=== PATIENT | male | born 1945 | race Caucasian/White ===

== ENCOUNTER 2018-04-10 20:59 | Emergency (ER) | payer OTHER ==
--- NOTE | 2018-04-10 21:36 | RAD REPORT ---
EXAM DESCRIPTION: CT - Ct Stroke Brain Wo Cont - 04/10/2018 9:28 pm CLINICAL HISTORY: Weakness, numbness, stroke-like symptoms CLINICAL HISTORY: May 2016, June 2013 TECHNIQUE: Axial 5 millimeter thick images of the head were obtained without IV contrast. All CT scans are performed using dose optimization technique as appropriate and may include automated exposure control or mA/KV adjustment according to patient size. FINDINGS: No intracranial hemorrhage, mass, or cerebral edema. No acute cortical based infarction. N o cortical edema or sulcal effacement. Mild to moderate atrophy and chronic ischemic changes are pres ent. Ventricles are in proportion to volume loss. Small focal hyperdensity near the anterior third ve ntricle could be part of choroid plexus. Small colloid cyst is possible. No changes occurred back to 2012. No extra-axial fluid collections. Hebert matter-white matter differentiation is preserved. Arterial and physiologic calcifications are present. Visualized portions of the mastoid air cells, paranasal sinuses, and orbits are unremarkable. Findings telephoned to Dr. Borrero at 2132 hours IMPRESSION: No intracranial hemorrhage. No acute cortical based infarction identified. Atrophy and chronic ischemic changes are present similar to comparison. Chronic ischemic changes can mask nonhemorrhagic acute infarction. MR brain followup can be obtained if there is ongoing concern for acute ischemia.
[2018-04-10 21:43] LABS: Absolute Lymphocytes (CBC) 1.4 K/uL (0.7-4.9); Absolute Monocytes 0.9 K/uL (0.1-1.3); Absolute Neutrophil 6.4 K/uL (1.8-8.0); Eosinophils % 5.1 % (0-4.4); Hematocrit 43.6 % (39.6-49.0); Lymphocytes % 15.3 % (15.3-44.8); MCH 32.5 pg (27.0-35.0); MCV 93.2 fL (80-100); MPV 9.3 fL (7.6-11.3); RBC Red Blood Cell Count 4.68 M/uL (4.33-5.43)
[2018-04-10] MEDS ORDERED: ALTEPLASE 100 ML IV ONE (21:44)
[2018-04-10 21:52] LABS: Protime INR 1.05
[2018-04-10 22:00] LABS: Potassium 3.4 mmol/L (3.5-5.1)
--- NOTE | 2018-04-10 22:08 | EDPHYS ---
Physician Documentation [facility] Name: Zen Patterson Age: 73 yrs Sex: Male : 1945 Arrival Date: 04/10/2018 Time: 21:07 Bed 27 Private MD: ED Physician Erick Borrero HPI: 04/10 22:06 This 73 yrs old Male presents to ER via EMS with complaints of S/S of rn Possible Stroke. 22:06 The patient's problem is reported as paresthesias, weakness. The patient's problem is rn reported as paresthesias, in left upper extremity, in left lower extremity, weakness, in the left upper extremity, in the left lower extremity. Onset: The symptoms/episode began/occurred 45 min prior to arrival. Context: the episode(s) was witnessed, by a significant other. Historical: - Allergies: 21:14 No Known Allergies; mb3 - PMHx: 21:14 CHF; CVA; Hyperlipidemia; Hypertension; mb3 - Immunization history:: Adult Immunizations up to date. - Social history:: Smoking status: Patient/guardian denies using tobacco, the patient reports quitting approximately 30 years ago. - Ebola Screening: : Patient denies travel to an Ebola-affected area in the 21 days before illness onset No symptoms or risks identified at this time. ROS: 22:08 Constitutional: Negative for fever, chills, and weight loss, Eyes: Negative for injury, rn pain, redness, and discharge, Neck: Negative for injury, pain, and swelling, Cardiovascular: Negative for chest pain, palpitations, and edema, Respiratory: Negative for shortness of breath, cough, wheezing, and pleuritic chest pain, Abdomen/GI: Negative for abdominal pain, nausea, vomiting, diarrhea, and constipation, MS/Extremity: Negative for injury and deformity, Skin: Negative for injury, rash, and discoloration, Neuro: Negative for headache, and seizure. Exam: 22:08 Constitutional: This is a well developed, well nourished patient who is awake, alert, rn and in no acute distress. Head/Face: Normocephalic, atraumatic. Eyes: Pupils equal round and reactive to light, extra-ocular motions intact. Lids and lashes normal. Conjunctiva and sclera are non-icteric and not injected. Cornea within normal limits. Periorbital areas with no swelling, redness, or edema. Neck: Trachea midline, no thyromegaly or masses palpated, and no cervical lymphadenopathy. Supple, full range of motion without nuchal rigidity, or vertebral point tenderness. No Meningismus. Cardiovascular: Regular rate and rhythm with a normal S1 and S2. No gallops, murmurs, or rubs. Normal PMI, no JVD. No pulse deficits. Respiratory: Lungs have equal breath sounds bilaterally, clear to auscultation and percussion. No rales, rhonchi or wheezes noted. No increased work of breathing, no retractions or nasal flaring. Abdomen/GI: Soft, non-tender, with normal bowel sounds. No distension or tympany. No guarding or rebound. No evidence of tenderness throughout. MS/ Extremity: Pulses equal, no cyanosis. Neurovascular intact. Full, normal range of motion. Equal circumference. Neuro: Awake and alert, GCS 15, oriented to person, place, time, and situation. Cranial nerves II-XII grossly intact. Strength 4/5 LLE, 5/5 elsewhere, + decreased sensation to soft touch LLE, abnormal gait when using left leg, normal cerebellar exam. 22:08 Radiologist reports: An acute findings rn Vital Signs: 21:16 BP 159 / 72; Pulse 78; Resp 22; Pulse Ox 93% on R/A; Weight 88.9 kg; Height 5 ft. 11 mb3 in. (180.34 cm); Pain 0/10; 22:15 BP 172 / 81; Pulse 83; Resp 17; Pulse Ox 93% on R/A; rv 22:30 BP 164 / 82; Pulse 82; Resp 17; Pulse Ox 94% ; rv 22:45 BP 156 / 80; Pulse 82; Resp 17; Pulse Ox 92% on R/A; rv 23:00 BP 172 / 81; Pulse 81; Resp 18; Pulse Ox 97% on R/A; rv 23:15 BP 156 / 82; Pulse 81; Resp 18; Pulse Ox 93% on R/A; rv 04/11 00:08 BP 160 / 85; Pulse 82; Resp 20; Pulse Ox 94% on R/A; mb3 04/10 21:16 Body Mass Index 27.34 (88.90 kg, 180.34 cm) mb3 NIH Stroke Scale Scores: 04/10 21:56 NIHSS Score: 4 mb3 MDM: 21:07 Patient medically screened. rn 21:19 ED course: NIH stroke scale of 2, LLE weakness and numbness, onset approx 45 min ago, rn discussed TPA possibility with patient and . Did not take plavix today. . 21:39 ED course: Pt returned from CT still left sided weakness and numbness, decision made to rn TPA, and patient aware of risks, had discussed last time he had a stroke that if the situation arose, would get the medication, did not take his plavix today, not at baseline, still NIH 2, consented for TPA, and TPA ordered. . 22:08 Differential diagnosis: CVA. Data reviewed: vital signs, nurses notes, lab test rn result(s), EKG, radiologic studies, CT scan, and as a result, I will admit patient. Counseling: I had a detailed discussion with the patient and/or guardian regarding: the historical points, exam findings, and any diagnostic results supporting the discharge/admit diagnosis, lab results, radiology results, the need to transfer to another facility, for higher level of care, [facility] does not immediately have the required specialist. ED course: Accepted for transfer, drip and ship, to [facility] neurology service. . 22:42 ED course: Pt improved, able to lift leg significantly higher. . rn 04/10 21:19 Order name: Troponin (emerg Dept Use Only); Complete Time: 22:05 rn 04/10 21:19 Order name: Basic Metabolic Panel; Complete Time: 22:03 rn 04/10 21:19 Order name: CBC with Diff; Complete Time: 22: rn 04/10 21:19 Order name: Protime (+inr); Complete Time: 22:03 rn 04/10 21:19 Order name: Ptt, Activated; Complete Time: 22:03 rn 04/10 21:19 Order name: CT Stroke Brain w/o Contrast; Complete Time: 22:03 rn 04/10 21:19 Order name: Stroke CXR 1 View rn 04/10 21:19 Order name: EKG; Complete Time: 21:20 rn 04/10 21:19 Order name: Accucheck; Complete Time: 22:29 rn 04/10 21:19 Order name: Cardiac monitoring; Complete Time: 22:29 rn 04/10 21:19 Order name: EKG - Nurse/Tech; Complete Time: 22:29 rn 04/10 21:19 Order name: IV Saline Lock; Complete Time: 22:30 rn 04/10 21:19 Order name: Labs collected and sent; Complete Time: 22:30 rn 04/10 21:19 Order name: NPO; Complete Time: 22:30 rn 04/10 21:19 Order name: O2 Per Protocol; Complete Time: 22:30 rn 04/10 21:19 Order name: O2 Sat Monitoring; Complete Time: 22:30 rn 04/10 21:19 Order name: Stroke Swallow Screen; Complete Time: 22:30 rn 04/10 21:19 Order name: Urine Dipstick-Ancillary (obtain specimen) rn Administered Medications: 21:50 Drug: Alteplase 1 per protocol {Co-Signature: rv (Romulo Alvarado RN).} Route: IV; mb3 Rate: calculated rate; Site: right antecubital; Point of Care Testing: Blood Glucose: 21:38 Blood Glucose: 139 mg/dL; mb3 22:09 Blood Glucose: 135 mg/dL; mb3 Ranges: Critical Glucose Levels:Adult <50 mg/dl or >400 mg/dl <40 mg/dl or >180 mg/dl Disposition: 04/10/18 22:08 Transfer ordered to [facility]. Diagnosis are Paresthesia of skin, Weakness, Ischemic CVA. - Reason for transfer: Higher level of care. - Accepting physician is Dr. Barreto. - Condition is Stable. - Problem is new. - Symptoms have improved. Critical care time excluding procedures: 22:07 Critical care time: Bedside Care: 20 minutes, Consultation: 5 minutes, Family rn Intervention: 5 minutes. Total time: 30 minutes NIH Stroke Scale - NIH Stroke Score Date: 04/10/2018 Time: 21:56 Total Score = 4 1a. Level of Consciousness (LOC) - 0(Alert) 1b. Level of Consciousness (LOC) (Year \T\ Age) - 0(Both) 1c. LOC Commands (Open \T\ Closes Eyes/Channeling Machine Runner) - 0(Both) 2. Best Gaze (Lateral Gaze Paresis) - 0(Normal) 3. Visual Field Loss - 0(No visual loss) 4. Facial Palsy - 0(Normal) 5a. Left Arm: Motor (10-second hold) - 0(No drift) 5b. Right Arm: Motor (10-second hold) - 0(No drift) 6a. Left Leg: Motor (5-second hold - always test supine) - 2(Drift, some effort against gravity) 6b. Right Leg: Motor (5-second hold - always test supine) - 1(Drift) 7. Limb Ataxia (finger/nose \T\ heel/duke - test with eyes open) - 0(Absent) 8. Sensory Loss (pinprick arms/legs/face) - 1(Mild to moderate loss) 9. Best Language: Aphasia (description/naming/reading) - 0(No aphasia) 10. Dysarthria (speech clarity - read or repeat words) - 0(Normal) 11. Extinction and Inattention (visual/tactile/auditory/spatial/personal) - 0(No abnormality) Initials: mb3 Signatures: Dispatcher [employer] EDMS Erick Borrero MD MD rn Barnett, Mark, RN RN mb3 Romulo Alvarado RN rv Corrections: (The following items were deleted from the chart) 04/11 00:38 04/10 22:08 04/10/2018 22:08 Transfer ordered to [facility]. Diagnosis is Paresthesia of skin; Weakness; Ischemic CVA. Reason for transfer: Higher level of care. Accepting physician is Dr. Barreto. Condition is Stable. Problem is new. Symptoms have improved. rn
--- NOTE | 2018-04-10 22:08 | ER ---
Nurse's Notes [facility] Name: Zen Patterson Age: 73 yrs Sex: Male : 1945 Arrival Date: 04/10/2018 Time: 21:07 Bed 27 Private MD: Diagnosis: Paresthesia of skin;Weakness;Ischemic CVA Presentation: 04/10 21:10 Presenting complaint: EMS states: Pt had sudden left sided weakness, and could not mb3 speak. EMS called and by the time they arrived, symptoms had resolved. Transition of care: patient was not received from another setting of care. No acute neurological deficit is noted. The patients blood glucose was checked before arriving to the hospital and was found to be normal. Onset of symptoms was April 10, 2018 at 20:10. Risk Assessment: Do you want to hurt yourself or someone else? Patient reports no desire to harm self or others. Initial Sepsis Screen: Does the patient meet any 2 criteria? No. Patient's initial sepsis screen is negative. Does the patient have a suspected source of infection? No. Patient's initial sepsis screen is negative. Care prior to arrival: IV initiated. 20 GA, in the right antecubital area, Glucose check: 164. 21:10 Method Of Arrival: EMS: [facility] mb3 21:10 Acuity: YASSINE 3 mb3 Triage Assessment: 22:26 The onset of the patients symptoms was April 10, 2018 at 20:30. General: Appears in no mb3 apparent distress. comfortable. 22:27 General: Behavior is calm, cooperative, appropriate for age. Neuro: Reports numbness in mb3 left arm and left leg. Stroke Activation: Symptom onset < 3 hours Physician: Stroke Attending; Name: ; Notified At: ; Arrived At: Physician: Chief Stroke Resident; Name: ; Notified At: ; Arrived At: Physician: Stroke Resident; Name: ; Notified At: ; Arrived At: Physician: ED Attending; Name: Gissell; Notified At: 21:10; Arrived At: 21:10 Physician: ED Resident; Name: ; Notified At: ; Arrived At: Historical: - Allergies: 21:14 No Known Allergies; mb3 - PMHx: 21:14 CHF; CVA; Hyperlipidemia; Hypertension; mb3 - Immunization history:: Adult Immunizations up to date. - Social history:: Smoking status: Patient/guardian denies using tobacco, the patient reports quitting approximately 30 years ago. - Ebola Screening: : Patient denies travel to an Ebola-affected area in the 21 days before illness onset No symptoms or risks identified at this time. Screenin:17 Abuse screen: Denies threats or abuse. Nutritional screening: No deficits noted. mb3 Tuberculosis screening: No symptoms or risk factors identified. Fall Risk None identified. Assessment: 21:44 T-PA (Activase) Screening: Indications: Definite evidence of stroke, ischemic, embolic, mb3 or hypertensive: Yes. Treatment will start within 4.5 hours onset of symptoms: Yes. No evidence of intracranial hemorrhage or CT of head and no evidence of peripheral hemorrhage or recent CVA: Yes. Consent for thrombolytic therapy: Yes. 21:56 Patient has been NPO before screening. The patient is alert, and able to follow mb3 commands. The patient does not exhibit slurred or garbled speech. The patient is not exhibiting difficulty speaking. The patient does not exhibit difficulty understanding words. The patient is able to swallow own secretions with no drooling or need for suction. Patient tolerated one teaspoon of water. No drooling, immediate coughing, gurgling, or clearing of the throat was noted. The patient tolerated 90mL of water. No drooling, immediate coughing, gurgling, or clearing of the throat was noted. The patient passed the bedside swallow screening. Oral medications may be given as ordered. Contact Physician for further diet orders. Provider notified of bedside swallow screening results: Eirck Borrero MD. General: Appears distressed, comfortable, Behavior is calm, cooperative, appropriate for age. Pain: Denies pain. Neuro: Level of Consciousness is awake, alert, obeys commands, Oriented to person, place, time, situation, Appropriate for age Catcher Plug are equal bilaterally Moves all extremities. Full function Gait is unsteady, Speech is normal, Facial symmetry appears normal, Pupils are PERRLA, Numbness in left ear, left cheek, left jain, left jaw, left arm and left leg. Cardiovascular: Heart tones present Capillary refill < 3 seconds Patient's skin is warm and dry. Pulses are all present. Rhythm is sinus rhythm with unifocal PVCs. Respiratory: Airway is patent Respiratory effort is even, unlabored, Respiratory pattern is regular, symmetrical, Breath sounds are clear bilaterally. GI: Abdomen is round Bowel sounds present X 4 quads. Abd is soft and non tender. : No signs and/or symptoms were reported regarding the genitourinary system. EENT: No deficits noted. No signs and/or symptoms were reported regarding the EENT system. Derm: No deficits noted. No signs and/or symptoms reported regarding the dermatologic system. Musculoskeletal: No deficits noted. No signs and/or symptoms reported regarding the musculoskeletal system. 23:29 Reassessment: Patient and/or family updated on plan of care and expected duration. Pain mb3 level reassessed. Patient is alert, oriented x 3, equal unlabored respirations, skin warm/dry/pink. Report called Isabel Carcamo RN, SAMANTHA used and all questions answered. 04/11 00:07 Reassessment: Patient and/or family updated on plan of care and expected duration. Pain mb3 level reassessed. Patient is alert, oriented x 3, equal unlabored respirations, skin warm/dry/pink. Vital Signs: 04/10 21:16 BP 159 / 72; Pulse 78; Resp 22; Pulse Ox 93% on R/A; Weight 88.9 kg; Height 5 ft. 11 mb3 in. (180.34 cm); Pain 0/10; 22:15 BP 172 / 81; Pulse 83; Resp 17; Pulse Ox 93% on R/A; rv 22:30 BP 164 / 82; Pulse 82; Resp 17; Pulse Ox 94% ; rv 22:45 BP 156 / 80; Pulse 82; Resp 17; Pulse Ox 92% on R/A; rv 23:00 BP 172 / 81; Pulse 81; Resp 18; Pulse Ox 97% on R/A; rv 23:15 BP 156 / 82; Pulse 81; Resp 18; Pulse Ox 93% on R/A; rv 04/11 00:08 BP 160 / 85; Pulse 82; Resp 20; Pulse Ox 94% on R/A; mb3 04/10 21:16 Body Mass Index 27.34 (88.90 kg, 180.34 cm) mb3 NIH Stroke Scale Scores: 04/10 21:56 NIHSS Score: 4 mb3 ED Course: 21:07 Patient arrived in ED. mb3 21:07 Erick Borrero MD is Attending Physician. rn 21:08 Uriel Back RN is Primary Nurse. mb3 21:12 Triage completed. mb3 21:15 Patient has correct armband on for positive identification. Placed in gown. Bed in low mb3 position. Call light in reach. Side rails up X 1. monitoring and evaluation advisor on. Pulse ox on. NIBP on. 21:28 CT Stroke Brain w/o Contrast In Process Unspecified. EDMS 22:24 Arm band placed on right wrist. EKG completed in triage. Results shown to MD. mb3 22:29 Stroke CXR 1 View Sent. mb3 23:06 Stroke CXR 1 View In Process Unspecified. EDMS 04/11 00:12 No provider procedures requiring assistance completed. Patient transferred, IV remains mb3 in place. Administered Medications: 04/10 21:50 Drug: Alteplase 1 per protocol {Co-Signature: rv (Romulo Alvarado RN).} Route: IV; mb3 Rate: calculated rate; Site: right antecubital; Point of Care Testing: Blood Glucose: 21:38 Blood Glucose: 139 mg/dL; mb3 22:09 Blood Glucose: 135 mg/dL; mb3 Ranges: Outcome: 22:08 ER care complete, transfer ordered by . rn 04/11 00:38 Patient left the ED. mb3 NIH Stroke Scale - NIH Stroke Score Date: 04/10/2018 Time: 21:56 Total Score = 4 1a. Level of Consciousness (LOC) - 0(Alert) 1b. Level of Consciousness (LOC) (Year \T\ Age) - 0(Both) 1c. LOC Commands (Open \T\ Closes Eyes/Apparel Embroidery Digitizer) - 0(Both) 2. Best Gaze (Lateral Gaze Paresis) - 0(Normal) 3. Visual Field Loss - 0(No visual loss) 4. Facial Palsy - 0(Normal) 5a. Left Arm: Motor (10-second hold) - 0(No drift) 5b. Right Arm: Motor (10-second hold) - 0(No drift) 6a. Left Leg: Motor (5-second hold - always test supine) - 2(Drift, some effort against gravity) 6b. Right Leg: Motor (5-second hold - always test supine) - 1(Drift) 7. Limb Ataxia (finger/nose \T\ heel/duke - test with eyes open) - 0(Absent) 8. Sensory Loss (pinprick arms/legs/face) - 1(Mild to moderate loss) 9. Best Language: Aphasia (description/naming/reading) - 0(No aphasia) 10. Dysarthria (speech clarity - read or repeat words) - 0(Normal) 11. Extinction and Inattention (visual/tactile/auditory/spatial/personal) - 0(No abnormality) Initials: mb3 Signatures: Dispatcher [employer] EDErick De La Paz MD MD rn Barnett, Mark, RN RN mb3 Romulo Alvarado RN RN rv Romulo Alvarado RN rv
[2018-04-11 00:59] VITALS: BP 160/85; O2SAT 94
--- NOTE | 2018-04-11 09:29 | EKG ---
Test Date: 2018-04-10 Test Time: 22:02:30 Respiratory Care Assistant: MEASUREMENT RESULTS: Intervals: Rate: 59 MI: 166 QRSD: 88 QT: 392 QTc: 388 [place]: P: 21 MI: 166 QRS: 70 T: -11 INTERPRETIVE STATEMENTS: Sinus bradycardia Cannot rule out Inferior infarct, age undetermined Abnormal ECG Compared to ECG 04/10/2018 21:56:50 Myocardial infarct finding now present Sinus rhythm no longer present Ventricular premature complex(es) no longer present Intraventricular conduction delay no longer present ST (T wave) deviation no longer present Possible ischemia no longer present Electronically Signed On 04-11-18 09:27:23 CDT by Kamar Fontenot
--- NOTE | 2018-04-11 09:29 | EKG ---
Test Date: 2018-04-10 Test Time: 21:56:50 Steak Tenderizer Machine: MEASUREMENT RESULTS: Intervals: Rate: 88 MT: 188 QRSD: 122 QT: 452 QTc: 546 [place]: P: 21 MT: 188 QRS: -16 T: 104 INTERPRETIVE STATEMENTS: Sinus rhythm with frequent and consecutive premature ventricular complexes Nonspecific intraventricular conduction delay ST & T wave abnormality, consider lateral ischemia Abnormal ECG Compared to ECG 06/09/2016 13:10:03 Intraventricular conduction delay now present ST (T wave) deviation now present Possible ischemia now present Ventricular-paced complex(es) or rhythm no longer present Atrial-sensed ventricular-paced complex(es) or rhythm no longer present Fusion complex(es) no longer present Electronically Signed On 04-11-18 09:27:26 CDT by Kamar Fontenot
--- NOTE | 2018-04-11 09:40 | RAD REPORT ---
EXAM DESCRIPTION: [place] Single View04/10/2018 11:07 pm CLINICAL HISTORY: Chest pain COMPARISON: July 2017 FINDINGS: The lungs appear clear of acute infiltrate. The heart is normal size IMPRESSION: No acute abnormalities displayed
== END 2018-04-11 00:38 | disposition short-term general hospital (02) ==
LOC: ER 20:59
DX: I63.9 Cerebral infarction, unspecified (principal); R53.1 Weakness; I10 Essential (primary) hypertension; R29.704 NIHSS score 4; Z79.01 Long term (current) use of anticoagulants
CPT/HCPCS: 36415; 70450; 71045; 80048; 82962; 84484; 85025; 85610; 85730; 92977; 93005 ×2; 96374; 99285; J2997

== ENCOUNTER 2019-08-26 18:51 | Inpatient (IN) | payer OTHER ==
--- OUTSIDE RECORDS SUMMARY | 2019-08-26 18:54 | XMS REPORT ---
:1945 [facility] [address] [place] [address] Care Team Providers Name Role Phone STEPHANIE JIN Unavailable Unavailable Payers Payer Name Policy Type Policy Number Effective Date Expiration Date Problems This patient has no known problems. Allergies, Adverse Reactions, Alerts Allergy Allergy Status Severity Reaction(s) Onset Inactive Treating Comments Name Type Date Date Clinician No Known DA Active U 2018-11 Allergies -11 00:00:0 0 No Known DA Active U 2016-01 Allergies -17 00:00:0 0 Medications This patient has no known medications. Encounters Start End Encounter Admission Attending Care Care Encounter Date/Time Date/Time Type Type Clinicians Facility Department ID 2019-01-31 Outpatient [facility] 7506 16:41:41 Results Test Description Test Time Test Comments Text Results Atomic Results Result Comments - XR FLUORO NDL 2018-12-13 12:09:00 Patient Name: ELISEO MONZON Unit No: [id number] EXAMS: CPT CODE: [id number] XR FLUORO NDL 92816 FLUOROSCOPICALLY GUIDED right hip INTRA-ARTICULAR STEROID AND MARCAINE INJECTION COMMENT: After informed consent was obtained a 25-gauge needle is inserted into the right hip joint under fluoroscopic control using sterile technique. 3 mL of Isovue-300 is instilled into the joint. This is followed by injection of 2 mL of Kenalog 40 mg/mL and 4mL of Marcaine. The patient tolerated the procedure well. 0.5 minutes of fluoroscopy time was used on this exam. at 1209 Reported and signed by: Latrice Garnett MD CC: Fabricio Hernandez MD Technologist: Chelita Payan RT.(R) Transcribed D/ (6849) tASHISHG [facility] NAME: ELISEO MONZON [address] [address] PHYS: YESICAMMUFabricio Tobin : 1945 AGE: 73 SEX: M [place], [place] [address] LOC: Y.RAD PHONE #: [phone] EXAM DATE: 12/06/2018 STATUS: DEP CLI FAX #: [phone] RAD #: D/C DT PAGE 1 Signed Report Patient Name: ELISEO MONZON Unit No: [id number] EXAMS: CPT CODE: [id number] XR FLUORO NDL 17027 <Continued> Orig Print D/T: S: 12/13/2018 (1212) [facility] NAME: ELISEO MONZON [address] [facility] [address] [facility] [address] PHYS: GOJEANNEUFabricio Tobin : 1945 AGE: 73 SEX: M [place], [place] [address] LOC: Y.RAD PHONE #: [phone] EXAM DATE: 12/06/2018 STATUS: DEP CLI FAX #: [phone] RAD #: D/C DT PAGE 2 Signed Report URINE CULTURE 2018-04-18 10:24:00 Test Item Value Reference Range Comments CULTURE (BEAKER) (test KLEBSIELLA >100,000 col/mL vuid=4478) PNEUMONIAE Klebsiella pneumoniae Amikacin (test code=1) Ampicillin + Sulbactam (test code=6) Aztreonam (test code=32) Cefepime (test code=51) Cefoxitin (test code=68) Ceftazidime (test code=27) Ceftriaxone (test code=52) Ertapenem (test code=38) Gentamicin (test code=18) Levofloxacin (test code=22) Meropenem (test code=34) Nitrofurantoin (test code=23) Piperacillin + Tazobactam (test code=29) Tetracycline (test code=2) Tobramycin (test code=25) Trimethoprim + Sulfamethoxazole (test code=47) CULTURE (BEAKER) (test PSEUDOMONAS >100,000 col/mL sdwe=4843) AERUGINOSA Pseudomonas aeruginosa Amikacin (test code=1) Susceptible 0-16 , Resistant <0 or >16 Aztreonam (test code=32) Susceptible 0-8 , Resistant <0 or >8 Cefepime (test code=51) Susceptible 0-8 , Resistant <0 or >8 Ceftazidime (test Susceptible 0-8 , code=27) Resistant <0 or >8 Ciprofloxacin (test Susceptible 0-1 , code=7) Resistant <0 or >1 Doripenem (test hqom=376) Susceptible 0-2 , Resistant <0 or >2 Gentamicin (test code=18) Susceptible 0-4 , Resistant <0 or >4 Imipenem (test code=19) Susceptible 0-2 , Resistant <0 or >2 Levofloxacin (test Susceptible 0-2 , code=22) Resistant <0 or >2 Meropenem (test code=34) Susceptible 0-2 , Resistant <0 or >2 Piperacillin (test Susceptible 0-16 , code=24) Resistant <0 or >16 Piperacillin + Tazobactam Susceptible 0-16 , (test code=29) Resistant <0 or >16 Tobramycin (test code=25) Susceptible 0-4 , Resistant <0 or >4 POCT-GLUCOSE [id number] 11:38:00 Test Item Value Reference Range Comments POC-GLUCOSE METER (BEAKER) 112 mg/dL 70-110 TESTED AT [address] (test buxs=4221) [place] [id number] POCT-GLUCOSE [id number] 08:05:00 Test Item Value Reference Range Comments POC-GLUCOSE METER (BEAKER) 107 mg/dL 70-110 TESTED AT [address] (test xezw=9006) [place] [id number] POCT-GLUCOSE [id number] 17:50:00 Test Item Value Reference Range Comments POC-GLUCOSE METER (BEAKER) 111 mg/dL 70-110 TESTED AT [address] (test msfp=2657) [place] [id number] HEMOGLOBIN [id number] 14:07:00 Test Item Value Reference Range Comments HEMOGLOBIN A1C (BEAKER) (test rjwr=953) 5.7 % 4.3-6.1 POCT-GLUCOSE [id number] 12:54:00 Test Item Value Reference Range Comments POC-GLUCOSE METER (BEAKER) 152 mg/dL 70-110 TESTED AT [facility] [address] [facility] (test wcwm=4938) [facility] [address] URINALYSIS WITHOUT [id number] 11:24:00 Test Item Value Reference Range Comments COLOR (BEAKER) (test meuo=461) Yellow CLARITY (BEAKER) (test erga=463) Clear SPECIFIC GRAVITY UA (BEAKER) (test csjk=485) 1.017 1.001-1.035 PH UA (BEAKER) (test syvu=367) 5.5 5.0-8.0 PROTEIN UA (BEAKER) (test fbfj=562) 50 mg/dL Negative GLUCOSE UA (BEAKER) (test eucj=357) Negative Negative KETONES UA (BEAKER) (test xcjo=624) Negative Negative BILIRUBIN UA (BEAKER) (test gblq=780) Negative Negative BLOOD UA (BEAKER) (test ngnx=214) Negative Negative NITRITE UA (BEAKER) (test qcwe=083) Positive Negative LEUKOCYTE ESTERASE UA (BEAKER) (test mgmd=285) Moderate Negative UROBILINOGEN UA (BEAKER) (test xevr=441) 0.2 mg/dL 0.2-1.0 SOURCE(BEAKER) (test ummg=4681) CBC W/PLT COUNT & AUTO [id number] 08:57:00 Test Item Value Reference Range Comments WHITE BLOOD CELL COUNT (BEAKER) (test bzwo=165) 12.4 K/ L 3.5-10.5 RED BLOOD CELL COUNT (BEAKER) (test vsob=830) 4.57 M/ L 4.63-6.08 HEMOGLOBIN (BEAKER) (test alzh=399) 14.7 GM/DL 13.7-17.5 HEMATOCRIT (BEAKER) (test qbta=652) 42.6 % 40.1-51.0 MEAN CORPUSCULAR VOLUME (BEAKER) (test ednt=642) 93.2 fL 79.0-92.2 MEAN CORPUSCULAR HEMOGLOBIN (BEAKER) (test 32.2 pg 25.7-32.2 tunv=706) MEAN CORPUSCULAR HEMOGLOBIN CONC (BEAKER) (test 34.5 GM/DL 32.3-36.5 ynki=592) RED CELL DISTRIBUTION WIDTH (BEAKER) (test 14.0 % 11.6-14.4 ipyx=148) PLATELET COUNT (BEAKER) (test vqkc=811) 203 K/CU MM 150-450 MEAN PLATELET VOLUME (BEAKER) (test ztbp=726) 10.7 fL 9.4-12.4 NUCLEATED RED BLOOD CELLS (BEAKER) (test 0 /100 WBC 0-0 dqgk=149) (CELLAVISION MANUAL DIFF)2018-04-13 08:57:00 Test Item Value Reference Range Comments NEUTROPHILS - REL (CELLAVISION)(BEAKER) (test 74 % ufgb=6542) LYMPHOCYTES - REL (CELLAVISION)(BEAKER) (test 11 % ohmu=2628) MONOCYTES - REL (CELLAVISION)(BEAKER) (test 8 % lqao=8820) EOSINOPHILS - REL (CELLAVISION)(BEAKER) (test 5 % qgyk=7701) BASOPHILS - REL (CELLAVISION)(BEAKER) (test 1 % dnvn=3977) ATYPICAL LYMPHOCYTES - REL (CELLAVISION)(BEAKER) 1 % 0-0 (test lbgp=9365) NEUTROPHILS - ABS (CELLAVISION)(BEAKER) (test 9.18 K/ul 1.78-5.38 bczn=7618) LYMPHOCYTES - ABS (CELLAVISION)(BEAKER) (test 1.36 K/ul 1.32-3.57 mfkb=7469) MONOCYTES - ABS (CELLAVISION)(BEAKER) (test 0.99 K/uL 0.30-0.82 czrg=2449) EOSINOPHILS - ABS (CELLAVISION)(BEAKER) (test 0.62 K/uL 0.04-0.54 llbb=7055) BASOPHILS - ABS (CELLAVISION)(BEAKER) (test 0.12 K/uL 0.01-0.08 kuyi=0748) ATYPICAL LYMPHOCYTES - ABS (CELLAVISION)(BEAKER) 0.12 K/uL 0.00-0.00 (test gtbe=2831) TOTAL COUNTED (BEAKER) (test ppzn=5469) 100 RBC MORPHOLOGY (BEAKER) (test uvok=089) Normal WBC MORPHOLOGY (BEAKER) (test bovc=207) Normal PLT MORPHOLOGY (BEAKER) (test bojk=589) Normal ARTIFACT (CELLAVISION)(BEAKER) (test klej=6078) Present PLATELET CONCENTRATION (CELLAVISION)(BEAKER) (test Adequate rinr=2220) Received comment: User comments: Slide comments:RAD, CHEST, 1 VIEW, NON [id number] 08:30:00Reason for exam:->Leukocytosis with coughShould this be performed at the bedside?->YesFINAL REPORT TECHNIQUE : Frontal chest radiograph dated 04/13/2018. CLINICAL HISTORY: Leukocytosis COMPARISON STUDY: None IMPRESSION:There is bibasilar atelectasis. No focal consolidation. No pleural effusion or pneumothorax. Cardiomediastinal silhouette is normal in size. No pulmonary edema. Bones are osteopenic. No fracture. Degenerative changes are seen in the spine. Signed:Justyn Lawrenceeport Verified Date/Time: 04/13/2018 08:30:17 Reading Location: [facility] Radiology Reading Room POCT-GLUCOSE [id number] 08:08:00 Test Item Value Reference Range Comments POC-GLUCOSE METER (BEAKER) 141 mg/dL 70-110 TESTED AT [facility] [address] [facility] (test zkeq=9581) [facility] [address] [id number] 04:13:00 Test Item Value Reference Range Comments PHOSPHORUS (BEAKER) (test ydto=676) 3.7 mg/dL 2.3-4.7 [id number] 04:13:00 Test Item Value Reference Range Comments MAGNESIUM (BEAKER) (test lcxl=356) 2.2 mg/dL 1.6-2.6 BASIC METABOLIC [id number] 04:13:00 Test Item Value Reference Range Comments SODIUM (BEAKER) (test 139 meq/L 136-145 dqvz=162) POTASSIUM (BEAKER) (test 3.4 meq/L 3.5-5.1 nosi=591) CHLORIDE (BEAKER) (test 104 meq/L 98-107 ohbo=681) CO2 (BEAKER) (test 24 meq/L 22-29 meux=486) BLOOD UREA NITROGEN 27 mg/dL 7-21 (BEAKER) (test olyh=544) CREATININE (BEAKER) (test 1.13 mg/dL 0.57-1.25 iqrl=784) GLUCOSE RANDOM (BEAKER) 136 mg/dL 70-105 (test nhfr=972) CALCIUM (BEAKER) (test 9.5 mg/dL 8.4-10.2 htnu=491) EGFR (BEAKER) (test 63 mL/min/1.73 sq m ESTIMATED GFR IS NOT hdms=4031) ACCURATE CREATININE CLEARANCE IN PREDICTING GLOMERULAR FILTRATION RATE. ESTIMATED GFR IS NOT APPLICABLE FOR DIALYSIS PATIENTS. POCT-GLUCOSE [id number] 21:52:00 Test Item Value Reference Range Comments POC-GLUCOSE METER (BEAKER) 163 mg/dL 70-110 TESTED AT [address] (test uhdm=7663) [place] [address] POCT-GLUCOSE [id number] 18:19:00 Test Item Value Reference Range Comments POC-GLUCOSE METER (BEAKER) 136 mg/dL 70-110 TESTED AT [address] (test nxzi=7572) [place] [address] TROPONIN [id number] 15:40:00 Test Item Value Reference Range Comments TROPONIN I (BEAKER) (test dfqv=518) 0.04 ng/mL 0.00-0.03 Troponin I (TnI) levels must be interpreted in the context of the presenting symptoms and the clinical findings. Elevated TnI levels indicate myocardial damage, but are not specific for ischemic heart disease. Elevated TnI levels are seen in patients with other cardiac conditions (including myocarditis and congestive heart failure), and slight TnI elevations occur in patients with other conditions, including sepsis, renal failure, acidosis, acute neurological disease, and persistent tachyarrhythmia.POCT-GLUCOSE [id number] 13:00:00 Test Item Value Reference Range Comments POC-GLUCOSE METER (BEAKER) 151 mg/dL 70-110 TESTED AT [address] (test nnpa=5140) [place] [address] TROPONIN [id number] 12:05:00 Test Item Value Reference Range Comments TROPONIN I (BEAKER) (test iljr=005) 0.05 ng/mL 0.00-0.03 Troponin I (TnI) levels must be interpreted in the context of the presenting symptoms and the clinical findings. Elevated TnI levels indicate myocardial damage, but are not specific for ischemic heart disease. Elevated TnI levels are seen in patients with other cardiac conditions (including myocarditis and congestive heart failure), and slight TnI elevations occur in patients with other conditions, including sepsis, renal failure, acidosis, acute neurological disease, and persistent tachyarrhythmia.[id number] 09:00:00 Test Item Value Reference Range Comments POTASSIUM (BEAKER) (test srxa=299) 3.8 meq/L 3.5-5.1 Check Serum Potassium level 2 hours after oral potassium replacement completed or 30 min after intravenous potassium replacement.POCT-GLUCOSE [id number] 08:32:00 Test Item Value Reference Range Comments POC-GLUCOSE METER (BEAKER) 126 mg/dL 70-110 TESTED AT [facility] [address] [facility] (test bqov=2651) [facility] [address] [id number] 04:24:00 Test Item Value Reference Range Comments PHOSPHORUS (BEAKER) (test uahb=548) 3.6 mg/dL 2.3-4.7 [id number] 04:24:00 Test Item Value Reference Range Comments MAGNESIUM (BEAKER) (test xlja=415) 2.2 mg/dL 1.6-2.6 BASIC METABOLIC [id number] 04:24:00 Test Item Value Reference Range Comments SODIUM (BEAKER) (test 140 meq/L 136-145 yiss=154) POTASSIUM (BEAKER) (test 3.1 meq/L 3.5-5.1 rcdm=926) CHLORIDE (BEAKER) (test 103 meq/L 98-107 powp=143) CO2 (BEAKER) (test 26 meq/L 22-29 rovh=780) BLOOD UREA NITROGEN 15 mg/dL 7-21 (BEAKER) (test txri=959) CREATININE (BEAKER) (test 0.98 mg/dL 0.57-1.25 lfwx=092) GLUCOSE RANDOM (BEAKER) 111 mg/dL 70-105 (test xedl=722) CALCIUM (BEAKER) (test 9.8 mg/dL 8.4-10.2 ienj=052) EGFR (BEAKER) (test 75 mL/min/1.73 sq m ESTIMATED GFR IS NOT rdhp=7965) ACCURATE CREATININE CLEARANCE IN PREDICTING GLOMERULAR FILTRATION RATE. ESTIMATED GFR IS NOT APPLICABLE FOR DIALYSIS PATIENTS. CBC W/PLT COUNT & AUTO [id number] 04:10:00 Test Item Value Reference Range Comments WHITE BLOOD CELL COUNT (BEAKER) (test fdqc=197) 10.5 K/ L 3.5-10.5 RED BLOOD CELL COUNT (BEAKER) (test awgi=085) 5.07 M/ L 4.63-6.08 HEMOGLOBIN (BEAKER) (test egup=663) 15.7 GM/DL 13.7-17.5 HEMATOCRIT (BEAKER) (test qcnr=917) 47.3 % 40.1-51.0 MEAN CORPUSCULAR VOLUME (BEAKER) (test okik=934) 93.3 fL 79.0-92.2 MEAN CORPUSCULAR HEMOGLOBIN (BEAKER) (test 31.0 pg 25.7-32.2 vzxg=273) MEAN CORPUSCULAR HEMOGLOBIN CONC (BEAKER) (test 33.2 GM/DL 32.3-36.5 bzfk=075) RED CELL DISTRIBUTION WIDTH (BEAKER) (test 13.9 % 11.6-14.4 rqba=330) PLATELET COUNT (BEAKER) (test wcev=757) 216 K/CU MM 150-450 MEAN PLATELET VOLUME (BEAKER) (test gcjn=365) 10.7 fL 9.4-12.4 NUCLEATED RED BLOOD CELLS (BEAKER) (test 0 /100 WBC 0-0 jged=772) NEUTROPHILS RELATIVE PERCENT (BEAKER) (test 71 % bzgd=788) LYMPHOCYTES RELATIVE PERCENT (BEAKER) (test 14 % zbbd=832) MONOCYTES RELATIVE PERCENT (BEAKER) (test 10 % jsmh=908) EOSINOPHILS RELATIVE PERCENT (BEAKER) (test 4 % exoc=578) BASOPHILS RELATIVE PERCENT (BEAKER) (test 1 % glyu=856) NEUTROPHILS ABSOLUTE COUNT (BEAKER) (test 7.50 K/ L 1.78-5.38 zhcm=723) LYMPHOCYTES ABSOLUTE COUNT (BEAKER) (test 1.44 K/ L 1.32-3.57 rltz=486) MONOCYTES ABSOLUTE COUNT (BEAKER) (test 1.05 K/ L 0.30-0.82 uexh=651) EOSINOPHILS ABSOLUTE COUNT (BEAKER) (test 0.43 K/ L 0.04-0.54 euso=514) BASOPHILS ABSOLUTE COUNT (BEAKER) (test 0.09 K/ L 0.01-0.08 ksrl=961) IMMATURE GRANULOCYTES-RELATIVE PERCENT (BEAKER) 0 % 0-1 (test uhdv=4260) MR, BRAIN, WITHOUT [id number] 21:28:00Reason for exam:->StrokeWhat is the patient's sedation requirement?->No SedationFINAL REPORT MR, BRAIN, WITHOUT CONTRAST, MR, MRA, BRAIN, WITHOUT CONTRAST, MR, MRA, NECK, WITHOUT IV CONTRAST INDICATION: Strokestroke TECHNIQUE: Multiplanar, multisequence MR images of the brain. 3-D time of flight MRA of the cranial and cervical circulation. 2-D time of flight MRA of the neck. 3D MIP angiographic post-processing was performed. Stenosis evaluation utilized NASCET criteria. COMPARISON: None FINDINGS: MRI BRAIN: Cerebral parenchyma: Small foci of diffusion restriction are nonhemorrhagic and include watershed right sided frontal and parietal lobe locations. Probable volume loss is moderate. Periventricular white matter disease is chronic appearing.Midline structures: Normally positioned.Cerebellum and brainstem: Normal.Ventricles: Normal volume.Extra-axialspaces: Unremarkable. Calvarium and skull base: Normal signal.Paranasal sinuses and mastoid air cells: Visible chambers are clear.Orbital contents: No acute abnormality. Additional findings: None. MRA BRAIN:Internal carotid arteries: Patent. Middle cerebral arteries: Patent to distal branches.Anteriorcerebral arteries: Intact.Basilar system: Basilar system is supplied by the dominant right artery. Left vertebral artery is not demonstrated within the cranial compartment.Posterior cerebral arteries:Patent beyond the quadrigeminal segments.Additional findings: None. MRA NECK:Common carotid arteries: Unremarkable. Bifurcations: Mild narrowing bilaterally (less than 30% bilaterally by NASCET criteria.Cervical internal carotid arteries: No flow limiting stenosis.Vertebral arteries: Right dominance. 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 No flow limiting stenosis in the major branch vessels of the cervical or cranial circulation. Less than 30% stenosisin the bifurcations bilaterally by NASCET criteria. Findings communicated to the neurology house staff at the time of dictation. Signed: KlJR foreman Robert MDReport Verified Date/Time: 2017 21:28:36 Reading Location: [address] Reading Room MR, MRA, NECK, WITHOUT IV [id number] 21:28:00FINAL REPORT MR, BRAIN, WITHOUT CONTRAST, MR, MRA, BRAIN, WITHOUT CONTRAST, MR, MRA, NECK, WITHOUT IV CONTRAST INDICATION: Strokestroke TECHNIQUE: Multiplanar, multisequence MR images of the brain. 3-D time of flight MRA of the cranial and cervical circulation. 2-D time of flight MRA of the neck. 3D MIP angiographic post-processing was performed. Stenosis evaluation utilized NASCET criteria. COMPARISON: None FINDINGS: MRI BRAIN: Cerebral parenchyma: Small foci of diffusion restriction are nonhemorrhagic and include watershed right sided frontal and parietal lobe locations. Probable volume loss is moderate. Periventricular white matter disease is chronic appearing.Midline structures: Normally positioned.Cerebellum and brainstem: Normal.Ventricles: Normal volume.Extra-axialspaces: Unremarkable. Calvarium and skull base: Normal signal.Paranasal sinuses and mastoid air cells: Visible chambers are clear.Orbital contents: No acute abnormality. Additional findings: None. MRA BRAIN:Internal carotid arteries: Patent. Middle cerebral arteries: Patent to distal branches.Anteriorcerebral arteries: Intact.Basilar system: Basilar system is supplied by the dominant right artery. Left vertebral artery is not demonstrated within the cranial compartment.Posterior cerebral arteries:Patent beyond the quadrigeminal segments.Additional findings: None. MRA NECK:Common carotid arteries: Unremarkable. Bifurcations: Mild narrowing bilaterally (less than 30% bilaterally by NASCET criteria.Cervical internal carotid arteries: No flow limiting stenosis.Vertebral arteries: Right dominance. 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 No flow limiting stenosis in the major branch vessels of the cervical or cranial circulation. Less than 30% stenosisin the bifurcations bilaterally by NASCET criteria. Findings communicated to the neurology house staff at the time of dictation. Signed: JR Doll Robert MDReport Verified Date/Time: 2017 21:28:36 Reading Location: [address] Reading Room MR, MRA, BRAIN, WITHOUT [id number] 21:28:00Reason for exam:->StrokeWhat is the patient's sedation requirement?->No SedationFINAL REPORT MR, BRAIN, WITHOUT CONTRAST, MR, MRA, BRAIN, WITHOUT CONTRAST, MR, MRA , NECK, WITHOUT IV CONTRAST INDICATION: Strokestroke TECHNIQUE: Multiplanar, multisequence MR images of the brain. 3-D time of flight MRA of the cranial and cervical circulation. 2-D time of flight MRA of the neck. 3D MIP angiographic post-processing was performed. Stenosis evaluation utilized NASCET criteria. COMPARISON: None FINDINGS: MRI BRAIN: Cerebral parenchyma: Small foci of diffusion restriction are nonhemorrhagic and include watershed right sided frontal and parietal lobe locations. Probable volume loss is moderate. Periventricular white matter disease is chronic appearing.Midline structures: Normally positioned.Cerebellum and brainstem: Normal.Ventricles: Normal volume.Extra-axialspaces: Unremarkable. Calvarium and skull base: Normal signal.Paranasal sinuses and mastoid air cells: Visible chambers are clear.Orbital contents: No acute abnormality. Additional findings: None. MRA BRAIN:Internal carotid arteries: Patent. Middle cerebral arteries: Patent to distal branches.Anteriorcerebral arteries: Intact.Basilar system: Basilar system is supplied by the dominant right artery. Left vertebral artery is not demonstrated within the cranial compartment.Posterior cerebral arteries:Patent beyond the quadrigeminal segments.Additional findings: None. MRA NECK:Common carotid arteries: Unremarkable. Bifurcations: Mild narrowing bilaterally (less than 30% bilaterally by NASCET criteria.Cervical internal carotid arteries: No flow limiting stenosis.Vertebral arteries: Right dominance. 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 No flow limiting stenosis in the major branch vessels of the cervical or cranial circulation. Less than 30% stenosisin the bifurcations bilaterally by NASCET criteria. Findings communicated to the neurology house staff at the time of dictation. Signed: JR Doll Robert MDReport Verified Date/Time: 2017 21:28:36 Reading Location: [address] Reading Room POCT- GLUCOSE [id number] 21:26:00 Test Item Value Reference Range Comments POC-GLUCOSE METER (BEAKER) 133 mg/dL 70-110 TESTED AT [address] (test fazs=3290) [place] [id number] POCT-GLUCOSE [id number] 18:19:00 Test Item Value Reference Range Comments POC-GLUCOSE METER (BEAKER) 212 mg/dL 70-110 TESTED AT [address] (test usis=0576) [place] [address] POCT-GLUCOSE [id number] 12:27:00 Test Item Value Reference Range Comments POC-GLUCOSE METER (BEAKER) 174 mg/dL 70-110 TESTED AT [address] (test yyax=3548) [place] [address] HEMOGLOBIN [id number] 08:49:00 Test Item Value Reference Range Comments HEMOGLOBIN A1C (BEAKER) (test ynci=001) 5.8 % 4.3-6.1 POCT-GLUCOSE [id number] 08:25:00 Test Item Value Reference Range Comments POC-GLUCOSE METER (BEAKER) 109 mg/dL 70-110 TESTED AT [address] (test hhel=8782) [place] [address] TSH/FREE T4 IF [id number] 04:52:00 Test Item Value Reference Range Comments THYROID STIMULATING HORMONE (BEAKER) (test 1.95 uIU/mL 0.35-4.94 xnpj=592) VITAMIN B12 AND [id number] 04:52:00 Test Item Value Reference Range Comments VITAMIN B12 (BEAKER) (test eyxs=822) 1337 pg/mL 213-816 FOLATE (BEAKER) (test ejih=508) 10.9 ng/mL >=7.0 TROPONIN [id number] 03:46:00 Test Item Value Reference Range Comments TROPONIN I (BEAKER) (test leed=892) 0.04 ng/mL 0.00-0.03 Troponin I (TnI) levels must be interpreted in the context of the presenting symptoms and the clinical findings. Elevated TnI levels indicate myocardial damage, but are not specific for ischemic heart disease. Elevated TnI levels are seen in patients with other cardiac conditions (including myocarditis and congestive heart failure), and slight TnI elevations occur in patients with other conditions, including sepsis, renal failure, acidosis, acute neurological disease, and persistent tachyarrhythmia.[id number] 03:40:00 Test Item Value Reference Range Comments MAGNESIUM (BEAKER) (test 2.4 mg/dL 1.6-2.6 Specimen slightly hemolyzed namv=431) [id number] 03:40:00 Test Item Value Reference Range Comments PHOSPHORUS (BEAKER) (test 3.1 mg/dL 2.3-4.7 Specimen slightly hemolyzed dmvn=508) FastingBASIC METABOLIC [id number] 03:40:00 Test Item Value Reference Range Comments SODIUM (BEAKER) (test 140 meq/L 136-145 tsdp=295) POTASSIUM (BEAKER) (test 3.4 meq/L 3.5-5.1 Specimen slightly jwhb=539) hemolyzed CHLORIDE (BEAKER) (test 105 meq/L 98-107 jikq=289) CO2 (BEAKER) (test 24 meq/L 22-29 gqtb=627) BLOOD UREA NITROGEN 19 mg/dL 7-21 (BEAKER) (test gkte=214) CREATININE (BEAKER) (test 0.97 mg/dL 0.57-1.25 Specimen slightly aekw=501) hemolyzed GLUCOSE RANDOM (BEAKER) 104 mg/dL 70-105 (test rgta=602) CALCIUM (BEAKER) (test 9.2 mg/dL 8.4-10.2 vwfp=370) EGFR (BEAKER) (test 76 mL/min/1.73 sq m ESTIMATED GFR IS NOT rcay=6752) ACCURATE CREATININE CLEARANCE IN PREDICTING GLOMERULAR FILTRATION RATE. ESTIMATED GFR IS NOT APPLICABLE FOR DIALYSIS PATIENTS. FastingLIPID [id number] 03:40:00 Test Item Value Reference Range Comments TRIGLYCERIDES (BEAKER) (test 115 mg/dL Specimen slightly hemolyzed nvws=875) CHOLESTEROL (BEAKER) (test 149 mg/dL Specimen slightly hemolyzed kjkn=030) HDL CHOLESTEROL (BEAKER) (test 32 mg/dL pymk=455) LDL CHOLESTEROL CALCULATED 94 mg/dL (BEAKER) (test daty=831) Triglyceride Reference Range: Low Risk <150 Borderline 150- 199 High Risk 200-499 Very High Risk >=500Cholesterol Reference Range: Low Risk <200 Borderline 200-239 High Risk > 240HDL Cholesterol Reference Range: Low Risk >=60 High Risk <40LDL Cholesterol Reference Range: Optimal <100 Near Optimal 100-129 Borderline 130-159 High 160-189 Very High >=190 FastingHEPATIC FUNCTION [id number] 03:40:00 Test Item Value Reference Range Comments TOTAL PROTEIN (BEAKER) (test 7.6 gm/dL 6.0-8.3 Specimen slightly hemolyzed chxq=594) ALBUMIN (BEAKER) (test 4.1 g/dL 3.5-5.0 Specimen slightly hemolyzed ymsa=3877) BILIRUBIN TOTAL (BEAKER) (test 0.5 mg/dL 0.2-1.2 Specimen slightly hemolyzed ojyp=371) BILIRUBIN DIRECT (BEAKER) (test 0.2 mg/dL 0.1-0.5 Specimen slightly hemolyzed xfgw=835) ALKALINE PHOSPHATASE (BEAKER) 104 U/L 40-150 (test tgvx=465) AST (SGOT) (BEAKER) (test 21 U/L 5-34 Specimen slightly hemolyzed xqeb=844) ALT (SGPT) (BEAKER) (test 14 U/L 6-55 Specimen slightly hemolyzed pvoa=856) [id number] 03:35:00 Test Item Value Reference Range Comments PARTIAL THROMBOPLASTIN TIME (BEAKER) (test 30.2 seconds 22.5-36.0 wygo=540) PROTHROMBIN TIME/[id number] 03:34:00 Test Item Value Reference Range Comments PROTIME (BEAKER) (test rikb=285) 14.6 seconds 11.7-14.7 INR (BEAKER) (test mkmv=015) 1.1 <=5.9 RECOMMENDED COUMADIN/WARFARIN INR THERAPY RANGESSTANDARD DOSE: 2.0 - 3.0 Includes: PROPHYLAXIS forvenous thrombosis, systemic embolization; TREATMENT for venous thrombosis and/or pulmonary embolus.HIGH RISK: Target INR is 2.5-3.5 for patients with mechanical heart valves.CBC W/PLT COUNT & AUTO [id number] 03:14:00 Test Item Value Reference Range Comments WHITE BLOOD CELL COUNT (BEAKER) (test vkpq=255) 9.3 K/ L 3.5-10.5 RED BLOOD CELL COUNT (BEAKER) (test ynrg=201) 4.82 M/ L 4.63-6.08 HEMOGLOBIN (BEAKER) (test fexi=778) 15.0 GM/DL 13.7-17.5 HEMATOCRIT (BEAKER) (test mmhl=309) 44.9 % 40.1-51.0 MEAN CORPUSCULAR VOLUME (BEAKER) (test jqrq=974) 93.2 fL 79.0-92.2 MEAN CORPUSCULAR HEMOGLOBIN (BEAKER) (test 31.1 pg 25.7-32.2 ynsc=185) MEAN CORPUSCULAR HEMOGLOBIN CONC (BEAKER) (test 33.4 GM/DL 32.3-36.5 vkxu=869) RED CELL DISTRIBUTION WIDTH (BEAKER) (test 13.9 % 11.6-14.4 fqdr=072) PLATELET COUNT (BEAKER) (test fvgo=048) 209 K/CU MM 150-450 MEAN PLATELET VOLUME (BEAKER) (test rzck=592) 11.0 fL 9.4-12.4 NUCLEATED RED BLOOD CELLS (BEAKER) (test 0 /100 WBC 0-0 ddro=588) NEUTROPHILS RELATIVE PERCENT (BEAKER) (test 67 % kntz=450) LYMPHOCYTES RELATIVE PERCENT (BEAKER) (test 18 % ooze=659) MONOCYTES RELATIVE PERCENT (BEAKER) (test 10 % uppe=834) EOSINOPHILS RELATIVE PERCENT (BEAKER) (test 5 % adcs=315) BASOPHILS RELATIVE PERCENT (BEAKER) (test 1 % ushx=993) NEUTROPHILS ABSOLUTE COUNT (BEAKER) (test 6.21 K/ L 1.78-5.38 tpys=427) LYMPHOCYTES ABSOLUTE COUNT (BEAKER) (test 1.62 K/ L 1.32-3.57 chts=958) MONOCYTES ABSOLUTE COUNT (BEAKER) (test 0.90 K/ L 0.30-0.82 tnhv=912) EOSINOPHILS ABSOLUTE COUNT (BEAKER) (test 0.45 K/ L 0.04-0.54 tebz=487) BASOPHILS ABSOLUTE COUNT (BEAKER) (test 0.07 K/ L 0.01-0.08 mipg=390) IMMATURE GRANULOCYTES-RELATIVE PERCENT (BEAKER) 0 % 0-1 (test bfgy=2273)
[2019-08-26 19:24] LABS: Absolute Lymphocytes (CBC) 2.5 K/uL (0.7-4.9); Basophils % 0.7 % (0-1.3); Hematocrit 41.6 % (39.6-49.0); MPV 9.5 fL (7.6-11.3); RBC Red Blood Cell Count 4.42 M/uL (4.33-5.43)
[2019-08-26 19:25] LABS: Protime INR 2.28
[2019-08-26 19:49] LABS: Albumin 3.9 g/dL (3.4-5.0); Bilirubin Direct 0.2 mg/dL (0-0.2); Bilirubin Total 0.5 mg/dL (0.2-1.0); Magnesium 2.2 mg/dL (1.8-2.4); Potassium 3.5 mmol/L (3.5-5.1); Protein, Total 7.8 g/dL (6.4-8.2); Troponin (Emerg Dept Use Only) 0.35 ng/mL (0.0-0.045)
--- NOTE | 2019-08-26 20:43 | ER ---
Nurse's Notes [facility] Name: Zen Patterson Age: 74 yrs Sex: Male : 1945 Arrival Date: 08/26/2019 Time: 18:52 Bed 2 Private MD: Diagnosis: Tachycardia, unspecified;Non-ST elevation (NSTEMI) myocardial infarction Presentation: 08/26 18:52 Presenting complaint: Sudden onset dizziness and chest pressure followed by syncopal sg episode while walking at [employer]. Upon arrival on scene pt was AOx4, diaphoretic, HR 280s. 18g RiGHT AC, Amiodarone 150 mg and lidocaine 100 mg administered BIOTECHNOLOGIST,. Transition of care: patient was not received from another setting of care. Onset of symptoms was August 26, 2019. Risk Assessment: Do you want to hurt yourself or someone else? Patient reports no desire to harm self or others. Care prior to arrival: None. 18:52 Method Of Arrival: EMS: [facility] sg 18:52 Acuity: YASSINE 2 sg 19:15 Initial Sepsis Screen: Does the patient meet any 2 criteria? HR > 90 bpm. Does the cc3 patient have a suspected source of infection? No. Patient's initial sepsis screen is negative. Triage Assessment: 19:15 General: Appears in no apparent distress. comfortable. Neuro: Reports dizziness, but cc3 currently denies dizziness. Historical: - Allergies: 18:58 No Known Allergies; sg - Home Meds: 18:58 Nifedipine ER Oral [Active]; clonidine HCl 0.1 mg Oral tab 1 tab once daily [Active]; sg losartan oral oral [Active]; Hydralazine Oral [Active]; Furosemide Oral [Active]; Allopurinol Oral [Active]; Ranitidine Oral [Active]; atorvastatin oral oral [Active]; Xarelto oral oral [Active]; pantoprazole oral oral [Active]; budesonide oral oral [Active]; Perforomist 20 mcg/2 mL inhalation nebu [Active]; - PMHx: 18:58 CHF; CVA; Hyperlipidemia; Hypertension; sg - Immunization history:: Adult Immunizations up to date. - Social history:: Smoking status: Patient/guardian denies using tobacco. - Ebola Screening: : No symptoms or risks identified at this time. Screenin:55 Abuse screen: Denies threats or abuse. Denies injuries from another. Nutritional sg screening: No deficits noted. Tuberculosis screening: No symptoms or risk factors identified. Fall Risk Total Doe Fall Scale indicates Low Risk Score (25-44 pts). Fall prevention measures have been instituted. Side Rails Up X 2 Frequent Obs/Assesments occuring As available Patient and Family Educated on Fall Prevention Program and strategies. Assessment: 19:15 General: Appears in no apparent distress. comfortable, Behavior is calm, cooperative, cc3 appropriate for age. Pain: Denies pain. Neuro: Level of Consciousness is awake, alert, obeys commands, Oriented to person, place, time, situation, Appropriate for age. Cardiovascular: Denies chest pain, Heart tones S1 S2 present Capillary refill < 3 seconds in bilateral fingers Patient's skin is warm and dry. Rhythm is sinus rhythm with PVC's. Respiratory: Airway is patent Respiratory effort is even, unlabored, Respiratory pattern is regular, symmetrical. GI: Abdomen is round non-distended, Bowel sounds present X 4 quads. Abd is soft and non tender X 4 quads. : No signs and/or symptoms were reported regarding the genitourinary system. EENT: No signs and/or symptoms were reported regarding the EENT system. Derm: Skin is intact, is healthy with good turgor, Skin is pink, warm \T\ dry. normal. Musculoskeletal: Circulation, motion, and sensation intact. Range of motion: intact in all extremities. 20:45 Reassessment: Patient appears in no apparent distress at this time. Patient and/or cc3 family updated on plan of care and expected duration. Pain level reassessed. Patient is alert, oriented x 3, equal unlabored respirations, skin warm/dry/pink. MILAGRO El said no need to put central line on the patient right now. 21:30 Reassessment: Patient appears in no apparent distress at this time. Patient and/or cc3 family updated on plan of care and expected duration. Pain level reassessed. Patient is alert, oriented x 3, equal unlabored respirations, skin warm/dry/pink. Patient denies pain at this time. 22:00 Reassessment: Patient appears in no apparent distress at this time. Patient and/or cc3 family updated on plan of care and expected duration. Pain level reassessed. Patient is alert, oriented x 3, equal unlabored respirations, skin warm/dry/pink. only 5 vials of amiodarone left in pyxis, charge nurse Chantelle informed and said the amiodarone infusion can be started in the ICU. Room available in ICU bed 7 but was told that the receiving nurse will just call me back. 22:30 Reassessment: Patient appears in no apparent distress at this time. Patient and/or cc3 family updated on plan of care and expected duration. Pain level reassessed. Patient is alert, oriented x 3, equal unlabored respirations, skin warm/dry/pink. Report called and handed over to PERFECTO Pinto for continuity of care and management. Patient denies pain at this time. 22:48 Reassessment: Patient appears in no apparent distress at this time. Patient and/or cc3 family updated on plan of care and expected duration. Pain level reassessed. Patient is alert, oriented x 3, equal unlabored respirations, skin warm/dry/pink. Patient left ER for admission vitally stable by stretcher on continuous cardiac monitoring escorted by PERFECTO Raymond and the patient's family. No valuables left in the patient's room. Patient denies pain at this time. Patient states feeling better. Patient states symptoms have improved. Vital Signs: 18:55 BP 142 / 72; Pulse 92; Resp 16; Temp 97.8; Pulse Ox 97% on R/A; Pain 0/10; sg 19:30 BP 123 / 70; Pulse 83; Resp 17 S; Pulse Ox 96% on R/A; Pain 0/10; cc3 20:15 BP 140 / 86; Pulse 90; Resp 19 S; Pulse Ox 95% on R/A; cc3 21:45 BP 139 / 96; Pulse 95; Resp 17 S; Pulse Ox 95% on R/A; cc3 22:40 BP 138 / 89; Pulse 94; Resp 18 S; Pulse Ox 96% on R/A; Pain 0/10; cc3 ED Course: 18:52 Patient arrived in ED. sg 18:53 Aron El PA is PHCP. [facility] 18:53 Black Torrez MD is Attending Physician. [facility] 18:55 Triage completed. sg 18:55 Arm band placed on. sg 18:59 Initial lab(s) drawn, by me, held in ED. Maintain EMS IV. Dressing intact. Good blood sg return noted. Site clean \T\ dry. Gauge \T\ site: 18 G RAC. IV is patent, is intact, with good blood return, without good blood return. 19:13 Glory Ley is Primary Nurse. cc3 19:15 Patient has correct armband on for positive identification. Placed in gown. Bed in low cc3 position. Call light in reach. Side rails up X2. playground monitor on. Pulse ox on. NIBP on. 20:40 Jaquelin Cosme MD is Hospitalizing Provider. [facility] 22:07 Accessed peripheral vein via ultrasound, utilizing dynamic ultrasound technique using bb 18G Nexia IV Catheter per hospital protocol. Good blood return. Flushes easily. 22:40 No provider procedures requiring assistance completed. Patient admitted, IV remains in cc3 place. Administered Medications: 20:00 Not Given (Physician Discretion; patient cannot take aspirin as he is taking xarelto): cc3 Aspirin Chewable Tablet 324 mg PO once; 81 mg tablets x 4 23:44 Not Given (only 5 amiodarone vials left in the ER pyxis, charge nurse said can be cc3 started in ICU): amiodarone 900 mg, D5W 500 ml IVPB at 1 mg/min continuous; for 6 hrs, then change to 0.5 mg/min Outcome: 20:42 Decision to Hospitalize by Provider. [facility] 22:40 Admitted to ICU accompanied by nurse, family with patient, via stretcher, room 7, on cc3 monitor, with chart, Report called to PERFECTO Pinto 22:40 Condition: stable 22:40 Instructed on the need for admit, Demonstrated understanding of instructions. 22:48 Patient left the ED. cc3 Signatures: Can Cornell, RN RN Aron Nassar PA PA [facility] Chantelle Schultz RN RN bb Cordel, Charlene cc3 Corrections: (The following items were deleted from the chart) 23:35 22:30 Reassessment: Patient appears in no apparent distress at this time. Patient cc3 and/or family updated on plan of care and expected duration. Pain level reassessed. Patient is alert, oriented x 3, equal unlabored respirations, skin warm/dry/pink. Report called and handed over to PERFECTO Pinto for continuity of care and management. Patient denies pain at this time. cc3 23:35 22:30 Reassessment: Patient appears in no apparent distress at this time. Patient cc3 and/or family updated on plan of care and expected duration. Pain level reassessed. Patient is alert, oriented x 3, equal unlabored respirations, skin warm/dry/pink. Report called and handed over to PERFECTO Pinto for continuity of care and management. Patient denies pain at this time. cc3 23:37 22:00 Reassessment: Patient appears in no apparent distress at this time. Patient cc3 and/or family updated on plan of care and expected duration. Pain level reassessed. Patient is alert, oriented x 3, equal unlabored respirations, skin warm/dry/pink. only 5 vials of amiodarone left in pyxis, charge nurse Chantelle informed and said the amiodarone infusion can be started in the ICU. cc3
--- NOTE | 2019-08-26 20:43 | EDPHYS ---
Physician Documentation [facility] Name: Zen Patterson Age: 74 yrs Sex: Male : 1945 Arrival Date: 08/26/2019 Time: 18:52 Bed 2 Private MD: ED Physician Black Torrez HPI: 08/26 18:54 This 74 yrs old Male presents to ER via EMS with complaints of Syncope, jmm TACHYCARDIA. 18:54 The patient has experienced near-syncope. Onset: The symptoms/episode began/occurred jmm acutely, just prior to arrival. Duration: This was a single episode. Associated injury: The patient did not suffer any apparent associated injury. Associated signs and symptoms: Pertinent positives: chest pain. Current symptoms: Currently, the patient is not experiencing any symptoms. This is a 74 year old male with a history of CVA, HLP, HTN that presents to the ED after a syncopal episode which occurred [place] [employer]. Patient's HR was elevated according to EMS. Amiodarone and lidocaine administered. Patient states he developed chest pain but has now resolved. . Historical: - Allergies: 18:58 No Known Allergies; sg - Home Meds: 18:58 Nifedipine ER Oral [Active]; clonidine HCl 0.1 mg Oral tab 1 tab once daily [Active]; sg losartan oral oral [Active]; Hydralazine Oral [Active]; Furosemide Oral [Active]; Allopurinol Oral [Active]; Ranitidine Oral [Active]; atorvastatin oral oral [Active]; Xarelto oral oral [Active]; pantoprazole oral oral [Active]; budesonide oral oral [Active]; Perforomist 20 mcg/2 mL inhalation nebu [Active]; - PMHx: 18:58 CHF; CVA; Hyperlipidemia; Hypertension; sg - Immunization history:: Adult Immunizations up to date. - Social history:: Smoking status: Patient/guardian denies using tobacco. - Ebola Screening: : No symptoms or risks identified at this time. ROS: 18:54 Constitutional: Negative for fever, chills, and weight loss. jmm 18:54 Respiratory: Negative for shortness of breath, cough, wheezing, and pleuritic chest pain. 18:54 Cardiovascular: Positive for chest pain. 18:54 Neuro: Positive for near syncope. 18:54 All other systems are negative. Exam: 18:54 Constitutional: This is a well developed, well nourished patient who is awake, alert, jmm and in no acute distress. Head/Face: atraumatic. Eyes: EOMI, no conjunctival erythema appreciated ENT: Moist Mucus Membranes Neck: Trachea midline, Supple Chest/axilla: Normal chest wall appearance and motion. Cardiovascular: Regular rate and rhythm. No edema appreciated Respiratory: Normal respirations, no respiratory distress appreciated Abdomen/GI: Non distended, soft Back: Normal ROM Skin: General appearance color normal MS/ Extremity: Moves all extremities, no obvious deformities appreciated, no edema noted to the lower extremities Neuro: Awake and alert, normal gait Psych: Behavior is normal, Mood is normal, Patient is cooperative and pleasant Vital Signs: 18:55 BP 142 / 72; Pulse 92; Resp 16; Temp 97.8; Pulse Ox 97% on R/A; Pain 0/10; sg 19:30 BP 123 / 70; Pulse 83; Resp 17 S; Pulse Ox 96% on R/A; Pain 0/10; cc3 20:15 BP 140 / 86; Pulse 90; Resp 19 S; Pulse Ox 95% on R/A; cc3 21:45 BP 139 / 96; Pulse 95; Resp 17 S; Pulse Ox 95% on R/A; cc3 22:40 BP 138 / 89; Pulse 94; Resp 18 S; Pulse Ox 96% on R/A; Pain 0/10; cc3 MDM: 18:[address] [facility] 20:38 Data reviewed: vital signs, nurses notes. Counseling: I had a detailed discussion with [facility] the patient and/or guardian regarding: the historical points, exam findings, and any diagnostic results supporting the discharge/admit diagnosis, lab results, the need for further work-up and treatment in the hospital. ED course: I discussed the patient with Dr. Calixto whom recommended amiodarone drip. I discussed the patient with Dr. Cosme whom accepted admission. . 20:38 ED course: Central line insertion discussed with Dr. Cosme, did not recommend at [facility] this time. . 08/26 18:56 Order name: FSBG - FOR PT WITH NO ID sg 08/26 19:08 Order name: Basic Metabolic Panel 08/26 19:08 Order name: CBC with Diff 08/26 19:08 Order name: LFT's 08/26 19:08 Order name: Magnesium 08/26 19:08 Order name: NT PRO-BNP 08/26 19:08 Order name: PT-INR 08/26 19:08 Order name: Troponin (emerg Dept Use Only) 08/26 19:26 Order name: Protime (+INR); Complete Time: 19:28 EDDC 08/26 19:30 Order name: CBC with Automated Diff; Complete Time: 19:44 EDDC 08/26 19:49 Order name: Basic Metabolic Panel; Complete Time: 19:54 EDMS 08/26 19:49 Order name: Liver (Hepatic) Function; Complete Time: 19:54 EDDC 08/26 19:49 Order name: Troponin (Emerg Dept Use Only); Complete Time: 19:54 EDMS 08/26 19:49 Order name: NT PRO-BNP; Complete Time: 19:54 [facility] 08/26 19:08 Order name: XRAY Chest (1 view) 08/26 19:08 Order name: EKG; Complete Time: 19:10 08/26 19:08 Order name: Cardiac monitoring; Complete Time: 19:08 08/26 19:08 Order name: EKG - Nurse/Tech; Complete Time: 19:09 08/26 19:08 Order name: IV Saline Lock; Complete Time: 19:09 08/26 19:08 Order name: Labs collected and sent; Complete Time: 19:32 08/26 19:08 Order name: O2 Per Protocol; Complete Time: 19:09 08/26 19:08 Order name: O2 Sat Monitoring; Complete Time: 19:09 08/26 19:44 Order name: Urine Dipstick-Ancillary (obtain specimen); Complete Time: 19:49 [facility] 08/26 19:49 Order name: Magnesium; Complete Time: 19:54 [facility] 08/26 19:50 Order name: Urine Dipstick--Ancillary (enter results) ds4 08/26 20:36 Order name: Glucose, Ancillary(No Armband); Complete Time: 20:38 [facility] 08/26 20:49 Order name: Urine Dipstick-Ancillary [facility] 08/26 21:04 Order name: RAD; Complete Time: 21:29 [facility] 08/26 19:55 Order name: EKG - Nurse/Tech; Complete Time: 20:10 liang Administered Medications: 20:00 Not Given (Physician Discretion; patient cannot take aspirin as he is taking xarelto): cc3 Aspirin Chewable Tablet 324 mg PO once; 81 mg tablets x 4 23:44 Not Given (only 5 amiodarone vials left in the ER pyxis, charge nurse said can be cc3 started in ICU): amiodarone 900 mg, D5W 500 ml IVPB at 1 mg/min continuous; for 6 hrs, then change to 0.5 mg/min Disposition: 08/26/19 20:42 Hospitalization ordered by Jaquelin Cosme for Inpatient Admission. Preliminary diagnosis are Tachycardia, unspecified, Non-ST elevation (NSTEMI) myocardial infarction. - Bed requested for Intensive Care Unit. - Status is Inpatient Admission. cc3 - Condition is Stable. - Problem is new. - Symptoms have improved. UTI on Admission? No Addendum: 08/29/2019 10:24 Co-signature as Attending Physician, Black Torrez MD I agree with the assessment and k dr plan of care. Signatures: Dispatcher [employer] EDMS Can Cornell RN RN Black Torrez MD MD [facility] Aron El PA PA [facility] Chantelle Schultz, RN RN Loren Cazares, PERFECTO RN Glory Soto cc3 Corrections: (The following items were deleted from the chart) 08/26 21:53 20:42 Hospitalization Ordered by Jaquelin Cosme MD for Inpatient Admission. Preliminary cg diagnosis is Tachycardia, unspecified; Non-ST elevation (NSTEMI) myocardial infarction. Bed requested for Intensive Care Unit. Status is Inpatient Admission. Condition is Stable. Problem is new. Symptoms have improved. UTI on Admission? No. [facility] 22:48 21:53 08/26/2019 20:42 Hospitalization Ordered by Jaquelin Cosme MD for Inpatient cc3 Admission. Preliminary diagnosis is Tachycardia, unspecified; Non-ST elevation (NSTEMI) myocardial infarction. Bed requested for Intensive Care Unit. Status is Inpatient Admission. Condition is Stable. Problem is new. Symptoms have improved. UTI on Admission? No.
[2019-08-26 20:49] LABS: Urine Blood NEGATIVE (NEG); Urine Glucose NEGATIVE (NEG); Urine Protein 2+ (NEG); Urine Specific Gravity 1.015 (1.005-1.030); Urine pH 7.5 (5.0-7.0)
--- NOTE | 2019-08-26 20:55 | RAD REPORT ---
EXAM DESCRIPTION: RAD - Chest Single View - 08/26/2019 7:27 pm CLINICAL HISTORY: Chest pain and pressure COMPARISON: July 2018 TECHNIQUE: AP portable chest image was obtained 1924 hours . FINDINGS: Lung volumes are low accentuating heart, vasculature and lung markings. Interstitial patte rn is not substantially different. Loop recorder is again noted on the left. Heart and vasculature ar e normal. No measurable pleural effusion and no pneumothorax. No acute bony abnormality seen. No acut e aortic findings suspected. IMPRESSION: Exam is significantly limited by shallow inspiration. No gross change examination 1 year earlier when adjusting for the shallow inspiration.
[2019-08-26] MEDS ORDERED: ALBUTEROL 2.5 MG/3 ML NEB SOL NEB PRN (21:42)
[2019-08-26] MEDS ORDERED: ONDANSETRON 4 MG/2 ML VIAL IV PRN (21:42)
[2019-08-26] MEDS ORDERED: MORPHINE 2 MG/ML SYR IV PRN (21:42)
[2019-08-26] MEDS ORDERED: HYDRALAZINE HCL 20 MG/ML VIAL IV PRN (21:46)
[2019-08-26] MEDS ORDERED: NITROGLYCERIN 0.4 MG/TAB SL ONE (21:46)
[2019-08-26] MEDS ORDERED: AMIODARONE HCL 150 MG/3 ML INJ IV ONE ×2 (23:16→23:20)
[2019-08-27] MEDS ORDERED: CEFEPIME 2 GM VIAL ONE ×2 (00:05→04:45)
[2019-08-27] MEDS ORDERED: VANCOMYCIN 1 GM/VIAL ONE (00:05)
[2019-08-27] MEDS ORDERED: ACETAMINOPHEN 650MG/RECT SUPP PR ONE (00:05)
[2019-08-27] MEDS ORDERED: NA CHLORIDE 0.9% 0 ML IV ONE (00:05)
[2019-08-27] MEDS ORDERED: NA CHLORIDE 0.9% 0 ML ONE ×2 (00:06)
[2019-08-27] MEDS: HYDRALAZINE HCL 25 MG TABLET PO SCH ×4 (00:09→20:34)
--- NOTE | 2019-08-27 00:17 | HP ---
Date of Admission: 08/26/2019 Presenting Complaint: Syncope. History Of Present Illness: Mr. Zen Patterson is a 74-year-old male with history of hypertension, HL D, AFib, multiple CVAs due to , currently on Xarelto, indwelling implanted cardiac monitori ng link but not an AICD. Patient developed syncope episode today that was preceded by episode of diz ziness that he did black out for a few seconds before coming to. EMS was called. On arrival of EMS, the patient was noted with wide-complex tachycardia with a rate of 200 beats per minute. He was giv en amiodarone 150 mg bolus, which improved his heart rate to the 90s. The patient feels much better now. He admits to some transient chest pain post palpitation. The chest pain has since resolved. H e is conversant and alert. His heart rate has remained in the 80s to 90s. He follows with his [facility]. Past Medical History: Significant for hypertension, CVA, hyperlipidemia, gout, history of CHF, and h istory of interstitial lung disease. Past Surgical History: Knee replacement, Zenker point, tonsillectomy, back surgery, history of impla nted aortic monitoring device. Family History: Significant for coronary artery disease. Social History: Patient is a lifelong nonsmoker. No history of alcohol or tobacco use. Resides in the community with his spouse. Home Medications: See medication list. Review of Systems: All systems reviewed x14 were negative except as mentioned above. Physical Examination: CURRENT VITAL SIGNS: Blood pressure of 135/70, pulse of 91, respiratory rate of 18, O2 saturation of 97%, and temperature afebrile. GENERAL: Elderly male, average built, calm, sitting up in bed, not in any distress. HEENT: Head: Atraumatic, normocephalic. Pupils equal and reactive to light. NECK: No JVD. No carotid bruit. RESPIRATORY: Good air entry. No crepitation. CARDIOVASCULAR: S1, S2. Rate and rhythm regular. Implanted aortic monitoring device noted. GI: Abdomen full, soft, nontender. Bowel sounds positive. EXTREMITIES: No calf tenderness. No pedal edema. NEURO: Patient is alert and oriented. No neurological focal motor deficit. Laboratory Data: Chest x-ray shows shallow inspiration with no pulmonary congestive changes. Loop r ecorder noted in the heart. WBC 11.2, neutrophils 65%, hemoglobin 14, platelet 230. INR 2.2. Sodiu m 139, potassium 3.5, BUN 23, creatinine 1.23, glucose 161, magnesium 2.2. Pro-BNP 418, albumin 3.9. Troponin 0.35. Urinalysis is negative. EKG sinus rhythm with wide-complex QRS complexes. No sign ificant ST-segment changes noted. Impression: 1.Wide-complex tachycardia. 2.[id number]-[id number] myocardial infarction. 3.Hypertension. 4.History of congestive heart failure, unclear if diastolic. Plan: We will admit patient to intensive care unit. As per Cardiology, we will start patient on ami odarone drip. We will resume home patient medication including anticoagulation with Xarelto. We jose l consult Cardiology. The patient will need interrogation of loop recorder. We will not start any b eta shayla for now since plan for amiodarone. Patient on Xarelto for DVT prophylaxis also. We will monitor the patient. Plan was directly discussed with patient. Patient would like a trial of full code for now. Total time spent with review of record, discussion with patient, and evaluation greater than 60 minalexandro FLORES/GAVIN Voice ID: [id number]
[2019-08-27 03:42] LABS: Absolute Lymphocytes (CBC) 1.4 K/uL (0.7-4.9); Basophils % 0.9 % (0-1.3); Hematocrit 39.2 % (39.6-49.0); Lymphocytes % 18.1 % (15.3-44.8); MPV 9.4 fL (7.6-11.3); RBC Red Blood Cell Count 4.27 M/uL (4.33-5.43)
[2019-08-27 03:53] LABS: Albumin 3.7 g/dL (3.4-5.0); Bilirubin Total 0.4 mg/dL (0.2-1.0); Potassium 3.2 mmol/L (3.5-5.1); Protein, Total 7.6 g/dL (6.4-8.2)
[2019-08-27] MEDS: MELATONIN 5 MG TABLET PO PRN ×2 (04:09→20:34)
[2019-08-27] MEDS ORDERED: POTASSIUM CL SA 10 MEQ TAB PO ONE (07:00)
[2019-08-27] MEDS: CLOPIDOGREL 75 MG TABLET PO SCH (08:18)
[2019-08-27] MEDS: NIFEDIPINE XL 90 MG TABLET PO SCH ×2 (08:18→20:33)
[2019-08-27] MEDS: ASPIRIN EC 81 MG TAB PO SCH ×2 (08:18→08:27)
--- NOTE | 2019-08-27 08:23 | EKG ---
Test Date: 2019-08-26 Test Time: 20:06:39 Body Wirer: ADILIA MEASUREMENT RESULTS: Intervals: Rate: 88 IN: 240 QRSD: 130 QT: 430 QTc: 520 Barry: P: 49 IN: 240 QRS: -27 T: 108 INTERPRETIVE STATEMENTS: Sinus rhythm with 1st degree AV block with occasional premature ventricular complexes Nonspecific intraventricular block T wave abnormality, consider lateral ischemia Abnormal ECG Compared to ECG 08/26/2019 18:54:07 Left-axis deviation no longer present T-wave abnormality still present Electronically Signed On 08-27-19 08:22:09 OPERATING ROOM AIDE by Jamil Calixto
--- NOTE | 2019-08-27 08:23 | EKG ---
Test Date: 2019-08-26 Test Time: 18:54:07 Hot Knife Cutter: BEVERLY MEASUREMENT RESULTS: Intervals: Rate: 92 AR: 226 QRSD: 130 QT: 410 QTc: 507 [place]: P: 16 AR: 226 QRS: -38 T: 123 INTERPRETIVE STATEMENTS: Sinus rhythm with 1st degree AV block with frequent premature ventricular complexes Left axis deviation Nonspecific intraventricular block T wave abnormality, consider lateral ischemia Abnormal ECG Compared to ECG 04/10/2018 22:02:30 Ventricular premature complex(es) now present First degree AV block now present Left-axis deviation now present T-wave abnormality now present Possible ischemia now present Sinus bradycardia no longer present Myocardial infarct finding no longer present Electronically Signed On 08-27-19 08:22:47 KICK PRESS SETTER by Jamil Calixto
[2019-08-27] MEDS: FORMOTEROL FUMARATE 20 MCG/2 ML VIAL.NEB IH SCH ×2 (08:50→20:00)
[2019-08-27] MEDS ORDERED: ARFORMOTEROL TARTRATE 15 MCG/2 ML VIAL.NEB IH SCH (09:00)
[2019-08-27] MEDS ORDERED: RIVAROXABAN 10 MG TABLET PO SCH (09:00)
[2019-08-27] MEDS ORDERED: HEPARIN/D5W 25,000 UNIT/500 ML BAG IV SCH ×2 (10:00→22:00)
--- NOTE | 2019-08-27 10:19 | CON ---
History Of Present Illness: Mr. Patterson is 74. He came to the hospital, brought by EMS. He had a sy ncopal episode while shopping at a local hardware store. He was unconscious just for a few seconds. When the EMS got there, he was in ventricular tachycardia. They administered amiodarone and lidocai ne and when he presented to the emergency room, he was in sinus rhythm. Mr. Patterson has a history of intermittent AFib. He never feels his atrial fib. He has a very long history of hypertension, and s everal years ago, he underwent cardiac cath, was found to have minimal CAD, diffuse plaque. We have rhythm strips from the ambulance people showing wide-complex tachycardia, bizarre QRS morphology, jacob s not look anything like AFib and the heart rate was about 200. He has been on amiodarone and he fee ls fine now. No history of myocardial infarction. He had a stroke caused by AFib and has been on a direct oral anticoagulant since then. Allergies: HE HAS NO KNOWN ALLERGIES. Medications: Outpatient medications have been potassium chloride, clonidine, furosemide, hydralazine , nifedipine, atorvastatin, Xarelto 20, Protonix, ranitidine, allopurinol, losartan, Perforomist, and budesonide. Social History: He does not use tobacco. Minimal alcohol. No illegal drugs. Physical Examination: Constitutional: 5 feet 11, 193 pounds. General: Alert, oriented, pleasant, not in distress. Lungs: Clear. Neck: Carotids no bruit. Heart: Within normal limits. Abdomen: Soft. Extremities: Normal. Laboratory Data: His troponins are elevated. His electrocardiogram does not show infarction, injury , or ischemia. He did not receive a defibrillator shock. Impression: The patient had ventricular tachycardia. The question is whether it is due to an acute coronary event or whether the ventricular tachycardia cause elevation in troponin. He needs to under go a cardiac cath. If his coronaries are still the same as a few years ago, he will need a defibrill ator. We will give him Xarelto again tonight, but hold it so we can do a cardiac cath on Thursday. STACIE/GAVIN Voice ID: [id number] Report ID: [id number]
--- NOTE | 2019-08-27 17:16 | PN ---
Date of Progress Note: 08/27/2019 Subjective: Patient's code status is full. Patient is seen and examined. Chart reviewed and case d iscussed with RN and Dr. Calixto. Patient states he is feeling better. at the bedside. Treatme nt plan explained. All questions answered. No chest pain at this time. No further syncopal episode s. Medications: List reviewed. Physical Examination: Vital Signs: Temperature 98.1, heart rate 81, blood pressure 156/90, respirations 17, O2 96% on room air. General: Awake, alert, oriented x3. Elderly male, in some mild distress. HEENT: Normocephalic, atraumatic. PERRLA. EOMI. Moist mucous membranes. Oropharynx is clear. CV: S1, S2. Regular rate and rhythm. Peripheral pulses present. Respiratory: Moving air well bilaterally. No wheezing or stridor. No use of accessory muscles. Gastrointestinal: Abdomen is soft, nontender, nondistended. Positive bowel sounds. Extremities: No clubbing, cyanosis, or edema. No calf tenderness. Neuro: Cranial nerves 2 through 12 intact grossly. No focal neurological deficit. Speech is normal . Skin: No rashes. Normal skin turgor. Laboratory Data: Sodium 142, potassium 3.2, chloride 107, CO2 of 30, BUN 21, creatinine 1.19, glucos e 124, calcium 8.8. Troponin 0.35, 0.59, 0.91. WBC 7.7, H and H 13.4 and 39.2, platelets 215. Assessment: A 74-year-old male with: 1.Syncopal episode, likely due to ventricular tachycardia. No further episodes. 2.Ventricular tachycardia. Patient now on amiodarone. Appreciate Dr. Calixto' input. 3.Pwl-IO-lzcehkeqt myocardial infarction. Patient does have mild coronary artery disease. We will likely need a heart catheterization. We will start on chest pain guidelines. Patient is on heparin at this time. 4.Essential hypertension, stable. We will continue home medications as appropriate. 5.History of congestive heart failure, chronic. Last known EF is 51%, diastolic dysfunction. 6.History of cerebrovascular accident, was on Xarelto. 7.Mixed hyperlipidemia. Continue statin. 8.Gout, on allopurinol, stable. 9.History of interstitial lung disease. Plan: For cardiac catheterization. We will continue to monitor in ICU setting. SA/MODL Voice ID: [id number] Report ID: [id number]
[2019-08-27] MEDS: PANTOPRAZOLE 40MG TABLET PO SCH (20:34)
[2019-08-27] MEDS: ATORVASTATIN 20 MG TAB PO SCH (20:34)
[2019-08-27] MEDS ORDERED: POTASSIUM 25 MEQ EFFERV TAB PO ONE (22:04)
[2019-08-27] MEDS ORDERED: AMIODARONE HCL 150 MG/3 ML INJ IV ONE (23:24)
[2019-08-27] MEDS ORDERED: D5W 250 ML IV ONE (23:25)
[2019-08-27] MEDS: AMIODARONE HCL 450 MG in D5W 241 ML IV SCH (23:30)
[2019-08-28 05:31] VITALS: BMI 26.4
[2019-08-28 06:33] LABS: Absolute Lymphocytes (CBC) 1.4 K/uL (0.7-4.9); Basophils % 0.6 % (0-1.3); Hematocrit 39.2 % (39.6-49.0); Lymphocytes % 16.5 % (15.3-44.8); MPV 9.3 fL (7.6-11.3); RBC Red Blood Cell Count 4.24 M/uL (4.33-5.43)
[2019-08-28 06:34] LABS: Protime INR 1.24
[2019-08-28 06:37] LABS: Magnesium 2.1 mg/dL (1.8-2.4); Potassium 3.4 mmol/L (3.5-5.1)
[2019-08-28] MEDS ORDERED: POTASSIUM 25 MEQ EFFERV TAB PO ONE (06:49)
[2019-08-28] MEDS ORDERED: FORMOTEROL FUMARATE 20 MCG/2 ML VIAL.NEB IH SCH (08:00)
[2019-08-28] MEDS: FORMOTEROL FUMARATE 20 MCG/2 ML VIAL.NEB IH SCH ×2 (08:00→19:35)
[2019-08-28] MEDS: NIFEDIPINE XL 90 MG TABLET PO SCH ×2 (09:10→20:56)
[2019-08-28] MEDS: allopurinoL 300 MG TAB PO SCH (09:11)
[2019-08-28] MEDS: ASPIRIN EC 81 MG TAB PO SCH (09:11)
[2019-08-28] MEDS: CLOPIDOGREL 75 MG TABLET PO SCH (09:11)
[2019-08-28] MEDS: PANTOPRAZOLE 40MG TABLET PO SCH ×2 (09:11→20:56)
[2019-08-28] MEDS: HYDRALAZINE HCL 25 MG TABLET PO SCH ×3 (09:11→20:56)
--- NOTE | 2019-08-28 13:33 | PN ---
Mr. Patterson remains in normal rhythm. He has had no recurrence of his ventricular tachycardia. Enzym es are up. He is not having chest pain. I recommend we do a cardiac cath tomorrow. We will try a r adial approach primarily it is a cardiac cath with a possible stent. There is no progression of his CAD. No obvious coronary cause for the ventricular tachycardia. He will be a candidate for a defibr illator. We will work on getting him transferred. STACIE/GAVIN Voice ID: [id number] Report ID: [id number]
--- NOTE | 2019-08-28 14:45 | PN ---
Date of Progress Note: 08/28/2019 Subjective: Patient is seen and examined. Chart reviewed and case discussed with RN and Dr. Calixto. Patient otherwise doing well. Still on amiodarone drip. Medications: Reviewed. Physical Examination: Vital Signs: Temperature 97.1, heart rate 79, blood pressure 139/82, respirations 16, O2 96% on room air. General: Awake, alert and oriented x3, not in any acute distress, elderly male. CV: S1, S2. Regular rate and rhythm. Peripheral pulses present. Respiratory: Clear to auscultation bilaterally. No wheezing or stridor. No use of accessory muscle s. Gastrointestinal: Abdomen is soft, nontender, nondistended. Positive bowel sounds. Extremities: No clubbing, cyanosis, or edema. Neurologic: Nonfocal. Skin: No rashes. Normal skin turgor. Psych: Mood is okay. Affect is full. Insight and judgment are good. Laboratory Data: Sodium 141, potassium 3.4, chloride 108, CO2 of 28, BUN 15, creatinine 0.98, glucos e 122, calcium 8.7, magnesium 2.1. WBC 8.7, H and H 13.4 and 39.2, platelets 220. Sputum cultures p ending. Assessment: A 74-year-old male with: 1.Syncopal episode, likely due to ventricular tachycardia. No further episodes. 2.Ventricular tachycardia, currently on amiodarone. Appreciate Cardiology input. 3.Hxa-CQ-dqxsqrgbi myocardial infarction. Continue chest pain guidelines. Continue heparin. Plan is for heart catheterization on Thursday. 4.Essential hypertension, stable. Continue home medications. 5.Congestive heart failure, diastolic dysfunction, chronic. Continue to monitor I's and O's, free f luid restriction. 6.History of cerebrovascular accident, was on Xarelto, currently being held. 7.Mixed hyperlipidemia, continue statin. 8.Gout. Continue allopurinol. 9.History of interstitial lung disease. 10.Deep vein thrombosis prophylaxis addressed. Plan: Cardiac catheterization. /GAVIN Voice ID: [id number] Report ID: [id number]
[2019-08-28] MEDS: AMIODARONE HCL 450 MG in D5W 241 ML IV SCH (15:37)
[2019-08-28] MEDS: ATORVASTATIN 20 MG TAB PO SCH (20:56)
[2019-08-28] MEDS: MELATONIN 5 MG TABLET PO PRN (22:10)
[2019-08-29] MEDS: NIFEDIPINE XL 90 MG TABLET PO SCH ×2 (05:10→20:28)
[2019-08-29] MEDS: ASPIRIN EC 81 MG TAB PO SCH (05:11)
[2019-08-29] MEDS: CLOPIDOGREL 75 MG TABLET PO SCH (05:11)
[2019-08-29] MEDS: HYDRALAZINE HCL 25 MG TABLET PO SCH ×3 (05:11→20:28)
[2019-08-29 05:39] LABS: Potassium 3.5 mmol/L (3.5-5.1)
[2019-08-29] MEDS ORDERED: HEPA 1000U/500MLS 2,000 UNIT/1,000 ML BAG IV ONE (07:11)
[2019-08-29] MEDS ORDERED: LIDOCAINE 1% MPF 30 ML VIAL ONE (07:11)
[2019-08-29] MEDS: AMIODARONE HCL 450 MG in D5W 241 ML IV SCH (07:22)
[2019-08-29] MEDS ORDERED: MIDAZOLAM HCL 2 MG/2 ML INJ ONE ×2 (07:31→08:20)
[2019-08-29] MEDS ORDERED: HEPARIN 5000 UNIT/ML 1 ML VIAL ONE (07:31)
[2019-08-29] MEDS ORDERED: FENTANYL CITR 100 MCG/2 ML ONE (07:31)
[2019-08-29] MEDS ORDERED: NITROGLYCERIN 100 MCG/ML SYR (for cath lab use only) IV ONE (07:32)
[2019-08-29] MEDS ORDERED: NA CHLORIDE 0.9% 0 ML ONE (07:32)
[2019-08-29] MEDS ORDERED: NITROGLYCERIN/D5W 25 MG/250 ML BTL IV ONE (07:32)
[2019-08-29] MEDS ORDERED: NICARDIPINE HCL 25 MG/10 ML IV ONE (07:32)
[2019-08-29] MEDS ORDERED: ATROPINE SULF 1 MG/10 ML SYR IV ONE (07:32)
[2019-08-29] MEDS: FORMOTEROL FUMARATE 20 MCG/2 ML VIAL.NEB IH SCH ×2 (07:50→20:15)
[2019-08-29] MEDS ORDERED: NA CHLORIDE 0.9% 500 ML ONE (08:04)
[2019-08-29 10:25] VITALS: O2SAT 97
[2019-08-29] MEDS: PANTOPRAZOLE 40MG TABLET PO SCH ×2 (12:35→20:29)
[2019-08-29] MEDS: allopurinoL 300 MG TAB PO SCH (12:35)
[2019-08-29 14:47] VITALS: TEMP 97.3
[2019-08-29] MEDS ORDERED: POTASSIUM 25 MEQ EFFERV TAB PO ONE (15:00)
--- NOTE | 2019-08-29 15:09 | PN ---
Date of Progress Note: 08/29/2019 Subjective: Patient seen and examined. Chart reviewed and case discussed with RN and Dr. Fontenot. The patient went for cardiac catheterization, has some plaquing present with 50% stenosis. Patient will need to be transferred for electrophysiology specialty. Medications: List reviewed. Physical Examination: Vital Signs: Temperature 97.5, heart rate 66, blood pressure 158/57, respirations 18, O2 of 95% on room air. General: Awake, alert, oriented x3. Elderly male, not in any acute distress. CV: S1, S2. Respiratory: Moving air well bilaterally. Abdomen: Soft, nontender, nondistended. Positive bowel sounds. Extremities: No clubbing, cyanosis, or edema. Neurologic: Nonfocal. Skin: Right radial site is clean, dry, intact. Laboratory Data: Sodium 140, potassium 3.5, chloride 106, CO2 of 28, BUN 14, creatinine 1.03, glucose 127, calcium 9.1. Sputum culture growing out normal respiratory jg. Assessment: A 74-year-old male with: 1. Syncopal episode likely due to ventricular tachycardia. No further episodes. 2. Ventricular tachycardia, on amiodarone. No further arrhythmias noted. 3. Wci-MB-fyzlearoz myocardial infarction. Patient is status post cardiac cath. Patient will need to be transferred. Needs EP study as well as defibrillator. Appreciate Dr. Calixto' input. 4. Essential hypertension, stable. 5. Congestive heart failure, diastolic dysfunction, chronic. We will continue to monitor I's and O's. 6. History of cerebrovascular accident, stable. 7. Mixed hyperlipidemia, on statin. 8. Gout, on allopurinol. 9. History of interstitial lung disease. We will need to monitor respiratory function given amiodarone. 10. Deep venous thrombosis prophylaxis, addressed. Plan: Transfer to [facility]. BONG Voice ID: [id number] Report ID: [id number] EUGENIO
[2019-08-29 20:29] VITALS: BP 131/59
[2019-08-29] MEDS: ATORVASTATIN 20 MG TAB PO SCH (20:29)
--- NOTE | 2019-08-29 20:33 | OP ---
Surgeon: Jamil Calixto MD Identifying Data: 74-year-old man. Procedure: Left heart catheterization, coronary left ventricular angiography. Findings: Patient has 50% lesions at the ostium of the LAD, mid circumflex, 40% mid LAD lesion. No critical stenosis. Left ventricular ejection fraction normal. Left ventricular end-diastolic pressu re of 7, and at the end of the test, I believe that he had ventricular tachycardia that was primary a nd not related to an acute coronary event and I have recommended that we transfer him under the care of Dr. Joce Bishop, an publications editor for EP study and defibrillator. Procedure In Detail: He was brought to the cardiac industrial laborer in a fasting state, sedated with Versed and fentanyl, prepared and draped, in usual sterile fashion in right radial approach. We anesthetize d the skin over the right radial artery with lidocaine, entered the artery with a 21-gauge needle, ca nnulated with a 0.021 inch diameter guidewire, placed a 6-Danish Terumo sheath, flushed it, and gave a radial cocktail consisting of amlodipine, heparin, and nitroglycerin. We guided a TIG catheter int o the ascending aorta using fluoroscopy and a Terumo short radius Glidewire. We angiogrammed right a nd left coronaries, left ventricle with the TIG catheter. We then removed the catheter over a wire, removed the sheath and closed the arteriotomy using a TR band. Estimated Blood Loss: 5 mL. Cotton Weigher Operator: Pati Soler. Complications: None. STACIE/GAVIN Voice ID: [id number] Report ID: [id number]
--- NOTE | 2019-08-30 06:49 | DS ---
Date of Discharge: 08/29/2019 Consultants: Dr. Calixto with Cardiology. Procedure: Cardiac catheterization on 08/29/2019. Admitting Diagnoses: 1.Urk-QI-bxlidlfgd myocardial infarction. 2.Wide-complex tachycardia. 3.Essential hypertension. 4.History of congestive heart failure. Discharge Diagnoses: 1.Mma-RL-ekajhhlja myocardial infarction. 2.Syncopal episode. 3.Ventricular tachycardia. 4.Essential hypertension. 5.Congestive heart failure, diastolic dysfunction, chronic. 6.History of cerebrovascular accident. 7.Mixed hyperlipidemia. 8.Gout. 9.History of interstitial lung disease. Hospital Course: Patient is a 74-year-old male with past medical history of hypertension, hyperlipid emia, atrial fibrillation, multiple CVAs, on Xarelto, comes in with syncopal episode, felt to be vent ricular tachycardia. Patient was started on amiodarone drip. Patient did have NSTEMI as well. He w as started on chest pain guidelines. Heparin drip had multiple electrolyte abnormalities, which were corrected. Patient was seen by Cardiology, Dr. Calixto, who recommended cardiac catheterization. Ángel meadowsfernanda was then recommended to go to [facility] for EP study and further treatment. Patient's ventricular tachycardia did not recur. He did well. No further syncopal episodes. He will also ne ed a defibrillator. Patient was then accepted by [facility] for transfer and was transferred in stabl e condition. Total time spent transferring the patient was 42 minutes. Please see progress note dictated on day o f discharge for physical exam findings. /GAVIN Voice ID: [id number] Report ID: [id number]
== END 2019-08-29 20:55 | disposition short-term general hospital (02) | DRG 281 ==
LOC: ER 18:51 → ERHOLD 21:52 → 3RD-ICU 22:34 → 4TH 08-29 14:44
PROVIDERS: ADMIT Internal Medicine; ATTEND Internal Medicine
PROC: 4A023N7 Measurement of Cardiac Sampling and Pressure, Left Heart, Percutaneous Approach (ICD-10-PCS; principal; 2019-08-29)
PROC: B205YZZ Plain Radiography of Left Heart using Other Contrast (ICD-10-PCS; 2019-08-29)
PROC: B201YZZ Plain Radiography of Multiple Coronary Arteries using Other Contrast (ICD-10-PCS; 2019-08-29)
DX: I21.4 Non-ST elevation (NSTEMI) myocardial infarction (principal); I47.2 Ventricular tachycardia; I50.32 Chronic diastolic (congestive) heart failure; I25.10 Atherosclerotic heart disease of native coronary artery without angina pectoris; I11.0 Hypertensive heart disease with heart failure; Z86.73 Personal history of transient ischemic attack (TIA), and cerebral infarction without residual deficits; E78.2 Mixed hyperlipidemia; M10.9 Gout, unspecified; R55 Syncope and collapse
CPT/HCPCS: 36415; 71045; 80048; 80053; 80076; 81003; 82947; 83735; 83880; 84132; 84484; 85025; 85610; 85730; 87070; 87077; 87186; 87205; 93005; 93458; 94640; 99285; C1893; J0282; J0360; J0583; J0692; J1644; J2250; J3010; J7030; J7040; J7060; J7605

== ENCOUNTER 2019-10-11 20:24 | Inpatient (IN) | payer OTHER ==
--- OUTSIDE RECORDS SUMMARY | 2019-10-11 20:28 | XMS REPORT ---
:1945 [facility] Address [address] [place] [address] Care Team Providers Name Role Phone STEPHANIE [...] Type Clinicians Facility Department ID 2019-01-31 Outpatient [facility] 7506 16:41:41 Results Test Description Test Time Test Comments Text Results Atomic Results Result Comments - XR FLUORO NDL 2018-12-13 12:09:00 Patient Name: ELISEO MONZON Unit No: [id number] EXAMS: CPT CODE: [id number] XR FLUORO NDL 48973 FLUOROSCOPICALLY GUIDED right hip INTRA-ARTICULAR STEROID AND [...] MD Technologist: Chelita Payan RT.(R) Transcribed D/ (1209) tASHISHG [facility] Orthopedic NAME: ELISEO MONZON [address] [facility] PHYS: Fabricio Rod : 1945 AGE: 73 SEX: M [place], [place] [address] LOC: Y.RAD PHONE #: [phone] EXAM DATE: 12/06/2018 STATUS: DEP CLI FAX #: [phone] RAD #: D/C DT PAGE 1 Signed Report Patient Name: ELISEO MONZON Unit No: [id number] EXAMS: CPT CODE: [id number] XR FLUORO NDL 51410 <Continued> Orig Print D/T: S: 12/13/2018 (1212) [facility] Orth[facility] NAME: ELISEO MONZON [address] [facility] PHYS: NIKITAUFabricio Tobin : 1945 AGE: 73 SEX: M [place], [place] [address] LOC: Y.RAD PHONE #: [phone] EXAM DATE: 12/06/2018 STATUS: DEP CLI FAX #: [phone] RAD #: D/C DT PAGE 2 Signed Report URINE CULTURE 2018-04-18 10:24:00 Test Item Value Reference Range Comments CULTURE (BEAKER) (test KLEBSIELLA >100,000 col/mL ojep=6839) PNEUMONIAE Klebsiella pneumoniae Amikacin (test code=1) Ampicillin + Sulbactam (test code=6) Aztreonam (test code=32) Cefepime (test code=51) Cefoxitin (test code=68) Ceftazidime (test code=27) Ceftriaxone (test code=52) Ertapenem (test code=38) Gentamicin (test code=18) Levofloxacin (test code=22) Meropenem (test code=34) Nitrofurantoin (test code=23) Piperacillin + Tazobactam (test code=29) Tetracycline (test code=2) Tobramycin (test code=25) Trimethoprim + Sulfamethoxazole (test code=47) CULTURE (BEAKER) (test PSEUDOMONAS >100,000 col/mL kijv=0314) AERUGINOSA Pseudomonas aeruginosa Amikacin (test code=1) Susceptible 0-16 , Resistant <0 or >16 Aztreonam (test code=32) Susceptible 0-8 , Resistant <0 or >8 Cefepime (test code=51) Susceptible 0-8 , Resistant <0 or >8 Ceftazidime (test Susceptible 0-8 , code=27) Resistant <0 or >8 Ciprofloxacin (test Susceptible 0-1 , code=7) Resistant <0 or >1 Doripenem (test xpvt=248) Susceptible 0-2 , Resistant <0 or >2 [...] 0-4 , Resistant <0 or >4 POCT-GLUCOSE [id number] 11:38:00 Test Item Value Reference Range Comments POC-GLUCOSE METER (BEAKER) 112 mg/dL 70-110 TESTED AT [address] (test grqf=5524) [place] [id number] POCT-GLUCOSE [id number] 08:05:00 Test Item Value Reference Range Comments POC-GLUCOSE METER (BEAKER) 107 mg/dL 70-110 TESTED AT [address] (test lulu=8505) [place] [address] POCT-GLUCOSE [id number] 17:50:00 Test Item Value Reference Range Comments POC-GLUCOSE METER (BEAKER) 111 mg/dL 70-110 TESTED AT [address] (test xnyi=7267) [place] [address] HEMOGLOBIN [id number] 14:07:00 Test Item Value Reference Range Comments HEMOGLOBIN A1C (BEAKER) (test cyap=050) 5.7 % 4.3-6.1 POCT-GLUCOSE [id number] 12:54:00 Test Item Value Reference Range Comments POC-GLUCOSE METER (BEAKER) 152 mg/dL 70-110 TESTED AT [facility] [address] [facility] (test vkid=5607) [place] [address] URINALYSIS WITHOUT [id number] 11:24:00 Test Item Value Reference Range Comments COLOR (BEAKER) (test aryt=011) Yellow CLARITY (BEAKER) (test ivfn=226) Clear SPECIFIC GRAVITY UA (BEAKER) (test hrxe=550) 1.017 1.001-1.035 PH UA (BEAKER) (test uxhf=987) 5.5 5.0-8.0 PROTEIN UA (BEAKER) (test nktf=147) 50 mg/dL Negative GLUCOSE UA (BEAKER) (test onzi=978) Negative Negative KETONES UA (BEAKER) (test hnae=441) Negative Negative BILIRUBIN UA (BEAKER) (test aqqz=562) Negative Negative BLOOD UA (BEAKER) (test cfrw=008) Negative Negative NITRITE UA (BEAKER) (test gajk=738) Positive Negative LEUKOCYTE ESTERASE UA (BEAKER) (test uobn=138) Moderate Negative UROBILINOGEN UA (BEAKER) (test iidg=350) 0.2 mg/dL 0.2-1.0 SOURCE(BEAKER) (test gnfe=6973) CBC W/PLT COUNT & AUTO [id number] 08:57:00 Test Item Value Reference Range Comments WHITE BLOOD CELL COUNT (BEAKER) (test qgas=122) 12.4 K/ L 3.5-10.5 RED BLOOD CELL COUNT (BEAKER) (test qzih=636) 4.57 M/ L 4.63-6.08 HEMOGLOBIN (BEAKER) (test ospp=147) 14.7 GM/DL 13.7-17.5 HEMATOCRIT (BEAKER) (test zmyl=357) 42.6 % 40.1-51.0 MEAN CORPUSCULAR VOLUME (BEAKER) (test zfej=067) 93.2 fL 79.0-92.2 MEAN CORPUSCULAR HEMOGLOBIN (BEAKER) (test 32.2 pg 25.7-32.2 rwny=729) MEAN CORPUSCULAR HEMOGLOBIN CONC (BEAKER) (test 34.5 GM/DL 32.3-36.5 ymgd=299) RED CELL DISTRIBUTION WIDTH (BEAKER) (test 14.0 % 11.6-14.4 bige=284) PLATELET COUNT (BEAKER) (test iipg=599) 203 K/CU MM 150-450 MEAN PLATELET VOLUME (BEAKER) (test dzte=407) 10.7 fL 9.4-12.4 NUCLEATED RED BLOOD CELLS (BEAKER) (test 0 /100 WBC 0-0 ssac=870) (CELLAVISION MANUAL DIFF)2018-04-13 08:57:00 Test Item Value Reference Range Comments NEUTROPHILS - REL (CELLAVISION)(BEAKER) (test 74 % lsms=2001) LYMPHOCYTES - REL (CELLAVISION)(BEAKER) (test 11 % cxrk=1277) MONOCYTES - REL (CELLAVISION)(BEAKER) (test 8 % ivrj=8196) EOSINOPHILS - REL (CELLAVISION)(BEAKER) (test 5 % zhqu=5608) BASOPHILS - REL (CELLAVISION)(BEAKER) (test 1 % vpcv=2610) ATYPICAL LYMPHOCYTES - REL (CELLAVISION)(BEAKER) 1 % 0-0 (test tyvl=6016) NEUTROPHILS - ABS (CELLAVISION)(BEAKER) (test 9.18 K/ul 1.78-5.38 vlkb=1279) LYMPHOCYTES - ABS (CELLAVISION)(BEAKER) (test 1.36 K/ul 1.32-3.57 czyz=8428) MONOCYTES - ABS (CELLAVISION)(BEAKER) (test 0.99 K/uL 0.30-0.82 vgex=9360) EOSINOPHILS - ABS (CELLAVISION)(BEAKER) (test 0.62 K/uL 0.04-0.54 ztpe=7397) BASOPHILS - ABS (CELLAVISION)(BEAKER) (test 0.12 K/uL 0.01-0.08 sfeq=8995) ATYPICAL LYMPHOCYTES - ABS (CELLAVISION)(BEAKER) 0.12 K/uL 0.00-0.00 (test bkyq=7452) TOTAL COUNTED (BEAKER) (test fpia=0092) 100 RBC MORPHOLOGY (BEAKER) (test ryxu=840) Normal WBC MORPHOLOGY (BEAKER) (test rghj=611) Normal PLT MORPHOLOGY (BEAKER) (test alfv=263) Normal ARTIFACT (CELLAVISION)(BEAKER) (test xwoh=8817) Present PLATELET CONCENTRATION (CELLAVISION)(BEAKER) (test Adequate drrf=6366) Received comment: User comments: Slide comments:RAD, CHEST, 1 VIEW, NON [id number] 08:30:00Reason for exam:->Leukocytosis with coughShould this be [...] [place] Verified Date/Time: 04/13/2018 08:30:17 Reading Location: [facility] Radiology Reading Room POCT-GLUCOSE [id number] 08:08:00 Test Item Value Reference Range Comments POC-GLUCOSE METER (BEAKER) 141 mg/dL 70-110 TESTED AT [facility] [address] [facility] (test ocbp=7322) [place] [address] [id number] 04:13:00 Test Item Value Reference Range Comments PHOSPHORUS (BEAKER) (test tirf=996) 3.7 mg/dL 2.3-4.7 [id number] 04:13:00 Test Item Value Reference Range Comments MAGNESIUM (BEAKER) (test ialq=369) 2.2 mg/dL 1.6-2.6 BASIC METABOLIC [id number] 04:13:00 Test Item Value Reference Range Comments SODIUM (BEAKER) (test 139 meq/L 136-145 pnvw=993) POTASSIUM (BEAKER) (test 3.4 meq/L 3.5-5.1 lywl=543) CHLORIDE (BEAKER) (test 104 meq/L 98-107 yvpg=212) CO2 (BEAKER) (test 24 meq/L 22-29 fvne=350) BLOOD UREA NITROGEN 27 mg/dL 7-21 (BEAKER) (test yqdt=277) CREATININE (BEAKER) (test 1.13 mg/dL 0.57-1.25 hbxn=663) GLUCOSE RANDOM (BEAKER) 136 mg/dL 70-105 (test krgm=197) CALCIUM (BEAKER) (test 9.5 mg/dL 8.4-10.2 flfm=754) EGFR (BEAKER) (test 63 mL/min/1.73 sq m ESTIMATED GFR IS NOT uysi=7620) ACCURATE CREATININE CLEARANCE IN PREDICTING GLOMERULAR FILTRATION RATE. ESTIMATED GFR IS NOT APPLICABLE FOR DIALYSIS PATIENTS. POCT-GLUCOSE [id number] 21:52:00 Test Item Value Reference Range Comments POC-GLUCOSE METER (BEAKER) 163 mg/dL 70-110 TESTED AT [address] (test dyqa=2553) [place] [address] POCT-GLUCOSE [id number] 18:19:00 Test Item Value Reference Range Comments POC-GLUCOSE METER (BEAKER) 136 mg/dL 70-110 TESTED AT [address] (test mqxo=0968) [place] [address] TROPONIN [id number] 15:40:00 Test Item Value Reference Range Comments TROPONIN I (BEAKER) (test ahen=361) 0.04 ng/mL 0.00-0.03 Troponin I (TnI) levels [...] acidosis, acute neurological disease, and persistent tachyarrhythmia.POCT-GLUCOSE [id number] 13:00:00 Test Item Value Reference Range Comments POC-GLUCOSE METER (BEAKER) 151 mg/dL 70-110 TESTED AT [address] (test wmix=5903) [place] [address] TROPONIN [id number] 12:05:00 Test Item Value Reference Range Comments TROPONIN I (BEAKER) (test eayu=990) 0.05 ng/mL 0.00-0.03 Troponin I (TnI) levels [...] failure, acidosis, acute neurological disease, and persistent tachyarrhythmia.[id number] 09:00:00 Test Item Value Reference Range Comments POTASSIUM (BEAKER) (test fmik=537) 3.8 meq/L 3.5-5.1 Check Serum Potassium level 2 hours after oral potassium replacement completed or 30 min after intravenous potassium replacement.POCT-GLUCOSE [id number] 08:32:00 Test Item Value Reference Range Comments POC-GLUCOSE METER (BEAKER) 126 mg/dL 70-110 TESTED AT [facility] [address] [facility] (test upxi=1100) [place] [address] [id number] 04:24:00 Test Item Value Reference Range Comments PHOSPHORUS (BEAKER) (test tfwx=698) 3.6 mg/dL 2.3-4.7 [id number] 04:24:00 Test Item Value Reference Range Comments MAGNESIUM (BEAKER) (test mmvl=963) 2.2 mg/dL 1.6-2.6 BASIC METABOLIC [id number] 04:24:00 Test Item Value Reference Range Comments SODIUM (BEAKER) (test 140 meq/L 136-145 feme=026) POTASSIUM (BEAKER) (test 3.1 meq/L 3.5-5.1 wvnw=094) CHLORIDE (BEAKER) (test 103 meq/L 98-107 lhmw=594) CO2 (BEAKER) (test 26 meq/L 22-29 iush=341) BLOOD UREA NITROGEN 15 mg/dL 7-21 (BEAKER) (test cklv=428) CREATININE (BEAKER) (test 0.98 mg/dL 0.57-1.25 dizy=284) GLUCOSE RANDOM (BEAKER) 111 mg/dL 70-105 (test ysqu=883) CALCIUM (BEAKER) (test 9.8 mg/dL 8.4-10.2 more=507) EGFR (BEAKER) (test 75 mL/min/1.73 sq m ESTIMATED GFR IS NOT kzlh=0758) ACCURATE CREATININE CLEARANCE IN PREDICTING GLOMERULAR FILTRATION RATE. ESTIMATED GFR IS NOT APPLICABLE FOR DIALYSIS PATIENTS. CBC W/PLT COUNT & AUTO [id number] 04:10:00 Test Item Value Reference Range Comments WHITE BLOOD CELL COUNT (BEAKER) (test kzri=114) 10.5 K/ L 3.5-10.5 RED BLOOD CELL COUNT (BEAKER) (test rnwk=138) 5.07 M/ L 4.63-6.08 HEMOGLOBIN (BEAKER) (test skdl=857) 15.7 GM/DL 13.7-17.5 HEMATOCRIT (BEAKER) (test janw=627) 47.3 % 40.1-51.0 MEAN CORPUSCULAR VOLUME (BEAKER) (test nfle=616) 93.3 fL 79.0-92.2 MEAN CORPUSCULAR HEMOGLOBIN (BEAKER) (test 31.0 pg 25.7-32.2 fvqe=493) MEAN CORPUSCULAR HEMOGLOBIN CONC (BEAKER) (test 33.2 GM/DL 32.3-36.5 lpcy=391) RED CELL DISTRIBUTION WIDTH (BEAKER) (test 13.9 % 11.6-14.4 zgzc=054) PLATELET COUNT (BEAKER) (test fxus=489) 216 K/CU MM 150-450 MEAN PLATELET VOLUME (BEAKER) (test ylle=300) 10.7 fL 9.4-12.4 NUCLEATED RED BLOOD CELLS (BEAKER) (test 0 /100 WBC 0-0 rimw=330) NEUTROPHILS RELATIVE PERCENT (BEAKER) (test 71 % dted=187) LYMPHOCYTES RELATIVE PERCENT (BEAKER) (test 14 % gwbs=206) MONOCYTES RELATIVE PERCENT (BEAKER) (test 10 % zwrt=361) EOSINOPHILS RELATIVE PERCENT (BEAKER) (test 4 % mfvu=127) BASOPHILS RELATIVE PERCENT (BEAKER) (test 1 % lmdv=171) NEUTROPHILS ABSOLUTE COUNT (BEAKER) (test 7.50 K/ L 1.78-5.38 tttw=497) LYMPHOCYTES ABSOLUTE COUNT (BEAKER) (test 1.44 K/ L 1.32-3.57 yfxa=385) MONOCYTES ABSOLUTE COUNT (BEAKER) (test 1.05 K/ L 0.30-0.82 qkeg=226) EOSINOPHILS ABSOLUTE COUNT (BEAKER) (test 0.43 K/ L 0.04-0.54 gacs=568) BASOPHILS ABSOLUTE COUNT (BEAKER) (test 0.09 K/ L 0.01-0.08 qmmd=155) IMMATURE GRANULOCYTES-RELATIVE PERCENT (BEAKER) 0 % 0-1 (test ayua=8441) MR, BRAIN, WITHOUT [id number] 21:28:00Reason for exam:->StrokeWhat is the patient's sedation [...] [place] Verified Date/Time: 2017 21:28:36 Reading Location: [address] Reading Room MR, MRA, NECK, WITHOUT IV [id number] 21:28:00FINAL REPORT MR, BRAIN, WITHOUT CONTRAST, MR, [...] [place] Verified Date/Time: 2017 21:28:36 Reading Location: [address] Reading Room MR, MRA, BRAIN, WITHOUT [id number] 21:28:00Reason for exam:->StrokeWhat is the patient's sedation [...] [place] Verified Date/Time: 2017 21:28:36 Reading Location: [address] Reading Room POCT- GLUCOSE [id number] 21:26:00 Test Item Value Reference Range Comments POC-GLUCOSE METER (BEAKER) 133 mg/dL 70-110 TESTED AT [address] (test sjvt=6345) [place] [id number] POCT-GLUCOSE [id number] 18:19:00 Test Item Value Reference Range Comments POC-GLUCOSE METER (BEAKER) 212 mg/dL 70-110 TESTED AT [address] (test gaai=5193) [place] [address] POCT-GLUCOSE [id number] 12:27:00 Test Item Value Reference Range Comments POC-GLUCOSE METER (BEAKER) 174 mg/dL 70-110 TESTED AT [address] (test cpyw=6735) [place] [address] HEMOGLOBIN [id number] 08:49:00 Test Item Value Reference Range Comments HEMOGLOBIN A1C (BEAKER) (test sxii=719) 5.8 % 4.3-6.1 POCT-GLUCOSE [id number] 08:25:00 Test Item Value Reference Range Comments POC-GLUCOSE METER (BEAKER) 109 mg/dL 70-110 TESTED AT [address] (test bwmp=1113) [place] [address] TSH/FREE T4 IF [id number] 04:52:00 Test Item Value Reference Range Comments THYROID STIMULATING HORMONE (BEAKER) (test 1.95 uIU/mL 0.35-4.94 cfea=666) VITAMIN B12 AND [id number] 04:52:00 Test Item Value Reference Range Comments VITAMIN B12 (BEAKER) (test owcr=588) 1337 pg/mL 213-816 FOLATE (BEAKER) (test euyk=932) 10.9 ng/mL >=7.0 TROPONIN [id number] 03:46:00 Test Item Value Reference Range Comments TROPONIN I (BEAKER) (test vekt=485) 0.04 ng/mL 0.00-0.03 Troponin I (TnI) levels [...] failure, acidosis, acute neurological disease, and persistent tachyarrhythmia.[id number] 03:40:00 Test Item Value Reference Range Comments MAGNESIUM (BEAKER) (test 2.4 mg/dL 1.6-2.6 Specimen slightly hemolyzed tdmt=381) [id number] 03:40:00 Test Item Value Reference Range Comments PHOSPHORUS (BEAKER) (test 3.1 mg/dL 2.3-4.7 Specimen slightly hemolyzed dccd=020) FastingBASIC METABOLIC [id number] 03:40:00 Test Item Value Reference Range Comments SODIUM (BEAKER) (test 140 meq/L 136-145 bwfz=578) POTASSIUM (BEAKER) (test 3.4 meq/L 3.5-5.1 Specimen slightly fimo=687) hemolyzed CHLORIDE (BEAKER) (test 105 meq/L 98-107 avla=792) CO2 (BEAKER) (test 24 meq/L 22-29 ggai=943) BLOOD UREA NITROGEN 19 mg/dL 7-21 (BEAKER) (test lhkf=150) CREATININE (BEAKER) (test 0.97 mg/dL 0.57-1.25 Specimen slightly shzq=325) hemolyzed GLUCOSE RANDOM (BEAKER) 104 mg/dL 70-105 (test ptmi=686) CALCIUM (BEAKER) (test 9.2 mg/dL 8.4-10.2 nvpb=237) EGFR (BEAKER) (test 76 mL/min/1.73 sq m ESTIMATED GFR IS NOT uovi=2025) ACCURATE CREATININE CLEARANCE IN PREDICTING GLOMERULAR FILTRATION RATE. ESTIMATED GFR IS NOT APPLICABLE FOR DIALYSIS PATIENTS. FastingLIPID [id number] 03:40:00 Test Item Value Reference Range Comments TRIGLYCERIDES (BEAKER) (test 115 mg/dL Specimen slightly hemolyzed gjst=944) CHOLESTEROL (BEAKER) (test 149 mg/dL Specimen slightly hemolyzed zpqj=070) HDL CHOLESTEROL (BEAKER) (test 32 mg/dL ftaj=798) LDL CHOLESTEROL CALCULATED 94 mg/dL (BEAKER) (test smpe=924) Triglyceride Reference Range: Low Risk <150 Borderline 150- 199 High Risk 200-499 Very High Risk >=500Cholesterol Reference Range: Low Risk <200 Borderline 200-239 High Risk > 240HDL Cholesterol Reference Range: Low Risk >=60 High Risk <40LDL Cholesterol Reference Range: Optimal <100 Near Optimal 100-129 Borderline 130-159 High 160-189 Very High >=190 FastingHEPATIC FUNCTION [id number] 03:40:00 Test Item Value Reference Range Comments TOTAL PROTEIN (BEAKER) (test 7.6 gm/dL 6.0-8.3 Specimen slightly hemolyzed iywz=666) ALBUMIN (BEAKER) (test 4.1 g/dL 3.5-5.0 Specimen slightly hemolyzed kdhu=5266) BILIRUBIN TOTAL (BEAKER) (test 0.5 mg/dL 0.2-1.2 Specimen slightly hemolyzed eriv=372) BILIRUBIN DIRECT (BEAKER) (test 0.2 mg/dL 0.1-0.5 Specimen slightly hemolyzed mibm=712) ALKALINE PHOSPHATASE (BEAKER) 104 U/L 40-150 (test zylc=280) AST (SGOT) (BEAKER) (test 21 U/L 5-34 Specimen slightly hemolyzed lhnd=539) ALT (SGPT) (BEAKER) (test 14 U/L 6-55 Specimen slightly hemolyzed dmtq=312) [id number] 03:35:00 Test Item Value Reference Range Comments PARTIAL THROMBOPLASTIN TIME (BEAKER) (test 30.2 seconds 22.5-36.0 xyxw=736) PROTHROMBIN TIME/[id number] 03:34:00 Test Item Value Reference Range Comments PROTIME (BEAKER) (test hafl=785) 14.6 seconds 11.7-14.7 INR (BEAKER) (test afde=853) 1.1 <=5.9 RECOMMENDED COUMADIN/WARFARIN INR THERAPY RANGESSTANDARD DOSE: 2.0 - 3.0 Includes: PROPHYLAXIS forvenous thrombosis, systemic embolization; TREATMENT for venous thrombosis and/or pulmonary embolus.HIGH RISK: Target INR is 2.5-3.5 for patients with mechanical heart valves.CBC W/PLT COUNT & AUTO [id number] 03:14:00 Test Item Value Reference Range Comments WHITE BLOOD CELL COUNT (BEAKER) (test idqh=724) 9.3 K/ L 3.5-10.5 RED BLOOD CELL COUNT (BEAKER) (test eyik=154) 4.82 M/ L 4.63-6.08 HEMOGLOBIN (BEAKER) (test bdfl=326) 15.0 GM/DL 13.7-17.5 HEMATOCRIT (BEAKER) (test peii=797) 44.9 % 40.1-51.0 MEAN CORPUSCULAR VOLUME (BEAKER) (test tffm=294) 93.2 fL 79.0-92.2 MEAN CORPUSCULAR HEMOGLOBIN (BEAKER) (test 31.1 pg 25.7-32.2 lryh=453) MEAN CORPUSCULAR HEMOGLOBIN CONC (BEAKER) (test 33.4 GM/DL 32.3-36.5 zabl=832) RED CELL DISTRIBUTION WIDTH (BEAKER) (test 13.9 % 11.6-14.4 jbmq=529) PLATELET COUNT (BEAKER) (test iyth=389) 209 K/CU MM 150-450 MEAN PLATELET VOLUME (BEAKER) (test pvhn=140) 11.0 fL 9.4-12.4 NUCLEATED RED BLOOD CELLS (BEAKER) (test 0 /100 WBC 0-0 lnik=763) NEUTROPHILS RELATIVE PERCENT (BEAKER) (test 67 % gdza=908) LYMPHOCYTES RELATIVE PERCENT (BEAKER) (test 18 % ptst=773) MONOCYTES RELATIVE PERCENT (BEAKER) (test 10 % ayrk=201) EOSINOPHILS RELATIVE PERCENT (BEAKER) (test 5 % iqvj=350) BASOPHILS RELATIVE PERCENT (BEAKER) (test 1 % twka=793) NEUTROPHILS ABSOLUTE COUNT (BEAKER) (test 6.21 K/ L 1.78-5.38 ywnf=941) LYMPHOCYTES ABSOLUTE COUNT (BEAKER) (test 1.62 K/ L 1.32-3.57 swqj=783) MONOCYTES ABSOLUTE COUNT (BEAKER) (test 0.90 K/ L 0.30-0.82 bewu=821) EOSINOPHILS ABSOLUTE COUNT (BEAKER) (test 0.45 K/ L 0.04-0.54 wwvt=378) BASOPHILS ABSOLUTE COUNT (BEAKER) (test 0.07 K/ L 0.01-0.08 nwfq=174) IMMATURE GRANULOCYTES-RELATIVE PERCENT (BEAKER) 0 % 0-1 (test zusq=1856)
--- NOTE | 2019-10-11 20:53 | RAD REPORT ---
EXAM DESCRIPTION: CT - CTHCSPWOC - 10/11/2019 8:42 pm CLINICAL HISTORY: Trauma, head and neck injury. PAIN COMPARISON: No comparisons TECHNIQUE: Axial 5 mm thick images of the head were obtained. Axial 2 mm thick images of the cervical spine were obtained with sagittal and coronal reconstruction images generated and reviewed. All CT scans are performed using dose optimization technique as appropriate and may include automated exposure control or mA/KV adjustment according to patient size. FINDINGS: CT HEAD WITHOUT CONTRAST: No acute hemorrhage, hydrocephalus or extra-axial collection is identified.Moderate generalized brain atrophy is present with moderate periventricular and deep white matter chronic microvascular ischemi c changes.No areas of brain edema or midline shift. The paranasal sinuses and mastoids are clear.The calvarium is intact. CT CERVICAL SPINE WITHOUT CONTRAST: No fracture or subluxation.Moderate multilevel mid and upper cervical degenerative changes.No prevert ebral soft tissues swelling is identified. IMPRESSION: No acute intracranial or cervical spine findings. Moderate cervical degenerative changes.
[2019-10-11 21:13] LABS: Absolute Lymphocytes (CBC) 1.3 K/uL (0.7-4.9); Lymphocytes % 16.1 % (15.3-44.8); MPV 9.1 fL (7.6-11.3)
[2019-10-11 21:16] LABS: Protime INR 1.13
[2019-10-11 21:28] LABS: Albumin 3.5 g/dL (3.4-5.0); Bilirubin Direct 0.2 mg/dL (0-0.2); Bilirubin Total 0.4 mg/dL (0.2-1.0); CKMB Creatine Kinase MB 3.5 ng/mL (0.3-3.6); Magnesium 2.2 mg/dL (1.8-2.4); Potassium 3.8 mmol/L (3.5-5.1); Protein, Total 7.5 g/dL (6.4-8.2); Troponin (Emerg Dept Use Only) 0.34 ng/mL (0.0-0.045)
--- NOTE | 2019-10-11 22:40 | EDPHYS ---
Physician Documentation [facility] Name: Zen Patterson Age: 74 yrs Sex: Male : 1945 Arrival Date: 10/11/2019 Time: 20:26 Bed 20 Private MD: ED Physician Sterling Soto HPI: 10/12 04:53 This 74 yrs old Male presents to ER via EMS with complaints of Passed Out tw4 Prior To Arrival. 04:53 The patient has experienced syncope, became unresponsive, collapsed, lost tw4 consciousness. Onset: The symptoms/episode began/occurred just prior to arrival. Duration: This was a single episode, that lasted an unknown period of time. Context: the episode(s) was witnessed, by a significant other, . Associated injury: Head/face:. Associated signs and symptoms: The patient has no apparent associated signs or symptoms. The patient has not experienced similar symptoms in the past. Historical: - Allergies: 10/11 20:37 No Known Allergies; bb - Home Meds: 20:37 Allopurinol Oral [Active]; atorvastatin Oral [Active]; budesonide Oral [Active]; bb clonidine HCl 0.1 mg Oral tab 1 tab once daily [Active]; Furosemide Oral [Active]; Hydralazine Oral [Active]; losartan Oral [Active]; Nifedipine ER Oral [Active]; pantoprazole Oral [Active]; Ranitidine Oral [Active]; Xarelto Oral [Active]; Perforomist 20 mcg/2 mL inhalation nebu [Active]; - PMHx: 20:37 CHF; CVA; Hyperlipidemia; Hypertension; bb 20:40 atrial fibrillation; bb - PSHx: 20:37 defibrillator; bb - Immunization history:: Adult Immunizations up to date. - Social history:: Smoking status: Patient/guardian denies using tobacco. - Immunization history: Last tetanus immunization: - up to date. - Ebola Screening: : No symptoms or risks identified at this time. ROS: 10/12 04:53 Constitutional: Negative for fever, chills, and weight loss, ENT: Negative for injury, tw4 pain, and discharge. Cardiovascular: Negative for chest pain, palpitations, and edema, Respiratory: Negative for shortness of breath, cough, wheezing, and pleuritic chest pain, Abdomen/GI: Negative for abdominal pain, nausea, vomiting, diarrhea, and constipation, Back: Negative for injury and pain, MS/Extremity: Negative for injury and deformity, Skin: Negative for injury, rash, and discoloration. Neuro: Positive for syncope, Negative for altered mental status, dizziness, gait disturbance, headache, hearing loss, loss of consciousness, numbness, seizure activity, speech changes, tinnitus, tremor, visual changes. Exam: 04:53 Constitutional: This is a well developed, well nourished patient who is awake, alert, tw4 and in no acute distress. Chest/axilla: Normal chest wall appearance and motion. Nontender with no deformity. No lesions are appreciated. Cardiovascular: Regular rate and rhythm with a normal S1 and S2. No gallops, murmurs, or rubs. Normal PMI, no JVD. No pulse deficits. Respiratory: Lungs have equal breath sounds bilaterally, clear to auscultation and percussion. No rales, rhonchi or wheezes noted. No increased work of breathing, no retractions or nasal flaring. 04:53 MS/ Extremity: Pulses equal, no cyanosis. Neurovascular intact. Full, normal range of motion. 04:53 Head/face: Noted is contusion, of the left occipital area and right occipital area. Vital Signs: 10/11 20:37 BP 134 / 85; Pulse 73; Resp 16 S; Temp 98(O); Pulse Ox 96% on R/A; Weight 87.09 kg (R); bb Height 5 ft. 11 in. (180.34 cm) (R); 21:29 BP 151 / 80; Pulse 79; Resp 18; Pulse Ox 95% on R/A; Pain 2/10; aa1 22:15 BP 163 / 82; Pulse 77; Resp 16; Pulse Ox 93% on R/A; Pain 0/10; aa1 23:15 BP 156 / 93; Pulse 82; Resp 16; Temp 98.2; Pulse Ox 96% on R/A; Pain 0/10; aa1 10/12 01:15 BP 168 / 89; Pulse 79; Resp 18; Temp 98.0; Pulse Ox 95% on R/A; Pain 0/10; aa1 10/11 20:37 Body Mass Index 26.78 (87.09 kg, 180.34 cm) bb [place] Coma Score: 10/11 20:31 Eye Response: spontaneous(4). Verbal Response: oriented(5). Motor Response: obeys aa1 commands(6). Total: 15. 21:29 Eye Response: spontaneous(4). Verbal Response: oriented(5). Motor Response: obeys aa1 commands(6). Total: 15. 22:15 Eye Response: spontaneous(4). Verbal Response: oriented(5). Motor Response: obeys aa1 commands(6). Total: 15. 23:15 Eye Response: spontaneous(4). Verbal Response: oriented(5). Motor Response: obeys aa1 commands(6). Total: 15. 10/12 01:15 Eye Response: spontaneous(4). Verbal Response: oriented(5). Motor Response: obeys aa1 commands(6). Total: 15. Trauma Score (Adult): 10/11 20:31 Eye Response: spontaneous(1); Verbal Response: oriented(1); Motor Response: obeys aa1 commands(2); Systolic BP: > 89 mm Hg(4); Respiratory Rate: 10 to 29 per min(4); Yesica Score: 15; Trauma Score: 12 MDM: 20:48 Patient medically screened. 10/12 04:53 Data reviewed: vital signs, nurses notes. Data interpreted: Pulse oximetry: Interpretation: normal. Test interpretation: by ED physician or midlevel provider: ECG, plain radiologic studies. Counseling: I had a detailed discussion with the patient and/or guardian regarding: the historical points, exam findings, and any diagnostic results supporting the discharge/admit diagnosis, lab results, radiology results. Physician consultation: Jose Bland MD regarding admission, to the telemetry unit. patient's condition, need to come to ED to see patient, and will see patient in ED, in inpatient room. 10/11 20:37 Order name: Basic Metabolic Panel; Complete Time: 22:37 4 10/11 22:37 Interpretation: Normal except: GLUC 118; GFR 58. 10/11 20:37 Order name: CBC with Diff; Complete Time: 22:37 tw4 10/11 22:37 Interpretation: Normal except: HGB 13.3; EOSINOPHIL % 4.9. 10/11 20:37 Order name: Ckmb; Complete Time: 22:38 tw4 01/14 22:38 Interpretation: Within normal limits: CKMB 3.5. 10/11 20:37 Order name: CPK; Complete Time: 22:38 10/11 22:38 Interpretation: Within normal limits: CPK 120. 10/11 20:37 Order name: Hepatic Function; Complete Time: 22:37 10/11 22:37 Interpretation: Normal except: GLOB 4.0; A/G 0.9. 10/11 20:37 Order name: Lipase; Complete Time: 22:38 10/11 22:38 Interpretation: Within normal limits: LIP 130. 10/11 20:37 Order name: Magnesium; Complete Time: 22:38 10/11 22:38 Interpretation: Within normal limits: MG 2.2. 10/11 20:37 Order name: Protime (+inr); Complete Time: 22:37 10/11 22:37 Interpretation: Normal except: PT 13.3. 10/11 20:37 Order name: Ptt, Activated; Complete Time: 22:38 10/11 22:38 Interpretation: Within normal limits: PTT 33.9. 10/11 20:37 Order name: Troponin (emerg Dept Use Only); Complete Time: 22:38 10/11 22:38 Interpretation: Normal except: TROPED 0.34. 10/12 00:36 Order name: Lipid Profile [facility] 10/12 00:37 Order name: Lipid Profile [facility] 10/12 00:37 Order name: Troponin I [facility] 10/12 00:37 Order name: Troponin I [facility] 10/11 20:37 Order name: CT Head C Spine; Complete Time: 22:37 10/11 20:37 Order name: EKG; Complete Time: 20:38 10/11 20:37 Order name: Cardiac monitoring; Complete Time: 20:39 10/11 20:37 Order name: EKG - Nurse/Tech; Complete Time: 20:59 10/11 20:37 Order name: IV Saline Lock; Complete Time: 20:59 10/11 20:37 Order name: Labs collected and sent; Complete Time: 20:59 10/11 20:37 Order name: NPO; Complete Time: 20:40 [facility] 10/11 20:37 Order name: O2 Per Protocol; Complete Time: 20:39 [facility] 10/11 20:37 Order name: O2 Sat Monitoring; Complete Time: 20:39 [facility] 10/11 20:37 Order name: CXR XRAY [facility] 10/12 00:36 Order name: CONS Physician Consult [facility] 10/12 00:36 Order name: Heart Healthy [facility] 10/12 00:36 Order name: Echo with Doppler [facility] 10/12 00:37 Order name: Troponin I [facility] Administered Medications: No medications were administered Disposition: 10/11/19 22:40 Hospitalization ordered by Jose Bland for Inpatient Admission. Preliminary diagnosis are Syncope and collapse, Contusion of other part of head. - Bed requested for Telemetry/MedSurg (Inpatient). - Status is Inpatient Admission. aa1 - Condition is Stable. - Problem is new. - Symptoms have improved. UTI on Admission? No Signatures: Dispatcher [employer] [facility] Naina Norton RN RN aa1 Chantelle Schultz RN RN bb Loren Negron RN RN Sterling Soto MD MD tw4 Corrections: (The following items were deleted from the chart) 10/11 20:43 20:37 Head Brain Wo Cont+CT.RAD.BRZ ordered. [facility] 10/12 00:46 10/11 22:40 Hospitalization Ordered by Jose Bland MD for Inpatient Admission. cg Preliminary diagnosis is Syncope and collapse; Contusion of other part of head. Bed requested for Telemetry/MedSurg (Inpatient). Status is Inpatient Admission. Condition is Stable. Problem is new. Symptoms have improved. UTI on Admission? No. 4 10/12 01:53 00:46 10/11/2019 22:40 Hospitalization Ordered by Jose Bland MD for Inpatient aa1 Admission. Preliminary diagnosis is Syncope and collapse; Contusion of other part of head. Bed requested for Telemetry/MedSurg (Inpatient). Status is Inpatient Admission. Condition is Stable. Problem is new. Symptoms have improved. UTI on Admission? No. cg
--- NOTE | 2019-10-11 22:40 | ER ---
Nurse's Notes [facility] Name: Zen Patterson Age: 74 yrs Sex: Male : 1945 Arrival Date: 10/11/2019 Time: 20:26 Bed 20 Private MD: Diagnosis: Syncope and collapse;Contusion of other part of head Presentation: 10/11 20:31 Presenting complaint: EMS states: they were toned out for report of pt having a bb syncopal episode hitting his head and having a positive LOC. Transition of care: patient was not received from another setting of care. Onset of symptoms was October 11, 2019. Risk Assessment: Do you want to hurt yourself or someone else? Patient reports no desire to harm self or others. Initial Sepsis Screen: Does the patient meet any 2 criteria? No. Patient's initial sepsis screen is negative. Does the patient have a suspected source of infection? No. Patient's initial sepsis screen is negative. Care prior to arrival: None. 20:31 Method Of Arrival: EMS: [facility] bb 20:31 Acuity: YASSINE 3 bb 20:31 Mechanism of Injury: Fall from standing position. Trauma event details: Injury occurred aa1 in the [facility], Injury occurred: in a public building. Injury occurred: October 11, 2019. Trauma Activation: Alert Physician: ED Physician; Name: Charles; Notified At: 20:22; Arrived At: 20:22 Physician: General Surgeon; Name: n/a; Notified At: 20:22; Arrived At: Physician: Radiology; Name: Kacie Marie Jason, \T\ Nicole; Notified At: 20:22; Arrived At: Physician: Respiratory; Name: n/a; Notified At: 20:22; Arrived At: Physician: Lab; Name: n/a; Notified At: 20:22; Arrived At: 20:23 Historical: - Allergies: 20:37 No Known Allergies; bb - Home Meds: 20:37 Allopurinol Oral [Active]; atorvastatin Oral [Active]; budesonide Oral [Active]; bb clonidine HCl 0.1 mg Oral tab 1 tab once daily [Active]; Furosemide Oral [Active]; Hydralazine Oral [Active]; losartan Oral [Active]; Nifedipine ER Oral [Active]; pantoprazole Oral [Active]; Ranitidine Oral [Active]; Xarelto Oral [Active]; Perforomist 20 mcg/2 mL inhalation nebu [Active]; - PMHx: 20:37 CHF; CVA; Hyperlipidemia; Hypertension; bb 20:40 atrial fibrillation; bb - PSHx: 20:37 defibrillator; bb - Immunization history:: Adult Immunizations up to date. - Social history:: Smoking status: Patient/guardian denies using tobacco. - Immunization history: Last tetanus immunization: - up to date. - Ebola Screening: : No symptoms or risks identified at this time. Screenin:31 Abuse screen: Denies threats or abuse. Denies injuries from another. Tuberculosis aa1 screening: No symptoms or risk factors identified. 20:35 Nutritional screening: No deficits noted. Fall Risk Fall in past 12 months (25 points). aa1 Primary Survey: 20:31 NO uncontrolled hemorrhage observed. A: The patient is alert. Airway: patent, No aa1 supplemental oxygen in use on arrival. Oral cavity: clear. Breathing/Chest: Respiratory pattern: regular, Respiratory effort: spontaneous, unlabored, Breath sounds: clear, bilaterally. Chest inspection: symmetrical rise and fall of the chest. Circulation: Heart tones present. Pulses: palpable right radial artery and left radial artery. Skin color: pink, Skin temperature: warm. Disability Alert. Exposure/Environment: There is no evidence of uncontrolled external bleeding. No obvious injuries are noted at this time. A warming method has been applied: A warm blanket has been provided to the patient. 21:30 Reassessment Airway Airway Patent Oxygen No O2 Breathing/Chest Respiratory pattern aa1 Regular Respiratory effort Spontaneous Unlabored Circulation Color [place] Temperature Warm Disability Alert. Secondary Survey: 20:31 HEENT: No deficits noted. Gastrointestinal: No deficits noted. : No signs and/or aa1 symptoms were reported regarding the genitourinary system. Musculoskeletal: No signs and/or symptoms reported regarding the musculoskeletal system. Assessment: 20:35 General: Appears in no apparent distress. comfortable, Behavior is calm, cooperative, aa1 appropriate for age. Pain: Complains of pain in left cheek, left jaw and left ear Quality of pain is described as tender. Neuro: Level of Consciousness is awake, alert, obeys commands, Oriented to person, place, time, situation, Moves all extremities. Full function Speech is normal, Denies blurred vision dizziness. Cardiovascular: Reports syncope, Denies chest pain, diaphoresis, palpitations, shortness of breath, Heart tones S1 S2 present Capillary refill < 3 seconds Clubbing of nail beds is absent JVD is absent Patient's skin is warm and dry. Respiratory: Airway is patent Respiratory effort is even, unlabored, Respiratory pattern is regular, symmetrical. GI: No signs and/or symptoms were reported involving the gastrointestinal system. : No signs and/or symptoms were reported regarding the genitourinary system. EENT: Reports pain in left ear. Derm: Skin is intact, is healthy with good turgor, Skin is pink, warm \T\ dry. Musculoskeletal: Circulation, motion, and sensation intact. Capillary refill < 3 seconds, Range of motion: intact in all extremities. 21:19 Reassessment: Patient appears in no apparent distress at this time. Patient and/or aa1 family updated on plan of care and expected duration. Pain level reassessed. Patient is alert, oriented x 3, equal unlabored respirations, skin warm/dry/pink. Awaiting CT \T\ lab results. 22:15 Reassessment: Patient appears in no apparent distress at this time. Patient and/or aa1 family updated on plan of care and expected duration. Pain level reassessed. Patient is alert, oriented x 3, equal unlabored respirations, skin warm/dry/pink. Awaiting CT results. 23:15 Reassessment: Patient appears in no apparent distress at this time. Patient and/or aa1 family updated on plan of care and expected duration. Pain level reassessed. Patient is alert, oriented x 3, equal unlabored respirations, skin warm/dry/pink. Awaiting bed assignment. 10/12 01:10 Reassessment: Patient appears in no apparent distress at this time. Patient and/or aa1 family updated on plan of care and expected duration. Pain level reassessed. Patient is alert, oriented x 3, equal unlabored respirations, skin warm/dry/pink. Report given to PERFECTO Charlton on . Vital Signs: 10/11 20:37 BP 134 / 85; Pulse 73; Resp 16 S; Temp 98(O); Pulse Ox 96% on R/A; Weight 87.09 kg (R); bb Height 5 ft. 11 in. (180.34 cm) (R); 21:29 BP 151 / 80; Pulse 79; Resp 18; Pulse Ox 95% on R/A; Pain 2/10; aa1 22:15 BP 163 / 82; Pulse 77; Resp 16; Pulse Ox 93% on R/A; Pain 0/10; aa1 23:15 BP 156 / 93; Pulse 82; Resp 16; Temp 98.2; Pulse Ox 96% on R/A; Pain 0/10; aa1 10/12 01:15 BP 168 / 89; Pulse 79; Resp 18; Temp 98.0; Pulse Ox 95% on R/A; Pain 0/10; aa1 10/11 20:37 Body Mass Index 26.78 (87.09 kg, 180.34 cm) bb Yesica Coma Score: 10/11 20:31 Eye Response: spontaneous(4). Verbal Response: oriented(5). Motor Response: obeys aa1 commands(6). Total: 15. 21:29 Eye Response: spontaneous(4). Verbal Response: oriented(5). Motor Response: obeys aa1 commands(6). Total: 15. 22:15 Eye Response: spontaneous(4). Verbal Response: oriented(5). Motor Response: obeys aa1 commands(6). Total: 15. 23:15 Eye Response: spontaneous(4). Verbal Response: oriented(5). Motor Response: obeys aa1 commands(6). Total: 15. 10/12 01:15 Eye Response: spontaneous(4). Verbal Response: oriented(5). Motor Response: obeys aa1 commands(6). Total: 15. Trauma Score (Adult): 10/11 20:31 Eye Response: spontaneous(1); Verbal Response: oriented(1); Motor Response: obeys aa1 commands(2); Systolic BP: > 89 mm Hg(4); Respiratory Rate: 10 to 29 per min(4); Yesica Score: 15; Trauma Score: 12 ED Course: 20:26 Patient arrived in ED. cf2 20:27 Sterling Soto MD is Attending Physician. tw4 20:31 Patient has correct armband on for positive identification. Placed in gown. Bed in low aa1 position. Call light in reach. 20:31 Patient maintains SpO2 saturation greater than 95% on room air. Thermoregulation: warm aa1 blanket given to patient. 20:33 Triage completed. bb 20:37 Arm band placed on Patient placed in an exam room, on a stretcher, on cardiac technologist, bb on pulse oximetry. Family accompanied patient. 20:42 CT Head C Spine In Process Unspecified. EDMS 20:50 Naina Norton, RN is Primary Nurse. aa1 20:55 Initial lab(s) drawn, by me, sent to lab. Inserted saline lock: 20 gauge in right aa1 antecubital area, using aseptic technique. Blood collected. 21:18 CXR XRAY In Process Unspecified. EDMS 22:39 Jose Bland MD is Hospitalizing Provider. tw4 10/12 01:12 No provider procedures requiring assistance completed. Patient admitted, IV remains in aa1 place. Administered Medications: No medications were administered Intake: 01:20 PO: 0ml; IV: 0ml; Total: 0ml. aa1 Outcome: 10/11 22:40 Decision to Hospitalize by Provider. tw4 10/12 01:40 Admitted to Tele accompanied by tech, family with patient, via wheelchair, room 421, aa1 with chart, Report called to PERFECTO Charlton Condition: stable Discharge instructions given to patient, family, Instructed on the need for admit, Demonstrated understanding of instructions. 01:53 Patient left the ED. aa1 Signatures: Dispatcher [employer] [facility] Naina Norton, PERFECTO RN aa1 Chantelle Schultz RN RN bb Sterling Soto MD MD tw4 John Mckinley cf2
[2019-10-12] MEDS ORDERED: ALPRAZOLAM 0.25 MG TABLET PO PRN (00:31)
[2019-10-12] MEDS ORDERED: MORPHINE 4 MG/ML SYR IV PRN (00:31)
[2019-10-12] MEDS ORDERED: ACETAMINOPHEN 500 MG TAB PO PRN (00:31)
[2019-10-12 02:12] VITALS: BMI 26.3
[2019-10-12 06:45] LABS: Troponin I 0.36 ng/mL (0.0-0.045)
[2019-10-12] MEDS ORDERED: ATORVASTATIN 20 MG TAB PO SCH (07:00)
--- NOTE | 2019-10-12 07:46 | EKG ---
Test Date: 2019-10-11 Test Time: 21:03:19 Range Aide: QUENTIN MEASUREMENT RESULTS: Intervals: Rate: 80 VA: 236 QRSD: 128 QT: 470 QTc: 542 [place]: P: 18 VA: 236 QRS: -35 T: 105 INTERPRETIVE STATEMENTS: Sinus rhythm with 1st degree AV block with premature supraventricular complexes Left axis deviation Nonspecific intraventricular block T wave abnormality, consider lateral ischemia Abnormal ECG Compared to ECG 08/26/2019 20:06:39 no significant change from previous ECG Electronically Signed On 10-12-19 07:45:39 [employer] by Jamil Calixto
--- NOTE | 2019-10-12 08:28 | RAD REPORT ---
EXAM DESCRIPTION: RAD - Chest Single View - 10/11/2019 9:18 pm CLINICAL HISTORY: .. Chest pain. COMPARISON: Chest Single View dated 08/26/2019; Chest Pa And Lat (2 Views) dated 08/26/2018; Chest S ace View dated 04/10/2018; Abdomen 1 View (KUB) dated 08/04/2017 FINDINGS: Portable technique limits examination quality. Mild to moderate pulmonary edema is seen. The heart is moderately enlarged in size with multilead pac er/defibrillator device. No displaced fractures. IMPRESSION: Moderate CHF.
[2019-10-12] MEDS: cloNIDine HCL 0.1 MG TAB PO SCH ×2 (08:45→21:34)
[2019-10-12] MEDS: LOSARTAN POTASSIUM 50 MG TABLET PO SCH (08:45)
[2019-10-12] MEDS: ASPIRIN EC 81 MG TAB PO SCH (08:47)
[2019-10-12] MEDS: NIFEDIPINE XL 60 MG TABLET PO SCH ×2 (08:47→16:48)
[2019-10-12] MEDS: FUROSEMIDE 40 MG TABLET PO SCH ×2 (08:48→16:48)
[2019-10-12] MEDS ORDERED: ENOXAPARIN 40 MG/0.4 ML SQ SCH (09:00)
[2019-10-12] MEDS ORDERED: METOPROLOL TAR 50 MG TAB PO SCH (09:00)
[2019-10-12] MEDS: BUDESONIDE 0.25 MG/2 ML NEB NEB SCH ×2 (09:10→21:13)
[2019-10-12] MEDS: ARFORMOTEROL TARTRATE 15 MCG/2 ML VIAL.NEB IH SCH ×2 (09:10→20:13)
[2019-10-12 09:31] LABS: Urine Appearance CLEAR; Urine Bilirubin NEGATIVE (NEG); Urine Blood NEGATIVE (NEG); Urine Color YELLOW; Urine Glucose NEGATIVE (NEG); Urine Microscopic Reflex ORDER UMIC; Urine Protein TRACE (NEG); Urine Specific Gravity 1.015 (1.005-1.030); Urine pH 7.5 (5.0-7.0)
[2019-10-12 10:23] LABS: Urine Bacteria <20 /HPF (NONE SEEN); Urine RBC <5 /HPF (NONE SEEN)
--- NOTE | 2019-10-12 10:37 | P.HP ---
Certification for Inpatient Patient admitted to: Inpatient With expected LOS: >2 Midnights Patient will require the following post-hospital care: None Practitioner: I am a practitioner with admitting privileges, knowledge of patient current condition, hospital course, and medical plan of care. Services: Services provided to patient in accordance with Admission requirements found in Title 42 Section 412.3 of the Code of Federal Regulations Patient History Date of Service: 10/12/19 Reason for admission: arrhythmia; near-syncope History of Present Illness: patient is a 74-year-old gentleman who came to the hospital after a syncopal event. Patient passed out completely and was brought into the emergency room. Patient recently had up defibrillator placed for sustained ventricular tachycardia. Patient had a cardiac catheterization at that time which revealed mild atherosclerotic disease. Patient was transferred to [facility] where he had a defibrillator placed. Patient has been doing well on sotalol. However, this is his 1st episode of chest pain or syncope since the defibrillator was placed. Patient will be admitted to the hospital for cardiology evaluation. Allergies No Known Allergies Allergy (Verified 07/27/13 02:28) Home Medications: Potassium Chloride [Klor-Con] 10 meq PO BID 07/27/13 cloNIDine HCL [Catapres*] 0.1 mg PO BEDTIME 07/27/13 Furosemide [Lasix*] 40 mg PO BIDWM 06/09/16 Hydralazine [Apresoline*] 1 tab PO BEDTIME 06/09/16 Nifedipine Xl [Procardia XL*] 90 mg PO BIDWM 06/09/16 Allopurinol 150 mg PO 1700 08/26/19 Budesonide [Pulmicort] 1 puff NEB BID 08/26/19 Formoterol Fumarate [Perforomist] 20 mcg NEB BID 08/26/19 Losartan Potassium 1 tab PO DAILY 08/26/19 Losartan Potassium 25 mg PO 1700 08/26/19 Rivaroxaban [Xarelto] 1 tab PO 1700 08/26/19 Atorvastatin Calcium [Lipitor*] 40 mg PO SEECOM 10/12/19 Diphenhydramine [Benadryl*] 25 mg PO BEDTIME 10/12/19 Omeprazole 20 mg PO 1700 10/12/19 Omeprazole 20 mg PO BEDTIME 10/12/19 Sotalol HCl [Betapace*] 40 mg PO BEDTIME 10/12/19 - Past Medical/Surgical History Has patient received pneumonia vaccine in the past: Yes Diabetic: No -: Hypertension -: Hyperlipidemia -: Coronary artery disease -: Obstructive sleep apnea -: 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 - Family History Mother Medical History: Heart disease Father Medical History: Heart disease, Cancer, Other (see notes) Notes: prostate ca. mi. heart valve infection. at 93 Brother Medical History: Heart disease - Social History Smoking Status: Former smoker Alcohol use: Yes CD- Drugs: No Caffeine use: Yes Place of Residence: Home Review of Systems 10-point ROS is otherwise unremarkable Physical Examination - Vital Signs Temperature: 98.5 F Blood Pressure: 137/65 Pulse: 73 Respirations: 16 Pulse Ox (%): 92 - Physical Exam General: Alert, In no apparent distress, Oriented x3 HEENT: Atraumatic, PERRLA, Mucous membr. moist/pink, EOMI, Sclerae nonicteric Neck: Supple, 2+ carotid pulse no bruit, No LAD, Without JVD or thyroid abnormality Respiratory: Clear to auscultation bilaterally, Normal air movement Cardiovascular: Regular rate/rhythm, Normal S1 S2, No murmurs Gastrointestinal: Normal bowel sounds, Soft and benign, Non-distended, No tenderness Musculoskeletal: No clubbing, No swelling, No tenderness Integumentary: No rashes Neurological: Normal gait, Normal speech, Normal strength at 5/5 x4 extr, Normal tone, Sensation intact, Cranial nerves 3-12 intact, Normal affect Lymphatics: No axilla or inguinal lymphadenopathy - Studies Laboratory Data (last 24 hrs) 10/11/19 20:55: PT 13.3 H, INR 1.13, APTT 33.9 10/11/19 20:55: WBC 7.9, Hgb 13.3 L, Hct 40.0, Plt Count 165 10/11/19 20:55: Sodium 142, Potassium 3.8, BUN 18, Creatinine 1.21, Glucose 118 H, Magnesium 2.2, Total Bilirubin 0.4, AST 19, ALT 22, Alkaline Phosphatase 108 , Lipase 130 Assessment & Plan - Problems (Diagnosis) (1) Syncope Current Visit: Yes Status: Acute (2) Ventricular tachyarrhythmia Current Visit: Yes Status: Acute (3) Hyperlipidemia Onset Date: 06/10/16 Current Visit: No Status: Acute Qualifiers: (4) Hypertension Onset Date: 06/10/16 Current Visit: No Status: Chronic Qualifiers: Hypertension type: essential hypertension - Plan PLAN: 1. IVFs 2. Interrogate defibrillator 3. Cardiology consultation 4. hold sotalol 5. continue with anticoagulation 6. GI/DVT prophylaxis Discharge Plan: Home Plan to discharge in: Greater than 2 days - Advance Directives Does patient have a Living Will: Yes Does patient have a Durable POA for Healthcare: Yes - Code Status/Comfort Care Code Status Assessed: Yes Code Status: Full Code Critical Care: No Time Spent Managing PTS Care (In Minutes): 45
--- NOTE | 2019-10-12 12:33 | ECHO ---
HEIGHT: 5 ft 11 in WEIGHT: 188 lb 12.8 oz DATE OF STUDY: 10/12/[address]: Jose Bland MD 2-DIMENSIONAL: YES M.MODE: YES DOPPLER: YES COLOR FLOW: YES TDS: NO PORTABLE: NO DEFINITY: NO BUBBLE STUDY: NO DIAGNOSIS: ARRHYTHMIA CARDIAC HISTORY: CATHERIZATION: YES SURGERY: NO PROSTHETIC VALVE: NO PACEMAKER: YES MEASUREMENTS (cm) DIASTOLIC (NORMALS) SYSTOLIC (NORMALS) IVSd 1.0 (0.6-1.2) LA Diam 3.9 (1.9-4.0) LVEF 62% LVIDd 6.0 (3.5-5.7) LVIDs 3.9 (2.0-3.5) %FS 34% LVPWd 1.1 (0.6-1.2) Ao Diam 3.1 (2.0-3.7) 2 DIMENSIONAL ASSESSMENT: RIGHT ATRIUM: NORMAL LEFT ATRIUM: NORMAL RIGHT VENTRICLE: PACEMAKER CATHETER LEFT VENTRICLE: NORMAL TRICUSPID VALVE: NORMAL MITRAL VALVE: MITRAL ANNULAR CALCIFICATION PULMONIC VALVE: NORMAL AORTIC VALVE: NORMAL PERICARDIAL EFFUSION: NONE AORTIC ROOT: NORMAL LEFT VENTRICULAR WALL MOTION: NORMAL. DOPPLER/COLOR FLOW: NORMAL. COMMENTS: NORMAL LEFT VENTRICULAR EJECTION FRACTION. MITRAL ANNULAR CALCIFICATION. PACEMAKER IN RIGHT VENTRICLE. TECHNOLOGIST: DARLENE DICKINSON
--- NOTE | 2019-10-12 13:16 | CON ---
Reason For Consultation: Syncope. History Of Present Illness: Mr. Patterson had eaten supper at a restaurant. He was getting ready to go into a movie theater. He realized he had forgotten to take some of his medicines, but he had not herbert ve them with him, but the medicine in his mouth, bent over a water fountain in the movie theater to t carlie a drink and had loss of consciousness. He is not aware if his defibrillator is shocking him. No tonic-clonic motion, no loss of bladder or bowel incontinence. He woke up immediately as soon as he was found on the floor and since being here, his vital signs have been fine. His blood pressure whe n he first arrived in the emergency room was 134/85, pulse 73. The patient has a history of mild CAD , intermittent atrial fibrillation, longstanding hypertension, mild renal insufficiency, ventricular tachycardia, treated with a defibrillator. His defibrillator has been induced for about 4 or 5 month s. He has paroxysmal atrial fibrillation also. Outpatient Medications: Potassium chloride, clonidine, furosemide, hydralazine, nifedipine, Xarelto, allopurinol, losartan, Perforomist, budesonide, omeprazole, sotalol 40 mg once a day at bedtime, dip henhydramine, and atorvastatin. Laboratory Data: At this point, his defibrillator has not been interrogated. His EKG does not show infarction, injury, or ischemia. Cardiac cath fairly recently showed minimal CAD. Troponins are marycarmen vated at 0.34, 0.36. His cardiac cath was August 29, 2019. His coronary arteries showed 50% lesion s at the ostium of the LAD, mid circumflex, mid LAD, no critical stenosis. His ejection fraction was normal. He had left ventricular hypertrophy. Impression: He probably had a defibrillator discharge. We will need to interrogate the defibrillato r. If so, that would explain the abnormal troponins. We will try and learn we can from the defibril lator and repeat an echocardiogram. If he did have VT that caused a defibrillator discharge and caus ed syncope, we should consider stopping the sotalol that he is on and in its place, give him amiodarone. STACIE/GAVIN Voice ID: [id number] Report ID: [id number]
--- NOTE | 2019-10-12 13:45 | P.PN ---
Subjective Date of Service: 10/12/19 Primary Care Provider: Dr. Laureano; Cardiology-Dr. Calixto Chief Complaint: arrhythmia; near-syncope Subjective: Improving Physical Examination - Vital Signs Temperature: 97.9 F Blood Pressure: 141/71 Pulse: 75 Respirations: 16 Pulse Ox (%): 94 - Physical Exam General: Alert, In no apparent distress, Oriented x3, Cooperative HEENT: Atraumatic Neck: Supple Respiratory: Clear to auscultation bilaterally, Normal air movement Cardiovascular: Normal pulses, Regular rate/rhythm Gastrointestinal: Normal bowel sounds, Soft and benign, Non-distended Neurological: Normal speech, Normal strength at 5/5 x4 extr, Normal tone - Studies Laboratory Data (last 24 hrs) 10/11/19 20:55: PT 13.3 H, INR 1.13, APTT 33.9 10/11/19 20:55: WBC 7.9, Hgb 13.3 L, Hct 40.0, Plt Count 165 10/11/19 20:55: Sodium 142, Potassium 3.8, BUN 18, Creatinine 1.21, Glucose 118 H, Magnesium 2.2, Total Bilirubin 0.4, AST 19, ALT 22, Alkaline Phosphatase 108 , Lipase 130 Medications List Reviewed: Yes Assessment & Plan Discharge Plan: Home Plan to discharge in: 48 Hours Physician Review Additional Text: Impression: Syncope likely from [id number] related to discharge of defibrillator Elevated troponin likely related to above CAD Hypertension Hyperlipidemia Atrial fibrillation on chronic anti coagulation therapy with history of pacemaker/defibrillator COPD Plan: Syncope likely from [id number] related to discharge of defibrillator: Case discussed at length with cardiology. Apparently defibrillator discharge yesterday. Cardiology plans to discontinue Betapace. Patient has been transition to amiodarone. Will continue to monitor closely. Await further recommendations from cardiology. Anticipate discharge in the next 48 hr pending clinical improvement and when okay with cardiology. Elevated troponin likely related to above: Continue with above plan of care. Elevated troponin likely from discharge of defibrillator CAD: Continue medication Hypertension: Continue medications. Will monitor and adjust appropriately Hyperlipidemia: Continue medication Atrial fibrillation on chronic anti coagulation therapy with history of pacemaker defibrillator: Continue with above plan of care. COPD: Continue medication Time Spent Managing Pts Care (In Minutes): 55
[2019-10-12] MEDS: AMIODARONE HCL 200 MG TAB PO SCH ×2 (14:21→21:34)
--- NOTE | 2019-10-12 16:53 | PN ---
Mr. Patterson's defibrillator check indicates yesterday's spell was caused by an episode of VT that deteriorated into ventricular fibrillation. He was shocked. This explains rise in troponin and his syncope. We are going to stop all beta blockers. We will stop atorvastatin and start amiodarone 1200 mg a day for 2 weeks, 800 mg a day for 2 weeks, 400 mg a day for 2 weeks, and then probably on 200 mg per day. He will see Dr. Bishop in a couple weeks, but it looks like his defibrillator did what it was supposed to do and we need to do a better job of trying to suppress VT, so his defibrillator does not discharge again. STACIE/GAVIN Voice ID: [id number] Report ID: [id number] MTDD
[2019-10-12] MEDS ORDERED: LOSARTAN POTASSIUM 50 MG TABLET PO SCH (17:00)
[2019-10-12] MEDS ORDERED: RIVAROXABAN 20 MG TABLET PO SCH (17:00)
[2019-10-12] MEDS ORDERED: PANTOPRAZOLE 40MG TABLET PO SCH (17:00)
[2019-10-12] MEDS ORDERED: allopurinoL 300 MG TAB PO SCH (17:00)
[2019-10-12] MEDS ORDERED: HOME MED 1 EA UNK (Omeprazole [Omeprazole] 20 MG) PO SCH (21:00)
[2019-10-12] MEDS ORDERED: DIPHENHYDRAMINE 25 MG TAB/CAP PO SCH (21:00)
[2019-10-12] MEDS: POTASSIUM CL SA 10 MEQ TAB PO SCH (21:34)
[2019-10-13 04:30] LABS: Magnesium 2.2 mg/dL (1.8-2.4); Potassium 3.5 mmol/L (3.5-5.1)
[2019-10-13] MEDS: ARFORMOTEROL TARTRATE 15 MCG/2 ML VIAL.NEB IH SCH (08:05)
[2019-10-13] MEDS: BUDESONIDE 0.25 MG/2 ML NEB NEB SCH (08:05)
--- NOTE | 2019-10-13 08:43 | RAD REPORT ---
EXAM DESCRIPTION: US - Upper Lower Extrem Art Multi - 10/13/2019 7:59 am CLINICAL HISTORY: PAD; claudication COMPARISON: No comparisons TECHNIQUE: Bilateral lower extremity arterial Doppler examination was performed with waveform tracin g and ankle brachial pressure measurements. FINDINGS: Symmetric brachial pressure measurements are noted. Triphasic waveforms are seen throughout both lower extremity arterial systems to the level of the [place] sal[place] pedis arteries. Right ankle brachial index measures 1.1, normal. Left ankle brachial index measures 1.0, normal. 5 cm left Thomas's cyst. IMPRESSION: No evidence of significant peripheral vascular disease.
[2019-10-13] MEDS: ASPIRIN EC 81 MG TAB PO SCH (09:00)
[2019-10-13] MEDS: cloNIDine HCL 0.1 MG TAB PO SCH (09:00)
[2019-10-13] MEDS: POTASSIUM CL SA 10 MEQ TAB PO SCH (09:06)
[2019-10-13] MEDS: AMIODARONE HCL 200 MG TAB PO SCH ×2 (09:07→13:41)
[2019-10-13] MEDS: FUROSEMIDE 40 MG TABLET PO SCH (09:07)
[2019-10-13] MEDS: LOSARTAN POTASSIUM 50 MG TABLET PO SCH (09:08)
[2019-10-13] MEDS: NIFEDIPINE XL 60 MG TABLET PO SCH (09:08)
[2019-10-13 10:20] VITALS: O2SAT 91
[2019-10-13 12:01] VITALS: TEMP 97.6
--- NOTE | 2019-10-13 12:14 | P.DS ---
Admission Date: 10/12/19 Discharge Date: 10/13/19 Primary Care Provider: Dr. Laureano; Cardiology-Dr. Calixto Disposition: ROUTINE DISCHARGE Discharge Condition: GOOD Reason for Admission: arrhythmia; near-syncope Consultations: Cardiology-Dr. Calixto Procedures: ECHO: Ejection fraction 62% LEFT VENTRICULAR WALL MOTION: NORMAL. DOPPLER/COLOR FLOW: NORMAL. COMMENTS: NORMAL LEFT VENTRICULAR EJECTION FRACTION. MITRAL ANNULAR CALCIFICATION. PACEMAKER IN RIGHT VENTRICLE. CT scan: IMPRESSION: No acute intracranial or cervical spine findings. Moderate cervical degenerative changes. Doppler: FINDINGS: Symmetric brachial pressure measurements are noted. Triphasic waveforms are seen throughout both lower extremity arterial systems to the level of the dorsalis pedis arteries. Right ankle brachial index measures 1.1, normal. Left ankle brachial index measures 1.0, normal. 5 cm left Thomas's cyst. IMPRESSION: No evidence of significant peripheral vascular disease. Medical problem list: Syncope likely from [id number]-V-ijic related to discharge of defibrillator Elevated troponin likely related to above CAD Hypertension Hyperlipidemia Atrial fibrillation on chronic anti coagulation therapy with history of pacemaker/defibrillator COPD Brief History of Present Illness: 74-year-old male presented to the emergency room after syncopal episode. Patient has history of CAD, entered ended atrial fibrillation, longstanding hypertension, renal sufficiency, history of ventricular tachycardia with pacemaker defibrillator placed about 4-5 months ago. Hospital Course: Patient presented with sick anti. This was likely related to an arrhythmia. Patient with history of V-tach requiring pacemaker defibrillator in the past. Patient also has history of CAD, hypertension, hyperlipidemia and atrial fibrillation on chronic anti coagulation therapy. Pacemaker was interrogated. Patient was found to have discharge of defibrillator. This likely led to his syncopal episode. Patient had elevated troponin likely related to discharge as well. Patient was seen and evaluated by Cardiology. Cardiology determined that the Betapace needed to be discontinued. Patient was transitioned to amiodarone. Patient has done well with medication. At discharge patient will no longer take Betapace. At discharge patient will continue with amiodarone 400 mg 1 pill 3 times a day for 2 weeks then 400 mg 1 pill twice daily for 2 weeks then 200 mg daily. A prescription of the medication and regimen has been provided by Cardiology. Recommend follow up with cardiology in 1-2 weeks to follow up this hospitalization. Patient with history of hypertension, hyperlipidemia, atrial fibrillation on chronic anti coagulation therapy with pacemaker defibrillator. Patient will continue with his current medications. This includes Lasix 40 mg b.i.d. with potassium supplementation, clonidine 0.1 mg daily, losartan 25 mg at night and 50 mg in the morning, Procardia 90 mg b.i.d., hydralazine 25 mg at bedtime, Xarelto 20 mg daily, Lipitor 40 mg daily, Pulmicort b.i.d., and allopurinol daily. Patient with history of COPD. At discharge he will continue with his current medication. Vital Signs/Physical Exam: Temp Pulse Resp BP Pulse Ox 97.6 F 67 16 162/77 H 96 10/13/19 12:00 10/13/19 12:00 10/13/19 12:00 10/13/19 12:00 10/13/19 12:00 General: Alert, In no apparent distress, Oriented x3, Cooperative HEENT: Atraumatic Neck: Supple Respiratory: Clear to auscultation bilaterally, Normal air movement Cardiovascular: Normal pulses, Regular rate/rhythm Gastrointestinal: Normal bowel sounds, Soft and benign, Non-distended Neurological: Normal speech, Normal strength at 5/5 x4 extr, Normal tone, Normal affect Laboratory Data at Discharge: WBC 7.9 K/uL (4.3-10.9) 10/11/19 20:55 Hgb 13.3 g/dL (13.6-17.9) L 10/11/19 20:55 Hct 40.0 % (39.6-49.0) 10/11/19 20:55 Plt Count 165 K/uL (152-406) 10/11/19 20:55 PT 13.3 SECONDS (9.5-12.5) H 10/11/19 20:55 INR 1.13 10/11/19 20:55 APTT 33.9 SECONDS (24.3-36.9) 10/11/19 20:55 Sodium 143 mmol/L (136-145) 10/13/19 03:30 Potassium 3.5 mmol/L (3.5-5.1) 10/13/19 03:30 BUN 24 mg/dL (7-18) H 10/13/19 03:30 Creatinine 1.14 mg/dL (0.55-1.3) 10/13/19 03:30 Glucose 109 mg/dL (74-106) H 10/13/19 03:30 Magnesium 2.2 mg/dL (1.8-2.4) 10/13/19 03:30 Total Bilirubin 0.4 mg/dL (0.2-1.0) 10/11/19 20:55 AST 19 U/L (15-37) 10/11/19 20:55 ALT 22 U/L (12-78) 10/11/19 20:55 Alkaline Phosphatase 108 U/L (45-117) 10/11/19 20:55 Troponin I 0.35 ng/mL (0.0-0.045) H 10/12/19 14:00 Triglycerides 120 mg/dL (<150) 10/12/19 05:44 Cholesterol 141 mg/dL (<200) 10/12/19 05:44 HDL Cholesterol 29 mg/dL (40-60) L 10/12/19 05:44 Cholesterol/HDL Ratio 4.86 10/12/19 05:44 Lipase 130 U/L (73-393) 10/11/19 20:55 Home Medications: Potassium Chloride [Klor-Con] 10 meq PO BID 07/27/13 cloNIDine HCL [Catapres*] 0.1 mg PO BEDTIME 07/27/13 Furosemide [Lasix*] 40 mg PO BIDWM 06/09/16 Hydralazine [Apresoline*] 1 tab PO BEDTIME 06/09/16 Nifedipine Xl [Procardia XL*] 90 mg PO BIDWM 06/09/16 Allopurinol 150 mg PO 1700 08/26/19 Budesonide [Pulmicort*] 1 puff NEB BID 08/26/19 Formoterol Fumarate [Perforomist*] 20 mcg NEB BID 08/26/19 Losartan Potassium 1 tab PO DAILY 08/26/19 Losartan Potassium 25 mg PO 1700 08/26/19 Rivaroxaban [Xarelto] 1 tab PO 1700 08/26/19 Atorvastatin Calcium [Lipitor*] 40 mg PO SEECOM 10/12/19 Diphenhydramine [Benadryl*] 25 mg PO BEDTIME 10/12/19 Omeprazole 20 mg PO 1700 10/12/19 Omeprazole 20 mg PO BEDTIME 10/12/19 Patient Discharge Instructions: 1. Recommend follow up with PCP in 1 week to follow up this hospitalization. 2. Patient presented with sick anti. This was likely related to an arrhythmia. Patient with history of V-tach requiring pacemaker defibrillator in the past. Patient also has history of CAD, hypertension, hyperlipidemia and atrial fibrillation on chronic anti coagulation therapy. Pacemaker was interrogated. Patient was found to have discharge of defibrillator. This likely led to his syncopal episode. Patient had elevated troponin likely related to discharge as well. Patient was seen and evaluated by Cardiology. Cardiology determined that the Betapace needed to be discontinued. Patient was transitioned to amiodarone. Patient has done well with medication. At discharge patient will no longer take Betapace. At discharge patient will continue with amiodarone 400 mg 1 pill 3 times a day for 2 weeks then 400 mg 1 pill twice daily for 2 weeks then 200 mg daily. A prescription of the medication and regimen has been provided by Cardiology. Recommend follow up with cardiology in 1-2 weeks to follow up this hospitalization. 3. Patient with history of hypertension, hyperlipidemia, atrial fibrillation on chronic anti coagulation therapy with pacemaker defibrillator. Patient will continue with his current medications. This includes Lasix 40 mg b.i.d. with potassium supplementation, clonidine 0.1 mg daily, losartan 25 mg at night and 50 mg in the morning, Procardia 90 mg b.i.d. , hydralazine 25 mg at bedtime, Xarelto 20 mg daily, Lipitor 40 mg daily, Pulmicort b.i.d., and allopurinol daily. 4. Patient with history of COPD. At discharge he will continue with his current medication. Diet: AHA Activity: Ad nic Time spent managing pt's care (in minutes): 55
[2019-10-13 13:47] VITALS: BP 140/80
--- NOTE | 2019-10-13 20:49 | PN ---
History: Mr. Patterson had been admitted on 10/12/2019, and seen by Dr. Calixto for ventricular tachycar jeanette. He has a history of congestive heart failure and defibrillator. He has been loaded with amioda deon right now. Overnight, he has not had any further ventricular tachycardia. He is asymptomatic t deangelo. His vital signs were stable, he is afebrile. His chest is clear. We will send him home on am iodarone. He will be getting 1200 mg for 2 weeks, 800 mg for 2 weeks, then 400 mg for 2 weeks, and t hen 200 mg daily after that. He will follow up with Dr. Bishop in the near future. He can go home wh enever it is okay with Dr. Wagner. ASHVIN/GAVIN Voice ID: [id number] Report ID: [id number]
== END 2019-10-13 14:56 | disposition home or self-care (01) | DRG 310 ==
LOC: ER 20:24 → ERHOLD 10-12 00:31 → 4TH 10-12 01:19
PROVIDERS: ADMIT Hospitalist; ATTEND Family Medicine
DX: I47.2 Ventricular tachycardia (principal); R55 Syncope and collapse; I10 Essential (primary) hypertension; E78.5 Hyperlipidemia, unspecified; I25.10 Atherosclerotic heart disease of native coronary artery without angina pectoris; G47.33 Obstructive sleep apnea (adult) (pediatric); Z87.891 Personal history of nicotine dependence
CPT/HCPCS: 36415; 70450; 71045; 72125; 80048; 80061; 80076; 81003; 81015; 82550; 82553; 83690; 83735; 84484; 85025; 85610; 85730; 93005; 93306; 93923; 94640; 99285; J7605

== ENCOUNTER 2021-01-28 07:23 | Day surgery (SDC) | payer OTHER ==
[2021-01-24 14:38] LABS: Absolute Lymphocytes (CBC) 0.9 K/uL (0.7-4.9); Basophils % 1.4 % (0-1.3); Hematocrit 34.3 % (39.6-49.0); Lymphocytes % 11.2 % (15.3-44.8); MPV 8.2 fL (7.6-11.3); RBC Red Blood Cell Count 4.72 M/uL (4.33-5.43)
[2021-01-24 14:48] LABS: Protime INR 1.7
[2021-01-24 14:51] LABS: Potassium 4.2 mmol/L (3.5-5.1)
--- NOTE | 2021-01-24 15:33 | RAD REPORT ---
EXAM DESCRIPTION: RAD - Chest Pa And Lat (2 Views) - 01/24/2021 2:27 pm CLINICAL HISTORY: preop, pending cardiac catheterization COMPARISON: Portable September 2019, July 2018 TECHNIQUE: Frontal and lateral views of the chest were obtained. FINDINGS: The lungs are clear. Patient has a baseline prominent interstitial pattern. Acute failure or volume overload are not suspected. An acute infiltrate or mass lesion also not suspected. Defibri llator remains in place. Heart size is normal and central vasculature is within normal limits. No pl eural effusion or pneumothorax seen. No acute bony finding noted. No aortic abnormality. IMPRESSION: No acute cardiopulmonary process. Chest findings appear to be baseline.
[2021-01-28] MEDS ORDERED: NA CHLORIDE 0.9% 500 ML ONE (07:53)
[2021-01-28] MEDS ORDERED: MIDAZOLAM HCL 2 MG/2 ML INJ ONE (08:21)
[2021-01-28] MEDS ORDERED: HEPA 1000U/500MLS 1,000 UNIT/500 ML BAG IV ONE (08:21)
[2021-01-28] MEDS ORDERED: ATROPINE SULF 1 MG/10 ML SYR IV ONE (08:22)
[2021-01-28] MEDS ORDERED: FENTANYL CITR 100 MCG/2 ML ONE (08:22)
[2021-01-28] MEDS ORDERED: NA CHLORIDE 0.9% 0 ML ONE (08:22)
[2021-01-28 09:33] VITALS: TEMP 97
[2021-01-28 10:24] VITALS: O2SAT 97
[2021-01-28 10:53] VITALS: BP 130/61
--- NOTE | 2021-01-28 12:44 | OP ---
Date of Procedure: 01/28/2021 Surgeon: Kamar Fontenot MD Foreign Policy Officer: Blas Aguila. The patient will be at bedrest for 2 hours, go home, and await for my instructions regarding the CD jagjit vasquez. Procedure: Left heart catheterization with selective coronary arteriogram. Indication: He is a 75-year-old. Has had a history of known coronary artery disease as of August 2019. Has been having chest pain, abnormal stress test. Set up for a heart catheterization today as an outpatient. Procedure In Detail: Brought to the specialist employee labor relations, prepped and draped in the routine sterile fashion. Gi rasheed Versed and fentanyl for sedation. A 6-Setswana sheath introduced in the right common femoral arter y successfully. Angiography there was normal. StarClose was used to close the case. Graham cathet er left and right were used to do the diagnostic catheterization. He was found to have a 50% ostial right coronary artery, large vessel, codominant. The left main was normal. He had a what I thought was 70% stenosis in the proximal LAD and napkin-ring type with poststenotic dilatation, significant s ize aneurysm, 50% distal to the aneurysm, diffuse plaquing otherwise in the LAD and the circumflex. There were no complications. Blood Loss: 5 mL. Anesthesia: Total conscious sedation was 45 minutes. Final Diagnosis: Severe coronary artery disease. I will have these films reviewed by CV Surgery at [facility] and decide on intervention versus the POP . ASHVIN/GAVIN Voice ID: [id number] Report ID: [id number]
== END 2021-01-28 11:10 | disposition home or self-care (01) ==
LOC: CCL 07:23
DX: I25.10 Atherosclerotic heart disease of native coronary artery without angina pectoris (principal); I48.0 Paroxysmal atrial fibrillation; I10 Essential (primary) hypertension; E78.2 Mixed hyperlipidemia; J44.1 Chronic obstructive pulmonary disease with (acute) exacerbation; R26.89 Other abnormalities of gait and mobility; R42 Dizziness and giddiness; R53.83 Other fatigue; K21.9 Gastro-esophageal reflux disease without esophagitis; M10.9 Gout, unspecified; Z95.810 Presence of automatic (implantable) cardiac defibrillator; Z87.891 Personal history of nicotine dependence; Z20.822 Contact with and (suspected) exposure to COVID-19; Z88.6 Allergy status to analgesic agent; Z88.8 Allergy status to other drugs, medicaments and biological substances; Z82.49 Family history of ischemic heart disease and other diseases of the circulatory system
CPT/HCPCS: 93005; 85025; 80048; 36415; 85610; 85730; 71046; 93454; U0003; C1893; J2250; J3010; J7040; J1644; J0583

== ENCOUNTER 2023-07-02 10:30 | Day surgery (SDC) | payer OTHER ==
[2023-06-30 10:20] LABS: Absolute Lymphocytes (CBC) 0.8 K/uL (0.7-4.9); Hematocrit 40.4 % (39.6-49.0); Lymphocytes % 11.8 % (15.3-44.8); MCV 87.1 fL (80-100); MPV 8.2 fL (7.6-11.3); Platelets 215 thou/uL (152-406); RBC Red Blood Cell Count 4.64 M/uL (4.33-5.43)
[2023-06-30 10:29] LABS: Protime INR 1.05
[2023-06-30 10:43] LABS: Potassium 3.2 mEq/L (3.5-5.1)
--- NOTE | 2023-06-30 12:21 | RAD REPORT ---
EXAM DESCRIPTION: RAD - Chest Pa And Lat (2 Views) - 06/30/2023 10:12 am CLINICAL HISTORY: pre op pending heart catheterization. Hypertension COMPARISON: Chest Pa And Lat (2 Views) dated 01/24/2021; Chest Single View dated 10/11/2019; Chest Sin gle View dated 08/26/2019; Chest Pa And Lat (2 Views) dated 08/26/2018 TECHNIQUE: PA and lateral views of the chest were obtained. FINDINGS: The lungs are clear apart from stable bibasilar atelectatic changes. Elevation of the left hemidiaphragm. Heart size is normal and central vasculature is within normal limits. No pleural effu fede or pneumothorax seen. No acute bony finding noted. Sequelae of median sternotomy. IMPRESSION: No acute cardiopulmonary process.
--- NOTE | 2023-06-30 12:48 | EKG ---
Test Date: 2023-06-30 Test Time: 09:51:49 Fishing Worker: MONI MEASUREMENT RESULTS: Intervals: Rate: 81 NE: 226 QRSD: 150 QT: 466 QTc: 541 [place]: P: NE: 226 QRS: -48 T: 110 INTERPRETIVE STATEMENTS: Electronic atrial pacemaker Left axis deviation Left bundle branch block Abnormal ECG Compared to ECG 01/24/2021 13:04:31 No significant changes Electronically Signed On 06-30-23 12:47:53 CDT by Cali Yi
[2023-07-02] MEDS ORDERED: LIDOCAINE 1% 20 ML MDV ONE (10:50)
[2023-07-02] MEDS ORDERED: HEPA 1000U/500MLS 2,000 UNIT/1,000 ML BAG IV ONE (10:50)
[2023-07-02] MEDS ORDERED: ASPIRIN 325 MG TAB ONE (10:51)
[2023-07-02] MEDS ORDERED: FENTANYL CITR 100 MCG/2 ML ONE (10:51)
[2023-07-02] MEDS ORDERED: HEPARIN 10,000 UNIT/10 ML VIAL IV ONE (10:51)
[2023-07-02] MEDS ORDERED: MIDAZOLAM HCL 2 MG/2 ML INJ ONE (10:51)
[2023-07-02] MEDS ORDERED: TICAGRELOR 90 MG TABLET PO ONE (10:51)
[2023-07-02] MEDS ORDERED: CLOPIDOGREL 75 MG TABLET ONE (10:51)
[2023-07-02] MEDS ORDERED: NA CHLORIDE 0.9% 500 ML ONE (10:51)
[2023-07-02] MEDS ORDERED: ATROPINE SULF 1 MG/10 ML SYR IV ONE (10:52)
[2023-07-02 11:03] VITALS: BP 140/62; O2SAT 92
== END 2023-07-02 12:15 | disposition home or self-care (01) ==
LOC: CCL 10:30
PROVIDERS: ATTEND Internal Medicine
DX: R94.39 Abnormal result of other cardiovascular function study (principal); Z53.8 Procedure and treatment not carried out for other reasons
CPT/HCPCS: 93005; 85025; 80048; 36415; 83721; 85610; 85730; 71046; J2001; J7040; J0461; J2250; J3010

== ENCOUNTER 2023-07-07 08:28 | Day surgery (SDC) | payer OTHER ==
[~2023-07-07 08:28] MED LIST: HEPA 1000U/500MLS 2,000 UNIT/1,000 ML BAG IV ONE; LIDOCAINE 1% 20 ML MDV ONE
[2023-07-07] MEDS ORDERED: NA CHLORIDE 0.9% 500 ML ONE (09:05)
[2023-07-07] MEDS ORDERED: FENTANYL CITR 100 MCG/2 ML ONE (10:06)
[2023-07-07] MEDS ORDERED: MIDAZOLAM HCL 2 MG/2 ML INJ ONE (10:06)
[2023-07-07] MEDS ORDERED: HEPARIN 10,000 UNIT/10 ML VIAL IV ONE (10:07)
[2023-07-07] MEDS ORDERED: NITROGLYCERIN/D5W 50 MG/250 ML BTL IV ONE (10:07)
[2023-07-07] MEDS ORDERED: CLOPIDOGREL 75 MG TABLET ONE (10:46)
[2023-07-07] MEDS ORDERED: ASPIRIN 325 MG TAB ONE (10:46)
[2023-07-07] MEDS ORDERED: FAMOTIDINE 20 MG TAB ONE (10:49)
[2023-07-07 14:25] VITALS: BP 143/63; O2SAT 95
--- NOTE | 2023-07-07 17:03 | OP ---
Date of Procedure: 07/07/2023 Surgeon: KELLY BACA Procedures Performed: 1.Selective coronary angiogram. 2.PCI of severe ostial RCA stenosis. I used 4.0 x 12 mm Synergy drug-eluting stent to high pressure . Indication: Unstable angina with a positive stress test. Access: Right femoral artery 6-Irish closed with 6-Irish Angio-Seal. Complications: None. Bleeding: Less than 20 mL. Anesthesia: Total sedation time was 1 hour. Description Of Procedure: After risks, benefits, and alternatives were explained, patient agreed to procedure and signed informal consent. Patient was brought into the cardiac catheterization laborato ry, prepped and draped in usual sterile fashion, and then I accessed the right femoral artery using m icropuncture kit, ultrasound guidance and fluoroscopy, placed 6-Irish Geary sheath and took a 6-F rench JL4 catheter into the aortic root, over a J-wire, engaged left main, took standard views and th en exchanged for 6-Irish JR4 catheter, engaged the RCA, took standard views, and then gave systemic heparin to assure ACT level above 250, and loaded with 600 mg of Plavix and 325 mg of aspirin, and to ok 6-Irish JR4 guide into the aortic root, engaged the RCA and took Runthrough wire into the RCA, pl aced it distally and took a 3.5 balloon and the lesion expanded easily. Then, I placed a 4.0 x 12 mm Synergy drug-eluting stent across the area of stenosis with excellent expansion and 0% residual sten osis. No complications. After the wire was removed, final angiogram was satisfactory and then I rem mumtaz the guide and the sheath and placed a 6-Irish Angio-Seal for closure with good hemostasis. Findings: 1.Left main; it is normal. 2.LAD; luminal irregularity proximally, in the mid segment 60% stenosis and then luminal irregularit ies. Diagonal branches are with luminal irregularities. 3.Left circumflex; proximal 40% stenosis. Very large and codominant and then the rest of the arteri es with luminal irregularities. 4.RCA; ostial 80% to 90%, status post successful PCI. I used 4.0 x 12 mm Synergy drug-eluting stent and the artery is normal, distally there is widely patent stent and no disease. Conclusion: 1.Severe ostial RCA stenosis, status post successful PCI using 4.0 x 12 mm Synergy drug-eluting sten t. 2.Moderate coronary artery disease elsewhere with patent POP to LAD. However, there is competition flow from the LAD to the POP suggestive that the LAD does not have significant disease. Recommendations: Aspirin, Plavix, and high-dose statin. Follow up in the office in 1 week post disc harge today. SR/YOLIL Voice ID: [id number] Report ID: [id number]
== END 2023-07-07 13:50 | disposition home or self-care (01) ==
LOC: CCL 08:28
PROVIDERS: ATTEND Internal Medicine
DX: I25.110 Atherosclerotic heart disease of native coronary artery with unstable angina pectoris (principal); I48.20 Chronic atrial fibrillation, unspecified; I11.0 Hypertensive heart disease with heart failure; I50.32 Chronic diastolic (congestive) heart failure; I65.23 Occlusion and stenosis of bilateral carotid arteries; E78.5 Hyperlipidemia, unspecified; Z95.0 Presence of cardiac pacemaker; Z87.891 Personal history of nicotine dependence; Z79.01 Long term (current) use of anticoagulants; Z79.899 Other long term (current) drug therapy; Z88.5 Allergy status to narcotic agent; Z88.8 Allergy status to other drugs, medicaments and biological substances; Z82.49 Family history of ischemic heart disease and other diseases of the circulatory system
CPT/HCPCS: 85347; 93455; 76937; C1893; C1760; Q9967; C1887; G0269; C1725; C9600; J2001; J2250; J3010; J7040

== ENCOUNTER 2023-09-25 19:26 | Inpatient (IN) | payer OTHER ==
[2023-09-25] MEDS ORDERED: ALBUTEROL 2.5 MG/3 ML NEB SOL ONE (19:48)
[2023-09-25] MEDS ORDERED: IPRATROPIUM BROM 0.5MG/2.5ML ONE (19:49)
[2023-09-25 20:09] LABS: Absolute Lymphocytes (CBC) 0.5 K/uL (0.7-4.9); Hematocrit 28.3 % (39.6-49.0); Lymphocytes % 4.9 % (15.3-44.8); MCV 78.9 fL (80-100); MPV 7.6 fL (7.6-11.3); Platelets 248 thou/uL (152-406); RBC Red Blood Cell Count 3.59 M/uL (4.33-5.43)
[2023-09-25 20:32] LABS: Potassium 3.1 mEq/L (3.5-5.1)
[2023-09-25 20:36] LABS: Troponin High Sensitivity 802.8 pg/mL (<58.9)
[2023-09-25] MEDS ORDERED: ASPIRIN 81 MG CHEWABLE TABLET ONE (20:55)
--- NOTE | 2023-09-25 21:13 | RAD REPORT ---
EXAM DESCRIPTION: RADChest Single View09/25/2023 8:10 pm CLINICAL HISTORY: DYSPNEA COMPARISON: Chest Pa And Lat (2 Views) dated 06/30/2023; Chest Pa And Lat (2 Views) dated 01/24/2021; Chest Single View dated 10/11/2019; Chest Single View dated 08/26/2019 TECHNIQUE: Portable AP view of the chest. FINDINGS: Patchy central predominant airspace opacities with interstitial prominence in the perihila r regions. Elevation of the right hemidiaphragm again seen. No pneumothorax or effusion. The cardiom ediastinal contours are unremarkable. Sequelae of median sternotomy again seen. Left chest wall pace r in place. IMPRESSION: Centrally predominant interstitial and airspace opacities as above, most suggestive of p ulmonary edema, less likely multifocal pneumonia.
[2023-09-25] MEDS ORDERED: CLOPIDOGREL 75 MG TABLET ONE (21:40)
[2023-09-25] MEDS ORDERED: FUROSEMIDE 40 MG/4 ML VIAL ONE (21:40)
[2023-09-25 22:16] LABS: Albumin 3.4 g/dL (3.4-5.0); Bilirubin Total 0.7 mg/dL (0.2-1.0); Protein, Total 8.1 g/dL (6.4-8.2)
[2023-09-25 22:17] LABS: Protime INR 2.35
--- NOTE | 2023-09-25 22:24 | ER ---
Nurse's Notes [facility] Name: Zen Patterson Age: 78 yrs Sex: Male : 1945 Arrival Date: 09/25/2023 Time: 19:26 Bed IW10 Private MD: Diagnosis: Acute on chronic combined systolic (congestive) and diastolic (congestive) heart failure;Pneumonia, unspecified organism;Hypoxia;NSTEMI Presentation: 09/25 19:37 Chief complaint: Patient states: SOB with cough, congestion, body aches and fever km8 starting yesterday; 84% on RA; placed on 2L O2 via n/c. Coronavirus screen: Client denies travel out of the [place] in the last 14 days. Ebola Screen: No symptoms or risks identified at this time. Initial Sepsis Screen: Does the patient meet any 2 criteria? RR > 20 per min. No. Patient's initial sepsis screen is negative. Does the patient have a suspected source of infection? No. Patient's initial sepsis screen is negative. Risk Assessment: Do you want to hurt yourself or someone else? Patient reports no desire to harm self or others. Onset of symptoms was September 24, 2023. 19:37 Method Of Arrival: Ambulatory km8 19:37 Acuity: YASSINE 2 km8 Triage Assessment: 19:40 General: Appears distressed, comfortable, Behavior is calm, cooperative, appropriate km8 for age. Pain: Complains of pain in generalized body Pain currently is 2 out of 10 on a pain scale. Quality of pain is described as aching. EENT: Reports nasal congestion. Neuro: Level of Consciousness is awake, alert, obeys commands, Oriented to person, place, time, situation. Cardiovascular: Reports shortness of breath, Denies chest pain. Respiratory: Reports shortness of breath cough that is. GI: No signs and/or symptoms were reported involving the gastrointestinal system. : No signs and/or symptoms were reported regarding the genitourinary system. Derm: No signs and/or symptoms reported regarding the dermatologic system. Skin is intact, is healthy with good turgor, Skin is dry, Skin is pink, warm \T\ dry. normal, Skin temperature is warm. Musculoskeletal: No signs and/or symptoms reported regarding the musculoskeletal system. Circulation, motion, and sensation intact. Range of motion: intact in all extremities. 20:49 Respiratory: Onset: The symptoms/episode began/occurred today, the patient has moderate me1 shortness of breath. Historical: - Allergies: 19:40 No Known Allergies; km8 - PMHx: 19:40 Hypertension; Hyperlipidemia; CVA; CHF; Atrial fibrillation; ICD/Pacemaker; km8 - PSHx: 19:40 Coronary artery bypass graft; Stented artery; km8 - Immunization history:: Client reports receiving the 2nd dose of the Covid vaccine, Flu vaccine is up to date. - Social history:: Smoking status: Patient/guardian denies using tobacco, but has a distant history of tobacco abuse, Patient uses alcohol, occasionally. Patient/guardian denies using street drugs. Screenin:38 [facility] ED Fall Risk Assessment (Adult) History of falling in the last 3 months, me1 including since admission No falls in past 3 months (0 pts) Confusion or Disorientation No (0 pts) Intoxicated or Sedated No (0 pts) Impaired Gait No (0 pts) Mobility Assist Device Used No (0 pt) Altered Elimination No (0 pt) Score/Fall Risk Level 0 - 2 = Low Risk Maintained a safe environment, Provided non-skid footwear, Hourly rounding (assess needs \T\ fall precautionary measures) done. Abuse screen: Denies threats or abuse. Nutritional screening: No deficits noted. Tuberculosis screening: No symptoms or risk factors identified. Assessment: 20:38 General: Appears uncomfortable, ill, well groomed, well developed, well nourished, me1 Behavior is calm, cooperative, appropriate for age, Reports SOB with cough, congestion, body aches and fever starting yesterday; 84% on RA. Pain: Denies pain. Neuro: Level of Consciousness is awake, alert, obeys commands, Oriented to person, place, time, situation, Appropriate for age. Cardiovascular: Capillary refill < 3 seconds Patient's skin is warm and dry. Chest pain is denied. Respiratory: Reports SOB with cough, congestion, body aches and fever starting yesterday; 84% on RA Airway is patent Respiratory effort is even, unlabored, Respiratory pattern is regular, symmetrical, Breath sounds are diminished bilaterally. 20:49 Cardiovascular: Rhythm is sinus rhythm with 1st degree heart block. me1 21:58 General: RT in room putting on bipap.. me1 12/30 00:18 General: Appears in no apparent distress. comfortable, Behavior is calm, cooperative, km8 appropriate for age. Pain: Denies pain. Neuro: Level of Consciousness is awake, alert, obeys commands, Oriented to person, place, time, situation. Cardiovascular: Denies chest pain, Capillary refill < 3 seconds Patient's skin is warm and dry. Respiratory: Airway is patent Respiratory effort is even, unlabored, Respiratory pattern is regular, symmetrical, Patient placed on BiPAP:. 21:12 General: Appears in no apparent distress. Behavior is calm, cooperative, appropriate la4 for age. Neuro: Montes Agitation-Sedation Scale (RASS): 0 - Alert and Calm Level of Consciousness is awake, alert, obeys commands, Oriented to person, place, time, situation, Appropriate for age. Respiratory: No deficits noted. Reports falling asleep w/ drop in SPO 2. Request to be placed back on CPAP due to sleeping and mouth breathing. Request obliged. RT notified and to bedside to evaluate pt and speak to spouse. Airway is patent Respiratory effort is even, unlabored, Respiratory pattern is regular, symmetrical, Breath sounds are clear bilaterally. GI: Abdomen is round distended, Bowel sounds present X 4 quads. Abd is rigid X 4 quads. : No deficits noted. Vital Signs: 09/25 19:37 BP 135 / 65; Pulse 89; Resp 20; Temp 97.8(O); Pulse Ox 84% on R/A; Weight 90.72 kg (R); km8 Height 5 ft. 11 in. (R); Pain 2/10; 19:40 BP 143 / 59; Pulse 79; Resp 21; Pulse Ox 92% on 3 lpm NC; me1 20:00 BP 124 / 65; Pulse 82; Resp 21; Pulse Ox 96% on Nebulizer Mask; me1 20:45 BP 132 / 67; Pulse 85; Resp 21; Pulse Ox 91% on 3 lpm NC; me1 20:45 BP 126 / 61; Pulse 82; Resp 22; Pulse Ox 90% on 4 lpm NC; me1 21:45 BP 130 / 78; Pulse 84; Resp 24; Pulse Ox 90% on 4 lpm NC; me1 22:45 BP 156 / 92; Pulse 77; Resp 24; Pulse Ox 97% on BiPAP; me1 23:45 BP 141 / 72; Pulse 84; Resp 18; Pulse Ox 96% on BiPAP; me1 09/26 00:00 BP 141 / 72; Pulse 83; Resp 28; Pulse Ox 97% on BiPAP; km8 01:00 BP 141 / 75; Pulse 78; Resp 30; Pulse Ox 94% on BiPAP; km8 20:00 BP 149 / 62; Pulse 77; Resp 30; Pulse Ox 98% on CPAP; la4 09/25 19:37 Body Mass Index 27.89 (90.72 kg, 180.34 cm) km8 09/25 19:37 Pain Scale: Adult km8 Yesica Coma Score: 21:12 Eye Response: spontaneous(4). Motor Response: obeys commands(6). Verbal Response: la4 oriented(5). Total: 15. ED Course: 09/25 19:28 Patient arrived in ED. jj6 19:39 Triage completed. km8 19:39 Lary Chavez, RN is Primary Nurse. km8 19:40 Arm band placed on right wrist. 8 19:42 Christie Hudson, PERFECTO is Primary Nurse. me1 19:43 [facility]ina Rome [facility]-C [facility] kb 19:43 Black Torrez MD is Attending Physician. kb 20:04 Inserted saline lock: 20 gauge in right forearm, using aseptic technique. me1 20:05 COVID-19 SARS RT PCR Sent. me1 20:05 Flu Sent. me1 20:05 Basic Metabolic Panel Sent. me1 20:05 CBC with Diff Sent. me1 20:05 NT PRO-BNP Sent. me1 20:05 Troponin HS Sent. me1 20:12 XRAY Chest (1 view) In Process Unspecified. EDMS 20:36 Notified ED physician of a critical lab result(s). troponin 802. Notified Jackie kyHong Rome NP. 20:38 Patient has correct armband on for positive identification. Bed in low position. Call [facility] light in reach. Side rails up X 1. Provided Education on: POC. Verbalized understanding. . 20:48 No provider procedures requiring assistance completed. me1 22:23 Frankie Delgadillo is Hospitalizing Provider. kb 09/26 00:18 Door closed. Noise minimized. Lights dimmed. Warm blanket given. Pillow given. km8 01:15 Patient admitted, IV remains in place. km8 15:23 Ptt, Activated Sent. ko1 19:17 Primary Nurse role handed off by Christie Hudson, PERFECTO la4 19:17 Alonzo Urias, RN is Primary Nurse. la4 21:08 Inserted saline lock: 20 gauge in left wrist, using aseptic technique. Missed la4 attempt(s): 20 gauge in left forearm. Bleeding controlled, band aid applied, catheter tip intact. Administered Medications: 09/25 19:50 Drug: Albuterol Inhalation 2.5 mg Inhalation once Route: Inhalation; me1 20:06 Follow up: Response: No adverse reaction; Wheezing diminished me1 19:50 Drug: Ipratropium Inhalation Aerosol 0.5 mg Inhalation once Route: Inhalation; me1 20:06 Follow up: Response: No adverse reaction; Wheezing diminished me1 20:57 Drug: Aspirin PO Chewable Tablet 324 mg PO once; 81 mg tablets x 4 Route: PO; me1 21:12 Follow up: Response: No adverse reaction me1 21:45 Drug: Clopidogrel PO 75 mg PO once Route: PO; me1 21:57 Follow up: Response: No adverse reaction me1 21:46 Drug: Furosemide IVP 40 mg IVP once; give over 2 minutes Route: IVP; Site: right me1 antecubital; 21:57 Follow up: Response: No adverse reaction me1 23:10 Drug: Potassium Chloride PO 40 mEq PO once Route: PO; me1 23:10 Follow up: Response: No adverse reaction me1 23:10 Drug: Rocephin IV 1 grams IV at calculated rate once; Given slow IV push per pharmacy me1 instructions Route: IV; Rate: calculated rate; Site: right forearm; 23:11 Follow up: Response: No adverse reaction; IV Status: Completed infusion me1 23:10 Drug: Zithromax IVPB 500 mg IVPB once over 1 hrs; mix in 250 mL NS Route: IVPB; Infused me1 Over: 1 hrs; Site: right forearm; 09/26 00:10 Follow up: Response: No adverse reaction; IV Status: Completed infusion; IV Intake: me1 250ml Medication: 09/25 20:38 VIS not applicable for this client. me1 Intake: 09/26 00:10 IV: 250ml; Total: 250ml. me1 Outcome: 09/25 22:24 Decision to Hospitalize by Provider. kb 09/26 01:15 Admitted to Med/surg km8 Condition: stable Instructed on the need for admit, Demonstrated understanding of instructions, 21:09 Admitted to Tele room 218, with chart, Report called to Jamil [email or web address] 21:30 Patient left the ED. pf1 Signatures: Dispatcher [employer] EDAR Trina Rome, PAPER INSERTER-C PAPER INSERTER-CkLudivina [id number] Whitney Marquez, RN RN ko1 Camelia Chase RN RN pf1 Christie Hudson RN RN me1 Lary Chavez RN RN km8 Alonzo Urias RN RN la4 Corrections: (The following items were deleted from the chart) 09/25 20:38 19:37 Chief complaint: Patient states: SOB with cough, congestion, body aches and fever me1 starting yesterday; 84% on RA; placed on 2L O2 via n/c km8 09/26 22:31 22:30 Patient left the ED. pf1 pf1
--- NOTE | 2023-09-25 22:25 | EDPHYS ---
Physician Documentation [facility] Name: Zen Patterson Age: 78 yrs Sex: Male : 1945 Arrival Date: 09/25/2023 Time: 19:26 Bed IW10 Private MD: ED Physician Black Torrez HPI: 09/25 22:21 This 78 yrs old Male presents to ER via Ambulatory with complaints of Breathing kb Difficulty. 22:21 Pt is a 78 year old male who presents for cough, congestion, fever and shortness of kb breath for 2 days. Reports he has had some swelling as well. Denies chest pain. Historical: - Allergies: 19:40 No Known Allergies; km8 - PMHx: 19:40 Hypertension; Hyperlipidemia; CVA; CHF; Atrial fibrillation; ICD/Pacemaker; km8 - PSHx: 19:40 Coronary artery bypass graft; Stented artery; km8 - Immunization history:: Client reports receiving the 2nd dose of the Covid vaccine, Flu vaccine is up to date. - Social history:: Smoking status: Patient/guardian denies using tobacco, but has a distant history of tobacco abuse, Patient uses alcohol, occasionally. Patient/guardian denies using street drugs. ROS: 21:21 Abdomen/GI: Negative for abdominal pain, nausea, vomiting, diarrhea, and constipation, kb 21:21 Constitutional: Positive for body aches, chills, fatigue, fever, malaise, 21:21 ENT: Positive for rhinorrhea, sinus congestion, 22:18 Cardiovascular: Positive for edema, kb 22:18 Respiratory: Positive for cough, 22:18 All other systems are negative, Exam: 22:18 Head/Face: Normocephalic, atraumatic. ENT: Moist Mucous membranes Abdomen/GI: Soft, kb non-tender. No distention Skin: Warm, dry with normal turgor. Normal color. MS/ Extremity: Pulses equal, no cyanosis. Neurovascular intact. Full, normal range of motion. Neuro: Awake and alert, GCS 15, oriented to person, place, time, and situation. Moves all extremities. Normal gait. 22:18 Constitutional: The patient appears alert, awake, 22:18 Cardiovascular: Rate: normal, Edema: 2+ edema to level of left foot and right foot, 22:18 ECG was reviewed by the Attending Physician. 22:18 Respiratory: mild respiratory distress is noted, Respirations: labored breathing, that is mild, that is moderate, Breath sounds: are clear throughout, Vital Signs: 19:37 BP 135 / 65; Pulse 89; Resp 20; Temp 97.8(O); Pulse Ox 84% on R/A; Weight 90.72 kg (R); km8 Height 5 ft. 11 in. (R); Pain 2/10; 19:40 BP 143 / 59; Pulse 79; Resp 21; Pulse Ox 92% on 3 lpm NC; me1 20:00 BP 124 / 65; Pulse 82; Resp 21; Pulse Ox 96% on Nebulizer Mask; me1 20:45 BP 132 / 67; Pulse 85; Resp 21; Pulse Ox 91% on 3 lpm NC; me1 20:45 BP 126 / 61; Pulse 82; Resp 22; Pulse Ox 90% on 4 lpm NC; me1 21:45 BP 130 / 78; Pulse 84; Resp 24; Pulse Ox 90% on 4 lpm NC; me1 22:45 BP 156 / 92; Pulse 77; Resp 24; Pulse Ox 97% on BiPAP; me1 23:45 BP 141 / 72; Pulse 84; Resp 18; Pulse Ox 96% on BiPAP; va1 09/26 00:00 BP 141 / 72; Pulse 83; Resp 28; Pulse Ox 97% on BiPAP; 8 01:00 BP 141 / 75; Pulse 78; Resp 30; Pulse Ox 94% on BiPAP; 8 20:00 BP 149 / 62; Pulse 77; Resp 30; Pulse Ox 98% on CPAP; la4 09/25 19:37 Body Mass Index 27.89 (90.72 kg, 180.34 cm) [facility] 09/25 19:37 Pain Scale: Adult [facility] Yesica Coma Score: 21:12 Eye Response: spontaneous(4). Motor Response: obeys commands(6). Verbal Response: la4 oriented(5). Total: 15. MDM: 09/25 19:44 Patient medically screened. kb 21:47 Data reviewed: vital signs, nurses notes. Management of patient was discussed with the kb following: Licensed Insurance Sales Agent: Discussed case and results with Dr Yi. Accepts for consult at this facility. 22:18 Differential diagnosis: Bronchitis CHF exacerbation, Chronic Obstructive Pulmonary kb Disease pneumonia, pulmonary edema, flu, covid. Consideration of Admission/Observation Patient was admitted/placed on observation. Escalation of care including admission/observation considered. Management of patient was discussed with the following: Hospitalist: Roxy Fairchild NP. Historians other than the Patient: Spouse/Significant Other: . Counseling: I had a detailed discussion with the patient and/or guardian regarding the historical points, exam findings, and any diagnostic results supporting the discharge/admit diagnosis, lab results, radiology results, the need for further work-up and treatment in the hospital. 09/25 19:48 Order name: Basic Metabolic Panel; Complete Time: 20:36 kb 09/25 19:48 Order name: CBC with Diff; Complete Time: 20:12 kb 09/25 19:48 Order name: Magnesium; Complete Time: 20:36 kb 09/25 19:48 Order name: NT PRO-BNP; Complete Time: 20:36 kb 09/25 19:48 Order name: Troponin HS; Complete Time: 20:36 kb 09/25 19:48 Order name: Flu; Complete Time: 20:36 kb 09/25 19:48 Order name: COVID-19 SARS RT PCR; Complete Time: 20:42 kb 09/25 21:22 Order name: Blood Culture Adult (2); Complete Time: 21:56 kb 09/25 21:22 Order name: CMP; Complete Time: 22:22 kb 09/25 21:22 Order name: Lactate w/ 2H reflex if indic.; Complete Time: 22:22 kb 09/25 21:22 Order name: Protime (+inr); Complete Time: 22:22 kb 09/25 21:22 Order name: Ptt, Activated; Complete Time: 22:22 kb 09/25 23:56 Order name: Troponin High Sensitivity; Complete Time: 17:05 kb 09/26 00:31 Order name: Basic Metabolic Panel EDMS 09/26 00:31 Order name: Basic Metabolic Panel EDMS 09/26 00:31 Order name: CBC with Automated Diff EDMS 09/26 00:31 Order name: CBC with Automated Diff EDMS 09/26 00:31 Order name: Comprehensive Metabolic Panel EDMS 09/26 00:31 Order name: Comprehensive Metabolic Panel EDMS 09/26 00:31 Order name: Lipid Profile EDMS 09/26 00:31 Order name: Lipid Profile EDMS 09/26 00:31 Order name: Magnesium EDMS 09/26 00:31 Order name: Magnesium EDMS 09/26 00:31 Order name: Phosphorus EDMS 09/26 00:31 Order name: Phosphorus EDMS 09/26 00:31 Order name: Protime (+INR) EDMS 09/26 00:31 Order name: Protime (+INR) EDMS 09/26 00:31 Order name: PTT, Activated Partial Thromb EDMS 09/26 00:31 Order name: PTT, Activated Partial Thromb EDMS 09/26 00:31 Order name: Troponin High Sensitivity EDMS 09/26 00:31 Order name: Troponin High Sensitivity; Complete Time: 17:05 EDMS 09/26 00:31 Order name: Troponin High Sensitivity; Complete Time: 17:05 EDMS 09/26 00:31 Order name: Urinalysis w/ reflexes EDMS 09/26 15:01 Order name: Ptt, Activated ko1 09/26 15:34 Order name: PTT, Activated Partial Thromb; Complete Time: 17:05 EDMS 09/26 21:33 Order name: PTT, Activated Partial Thromb; Complete Time: 21:56 EDMS 09/25 19:48 Order name: XRAY Chest (1 view); Complete Time: 21:14 kb 09/25 21:22 Order name: BIPAP 09/25 19:48 Order name: EKG; Complete Time: 19:49 kb 09/26 00:31 Order name: CONS Physician Consult [facility] 09/25 19:48 Order name: Cardiac monitoring; Complete Time: 20:17 kb 09/25 19:48 Order name: EKG - Nurse/Tech; Complete Time: 20:17 kb 09/25 19:48 Order name: IV Saline Lock; Complete Time: 20:05 kb 09/25 19:48 Order name: Labs collected and sent; Complete Time: 20:05 kb 09/25 19:48 Order name: O2 Per Protocol; Complete Time: 20:05 kb 09/25 19:48 Order name: O2 Sat Monitoring; Complete Time: 20:05 kb 09/25 21:22 Order name: Accucheck; Complete Time: 00:18 kb 09/25 21:22 Order name: IV Saline Lock - Large Bore; Complete Time: 21:48 kb 09/25 21:22 Order name: Vital Signs; Complete Time: 21:48 kb Administered Medications: 19:50 Drug: Albuterol Inhalation 2.5 mg Inhalation once Route: Inhalation; me1 20:06 Follow up: Response: No adverse reaction; Wheezing diminished me1 19:50 Drug: Ipratropium Inhalation Aerosol 0.5 mg Inhalation once Route: Inhalation; me1 20:06 Follow up: Response: No adverse reaction; Wheezing diminished me1 20:57 Drug: Aspirin PO Chewable Tablet 324 mg PO once; 81 mg tablets x 4 Route: PO; me1 21:12 Follow up: Response: No adverse reaction me1 21:45 Drug: Clopidogrel PO 75 mg PO once Route: PO; me1 21:57 Follow up: Response: No adverse reaction me1 21:46 Drug: Furosemide IVP 40 mg IVP once; give over 2 minutes Route: IVP; Site: right me1 antecubital; 21:57 Follow up: Response: No adverse reaction me1 23:10 Drug: Potassium Chloride PO 40 mEq PO once Route: PO; me1 23:10 Follow up: Response: No adverse reaction me1 23:10 Drug: Rocephin IV 1 grams IV at calculated rate once; Given slow IV push per pharmacy me1 instructions Route: IV; Rate: calculated rate; Site: right forearm; 23:11 Follow up: Response: No adverse reaction; IV Status: Completed infusion me1 23:10 Drug: Zithromax IVPB 500 mg IVPB once over 1 hrs; mix in 250 mL NS Route: IVPB; Infused me1 Over: 1 hrs; Site: right forearm; 09/26 00:10 Follow up: Response: No adverse reaction; IV Status: Completed infusion; IV Intake: me1 250ml Disposition Summary: 09/25/23 22:24 Hospitalization Ordered Notes: Hospitalization Status: Inpatient Admission kb Provider: Frankie Delgadillo Condition: Stable [facility] Problem: new kb Symptoms: are unchanged kb Bed/Room Type: Standard kb Location: Telemetry/MedSurg (Inpatient)(09/26/23 17:28) Room Assignment: [facility](09/26/23 20:55) [id number] Diagnosis - Acute on chronic combined systolic (congestive) and diastolic (congestive) heart kb failure - Pneumonia, unspecified organism kb - Hypoxia kb - NSTEMI kb Forms: - Medication Reconciliation Form kb - SBAR form kb - Leadership Thank You Letter kb Signatures: Dispatcher [employer] Trina Warren FNP-C ROOF SLATER-Loren Wheeler, RN RN Zainab Barnhart Michelle RN RN va1 Siomara [facility] Lary Chavez RN RN km8 Corrections: (The following items were deleted from the chart) 09/25 22:18 21:21 ENT: Positive for kb kb 09/26 00:37 09/25 22:24 Telemetry/MedSurg (Inpatient) kb cg 09/26 00:37 09/25 22:24 kb cg 09/26 17:28 00:37 [facility] ER HOLD cg eb 17:28 00:37 ERHOLD- cg eb 19:55 17:28 231 eb cg 20:55 19:55 218 cg [id number]
[2023-09-25] MEDS ORDERED: CEFTRIAXONE 1000 MG/VIAL ONE (22:56)
[2023-09-25] MEDS ORDERED: AZITHROMYCIN 500 MG INJ IVPB ONE (22:56)
[2023-09-25] MEDS ORDERED: POTASSIUM CL SA 10 MEQ TAB PO ONE (22:57)
[2023-09-25] MEDS ORDERED: NA CHLORIDE 0.9% 250 ML ONE (22:57)
[2023-09-26] MEDS ORDERED: ACETAMINOPHEN 500 MG TAB PO PRN (00:15)
[2023-09-26 01:22] VITALS: BMI 27.8
[2023-09-26] MEDS: ALBUTEROL 2.5 MG/3 ML NEB SOL NEB SCH ×4 (01:55→19:40)
--- NOTE | 2023-09-26 04:02 | P.HP ---
Certification for Inpatient Patient admitted to: Inpatient With expected LOS: >2 Midnights Patient will require the following post-hospital care: None Practitioner: I am a practitioner with admitting privileges, knowledge of patient current condition, hospital course, and medical plan of care. Services: Services provided to patient in accordance with Admission requirements found in Title 42 Section 412.3 of the Code of Federal Regulations Patient History Date of Service: 09/26/23 Primary Care Provider: Dr. Marcial Reason for admission: Dyspnea, Congestive heart failure, Elevated troponin History of Present Illness: Mr. Patterson is a 78 yo patient with a past medical history of HTN, HLD, CHF, and CVA x2. He had a pacemaker placed in 2016. He had a cardiac cath with stent placement in June 2023. For the past few days he has been congested, coughing, and yesterday (09/24/23) had a low grade fever. He has been around a Grand-daughter who had and URI infection. Mr. Patterson saw pulmonology and was given an antihistamine. He has been told in the past he has some lung scarring and did have an inhaler that he has been using. Mr. Patterson presented to the Emergency room with dyspnea, swelling to arms/belly/and legs. On assessment, his SpO2 dropped into the high 80s and he was placed on BiPap. On HM assessment he is feeling better, no longer short of breath. Denies chest pain at any time during this illness. Allergies No Known Allergies Allergy (Verified 06/30/23 09:42) Home medications list reviewed: Yes Home Medications: Potassium Chloride [Klor-Con] 10 meq PO BID 07/27/13 cloNIDine HCL [Catapres*] 0.1 mg PO BEDTIME 07/27/13 Furosemide [Lasix*] 40 mg PO BIDWM 06/09/16 Hydralazine [Apresoline*] 1 tab PO BEDTIME 06/09/16 Nifedipine Xl [Procardia XL*] 90 mg PO BIDWM 06/09/16 Allopurinol 150 mg PO 1700 08/26/19 Budesonide [Pulmicort*] 1 puff NEB BID 08/26/19 Formoterol Fumarate [Perforomist*] 20 mcg NEB BID 08/26/19 Losartan Potassium 1 tab PO DAILY 08/26/19 Losartan Potassium 25 mg PO 1700 08/26/19 Rivaroxaban [Xarelto] 1 tab PO 169908/26/19 Atorvastatin Calcium [Lipitor*] 40 mg PO SEECOM 10/12/19 Diphenhydramine [Benadryl*] 25 mg PO BEDTIME 10/12/19 Omeprazole 20 mg PO 1700 10/12/19 Omeprazole 20 mg PO BEDTIME 10/12/19 - Past Medical/Surgical History Has patient received pneumonia vaccine in the past: Yes Diabetic: No -: Hypertension -: Hyperlipidemia -: Coronary artery disease -: Obstructive sleep apnea -: 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 - Family History Mother -: Heart disease Father -: Heart disease, Cancer, Other (see notes) Notes: prostate ca. mi. heart valve infection. at 93 Brother -: Heart disease - Social History Smoking Status: Former smoker Alcohol use: Yes CD- Drugs: No Caffeine use: Yes Place of Residence: Home Review of Systems 10-point ROS is otherwise unremarkable ENT: Nose Congestion Respiratory: Cough, Shortness of Breath, SOB with Excertion, As per HPI Cardiovascular: Edema, As per HPI Physical Examination - Vital Signs Pulse: 79 Pulse Ox (%): 95 - Physical Exam General: Alert, Oriented x3, Cooperative HEENT: Atraumatic, Normocephalic, PERRLA Neck: Supple, JVD not distended Respiratory: Diminished Cardiovascular: Edema (significant to arms, trunk, and lower extremities) Gastrointestinal: Hypoactive, Distended Musculoskeletal: No clubbing Integumentary: No rashes Neurological: Normal speech, Normal tone, Other (hard of hearing) Lymphatics: No axilla or inguinal lymphadenopathy External genitalia: Deferred Rectal: Deferred - Studies Laboratory Data (last 24 hrs) 09/25/23 09/25/23 09/25/23 21:40 21:40 20:02 WBC 10.30 Hgb 9.3 L Hct 28.3 L Plt Count 248 PT 25.2 H INR 2.35 APTT 43.1 H Sodium 136 Potassium 3.0 L BUN 23 H Creatinine 1.48 H Glucose 158 H Magnesium Total Bilirubin 0.7 AST 16 ALT 25 Alkaline Phosphatase 86 09/25/23 20:02 WBC Hgb Hct Plt Count PT INR APTT Sodium 138 Potassium 3.1 L BUN 23 H Creatinine 1.50 H Glucose 159 H Magnesium 2.0 Total Bilirubin AST ALT Alkaline Phosphatase Microbiology Data (last 24 hrs): 09/25/23 19:44 Nasopharnyx Influenza Type A Antigen Screen - Final 09/25/23 19:44 Nasopharnyx Influenza Type B Antigen Screen - Final Assessment and Plan - Problems (Diagnosis) (1) Congestive heart failure (CHF) Current Visit: Yes Status: Acute Plan: Chest x-ray from ED: IMPRESSION: Centrally predominant interstitial and airspace opacities as above, most suggestive of pulmonary edema, less likely multifocal pneumonia. Lasix 40mg IV given in ED without much output. Monitor electrolytes and replenish as appropriate. Daily weight, avoid IVF, oral fluid restriction BiPap Qualifiers: Heart failure type: diastolic Heart failure chronicity: acute on chronic Qualified Code(s): I50.33 - Acute on chronic diastolic (congestive) heart failure (2) Dyspnea Current Visit: Yes Status: Acute Plan: Bipap, monitor vital signs, observe for hypoxia Qualifiers: Dyspnea type: orthopnea Qualified Code(s): R06.01 - Orthopnea (3) Elevated troponin Current Visit: Yes Status: Acute Plan: Cardiology consulted. Trend troponin Recommend diuresis, continue Plavix, Xarelto, and Aspirin Will monitor carefully and follow with primary team Troponin this am remains high but is trending down - Advance Directives Does patient have a Living Will: No Does patient have a Durable POA for Healthcare: No
[2023-09-26] MEDS ORDERED: ALBUTEROL 2.5 MG/3 ML NEB SOL ONE ×2 (08:25→14:06)
[2023-09-26] MEDS ORDERED: CLOPIDOGREL 75 MG TABLET ONE (08:49)
[2023-09-26] MEDS ORDERED: FUROSEMIDE 20 MG/ 2ML VIAL ONE (08:50)
[2023-09-26] MEDS ORDERED: SIMETHICONE 80 MG CHEWABLE TAB ONE ×2 (08:50→16:33)
[2023-09-26] MEDS ORDERED: ASPIRIN EC 81 MG TAB PO ONE (08:50)
[2023-09-26] MEDS: SIMETHICONE 80 MG CHEWABLE TAB PO SCH ×3 (08:59→21:53)
[2023-09-26] MEDS: ASPIRIN EC 81 MG TAB PO SCH (08:59)
[2023-09-26] MEDS: CLOPIDOGREL 75 MG TABLET PO SCH (08:59)
[2023-09-26] MEDS ORDERED: FUROSEMIDE 20 MG/ 2ML VIAL IV SCH (09:00)
[2023-09-26] MEDS: FUROSEMIDE 40 MG/4 ML VIAL IV SCH (14:31)
--- NOTE | 2023-09-26 14:35 | P.PN ---
Date of Service: 09/26/23 Patient seen and examined He did not tolerate oxygen by nasal cannula this morning and was placed back on BiPAP. Troponin elevated but trended flat. Noted patient has been on Xarelto at home. Diagnosis Acute on Diastolic heart failure NSTEMI Chronic kidney disease stage III Plan: Increase Lasix dose to 40 mg twice daily Discontinue Xarelto and start heparin drip Cardiology consult. BiPAP as needed. Monitor intake and output.
[2023-09-26] MEDS ORDERED: HEPARIN 5000 UNIT/ML 1 ML VIAL ONE (14:55)
[2023-09-26] MEDS ORDERED: HEPARIN/D5W 25,000 UNIT/500 ML BAG IV ONE (14:56)
[2023-09-26] MEDS ORDERED: FUROSEMIDE 40 MG/4 ML VIAL ONE (14:56)
[2023-09-26] MEDS: allopurinoL 300 MG TAB PO SCH (16:05)
[2023-09-26] MEDS: HEPARIN/D5W 25,000 UNIT/500 ML BAG IV SCH (16:15)
[2023-09-26] MEDS ORDERED: RIVAROXABAN 15 MG TABLET PO SCH ×2 (17:00)
[2023-09-26] MEDS ORDERED: ATORVASTATIN 40 MG TAB PO SCH (21:00)
[2023-09-26] MEDS ORDERED: FORMOTEROL FUMARATE 20 MCG/2 ML NEB SCH (21:00)
[2023-09-26] MEDS: HYDRALAZINE HCL 25 MG TABLET PO SCH (21:53)
[2023-09-26] MEDS: ARFORMOTEROL TARTRATE 15 MCG/2 ML VIAL.NEB NEB SCH (22:09)
[2023-09-26] MEDS: BUDESONIDE 0.25 MG/2 ML NEB NEB SCH (22:09)
[2023-09-27] MEDS: ALBUTEROL 2.5 MG/3 ML NEB SOL NEB SCH ×4 (01:30→19:35)
[2023-09-27 02:09] LABS: Urine Bacteria None Seen /HPF (<20); Urine RBC <5 /HPF (None Seen)
[2023-09-27 02:19] LABS: Specific Gravity 1.015 (1.005-1.030); Urine Bilirubin NEGATIVE (Negative); Urine Blood Negative (Negative); Urine Clarity Clear (Clear); Urine Color Light-Yellow (Yellow); Urine Glucose NEGATIVE (Negative); Urine Protein TRACE (Negative); Urine Urobilinogen Normal (Normal); Urine pH 5.5 (5.0-7.0)
[2023-09-27 02:35] LABS: Urine Crystals Unidentified Few /HPF (None Seen); Urine Mucus Slight /HPF (None Seen)
[2023-09-27] MEDS: ARFORMOTEROL TARTRATE 15 MCG/2 ML VIAL.NEB NEB SCH ×4 (07:46→20:00)
[2023-09-27] MEDS: BUDESONIDE 0.25 MG/2 ML NEB NEB SCH ×2 (07:46→19:35)
[2023-09-27 08:06] LABS: Absolute Lymphocytes (CBC) 0.8 K/uL (0.7-4.9); Hematocrit 27.9 % (39.6-49.0); Lymphocytes % 10.4 % (15.3-44.8); MCV 79.1 fL (80-100); MPV 7.9 fL (7.6-11.3); Platelets 243 thou/uL (152-406); RBC Red Blood Cell Count 3.53 M/uL (4.33-5.43)
[2023-09-27 08:14] LABS: Protime INR 1.36
[2023-09-27 08:29] LABS: Albumin 2.6 g/dL (3.4-5.0); Bilirubin Total 0.6 mg/dL (0.2-1.0); Magnesium 2.1 mg/dL (1.6-2.4); Phosphorus 3.1 mg/dL (2.5-4.9); Protein, Total 6.7 g/dL (6.4-8.2)
[2023-09-27] MEDS: SIMETHICONE 80 MG CHEWABLE TAB PO SCH ×3 (08:49→20:30)
[2023-09-27] MEDS: ASPIRIN EC 81 MG TAB PO SCH (08:49)
[2023-09-27] MEDS: FUROSEMIDE 40 MG/4 ML VIAL IV SCH ×2 (08:49→16:47)
[2023-09-27] MEDS: CLOPIDOGREL 75 MG TABLET PO SCH (08:49)
[2023-09-27] MEDS ORDERED: POTASSIUM CL SA 10 MEQ TAB PO ONE (09:56)
[2023-09-27] MEDS: LACTULOSE 20 GM/30 ML UCUP PO PRN (10:22)
--- NOTE | 2023-09-27 11:42 | P.PN ---
Subjective Date of Service: 09/27/23 Primary Care Provider: Dr. Marcial Chief Complaint: Dyspnea, Congestive heart failure, Elevated troponin Patient reports improvement in his shortness of breath. He reports constipation Urine output has not been significant as anticipated with the current dose La six. Noted patient uses CPAP during sleep. He is currently tolerating oxygen by nasal cannula with SaO2 ranging between 89 to 92%. Physical Examination - Vital Signs Temperature: 97.8 F Blood Pressure: 157/96 Pulse: 79 Respirations: 29 Pulse Ox (%): 94 - Physical Exam General: Alert, In no apparent distress, Oriented x3 HEENT: Mucous membr. moist/pink Neck: Supple, JVD not distended Respiratory: Crackles/rales (bibasilar) Cardiovascular: Regular rate/rhythm, Normal S1 S2, Edema (Bilateral lower extremity edema) Gastrointestinal: Normal bowel sounds, Soft and benign, Non-distended, No tenderness Musculoskeletal: No swelling Integumentary: No rashes Neurological: Normal strength at 5/5 x4 extr Assessment And Plan - Current Problems (Diagnosis) (1) Acute on chronic diastolic heart failure Current Visit: Yes Status: Acute (2) Acute respiratory failure with hypoxia Current Visit: Yes Status: Acute (3) History of sleep apnea Current Visit: Yes Status: Acute (4) NSTEMI (non-ST elevated myocardial infarction) Current Visit: Yes Status: Acute (5) Chronic kidney disease, stage III (moderate) Current Visit: Yes Status: Acute - Plan Acute respiratory failure with hypoxia/acute on chronic diastolic heart failure Urine output has not been as much as anticipated with the current Lasix dose Increase Lasix dose to 80 mg twice daily Monitor renal function Supplemental oxygen as needed Intermittent BiPAP Obtain echocardiogram NSTEMI/coronary artery disease Troponin elevated but trended flat. Continue heparin drip Cardiology consulted Echocardiogram ordered Functional constipation Trial of mag citrate followed by MiraLAX daily. History of obstructive sleep apnea Uses CPAP at night and during sleep. DVT prophylaxis: On heparin drip.
[2023-09-27] MEDS ORDERED: MAGNESIUM CITRATE 300 ML BOT PO SCH (12:00)
[2023-09-27] MEDS: HEPARIN/D5W 25,000 UNIT/500 ML BAG IV SCH (14:53)
[2023-09-27] MEDS: allopurinoL 300 MG TAB PO SCH (16:46)
[2023-09-27] MEDS ORDERED: CLOPIDOGREL 75 MG TABLET PO SCH (17:12)
[2023-09-27] MEDS: TAMSULOSIN 0.4 MG SR CAP PO SCH (17:42)
[2023-09-27] MEDS: FAMOTIDINE 20 MG TAB PO SCH (17:43)
[2023-09-27] MEDS: AMIODARONE HCL 200 MG TAB PO SCH (17:43)
[2023-09-27] MEDS: POTASSIUM CL SA 10 MEQ TAB PO SCH (20:30)
[2023-09-27] MEDS: PANTOPRAZOLE 40MG TABLET PO SCH (20:31)
[2023-09-27] MEDS: HYDRALAZINE HCL 25 MG TABLET PO SCH (20:31)
[2023-09-28] MEDS: ALBUTEROL 2.5 MG/3 ML NEB SOL NEB SCH ×4 (01:46→19:44)
[2023-09-28 06:20] LABS: Absolute Lymphocytes (CBC) 0.7 K/uL (0.7-4.9); Hematocrit 25.5 % (39.6-49.0); Lymphocytes % 10.9 % (15.3-44.8); MCV 78.1 fL (80-100); MPV 7.7 fL (7.6-11.3); Platelets 240 thou/uL (152-406); RBC Red Blood Cell Count 3.27 M/uL (4.33-5.43)
[2023-09-28 06:38] LABS: Potassium 3.4 mEq/L (3.5-5.1)
[2023-09-28] MEDS ORDERED: POTASSIUM CL SA 10 MEQ TAB PO ONE (07:42)
[2023-09-28] MEDS: BUDESONIDE 0.25 MG/2 ML NEB NEB SCH ×2 (08:00→19:44)
[2023-09-28] MEDS: ARFORMOTEROL TARTRATE 15 MCG/2 ML VIAL.NEB NEB SCH ×3 (08:00→19:44)
[2023-09-28] MEDS: TAMSULOSIN 0.4 MG SR CAP PO SCH (09:00)
[2023-09-28] MEDS: POTASSIUM CL SA 10 MEQ TAB PO SCH ×2 (09:00→21:58)
[2023-09-28] MEDS: FAMOTIDINE 20 MG TAB PO SCH (09:30)
[2023-09-28] MEDS: ASPIRIN EC 81 MG TAB PO SCH (09:30)
[2023-09-28] MEDS: SIMETHICONE 80 MG CHEWABLE TAB PO SCH ×3 (09:30→21:58)
[2023-09-28] MEDS: ATORVASTATIN 40 MG TAB PO SCH (09:30)
[2023-09-28] MEDS: AMIODARONE HCL 200 MG TAB PO SCH (09:31)
[2023-09-28] MEDS: LEVOTHYROXINE SOD 0.1 MG TAB PO SCH (09:31)
[2023-09-28] MEDS: FUROSEMIDE 40 MG/4 ML VIAL IV SCH ×2 (09:31→17:05)
[2023-09-28] MEDS: CLOPIDOGREL 75 MG TABLET PO SCH (09:32)
[2023-09-28] MEDS: PANTOPRAZOLE 40MG TABLET PO SCH ×2 (09:33→21:58)
--- NOTE | 2023-09-28 10:11 | RAD REPORT ---
EXAM DESCRIPTION: CT - Chest For Pe Angio - 09/28/2023 9:20 am CLINICAL HISTORY: hypoxia COMPARISON: 2019 TECHNIQUE: Dynamically enhanced axial 3 mm thick images of the chest were obtained during administra tion of 100 mL Isovue 370 IV contrast. Coronal and oblique reconstruction images were generated and r eviewed. Exam utilizes a protocol for optimal evaluation of pulmonary arterial tree. Maximum intensity projections 3D imaging was utilized All CT scans are performed using dose optimization technique as appropriate and may include automated exposure control or mA/KV adjustment according to patient size. FINDINGS: A pulmonary embolus is not seen. A thoracic aortic aneurysm is not noted. Small left pleural effusion. A pericardial effusion is not seen. Moderate to marked bilateral pulmonary opacities Cardiomegaly IMPRESSION: Negative for a pulmonary embolism. [id number] bilateral pulmonary opacities may represent pulmonary edema or pneumonia
--- NOTE | 2023-09-28 11:27 | P.PN ---
Subjective Date of Service: 09/28/23 Primary Care Provider: Dr. Marcial Chief Complaint: Dyspnea, Congestive heart failure, Elevated troponin Patient reports improvement in his shortness of breath but still requiring 8 L of oxygen by nasal cannula. Urine output has improved with the current dose of IV Lasix. No recorded fever. Physical Examination - Vital Signs Temperature: 98.4 F Blood Pressure: 180/79 Pulse: 73 Respirations: 20 Pulse Ox (%): 91 - Physical Exam General: Alert, In no apparent distress, Oriented x3 HEENT: Mucous membr. moist/pink Neck: JVD not distended Respiratory: Crackles/rales (Bilateral basal crackles) Cardiovascular: Regular rate/rhythm, Normal S1 S2, Edema (Trace lower extremity edema) Gastrointestinal: Normal bowel sounds, Soft and benign, Non-distended, No tenderness Musculoskeletal: No swelling Integumentary: No rashes, No cyanosis Neurological: Normal speech, Normal strength at 5/5 x4 extr, Cranial nerves 3-12 intact Assessment And Plan - Current Problems (Diagnosis) (1) Acute on chronic diastolic heart failure Current Visit: Yes Status: Acute (2) Acute respiratory failure with hypoxia Current Visit: Yes Status: Acute (3) History of sleep apnea Current Visit: Yes Status: Acute (4) NSTEMI (non-ST elevated myocardial infarction) Current Visit: Yes Status: Acute (5) Chronic kidney disease, stage III (moderate) Current Visit: Yes Status: Acute - Plan Acute respiratory failure with hypoxia/acute on chronic diastolic heart failure/bilateral pneumonia Urine output improved with Lasix 80 mg twice daily. Patient is still requiring significant amount of oxygen. CTA thorax shows no PE but demonstrated moderate to marked bilateral infiltrates Continue Lasix dose to 80 mg twice daily. Patient has a history of Zenker's diverticula, some risk for aspiration Add antibiotics-IV Zosyn Check procalcitonin. Monitor renal function Supplemental oxygen as needed Intermittent BiPAP Echocardiogram. NSTEMI/coronary artery disease Troponin elevated but trended flat. Continue heparin drip Cardiology consulted Echocardiogram ordered Xarelto on hold. Chronic atrial fibrillation/presence of pacemaker Stable Continue amiodarone. Patient is on heparin drip. Xarelto is on hold. Functional constipation Miralax History of obstructive sleep apnea Uses CPAP at night and during sleep. DVT prophylaxis: On heparin drip.
[2023-09-28] MEDS ORDERED: RIVAROXABAN 20 MG TABLET PO SCH (17:00)
[2023-09-28] MEDS: PIPER TAZO 3.375 GM in NA CHLORIDE 0.9% 100 ML IV SCH (17:04)
[2023-09-28] MEDS: allopurinoL 300 MG TAB PO SCH (17:04)
[2023-09-28] MEDS: HYDRALAZINE HCL 25 MG TABLET PO SCH (21:58)
[2023-09-29] MEDS: ALBUTEROL 2.5 MG/3 ML NEB SOL NEB SCH ×4 (01:29→19:27)
[2023-09-29] MEDS: PIPER TAZO 3.375 GM in NA CHLORIDE 0.9% 100 ML IV SCH ×2 (02:00→09:00)
[2023-09-29 02:20] LABS: Absolute Lymphocytes (CBC) 0.6 K/uL (0.7-4.9); Hematocrit 27.5 % (39.6-49.0); Platelets 277 thou/uL (152-406); RBC Red Blood Cell Count 3.52 M/uL (4.33-5.43)
[2023-09-29 02:41] LABS: Potassium 3.5 mEq/L (3.5-5.1)
[2023-09-29] MEDS: ARFORMOTEROL TARTRATE 15 MCG/2 ML VIAL.NEB NEB SCH ×2 (07:57→19:27)
[2023-09-29] MEDS: BUDESONIDE 0.25 MG/2 ML NEB NEB SCH ×2 (07:57→19:27)
[2023-09-29] MEDS: NIFEDIPINE XL 90 MG TABLET PO SCH ×2 (09:01→18:37)
--- NOTE | 2023-09-29 09:49 | P.PN ---
Date of Service: 09/29/23 Subjective: Feeling a little better today Breathing more comfortably today. Down to 2L NC. Uses CPAP at home at night. No home oxygen no formal diagnosis of COPD afebrile ROS: 10 point ROS as noted above, otherwise negative Physical Exam: GEN: Alert, oriented, NAD HEENT: Normal conjunctiva, sclera anicteric, CV: Regular rate and rhythm, trace b/l lower edema Pulm: Nonlabored respirations on 2L NC, +Crackles/rales ABD: soft, nontender, nondistended Neuro: Normal speech, normal affect Problem List: Acute hypoxic respiratory failure secondary to Pulm edema / Bilateral pneumonia Acute on chronic diastolic CHF NSTEMI CAD s/p PCI (Jun 2023) NELL on CKD Chronic atrial fibrillation with presence of pacemaker History of obstructive sleep apnea Hypertension Hyperlipidemia h/o prior CVA Functional constipation Acute hypoxic respiratory failure secondary to Pulm edema / Bilateral pneumonia Acute on chronic diastolic CHF CXR (08/28): centrally predominant interstitial and airspace opacities. Pulm edema vs multifocal pneumonia CTA chest (09/28): mod-marked bilateral pulm opacities. no PE. Patient has a history of Zenker's diverticula, some risk for aspiration No formal diagnosis of COPD Urine output improved with IV lasix GLORIA nebs Patient still requiring oxygen - down to 2L NC. Wean as tolerated may need home O2 continue empiric IV Zosyn (09/28-) Plan to deescalate IV abx to PO in afternoon afebrile, no leukocytosis Cardiology is following given IV lasix 80mg BID yesterday. held this morning due to NELL Echocardioram ordered to eval EF / stenosis NSTEMI CAD s/p PCI (Jun 2023) Troponin elevated but trended flat. Cardiology consulted Echocardiogram ordered to eval EF / stenosis Xarelto on hold. Continue home plavix, aspirin 81mg, statin NELL on CKD Possible underlying CKD. unknown baseline Nephrology consulted Given IV lasix yesterday. Will discuss with nephrology restarting lasix at lower dose vs fluids creatinine 1.1 -> 1.64 (09/29) Continue to monitor renal function renal u/s ordered Chronic atrial fibrillation with presence of pacemaker Continue amiodarone. heparin drip dc'd 09/28 per cardiology Xarelto is on hold. History of obstructive sleep apnea Uses CPAP at night and during sleep. Hypertension Hyperlipidemia h/o prior CVA Confirm home meds, restart as appropriate home nifedipine restarted 1/2 Functional constipation Miralax Dispo: Home, ~2 days Pending ambulating without issues, off oxygen, improvement of renal function
[2023-09-29] MEDS: ASPIRIN EC 81 MG TAB PO SCH (11:39)
[2023-09-29] MEDS: POTASSIUM CL SA 10 MEQ TAB PO SCH ×2 (11:39→21:10)
[2023-09-29] MEDS: TAMSULOSIN 0.4 MG SR CAP PO SCH (11:39)
[2023-09-29] MEDS: SIMETHICONE 80 MG CHEWABLE TAB PO SCH ×3 (11:39→21:10)
[2023-09-29] MEDS: PANTOPRAZOLE 40MG TABLET PO SCH ×2 (11:39→21:10)
[2023-09-29] MEDS: CLOPIDOGREL 75 MG TABLET PO SCH (11:39)
[2023-09-29] MEDS: LEVOTHYROXINE SOD 0.1 MG TAB PO SCH (11:39)
[2023-09-29] MEDS: FAMOTIDINE 20 MG TAB PO SCH (11:39)
[2023-09-29] MEDS: AMIODARONE HCL 200 MG TAB PO SCH (11:40)
[2023-09-29] MEDS: ATORVASTATIN 40 MG TAB PO SCH (11:40)
[2023-09-29] MEDS ORDERED: NA CHLORIDE 0.9% 250 ML IV SCH (12:00)
--- NOTE | 2023-09-29 12:45 | RAD REPORT ---
EXAM DESCRIPTION: US - Renal Ultrasound-Complete - 09/29/2023 12:27 pm CLINICAL HISTORY: yuri Flank pain COMPARISON: Renal Ultrasound-Complete dated 11/18/2019 FINDINGS: Both kidneys are normal in size, shape and echotexture. The right kidney measures 9.8 x 5.8 x 4.9 cm. No hydronephrosis, focal mass or perinephric fluid. Russell ign renal cysts noted. The left kidney measures 11.5 x 5.1 x 4.5 cm. No hydronephrosis, focal mass or perinephric fluid. Russell ign renal cysts noted. The urinary bladder is incompletely distended without gross abnormality seen. IMPRESSION: Benign bilateral renal cysts, otherwise negative study.
--- NOTE | 2023-09-29 15:34 | CON ---
Date of Consultation: 09/29/2023 Reason For Consultation: Fluid management, elevated BUN and creatinine. History Of Present Illness: This is a pleasant 78-year-old gentleman with significant past medical h istory of hypertension since 1979, hyperlipidemia, CVA x2. Last one in 2016 without residual. CAD s tatus post PTCA in June 2023, complicated with congestive heart failure. Had a preserved ejection fraction. Benign prostatic hypertrophy with status post TURP in 2010, gout, chronic kidney disease secondary to hypertension, nephrosclerosis, cardiorenal, baseline creatinine around 1.2, GFR of 55. The patient was in his regular state of health. The patient came to the hospital, complaining from s hortness of breath and increase in swelling on the upper extremity. The patient was started on diure sis. Kidney function upon arrival to the hospital was 1.5, trended down to 1.1 on September 28. The patient exposed to contrast on September 28, then creatinine jumped back. For that reason, we have be en consulted. The patient found to have coronavirus. The patient did not have any report of low blo od pressure. The patient was on diuresis. Past Medical History: 1.Hypertension. 2.Hyperlipidemia. 3.Benign prostatic hypertrophy, status post TURP. 4.CVA x2. Last time 2016 without any residual. 5.CAD with atrial fibrillation, status post ICD, complicated with congestive heart failure, preserve d ejection fraction as by family echocardiogram reported in our hospital back in 2019, with ejection fraction of 65%. 6.Atrial fibrillation, status post ICD. Home Medications: Include KCl, clonidine, Lasix, hydralazine, nifedipine, allopurinol, losartan, geovanni rvastatin, Eliquis. Allergies: NO KNOWN DRUGS ALLERGY. Family History: Positive for CAD and hypertension. Social History: Ex-smoker. Active alcohol. Denied drugs abuse. Review of Systems: Head and Neck: No red eye. No ear pain. GI: No nausea. No vomiting. : No polyuria. No dysuria. No hematuria. DISABILITY COORDINATOR: Not applicable. Respiratory: Has shortness of breath. Has cough for the last few months with sore throat, has conta ct with granddaughter that she was having upper respiratory symptoms over the holiday. Cardiovascular: No chest pain. Has upper extremity swelling. Neuro: No weakness. Musculoskeletal: Generalized fatigue and swelling on the upper extremity. Physical Examination: Vital Signs: When I saw, the patient's blood pressure of 184/80, pulse of 73, afebrile. Chest: Crackles bilateral. Heart: S1, S2. Systolic murmur. Abdomen: Soft, nontender. Extremities: No edema, even on the upper extremity. Neurologic: Alert. No focality. Laboratory Data: Upon admission to the hospital, creatinine 1.5, GFR of 48, trend down to September t, creatinine 1.1, GFR of 68. Today lab data; sodium 141, potassium 3.5, bicarb 28, BUN 23, creatini ne 1.6, GFR of 42, calcium of 9. WBC 7.9, hemoglobin 9.1, absolute eosinophil just 200. Urinalysis negative for infection, specific gravity 1.015 upon admission on September 27. CT chest with contra st done on the . No PE. Bilateral pulmonary opacity, questionable pneumonia/pulmonary edema. Ch est x-ray; more interstitial infiltration. Current Medications: The patient on include, 1.Flomax. 2.Plavix. 3.Amiodarone. 4.Atorvastatin. 5.Nifedipine. 6.Pepcid. 7.Simethicone. 8.Pantoprazole. 9.Levothyroxine. 10.Allopurinol. 11.Pulmicort. Assessment And Plan: 1.Acute kidney injury, multifactorial secondary to contrast-induced nephropathy superimposed with ov erdiuresis. a.I agree with holding the Lasix. I am going to start the patient on gentle hydration for the time being and we will follow up the patient. Given the history of obstructive uropathy, I am going to go ahead and send for a workup to rule out obstructive uropathy. 2.Hypertension, not controlled. Continue calcium channel shayla. I am going to start the patient on carvedilol to have better blood pressure control. Again, hold diuresis for the time being. 3.Pneumonia, atypical. Follow up with Primary. Continue breathing treatment. 4.Upper extremity swelling. I am going to send for PC ratio and we will monitor the patient. Follo w up with Pulmonary. 5.Anemia with the presence of kidney injury to rule out light chain disease. I am going to send for anemia workup. I am going to go ahead and send for serum protein electrophoresis and we will follow up. 6.Anasarca. Sent for PC ratio and TSH. Hold the diuresis for the time being. Thank you, Dr. Borrero for allowing us to participate in the care of your patient. LIUDMILA Voice ID: [id number] Report ID: [id number]
[2023-09-29] MEDS: allopurinoL 300 MG TAB PO SCH (18:33)
[2023-09-29 19:45] LABS: Specific Gravity 1.022 (1.005-1.030); Urine Bacteria None Seen /HPF (<20); Urine Bilirubin NEGATIVE (Negative); Urine Blood Negative (Negative); Urine Clarity Clear (Clear); Urine Color Light-Yellow (Yellow); Urine Glucose NEGATIVE (Negative); Urine Mucus Slight /HPF (None Seen); Urine Protein TRACE (Negative); Urine RBC <5 /HPF (None Seen); Urine Urobilinogen Normal (Normal)
[2023-09-29 20:03] LABS: UR PROTEIN 32.6 mg/dL (<11.9); Urine Protein/Creatinine Ratio 0.24 ratio (<0.15)
[2023-09-29] MEDS: carvediloL 6.25 MG TAB PO SCH (21:00)
[2023-09-30] MEDS: ALBUTEROL 2.5 MG/3 ML NEB SOL NEB SCH ×4 (01:20→19:33)
[2023-09-30 03:12] LABS: Hematocrit 26.1 % (39.6-49.0); MCV 78.4 fL (80-100); MPV 7.7 fL (7.6-11.3); Platelets 256 thou/uL (152-406); RBC Red Blood Cell Count 3.33 M/uL (4.33-5.43)
[2023-09-30 04:02] LABS: Albumin 2.7 g/dL (3.4-5.0); Ferritin 37.8 ng/mL (26-388); Phosphorus 2.6 mg/dL (2.5-4.9); Potassium 3.7 mEq/L (3.5-5.1); Thyroid Stimulating Hormone 2.53 uIU/mL (0.358-3.740)
[2023-09-30 04:10] LABS: Uric Acid 5.6 mg/dL (3.5-7.2)
[2023-09-30] MEDS: BUDESONIDE 0.25 MG/2 ML NEB NEB SCH ×2 (08:12→19:33)
[2023-09-30] MEDS: ARFORMOTEROL TARTRATE 15 MCG/2 ML VIAL.NEB NEB SCH ×2 (08:12→19:33)
[2023-09-30] MEDS: AMIODARONE HCL 200 MG TAB PO SCH (08:20)
[2023-09-30] MEDS: FAMOTIDINE 20 MG TAB PO SCH (08:20)
[2023-09-30] MEDS: POTASSIUM CL SA 10 MEQ TAB PO SCH ×2 (08:21→21:33)
[2023-09-30] MEDS: CLOPIDOGREL 75 MG TABLET PO SCH (08:21)
[2023-09-30] MEDS: ASPIRIN EC 81 MG TAB PO SCH (08:21)
[2023-09-30] MEDS: LEVOTHYROXINE SOD 0.1 MG TAB PO SCH (08:21)
[2023-09-30] MEDS: SIMETHICONE 80 MG CHEWABLE TAB PO SCH ×3 (08:21→21:33)
[2023-09-30] MEDS: ATORVASTATIN 40 MG TAB PO SCH (08:21)
[2023-09-30] MEDS: NIFEDIPINE XL 90 MG TABLET PO SCH ×2 (08:22→17:22)
[2023-09-30] MEDS: TAMSULOSIN 0.4 MG SR CAP PO SCH (08:22)
[2023-09-30] MEDS: carvediloL 6.25 MG TAB PO SCH (08:22)
[2023-09-30] MEDS: PANTOPRAZOLE 40MG TABLET PO SCH ×2 (08:22→21:33)
[2023-09-30] MEDS: SOD FERRIC GLUC COMPLX/SUCROSE 125 MG in NA CHLORIDE 0.9% 100 ML IV SCH (09:21)
--- NOTE | 2023-09-30 10:03 | P.PN ---
Date of Service: 09/30/23 Subjective: [place] better yesterday, but still feels better than a few days ago Reports bleeding No acute events overnight CPAP overnight - on 3L NC afebrile ROS: 10 point ROS as noted above, otherwise negative Physical Exam: GEN: Alert, oriented, NAD HEENT: Normal conjunctiva, sclera anicteric, CV: Regular rate and rhythm, trace b/l lower edema Pulm: Nonlabored respirations on 3L NC, +Crackles/rales ABD: soft, nontender, nondistended Neuro: Normal speech, normal affect Problem List: Acute hypoxic respiratory failure secondary to Pulm edema Acute on chronic diastolic CHF NSTEMI CAD s/p PCI (Jun 2023) NELL on CKD Chronic atrial fibrillation with presence of pacemaker Severe Iron deficiency anemia History of obstructive sleep apnea Hypertension Hyperlipidemia h/o prior CVA x2 BPH s/p TURP Functional constipation Acute hypoxic respiratory failure secondary to Pulm edema Acute on chronic diastolic CHF CXR (08/28): centrally predominant interstitial and airspace opacities. Pulm edema vs multifocal pneumonia CTA chest (09/28): mod-marked bilateral pulm opacities. no PE. Patient has a history of Zenker's diverticula, some risk for aspiration No formal diagnosis of COPD Urine output improved with IV lasix Patient still requiring oxygen - down to 2L NC. Wean as tolerated may need home O2 [facility] Cardiology is following Echocardioram ordered to eval EF / stenosis Given short course of IV zosyn to cover for infection / pneumonia Patients symptoms felt more secondary to pulm edema / CHF antibiotics dc'd 09/29. Monitor for any worsening s/s of infection afebrile, no leukocytosis NSTEMI CAD s/p PCI (Jun 2023) Troponin elevated but trended flat. Cardiology consulted Echocardiogram ordered to eval EF / stenosis Xarelto on hold. Continue home plavix, statin NELL on CKD Suspect multifactorial secondary to contrast-induced neuropathy / overdiuresis Nephrology consulted Given IV lasix (09/28). Will discuss with nephrology restarting lasix at lower dose vs fluids renal u/s (09/29): Benign bilateral renal cysts Continue to monitor renal function improving Chronic atrial fibrillation with presence of pacemaker Continue amiodarone. heparin drip dc'd 09/28 per cardiology restart xarelto (home med) Severe Iron deficiency anemia Iron studies consistent with severe iron deficiency anemia Patient reports h/o iron deficiency in the past and had to take slow acting iron supplementation Has noticed more frequent and difficult to control bleeding last 2-3 months since taking xarelto/plavix combination Start IV iron. Monitor H&H. History of obstructive sleep apnea Uses CPAP at night and during sleep. Hypertension Hyperlipidemia h/o prior CVA x2 BPH s/p TURP Confirm home meds, restart as appropriate continue home nifedipine Functional constipation PRN lactulose Dispo: Home, ~2 days Pending ambulating without issues, off oxygen, improvement of renal function
--- NOTE | 2023-09-30 12:00 | PN ---
Date of Progress Note: 09/30/2023 Subjective: The patient was admitted with acute kidney injury secondary to cardiorenal, superimposed with overdiuresis and contrast-induced nephropathy. Yesterday, we held the diuresis and started gen tle hydration. Kidney function has been improved. Objective: Vital Signs: Blood pressure 137/64, pulse of 66, afebrile. Chest: Clear to auscultation. Heart: S1, S2. Regular. Abdomen: Soft, nontender. Extremities: No edema. Neurologic: Alert. No focality. Laboratory Data: Hemoglobin 8.6, sodium 141, potassium 3.7, bicarb 26, BUN 24, creatinine down to 1. 1, GFR of 63, calcium 8.9, uric acid 5.6, iron saturation 6, ferritin 37. Serum protein electrophore sis pending. TSH 2.5. PC ratio 0.2. Current Medications: The patient on, includes: 1.Aspirin. 2.Flomax. 3.IV iron. 4.Plavix. 5.Atorvastatin. 6.Nifedipine 90 b.i.d. 7.Carvedilol 6.25 b.i.d. 8.Amiodarone. 9.Tylenol. 10.Pepcid. 11.Pantoprazole. 12.Levothyroxine. Assessment And Plan: 1.Acute kidney injury secondary to prerenal, over diuresed, continue to recover. I am going to resu me Lasix as 20 mg daily and we will follow up. 2.Hypertension, controlled. The patient had side effects to beta-shayla as history. We will disco ntinue carvedilol and we will resume Lasix. We will follow up with the Primary. 3.Congestive heart failure with exacerbation, resolved. Resume Lasix as 20 mg. TOPHER/GAVIN Voice ID: [id number] Report ID: [id number]
[2023-09-30] MEDS: allopurinoL 300 MG TAB PO SCH (17:22)
[2023-09-30] MEDS ORDERED: FUROSEMIDE 20 MG TABLET PO ONE (18:15)
[2023-09-30] MEDS: DOCUSATE NA 100 MG CAP PO SCH (21:33)
[2023-10-01] MEDS: ALBUTEROL 2.5 MG/3 ML NEB SOL NEB SCH ×2 (01:02→07:36)
[2023-10-01 02:41] LABS: Absolute Lymphocytes (CBC) 0.8 K/uL (0.7-4.9); Hematocrit 25.6 % (39.6-49.0); Lymphocytes % 11.1 % (15.3-44.8); MCV 78.4 fL (80-100); MPV 7.8 fL (7.6-11.3); Platelets 259 thou/uL (152-406); RBC Red Blood Cell Count 3.27 M/uL (4.33-5.43)
[2023-10-01 02:52] LABS: Albumin 2.8 g/dL (3.4-5.0); Phosphorus 3.5 mg/dL (2.5-4.9); Potassium 4.1 mEq/L (3.5-5.1)
[2023-10-01] MEDS: ARFORMOTEROL TARTRATE 15 MCG/2 ML VIAL.NEB NEB SCH ×2 (07:37→19:53)
[2023-10-01] MEDS: BUDESONIDE 0.25 MG/2 ML NEB NEB SCH ×2 (07:37→19:53)
[2023-10-01] MEDS ORDERED: ALBUTEROL 2.5 MG/3 ML NEB SOL NEB PRN (07:53)
[2023-10-01] MEDS: CLOPIDOGREL 75 MG TABLET PO SCH (08:25)
[2023-10-01] MEDS: ASPIRIN EC 81 MG TAB PO SCH (08:25)
[2023-10-01] MEDS: AMIODARONE HCL 200 MG TAB PO SCH (08:25)
[2023-10-01] MEDS: FAMOTIDINE 20 MG TAB PO SCH (08:25)
[2023-10-01] MEDS: SIMETHICONE 80 MG CHEWABLE TAB PO SCH ×3 (08:25→20:47)
[2023-10-01] MEDS: ATORVASTATIN 40 MG TAB PO SCH (08:25)
[2023-10-01] MEDS: POTASSIUM CL SA 10 MEQ TAB PO SCH ×2 (08:25→20:47)
[2023-10-01] MEDS: PANTOPRAZOLE 40MG TABLET PO SCH ×2 (08:25→20:48)
[2023-10-01] MEDS: DOCUSATE NA 100 MG CAP PO SCH ×2 (08:25→20:47)
[2023-10-01] MEDS: TAMSULOSIN 0.4 MG SR CAP PO SCH (08:25)
[2023-10-01] MEDS: FUROSEMIDE 20 MG TABLET PO SCH (08:25)
[2023-10-01] MEDS: SOD FERRIC GLUC COMPLX/SUCROSE 125 MG in NA CHLORIDE 0.9% 100 ML IV SCH (08:26)
[2023-10-01] MEDS: LEVOTHYROXINE SOD 0.1 MG TAB PO SCH (08:26)
[2023-10-01] MEDS: NIFEDIPINE XL 90 MG TABLET PO SCH ×2 (08:26→16:50)
[2023-10-01] MEDS: BENEFIBER PACKET PO SCH (08:26)
--- NOTE | 2023-10-01 12:05 | RAD REPORT ---
EXAM DESCRIPTION: RAD - Chest Single View - 10/01/2023 11:58 am CLINICAL HISTORY: COPD COMPARISON: Chest Single View dated 09/25/2023; Chest Pa And Lat (2 Views) dated 06/30/2023; Chest Pa And Lat (2 Views) dated 01/24/2021; Chest Single View dated 10/11/2019; Chest For Pe Angio dated 024 FINDINGS: Lines: Pacemaker/ICD. Lungs: Similar patchy airspace disease bilaterally with slight improved aeration at the left lung and right lung base. . Pleural: No significant pleural effusions or pneumothorax. Cardiac: Cardiomegaly. Mediastinum: Within normal limits. Bones: No acute fractures. Sternotomy. Other: None IMPRESSION: Bilateral airspace disease which may reflect edema and/or multifocal pneumonia. Findings are marginally improved compared with 09/25/2023.
--- NOTE | 2023-10-01 12:09 | P.PN ---
Date of Service: 10/01/23 Subjective: Breathing more comfortably today; off oxygen ambulated around the nursing station today. O2 sat ~90% entire walk without oxygen per nurse note no acute events overnight afebrile ROS: 10 point ROS as noted above, otherwise negative Physical Exam: GEN: Alert, oriented, NAD HEENT: Normal conjunctiva, sclera anicteric, CV: Regular rate and rhythm, trace b/l lower edema Pulm: Nonlabored respirations on room air, diminished bilaterally at bases ABD: soft, nontender, nondistended Neuro: Normal speech, normal affect Problem List: Acute hypoxic respiratory failure secondary to Pulm edema Acute on chronic diastolic CHF NSTEMI CAD s/p PCI (Jun 2023) NELL on CKD Chronic atrial fibrillation with presence of pacemaker Severe Iron deficiency anemia History of obstructive sleep apnea Hypertension Hyperlipidemia h/o prior CVA x2 BPH s/p TURP Functional constipation Acute hypoxic respiratory failure secondary to Pulm edema Acute on chronic diastolic CHF CXR (09/25): centrally predominant interstitial and airspace opacities. Pulm edema vs multifocal pneumonia CTA chest (09/28): mod-marked bilateral pulm opacities. no PE. Patient has a history of Zenker's diverticula, some risk for aspiration No formal diagnosis of COPD Cardiology is following Urine output / breathing improved with IV lasix weaned off oxygen today (10/01); +ambulated around the nursing station today. O2 sat ~90% entire walk without oxygen per nurse note repeat CXR (10/01): Marginally improved bilateral airspace compared to CXR 09/25/23. Restart lasix PO 20 mg daily; slow restart - given recent contrast Given short course of IV zosyn to cover for infection / pneumonia Patients symptoms felt more secondary to pulm edema / CHF antibiotics dc'd 09/29. Monitor for any worsening s/s of infection afebrile, no leukocytosis NSTEMI CAD s/p PCI (Jun 2023) Troponin elevated but trended flat. Cardiology consulted Restart home xarelto Continue home plavix, statin NELL on CKD Suspect multifactorial secondary to contrast-induced neuropathy / overdiuresis renal u/s (09/29): Benign bilateral renal cysts Nephrology consulted Restart lasix PO 20 mg daily Continue to monitor renal function Creatinine 1.18 -> 1.62 (10/01) Chronic atrial fibrillation with presence of pacemaker Continue amiodarone. heparin drip dc'd 09/28 per cardiology restart home xarelto Severe Iron deficiency anemia Iron studies consistent with severe iron deficiency anemia Patient reports h/o iron deficiency in the past and had to take slow acting iron supplementation Has noticed more frequent and difficult to control bleeding last 2-3 months since taking xarelto/plavix combination continue IV iron. s/p 2 bags so far. Monitor H&H. History of obstructive sleep apnea Uses CPAP at night and during sleep. Hypertension Hyperlipidemia h/o prior CVA x2 BPH s/p TURP Confirm home meds, restart as appropriate continue home nifedipine Functional constipation PRN lactulose VTE: restart xarelto Dispo: Home, ~2 days Pending ambulating without issues, off oxygen, improvement of renal function
[2023-10-01] MEDS: LACTULOSE 20 GM/30 ML UCUP PO PRN (13:20)
[2023-10-01] MEDS: POLYETHYL GLY 3350 17 GM/DOSE PO PRN (13:21)
--- NOTE | 2023-10-01 15:30 | PN ---
Date of Progress Note: 10/01/2023 Subjective: Patient was admitted to the hospital with acute kidney injury secondary to cardiorenal. Patient had held the diuresis yesterday. We resumed diuresis, patient bounced again. Physical Examination: Vital Signs: Blood pressure 132/59, pulse of 68, afebrile. Chest: Faint rales bilateral. Heart: S1, S2. Systolic murmur. Abdomen: Soft, nontender. Extremities: No edema. Neuro: Alert. No focality. Laboratory Data: Hemoglobin 8.3. Sodium 138, potassium 4.1, bicarb 25, BUN 26, creatinine bounced a gain 1.6, calcium 8.8. Phosphorus 3.5. Current Medications: The patient is on include: 1.Aspirin. 2.Zithromax. 3.IV iron. 4.Plavix. 5.Xarelto. 6.Amiodarone. 7.Nifedipine 90 b.i.d. 8.Atorvastatin. 9.Lasix 20 daily. 10.Pepcid. 11.Pantoprazole. 12.Levothyroxine. 13.Allopurinol. Assessment And Plan: 1.Acute kidney injury secondary to contrast nephropathy, cardiorenal, bounced back again, possible s econdary to cardiorenal currently. I am going to go ahead and get a new chest x-ray for further eval uation of the patient's fluid status. I am going to continue on the Lasix once a day, maybe we need to accept compromise on the kidney function to maintain the patient on good fluid status and we will follow up. I had long discussion with the patient regarding that. We will monitor the patient for a nother day to evaluate. 2.Hypertension, controlled, optimal. Continue current treatment. 3.Congestive heart failure with exacerbation as above. 4.Pneumonia with interstitial lung disease. Continue current treatment. TOPHER/GAVIN Voice ID: [id number] Report ID: [id number]
[2023-10-01] MEDS: allopurinoL 300 MG TAB PO SCH (16:50)
[2023-10-01] MEDS: RIVAROXABAN 20 MG TABLET PO SCH (16:50)
[2023-10-02 07:31] LABS: Albumin 2.9 g/dL (3.4-5.0); Phosphorus 2.9 mg/dL (2.5-4.9); Potassium 4.2 mEq/L (3.5-5.1)
[2023-10-02] MEDS: BUDESONIDE 0.25 MG/2 ML NEB NEB SCH ×2 (07:53→19:48)
[2023-10-02] MEDS: ARFORMOTEROL TARTRATE 15 MCG/2 ML VIAL.NEB NEB SCH ×2 (07:54→19:49)
[2023-10-02] MEDS: POTASSIUM CL SA 10 MEQ TAB PO SCH ×2 (08:39→20:41)
[2023-10-02] MEDS: AMIODARONE HCL 200 MG TAB PO SCH (08:39)
[2023-10-02] MEDS: SIMETHICONE 80 MG CHEWABLE TAB PO SCH ×3 (08:39→20:40)
[2023-10-02] MEDS: NIFEDIPINE XL 90 MG TABLET PO SCH ×2 (08:39→17:15)
[2023-10-02] MEDS: FAMOTIDINE 20 MG TAB PO SCH (08:39)
[2023-10-02] MEDS: SOD FERRIC GLUC COMPLX/SUCROSE 125 MG in NA CHLORIDE 0.9% 100 ML IV SCH (08:39)
[2023-10-02] MEDS: DOCUSATE NA 100 MG CAP PO SCH ×2 (08:40→20:42)
[2023-10-02] MEDS: CLOPIDOGREL 75 MG TABLET PO SCH (08:40)
[2023-10-02] MEDS: ASPIRIN EC 81 MG TAB PO SCH (08:40)
[2023-10-02] MEDS: ATORVASTATIN 40 MG TAB PO SCH (08:40)
[2023-10-02] MEDS: LEVOTHYROXINE SOD 0.1 MG TAB PO SCH (08:40)
[2023-10-02] MEDS: FUROSEMIDE 20 MG TABLET PO SCH (08:40)
[2023-10-02] MEDS: TAMSULOSIN 0.4 MG SR CAP PO SCH (08:40)
[2023-10-02] MEDS: PANTOPRAZOLE 40MG TABLET PO SCH ×2 (08:40→20:42)
[2023-10-02] MEDS: BENEFIBER PACKET PO SCH (08:41)
[2023-10-02] MEDS: POLYETHYL GLY 3350 17 GM/DOSE PO PRN ×2 (08:48→20:49)
--- NOTE | 2023-10-02 10:32 | P.PN ---
Date of Service: 10/02/23 Subjective: CXR shows slight improvement yesterday but needing more oxygen now Desat to 85% SPO2 when ambulating around the nursing station on room air per nurse increased to 4L NC overnight no BM yet afebrile ROS: 10 point ROS as noted above, otherwise negative Physical Exam: GEN: Alert, oriented, NAD HEENT: Normal conjunctiva, sclera anicteric, CV: Regular rate and rhythm, trace b/l lower edema Pulm: Nonlabored respirations on 4L NC, diminished bilaterally at bases ABD: soft, nontender, nondistended Neuro: Normal speech, normal affect Problem List: Acute hypoxic respiratory failure secondary to Pulm edema Acute on chronic diastolic CHF NSTEMI CAD s/p PCI (Jun 2023) NELL on CKD Chronic atrial fibrillation with presence of pacemaker Severe Iron deficiency anemia History of obstructive sleep apnea Hypertension Hyperlipidemia h/o prior CVA x2 BPH s/p TURP Functional constipation Acute hypoxic respiratory failure secondary to Pulm edema Acute on chronic diastolic CHF CXR (09/25): centrally predominant interstitial and airspace opacities. Pulm edema vs multifocal pneumonia CTA chest (09/28): mod-marked bilateral pulm opacities. no PE. Patient has a history of Zenker's diverticula, some risk for aspiration No formal diagnosis of COPD Cardiology is following Urine output / breathing improved with IV lasix repeat CXR (10/01): Marginally improved bilateral airspace compared to CXR 09/25/23. off oxygen for few hours (10/01); put back on oxygen yesterday evening and now needing 4L NC (10/02) Continue PO lasix; increased to 40 mg BID (10/02) - slow restart given recent contrast (10/02) Patient desat to 85% SPO2 when ambulating around the nursing station on room air per nurse more likely to qualify for home O2 now Given short course of IV zosyn to cover for infection / pneumonia Patients symptoms felt more secondary to pulm edema / CHF antibiotics dc'd 09/29. Monitor for any worsening s/s of infection afebrile, no leukocytosis NSTEMI CAD s/p PCI (Jun 2023) Troponin elevated but trended flat. Likely demand ischemia Cardiology consulted continue home xarelto Continue home plavix, statin NELL on CKD Suspect multifactorial secondary to contrast-induced neuropathy / overdiuresis renal u/s (09/29): Benign bilateral renal cysts Nephrology consulted Continue lasix; increased to 40 mg BID (10/02) Continue to monitor renal function Creatinine 1.6 -> 1.4 (10/02) Chronic atrial fibrillation with presence of pacemaker Continue amiodarone. heparin drip dc'd 09/28 per cardiology continue home xarelto Severe Iron deficiency anemia Iron studies consistent with severe iron deficiency anemia Patient reports h/o iron deficiency in the past and had to take slow acting iron supplementation Has noticed more frequent and difficult to control bleeding last 2-3 months since taking xarelto/plavix combination continue IV iron. s/p 3 bags so far. Monitor H&H. History of obstructive sleep apnea Uses CPAP at night and during sleep. Hypertension Hyperlipidemia h/o prior CVA x2 BPH s/p TURP Confirm home meds, restart as appropriate continue home nifedipine Functional constipation Takes miralax and stool softener BID daily at home GLORIA colace BID, GLORIA metamucil PRN miralax TID, PRN lactulose daily Mag citric x1 Added (10/02) VTE: home xarelto Dispo: Home, ~1-2 day Pending off oxygen vs home oxygen setup, improvement of renal function
[2023-10-02] MEDS ORDERED: FUROSEMIDE 20 MG TABLET PO ONE (11:00)
[2023-10-02] MEDS ORDERED: MAGNESIUM CITRATE 300 ML BOT PO SCH (11:00)
--- NOTE | 2023-10-02 14:03 | EKG ---
Test Date: 2023-09-25 Test Time: 20:12:41 Director Trade: MEASUREMENT RESULTS: Intervals: Rate: 78 VT: 224 QRSD: 140 QT: 476 QTc: 542 [place]: P: 51 VT: 224 QRS: 42 T: 70 INTERPRETIVE STATEMENTS: Sinus rhythm with 1st degree AV block with fusion complexes and premature atrial complexes with aberrant conduction Nonspecific intraventricular block Abnormal ECG Compared to ECG 06/30/2023 09:51:49 Atrial premature complex(es) now present Fusion complex(es) now present First degree AV block now present Aberrant conduction of supraventricular beat(s) now present Atrial-paced complex(es) or rhythm no longer present Left-axis deviation no longer present Left bundle-branch block no longer present Electronically Signed On 10-02-23 13:47:45 TOE PULLER by Cali Yi
--- NOTE | 2023-10-02 15:14 | P.PN ---
Subjective Date of Service: 10/02/23 Primary Care Provider: Dr. Marcial Chief Complaint: Dyspnea, Congestive heart failure, Elevated troponin Subjective: No new changes Physical Examination - Vital Signs Temperature: 97.8 F Blood Pressure: 164/76 Pulse: 87 Respirations: 18 Pulse Ox (%): 93 - Physical Exam General: Other (appears as his stated age) HEENT: Atraumatic, Normocephalic Neck: Supple Respiratory: Other (symmetric chest expansion) Cardiovascular: No rubs, No murmurs Gastrointestinal: No rebound Musculoskeletal: No clubbing Integumentary: No warmth Neurological: Normal tone Urinary: Other (no bladder distention) External genitalia: Deferred Rectal: Deferred Assessment And Plan - Plan 1. Acute kidney injury secondary to contrast nephropathy, cardiorenal. SCr increased to 1.8. increase by mouth fluid intake to at least 2 L per day. Continue Lasix at 40 mg by mouth twice a day. 2. Hypertension. Continue current medication regimen. 3. Congestive heart failure with exacerbation. Lasix dosing as above. 4. Pneumonia with interstitial lung disease. Per other services.
[2023-10-02] MEDS: FUROSEMIDE 40 MG TABLET PO SCH (17:14)
[2023-10-02] MEDS: allopurinoL 300 MG TAB PO SCH (17:14)
[2023-10-02] MEDS: RIVAROXABAN 20 MG TABLET PO SCH (17:14)
[2023-10-02] MEDS: PSYLLIUM 1 PKT PO SCH (20:40)
[2023-10-03 02:29] LABS: Hematocrit 28.2 % (39.6-49.0); MCV 79.1 fL (80-100); MPV 8.4 fL (7.6-11.3); Platelets 309 thou/uL (152-406); RBC Red Blood Cell Count 3.56 M/uL (4.33-5.43)
[2023-10-03 02:58] LABS: Phosphorus 2.8 mg/dL (2.5-4.9)
[2023-10-03 02:59] LABS: Potassium 4.9 mEq/L (3.5-5.1)
[2023-10-03 04:53] LABS: Potassium 4.9 mEq/L (3.5-5.1)
[2023-10-03] MEDS: BUDESONIDE 0.25 MG/2 ML NEB NEB SCH ×2 (07:38→19:35)
[2023-10-03] MEDS: ARFORMOTEROL TARTRATE 15 MCG/2 ML VIAL.NEB NEB SCH ×2 (07:38→19:35)
--- NOTE | 2023-10-03 08:35 | RAD REPORT ---
EXAM DESCRIPTION: RAD - Chest Single View - 10/03/2023 7:00 am CLINICAL HISTORY: f/u opacities Chest pain. COMPARISON: Chest Single View dated 10/01/2023; Chest Single View dated 09/25/2023; Chest Pa And Lat ( 2 Views) dated 06/30/2023; Chest Pa And Lat (2 Views) dated 01/24/2021 FINDINGS: Portable technique limits examination quality. Moderate bilateral pulmonary opacities are noted, showing essentially no change since 10/01/2023 prio r study. The heart is mildly enlarged in size. Multi lead pacer/defibrillator device present.Sternoto my wires noted. IMPRESSION: Stable chest noted since 10/01/2023 study.
[2023-10-03] MEDS: FUROSEMIDE 40 MG TABLET PO SCH ×2 (08:51→17:15)
[2023-10-03] MEDS: PANTOPRAZOLE 40MG TABLET PO SCH ×2 (08:51→20:58)
[2023-10-03] MEDS: ASPIRIN EC 81 MG TAB PO SCH (08:51)
[2023-10-03] MEDS: POTASSIUM CL SA 10 MEQ TAB PO SCH ×2 (08:51→20:59)
[2023-10-03] MEDS: SIMETHICONE 80 MG CHEWABLE TAB PO SCH ×4 (08:51→21:05)
[2023-10-03] MEDS: TAMSULOSIN 0.4 MG SR CAP PO SCH (08:51)
[2023-10-03] MEDS: DOCUSATE NA 100 MG CAP PO SCH ×2 (08:52→20:58)
[2023-10-03] MEDS: LEVOTHYROXINE SOD 0.1 MG TAB PO SCH (08:52)
[2023-10-03] MEDS: AMIODARONE HCL 200 MG TAB PO SCH (08:52)
[2023-10-03] MEDS: ATORVASTATIN 40 MG TAB PO SCH (08:52)
[2023-10-03] MEDS: NIFEDIPINE XL 90 MG TABLET PO SCH ×2 (08:52→17:16)
[2023-10-03] MEDS: CLOPIDOGREL 75 MG TABLET PO SCH (08:52)
[2023-10-03] MEDS: FAMOTIDINE 20 MG TAB PO SCH (08:52)
[2023-10-03] MEDS: BENEFIBER PACKET PO SCH (08:54)
[2023-10-03] MEDS: SOD FERRIC GLUC COMPLX/SUCROSE 125 MG in NA CHLORIDE 0.9% 100 ML IV SCH (08:54)
--- NOTE | 2023-10-03 10:27 | P.PN ---
Date of Service: 10/03/23 Subjective: remains on 4L NC - multiple SPO2 sat readings of ~90% throughout the day / night qualified for home oxygen yesterday per shift summary no BM yet, feels slightly better afebrile ROS: 10 point ROS as noted above, otherwise negative Physical Exam: GEN: Alert, oriented, NAD HEENT: Normal conjunctiva, sclera anicteric, CV: Regular rate and rhythm, trace b/l lower edema Pulm: Nonlabored respirations on 4L NC, diminished bilaterally at bases ABD: nontender, mildly distended Neuro: Normal speech, normal affect Problem List: Acute hypoxic respiratory failure secondary to Pulm edema Acute on chronic diastolic CHF NSTEMI CAD s/p PCI (Jun 2023) NELL on CKD Chronic atrial fibrillation with presence of pacemaker Severe Iron deficiency anemia History of obstructive sleep apnea Hypertension Hyperlipidemia h/o prior CVA x2 BPH s/p TURP Functional constipation Acute hypoxic respiratory failure secondary to Pulm edema Acute on chronic diastolic CHF CXR (09/25): centrally predominant interstitial and airspace opacities. Pulm edema vs multifocal pneumonia CTA chest (09/28): mod-marked bilateral pulm opacities. no PE. Patient has a history of Zenker's diverticula, some risk for aspiration No formal diagnosis of COPD Cardiology is following Urine output / breathing improved with IV lasix, then backed off due to worsening renal function / iv contrast exposure CXR (10/01): Marginally improved bilateral airspace compared to CXR 09/25/23. CXR (10/03): Stable without significant change remains on 4L NC - multiple SPO2 sat readings of ~90% throughout the day Continue PO lasix; increased to 40 mg BID (10/02) - slow restart given recent contrast (10/02) Patient desat to 85% SPO2 when ambulating around the nursing station on room air per nurse ?qualified for home oxygen Given short course of IV zosyn to cover for infection / pneumonia however patients symptoms felt more secondary to pulm edema / CHF antibiotics dc'd 09/29. Monitor for any worsening s/s of infection h/o constipation reports significant history of constipation takes 4+ medications daily states previously was hypoxic and in ICU due to amount of constipationf / increased abd pressure that did not allow him to get deep breaths no BM for several days mg citrate given 10/02, no BM pt states this is around time he has a BM suspect some component of his increased oxygen requirement is secondary to this issue +flatus NSTEMI CAD s/p PCI (Jun 2023) Troponin elevated but trended flat. Likely demand ischemia Cardiology consulted continue home xarelto Continue home plavix, statin NELL on CKD Suspect multifactorial secondary to contrast-induced neuropathy / overdiuresis renal u/s (09/29): Benign bilateral renal cysts Nephrology consulted Continue lasix; increased to 40 mg BID (10/02) Continue to monitor renal function Creatinine 1.4 -> 1.7 (10/03) Chronic atrial fibrillation with presence of pacemaker Continue amiodarone. heparin drip dc'd 09/28 per cardiology continue home xarelto Severe Iron deficiency anemia Iron studies consistent with severe iron deficiency anemia Patient reports h/o iron deficiency in the past and had to take slow acting iron supplementation Has noticed more frequent and difficult to control bleeding last 2-3 months since taking xarelto/plavix combination continue IV iron. s/p 4 bags so far. Monitor H&H. History of obstructive sleep apnea Uses CPAP at night and during sleep. Hypertension Hyperlipidemia h/o prior CVA x2 BPH s/p TURP Confirm home meds, restart as appropriate continue home nifedipine Functional constipation Takes miralax and stool softener BID daily at home GLORIA colace BID, GLORIA metamucil PRN miralax TID, PRN lactulose daily s/p Mag citric x1 (10/02) VTE: home xarelto Dispo: Home, ~1-2 day Pending off oxygen vs home oxygen setup, improvement of renal function
[2023-10-03] MEDS: LACTULOSE 20 GM/30 ML UCUP PO PRN (10:57)
[2023-10-03] MEDS: POLYETHYL GLY 3350 17 GM/DOSE PO PRN ×2 (11:15→20:59)
--- NOTE | 2023-10-03 14:46 | PN ---
Date of Progress Note: 10/03/2023 Subjective: Patient was admitted to the hospital with acute kidney injury secondary to cardiorenal. Patient had interstitial lung disease. Physical Examination: Vital Signs: Blood pressure 149/66, pulse of 78. Chest: Crackles bilateral. Heart: S1, S2. Regular. Abdomen: Soft, nontender. Extremities: No edema. Neuro: Alert. No focality. Laboratory Data: Hemoglobin 9.3. Sodium 137, potassium 4.9, bicarb 23, BUN 26, creatinine 1.7, calc ium 9. GFR of 39. Current Medications: The patient is on include: 1.Albuterol. 2.Flomax. 3.IV iron. 4.Plavix. 5.Xarelto. 6.Amiodarone. 7.Nifedipine. 8.Lasix 40 b.i.d., has been increased yesterday. 9.Lactulose. Assessment And Plan: 1.Acute kidney injury secondary to contrast nephropathy. Currently plateaued, looks to me on the no rmal volume. Lasix has been increased yesterday. We will monitor response. 2.Hypertension, controlled, optimal. Continue current treatment. 3.Interstitial lung disease with exacerbation. Consider pulmonary evaluation. Continue current treatment. 4.Hyponatremia, stable. We will follow up. TOPHER/GAVIN Voice ID: [id number] Report ID: [id number]
[2023-10-03] MEDS ORDERED: RIVAROXABAN 15 MG TABLET PO SCH (17:00)
[2023-10-03] MEDS: allopurinoL 300 MG TAB PO SCH (17:15)
[2023-10-03] MEDS: PSYLLIUM 1 PKT PO SCH (20:59)
[2023-10-04 03:38] LABS: Absolute Lymphocytes (CBC) 0.7 K/uL (0.7-4.9); Hematocrit 26.1 % (39.6-49.0); Lymphocytes % 8.2 % (15.3-44.8); MPV 8.2 fL (7.6-11.3); Platelets 316 thou/uL (152-406); RBC Red Blood Cell Count 3.27 M/uL (4.33-5.43)
[2023-10-04 03:44] LABS: Phosphorus 2.6 mg/dL (2.5-4.9); Potassium 3.9 mEq/L (3.5-5.1)
[2023-10-04] MEDS: BUDESONIDE 0.25 MG/2 ML NEB NEB SCH (08:00)
[2023-10-04] MEDS: ARFORMOTEROL TARTRATE 15 MCG/2 ML VIAL.NEB NEB SCH (08:00)
[2023-10-04] MEDS: NIFEDIPINE XL 90 MG TABLET PO SCH (08:47)
[2023-10-04] MEDS: DOCUSATE NA 100 MG CAP PO SCH (08:48)
[2023-10-04] MEDS: SIMETHICONE 80 MG CHEWABLE TAB PO SCH ×2 (08:48→13:54)
[2023-10-04] MEDS: FUROSEMIDE 40 MG TABLET PO SCH (08:48)
[2023-10-04] MEDS: POTASSIUM CL SA 10 MEQ TAB PO SCH (08:49)
[2023-10-04] MEDS: ASPIRIN EC 81 MG TAB PO SCH (08:50)
[2023-10-04] MEDS: FAMOTIDINE 20 MG TAB PO SCH (08:50)
[2023-10-04] MEDS: CLOPIDOGREL 75 MG TABLET PO SCH (08:50)
[2023-10-04] MEDS: ATORVASTATIN 40 MG TAB PO SCH (08:50)
[2023-10-04] MEDS: LEVOTHYROXINE SOD 0.1 MG TAB PO SCH (08:50)
[2023-10-04] MEDS: TAMSULOSIN 0.4 MG SR CAP PO SCH (08:51)
[2023-10-04] MEDS: AMIODARONE HCL 200 MG TAB PO SCH (08:51)
[2023-10-04] MEDS: PANTOPRAZOLE 40MG TABLET PO SCH (08:55)
[2023-10-04] MEDS: BENEFIBER PACKET PO SCH (09:00)
[2023-10-04] MEDS: SOD FERRIC GLUC COMPLX/SUCROSE 125 MG in NA CHLORIDE 0.9% 100 ML IV SCH (09:02)
[2023-10-04] MEDS: POLYETHYL GLY 3350 17 GM/DOSE PO PRN (09:43)
--- NOTE | 2023-10-04 10:03 | P.PN ---
Date of Service: 10/04/23 Subjective: off oxygen since last night per patient SPO2 Sats ~90-91 on room air this morning at rest; desats to 80s while ambulating takes a few minutes after sitting down for SPO2 to come back up to 90s 2 BM overnight; 1 small and 1 "decent" size. +flatus afebrile ROS: 10 point ROS as noted above, otherwise negative Physical Exam: GEN: Alert, oriented, NAD HEENT: Normal conjunctiva, sclera anicteric, CV: Regular rate and rhythm, trace b/l lower edema Pulm: Nonlabored respirations on 4L NC, diminished bilaterally at bases ABD: nontender, mildly distended Neuro: Normal speech, normal affect Problem List: Acute hypoxic respiratory failure secondary to Pulm edema Acute on chronic diastolic CHF h/o constipation NSTEMI CAD s/p PCI (Jun 2023) NELL on CKD Chronic atrial fibrillation with presence of pacemaker Severe Iron deficiency anemia History of obstructive sleep apnea Hypertension Hyperlipidemia h/o prior CVA x2 BPH s/p TURP Acute hypoxic respiratory failure secondary to Pulm edema Acute on chronic diastolic CHF CXR (09/25): centrally predominant interstitial and airspace opacities. Pulm edema vs multifocal pneumonia CTA chest (09/28): mod-marked bilateral pulm opacities. no PE. Patient has a history of Zenker's diverticula, some risk for aspiration No formal diagnosis of COPD Cardiology is following Urine output / breathing improved with IV lasix, then backed off due to worsening renal function / iv contrast exposure CXR (10/01): Marginally improved bilateral airspace compared to CXR 09/25/23. CXR (10/03): Stable without significant change CXR (10/04): pending, f/u opacities Continue PO lasix; increased to 40 mg BID (10/02) - slow restart given recent contrast (10/02) Patient desat to 85% SPO2 when ambulating around the nursing station on room air per nurse (10/04) off oxygen since last night per patient. SPO2 Sats ~90-91 on room air this morning at rest; desats to 80s while ambulating takes a few minutes after sitting down for SPO2 to come back up to 90s Dr. Gomez - pulm consulted (10/04) ?qualified for home oxygen Given short course of IV zosyn to cover for infection / pneumonia however patients symptoms felt more secondary to pulm edema / CHF antibiotics dc'd 09/29. Monitor for any worsening s/s of infection procal normal (10/04) h/o constipation reports significant history of constipation takes 4+ medications daily states previously was hypoxic and in ICU due to amount of constipation / increased abd pressure that did not allow him to get deep breaths GLORIA colace BID, GLORIA metamucil PRN miralax TID, PRN lactulose daily mg citrate given 10/02, no BM pt states this is around time he has a BM suspect some component of his increased oxygen requirement is secondary to this issue (10/04) 2 BM overnight; 1 small and 1 "decent" size. +flatus KUB (10/04): pending NSTEMI CAD s/p PCI (Jun 2023) Troponin elevated but trended flat. Likely demand ischemia Cardiology consulted continue home xarelto Continue home plavix, statin NELL on CKD Suspect multifactorial secondary to contrast-induced neuropathy / overdiuresis renal u/s (09/29): Benign bilateral renal cysts Nephrology consulted Continue lasix; increased to 40 mg BID (10/02) Continue to monitor renal function Creatinine 1.77 -> 1.58 (10/04) Chronic atrial fibrillation with presence of pacemaker Continue amiodarone. heparin drip dc'd 09/28 per cardiology continue home xarelto Severe Iron deficiency anemia Iron studies consistent with severe iron deficiency anemia Patient reports h/o iron deficiency in the past and had to take slow acting iron supplementation Has noticed more frequent and difficult to control bleeding last 2-3 months since taking xarelto/plavix combination continue IV iron. s/p 4 bags so far. Monitor H&H. History of obstructive sleep apnea Uses CPAP at night and during sleep. Hypertension Hyperlipidemia h/o prior CVA x2 BPH s/p TURP Confirm home meds, restart as appropriate continue home nifedipine VTE: home xarelto Dispo: Home, ~1-2 days Pending off oxygen vs home oxygen setup, improvement of renal function
--- NOTE | 2023-10-04 11:05 | RAD REPORT ---
EXAM DESCRIPTION: RADChest Single View10/04/2023 8:05 am CLINICAL HISTORY: f/u opacities COMPARISON: Chest Single View dated 10/03/2023; Chest Single View dated 10/01/2023; Chest Single View da tunde 09/25/2023; Chest Pa And Lat (2 Views) dated 06/30/2023 TECHNIQUE: Portable AP view of the chest. FINDINGS: Right hemidiaphragm again elevated. Persistent patchy interstitial opacities with mild imp rovement in the right upper to mid lung. No pneumothorax or effusion. The cardiomediastinal contours are unchanged. IMPRESSION: Mild improvement of patchy interstitial opacities in the right upper to mid lung. Otherw ise stable findings which may relate to interstitial pneumonitis or edema.
--- NOTE | 2023-10-04 11:06 | RAD REPORT ---
EXAM DESCRIPTION: RAD - Abdomen 1 View (KUB) - 10/04/2023 8:05 am CLINICAL HISTORY: constipation COMPARISON: Abdomen 1 View (KUB) dated 08/04/2017 TECHNIQUE: Single AP view of the abdomen. FINDINGS: Nonobstructive bowel gas pattern. No air-fluid levels, free air, or pneumatosis. Moderate stool burden throughout the colon. No suspicious calcifications. No significant bony abnormality. IMPRESSION: Moderate stool burden throughout the colon. Nonobstructive bowel gas pattern.
--- NOTE | 2023-10-04 11:15 | P.CNS ---
Date of Consult: 10/04/23 Reason for Consult: Respiratory failure Primary Care Provider: Dr. Marcial Chief Complaint: Dyspnea, Congestive heart failure, Elevated troponin History of Present Illness: Patient is 78 years of age metabolic syndrome mated with cough congestion low- grade fever is diffuse changes on the x-ray denies any fever chills a slight cough Allergies No Known Allergies Allergy (Verified 06/30/23 09:42) Home Medications: Potassium Chloride [Klor-Con] 20 meq PO BID 07/27/13 Furosemide [Lasix*] 40 mg PO BIDWM 06/09/16 Nifedipine Xl [Procardia XL*] 90 mg PO BIDWM 06/09/16 Budesonide [Pulmicort*] 1 puff NEB BID 08/26/19 Rivaroxaban [Xarelto] 1 tab PO 1700 08/26/19 Atorvastatin Calcium [Lipitor*] 40 mg PO SEECOM 10/12/19 Omeprazole 20 mg PO BID 10/12/19 Amiodarone HCl [Cordarone*] 1 tab PO DAILY 09/27/23 Atorvastatin Calcium 1 tab PO DAILY 09/27/23 Clopidogrel Bisulfate [Plavix*] 1 tab PO DAILY 09/27/23 Famotidine [Pepcid] 1 tab PO DAILY 09/27/23 Formoterol Fumarate 2 vial NEB BID 09/27/23 Levothyroxine [Synthroid*] 1 tab PO DAILY 09/27/23 Tamsulosin HCl [Flomax] 1 tab PO DAILY 09/27/23 - Past Medical/Surgical History Diabetic: No -: Hypertension -: Hyperlipidemia -: Coronary artery disease -: Obstructive sleep apnea -: 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 - Family History Mother Medical History: Heart disease Father Medical History: Heart disease, Cancer, Other (see notes) Notes: prostate ca. mi. heart valve infection. at 93 Brother Medical History: Heart disease - Social History Smoking Status: Former smoker Alcohol use: Yes CD- Drugs: No Caffeine use: Yes Place of Residence: Home Review of Systems 10-point ROS is otherwise unremarkable General: Weakness Respiratory: Cough, Shortness of Breath Physical Examination Temp Pulse Resp BP Pulse Ox 98.3 F 74 16 148/63 H 91 10/04/23 08:00 10/04/23 08:48 10/04/23 08:00 10/04/23 08:48 10/04/23 08:00 General: Alert, Oriented x3 Respiratory: Crackles/rales Cardiovascular: No edema, Normal S1 S2 Gastrointestinal: Normal bowel sounds, Soft and benign - Problems (1) Acute lung injury Current Visit: Yes Status: Acute Plan: Patient is 78 years of age admitted with fever cough congestion worsening dyspnea diffuse bilateral changes probably ARDS may be from a viral infection recommended trial of steroids for now no evidence of active sepsis renal function is improving patient is hypoxic serial chest x-ray CT scans reviewed seem to have developed acute lung injury on x-ray in August 2023 possibility that he has amiodarone lung injury he is on low-dose trial of IV Decadron Qualifiers: Encounter type: initial encounter Qualified Code(s): S27.309A - Unspecified injury of lung, unspecified, initial encounter
--- NOTE | 2023-10-04 11:24 | PN ---
Date of Progress Note: 10/04/2023 Subjective: Patient was admitted to the hospital with acute kidney injury secondary to cardiorenal, respiratory failure secondary to interstitial lung disease exacerbation and pneumonia/CHF exacerbatio n. Patient had been diuresed, responding very well. Patient had also acute kidney injury secondary to contrast. Objective: Vital Signs: Blood pressure 148/63, pulse of 74, afebrile. Chest: Crackles, bilateral. Heart: S1, S2. Systolic murmur. Abdomen: Soft, nontender. Extremities: No edema. Venous stasis change, bilateral. Neurologic: Alert. No focality. Laboratory Data: Hemoglobin 8.7, sodium 137, potassium 3.9, bicarb 26, BUN 26, creatinine 1.5, calci um 8.8, phosphorus 2.6. Current Medications: The patient on, include: 1.Aspirin. 2.Albuterol. 3.Flomax. 4.IV iron. 5.Plavix. 6.Xarelto. 7.Amiodarone. 8.Nifedipine. 9.Lasix 40 b.i.d. 10.Simethicone. Assessment And Plan: 1.Acute kidney injury, multifactorial, secondary to contrast induced nephropathy/cardiorenal, on the recovery. I am going to continue current diuresis dose. Cleared from the Renal standpoint for disc harge planning. 2.Hypertension, controlled, optimal. Continue current medication. 3.Congestive heart failure with exacerbation. I am going to continue current dose of Lasix. 4.Iron-deficiency anemia. Continue IV iron. 5.Pneumonia with interstitial lung disease. We will follow up with Pulmonary. Patient cleared from the Renal standpoint for discharge planning. Follow up in the office in 2 weeks . LIUDMILA Voice ID: [id number] Report ID: [id number]
--- NOTE | 2023-10-04 11:40 | P.DS ---
Admission Date: 09/26/23 Discharge Date: 10/04/23 Primary Care Provider: Dr. Marcial Disposition: ROUTINE DISCHARGE Discharge Condition: GOOD Reason for Admission: Dyspnea, Congestive heart failure, Elevated troponin Consultations: Cardiology - Dr. Yi Nephrology - Dr. Snider, Dr. Rahman Pulmonology - Dr. Gomez Brief History of Present Illness: 78yo M, PMH: HTN, HLD, CHF, and CVA x2. He had a pacemaker placed in 2016. He had a cardiac cath with stent placement in June 2023. For the past few days he has been congested, coughing, and yesterday (09/24/23) had a low grade fever. He has been around a Grand-daughter who had and URI infection. Mr. Patterson saw pulmonology and was given an antihistamine. He has been told in the past he has some lung scarring and did have an inhaler that he has been using. Mr. Patterson presented to the Emergency room with dyspnea, swelling to arms/belly/and legs. On assessment, his SpO2 dropped into the high 80s and he was placed on BiPap. On HM assessment he is feeling better, no longer short of breath. Denies chest pain at any time during this illness. Hospital Course: Problem List: Acute hypoxic respiratory failure secondary to Pulm edema Acute on chronic diastolic CHF exacerbation h/o constipation NSTEMI CAD s/p PCI (Jun 2023) NELL on CKD Chronic atrial fibrillation with presence of pacemaker Severe Iron deficiency anemia History of obstructive sleep apnea Hypertension Hyperlipidemia h/o prior CVA x2 BPH s/p TURP Patient presented with dyspnea, leg swelling, cough, afebrile and found to have bilateral pulmonary opacities consistent with an acute on chronic CHF exacerbation. BNP was 3k on admission. Troponins were elevated but trended flat. CXR/CTA chest noted mod-marked bilateral opacities concerning for acute CHF exacerbation. no PE. Cardiology was consulted. Patient was given IV lasix and had some improvement of his symptoms initially, however had to held / decreased due to worsening renal function / iv contrast exposure. Nephrology was consulted. Renal ultrasound noted bilateral benign renal cysts otherwise unremarkable. Suspect multifactorial etiology of NELL secondary to contrast-induced neuropathy / diuresis / cardiorenal. Patients diuretics were slowly restarted and renal function improved over time. Creatinine on discharge: 1.58 on his home regimen of 40 lasix twice daily, with continued symptomatic improvement. Advised to repeat blood work in ~1 week to monitor renal function. Patient did received 2 days of IV zosyn as empiric treatment for possible pneumonia initially on admission, however this was discontinued due to no evidence of infection. He continued to improve off antibiotics, without any leukocytosis, and never developed fever. Patient did have a persistent need for oxygen supplementation which was new for him. This was also felt to be multifactorial. Initially due to CHF exacerbation, and later felt that his significant constipation /abd pressure contributed, as well as a degree of interstitial lung injury per Dr. Gomez (pulmonology). Oxygenation requirement significantly improved after patient had a bowel movement. Dr. Gomez recommended a 14 day course of oral decadron (2mg twice a day) and to follow up in his office. Patient was feeling better, breathing improved, afebrile without leukocytosis and was deemed stable for discharge. Patient is to complete 14 days of oral decadron on discharge. Follow up with Dr. Gomez - [facility] in 1-2 weeks. Patient noted to be off oxygen at rest since (10/03) evening however SPO2 Sats ~90-91 on room air at rest and desaturates to 86-88% with ambulation. Patient qualified for home oxygen and was told it would be available for delivery upon discharge. Iron studies this hospitalization were consistent with severe iron deficiency anemia. Patient reports history of iron deficiency and has had increased bruising / occasional nose bleeds ever since taking both plavix and xarelto (started ~June 2023). 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 Patient received 5 bags of 125 mg IV iron while hospitalized and advised patient to continue PO iron supplementation on discharge. Advised to recheck iron studies in a few months. Patient already reported ordering slow acting iron that hes taken in the past. Medications: oral decadron 2 mg BID x14 days Resume home dose lasix 40 mg BID Ferrous sulfate Continue other home medications as previously prescribed. Monitor weight daily. If gain ~3-4lbs more than usual and some symptoms of CHF exacerbation to take an extra dose of lasix. If needing to take extra lasix two days in a row, to call physician as well for further guidance. Follow up: PCP in 3-5 days Pulm in 1-2 weeks Nephrology in 1-2 weeks Cardiology in few weeks Physical Exam: GEN: Alert, oriented, NAD HEENT: Normal conjunctiva, sclera anicteric, CV: Regular rate and rhythm, trace b/l lower edema Pulm: Nonlabored respirations on 4L NC, diminished bilaterally at bases ABD: nontender, mildly distended Neuro: Normal speech, normal affect Vital Signs/Physical Exam: Temp Pulse Resp BP Pulse Ox 98.3 F 74 16 148/63 H 91 10/04/23 08:00 10/04/23 08:48 10/04/23 08:00 10/04/23 08:48 10/04/23 08:00 Laboratory Data at Discharge: WBC 8.60 thou/uL (4.3-10.9) 10/04/23 03:04 Hgb 8.7 g/dL (13.6-17.9) L 10/04/23 03:04 Hct 26.1 % (39.6-49.0) L 10/04/23 03:04 Plt Count 316 thou/uL (152-406) 10/04/23 03:04 PT 14.8 SECONDS (9.5-12.5) H 09/27/23 07:21 INR 1.36 09/27/23 07:21 APTT 52.2 SECONDS (24.3-36.9) H 09/28/23 06:05 Sodium 137 mEq/L (136-145) 10/04/23 03:04 Potassium 3.9 mEq/L (3.5-5.1) D 10/04/23 03:04 BUN 26 mg/dL (7-18) H 10/04/23 03:04 Creatinine 1.58 mg/dL (0.70-1.30) H 10/04/23 03:04 Glucose 101 mg/dL (74-106) 10/04/23 03:04 Uric Acid Cancelled 09/30/23 05:00 Magnesium 2.1 mg/dL (1.6-2.4) 09/27/23 07:21 Phosphorus 2.6 mg/dL (2.5-4.9) 10/04/23 03:04 Total Bilirubin 0.6 mg/dL (0.2-1.0) 09/27/23 07:21 AST 12 U/L (15-37) L 09/27/23 07:21 ALT 22 U/L (16-61) 09/27/23 07:21 Alkaline Phosphatase 73 U/L (45-117) 09/27/23 07:21 Triglycerides 97 mg/dL (<150) 09/27/23 07:21 Cholesterol 139 mg/dL (<200) 09/27/23 07:21 HDL Cholesterol 38 mg/dL (40-60) L 09/27/23 07:21 Cholesterol/HDL Ratio 3.66 09/27/23 07:21 Home Medications: Potassium Chloride [Klor-Con] 20 meq PO BID 07/27/13 Furosemide [Lasix*] 40 mg PO BIDWM 06/09/16 Nifedipine Xl [Procardia XL*] 90 mg PO BIDWM 06/09/16 Budesonide [Pulmicort*] 1 puff NEB BID 08/26/19 Rivaroxaban [Xarelto] 1 tab PO 1700 08/26/19 Atorvastatin Calcium [Lipitor*] 40 mg PO SEECOM 10/12/19 Omeprazole 20 mg PO BID 10/12/19 Amiodarone HCl [Cordarone*] 1 tab PO DAILY 09/27/23 Atorvastatin Calcium 1 tab PO DAILY 09/27/23 Clopidogrel Bisulfate [Plavix*] 1 tab PO DAILY 09/27/23 Famotidine [Pepcid] 1 tab PO DAILY 09/27/23 Formoterol Fumarate 2 vial NEB BID 09/27/23 Levothyroxine [Synthroid*] 1 tab PO DAILY 09/27/23 Tamsulosin HCl [Flomax] 1 tab PO DAILY 09/27/23 dexAMETHasone [Decadron] 2 mg PO BID 14 Days #14 tab 10/04/23 New Medications: dexAMETHasone [Decadron] 2 mg PO BID 14 Days #14 tab Physician Discharge Instructions: Patient presented with dyspnea, leg swelling, cough, afebrile and found to have bilateral pulmonary opacities consistent with an acute on chronic CHF exacerbation. BNP was 3k on admission. Troponins were elevated but trended flat. CXR/CTA chest noted mod-marked bilateral opacities concerning for acute CHF exacerbation. no PE. Cardiology was consulted. Patient was given IV lasix and had some improvement of his symptoms initially, however had to held / decreased due to worsening renal function / iv contrast exposure. Nephrology was consulted. Renal ultrasound noted bilateral benign renal cysts otherwise unremarkable. Suspect multifactorial etiology of NELL secondary to contrast-induced neuropathy / diuresis / cardiorenal. Patients diuretics were slowly restarted and renal function improved over time. Creatinine on discharge: 1.58 on his home regimen of 40 lasix twice daily, with continued symptomatic improvement. Advised to repeat blood work in ~1 week to monitor renal function. Patient did received 2 days of IV zosyn as empiric treatment for possible pneumonia initially on admission, however this was discontinued due to no evidence of infection. He continued to improve off antibiotics, without any leukocytosis, and never developed fever. Patient did have a persistent need for oxygen supplementation which was new for him. This was also felt to be multifactorial. Initially due to CHF exacerbation, and later felt that his significant constipation /abd pressure contributed, as well as a degree of interstitial lung injury per Dr. Gomez (pulmonology). Oxygenation requirement significantly improved after patient had a bowel movement. Dr. Gomez recommended a 14 day course of oral decadron (2mg twice a day) and to follow up in his office. Patient was feeling better, breathing improved, afebrile without leukocytosis and was deemed stable for discharge. Patient is to complete 14 days of oral decadron on discharge. Follow up with Dr. Gomez - [employer] [facility] [employer] in 1-2 weeks. Patient noted to be off oxygen at rest since (10/03) evening however SPO2 Sats ~90-91 on room air at rest and desaturates to 86-88% with ambulation. Patient qualified for home oxygen and was told it would be available for delivery upon discharge. Iron studies this hospitalization were consistent with severe iron deficiency anemia. Patient reports history of iron deficiency and has had increased bruising / occasional nose bleeds ever since taking both plavix and xarelto (started ~June 2023). 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 Patient received 5 bags of 125 mg IV iron while hospitalized and advised patient to continue PO iron supplementation on discharge. Advised to recheck iron studies in a few months. Patient already reported ordering slow acting iron that hes taken in the past. Medications: oral decadron 2 mg BID x14 days Resume home dose lasix 40 mg BID Ferrous sulfate Continue other home medications as previously prescribed. Monitor weight daily. If gain ~3-4lbs more than usual and some symptoms of CHF exacerbation to take an extra dose of lasix. If needing to take extra lasix two days in a row, to call physician as well for further guidance. Follow up: PCP in 3-5 days Pulm in 1-2 weeks Nephrology in 1-2 weeks Cardiology in few weeks Followup: Modesto Gomez MD [ACTIVE - CAN ADMIT] - Jadon Snider MD [ACTIVE - CAN ADMIT] - Shon Marcial, [Primary Care Provider] - Time spent managing pt's care (in minutes): 45
[2023-10-04] MEDS ORDERED: dexAMETHasone 4 MG/ML VIAL IV SCH (12:00)
[2023-10-04 12:40] LABS: Albumin, (SPE) 3.1 g/dL (3.8-4.8); Alpha-1-Globulins 0.5 g/dL (0.2-0.3); Alpha-2-Globulins 0.8 g/dL (0.5-0.9); Gamma Globulins 0.9 g/dL (0.8-1.7); INTERPRETATION REPORT
[2023-10-04 16:36] VITALS: O2SAT 90
[2023-10-04 16:49] VITALS: BP 136/63; TEMP 97.9
== END 2023-10-04 17:17 | disposition home or self-care (01) | DRG 280 ==
LOC: ER 19:26 → ERHOLD 09-26 00:10 → 2ND 09-26 20:52
PROVIDERS: ADMIT Internal Medicine; ATTEND Hospitalist
PROC: 5A09357 Assistance with Respiratory Ventilation, Less than 24 Consecutive Hours, Continuous Positive Airway Pressure (ICD-10-PCS; principal; 2023-09-27)
DX: I13.0 Hypertensive heart and chronic kidney disease with heart failure and stage 1 through stage 4 chronic kidney disease, or unspecified chronic kidney disease (principal); I21.4 Non-ST elevation (NSTEMI) myocardial infarction; I50.33 Acute on chronic diastolic (congestive) heart failure; J18.9 Pneumonia, unspecified organism; J96.01 Acute respiratory failure with hypoxia; N17.9 Acute kidney failure, unspecified; E87.1 Hypo-osmolality and hyponatremia; I48.20 Chronic atrial fibrillation, unspecified; N18.30 Chronic kidney disease, stage 3 unspecified; D50.9 Iron deficiency anemia, unspecified; E78.5 Hyperlipidemia, unspecified; I25.10 Atherosclerotic heart disease of native coronary artery without angina pectoris; G47.33 Obstructive sleep apnea (adult) (pediatric); K59.04 Chronic idiopathic constipation; N40.0 Benign prostatic hyperplasia without lower urinary tract symptoms; N14.11 Contrast-induced nephropathy; T50.8X5A Adverse effect of diagnostic agents, initial encounter; Z11.52 Encounter for screening for COVID-19; Z95.810 Presence of automatic (implantable) cardiac defibrillator; Z86.73 Personal history of transient ischemic attack (TIA), and cerebral infarction without residual deficits
CPT/HCPCS: 31720; 36415; 71045; 71275; 74018; 76770; 80048; 80053; 80061; 80069; 81001; 82550; 82570; 82607; 82728; 83540; 83605; 83735; 83880; 83935; 84100; 84132; 84145; 84156; 84165; 84300; 84443; 84466; 84484; 84550; 85025; 85027; 85610; 85730; 86038; 87040; 87635; 87804; 93005; 94010; 94640; 94660; 94760; 99285; J0696; J1100; J1644; J1940; J2543; J2916; J7030; J7050; J7605; J7613; J7634; J7644; Q9967

== ENCOUNTER 2023-10-24 10:57 | Inpatient (IN) | payer OTHER ==
[2023-10-24 11:56] LABS: Absolute Lymphocytes (CBC) 0.7 K/uL (0.7-4.9); Hematocrit 15.9 % (39.6-49.0); Lymphocytes % 6.1 % (15.3-44.8); MCV 82.9 fL (80-100); MPV 7.8 fL (7.6-11.3); Platelets 158 thou/uL (152-406); RBC Red Blood Cell Count 1.92 M/uL (4.33-5.43)
[2023-10-24 12:00] LABS: Protime INR 1.78
[2023-10-24 12:21] LABS: ALT/SGPT 20 U/L (16-61); AST/SGOT 8 U/L (15-37); Albumin 2.6 g/dL (3.4-5.0); Alkaline Phosphatase 49 U/L (45-117); BUN Blood Urea Nitrogen 65 mg/dL (7-18); Bicarbonate 23 mEq/L (21-32); Bilirubin Total 0.2 mg/dL (0.2-1.0); Glomerular Filtration Rate 42 ml/min (=/>90); Glucose Level 136 mg/dL (74-106); Magnesium 2.7 mg/dL (1.6-2.4); NT PRO-BNP 855 pg/mL (<450); Potassium 4.1 mEq/L (3.5-5.1); Protein, Total 5.5 g/dL (6.4-8.2); Sodium Level 136 mEq/L (136-145)
[2023-10-24 12:23] LABS: Bilirubin Direct < 0.1 mg/dL (0-0.2); Bilirubin Indirect, Calculated ND mg/dL (0.2-0.8)
[2023-10-24 12:26] LABS: Troponin High Sensitivity 306.2 pg/mL (<58.9)
[2023-10-24 12:34] LABS: Anisocytosis 2+; Blood Morphology Comment NOTED (NOT SEEN); Hypochromasia 2+; Platelet Estimate ADEQ; White Blood Cell Scan OK (OK)
--- NOTE | 2023-10-24 13:04 | RAD REPORT ---
EXAM DESCRIPTION: [place] Single View10/24/2023 12:45 pm CLINICAL HISTORY: sob COMPARISON: October 04, 2023 FINDINGS: Bilateral pulmonary opacities have mostly resolved Heart is moderately enlarged. Pacemaker leads in place. Postsurgical changes involve the chest IMPRESSION: Bilateral pulmonary opacities have mostly resolved
[2023-10-24] MEDS ORDERED: NA CHLORIDE 0.9% 250 ML ONE (13:21)
[2023-10-24] MEDS ORDERED: ONDANSETRON 4 MG/2 ML VIAL IV PRN (13:38)
--- NOTE | 2023-10-24 13:46 | ER ---
Nurse's Notes [facility] Name: Zen Patterson Age: 78 yrs Sex: Male : 1945 Arrival Date: 10/24/2023 Time: 10:57 Bed 8 Private MD: Shon Marcial Diagnosis: Symptomatic anemia;NSTEMI Presentation: 10/24 11:11 Chief complaint: Patient states: Was admitted 09/26 for heart failure and anemia, ph received iron infusion, was d/c 10/04, has been experiencing SOB w/ activity, fatigue, dizziness since Thursday, also reports dark colored stools, does take Plavix and Xarelto, denies abdominal pain, had labs last week, Hgb was 10.0. Coronavirus screen: Vaccine status: Patient reports receiving the 2nd dose of the covid vaccine. Ebola Screen: No symptoms or risks identified at this time. Initial Sepsis Screen: Does the patient meet any 2 criteria? No. Patient's initial sepsis screen is negative. Does the patient have a suspected source of infection? No. Patient's initial sepsis screen is negative. Risk Assessment: Do you want to hurt yourself or someone else? Patient reports no desire to harm self or others. Onset of symptoms was October 24, 2023. 11:11 Method Of Arrival: Wheelchair ph 11:11 Acuity: YASSINE 3 ph Historical: - Allergies: 11:35 No Known Allergies; ap3 - Home Meds: 11:25 nifedipine 90 mg Oral tablet, extended release 1 tab 2 times per day [Active]; ph amiodarone 200 mg Oral tablet 1 tab daily [Active]; furosemide 40 mg Oral tablet 1 tab 2 times per day [Active]; Xarelto 20 mg oral tablet 1 tab daily [Active]; omeprazole 40 mg Oral capsule,delayed release (e.c.) 1 cap 2 times per day [Active]; clopidogrel 75 mg oral tablet 1 tab daily [Active]; famotidine 40 mg Oral tablet 1 tab daily [Active]; atorvastatin 40 mg oral tablet [Active]; 11:35 tamsulosin 0.4 mg oral capsule [Active]; allopurinol 100 mg Oral tablet [Active]; ap3 levothyroxine 100 mcg tablet [Active]; formoterol fumarate 20 mcg/2 mL inhalation Solution for Nebulization [Active]; budesonide inhalation [Active]; - PMHx: 11:14 Atrial fibrillation; CHF; CVA; Hyperlipidemia; Hypertension; ICD/Pacemaker; ph - PSHx: 11:14 Coronary artery bypass graft; Stented artery; ph - Immunization history:: Adult Immunizations up to date, Client reports receiving the 2nd dose of the Covid vaccine, Pneumococcal vaccine is up to date, Flu vaccine is up to date. - Social history:: Smoking status: Patient denies any tobacco usage or history of. - Family history:: not pertinent. Screenin:25 [facility] ED Fall Risk Assessment (Adult) History of falling in the last 3 months, ap3 including since admission No falls in past 3 months (0 pts) Confusion or Disorientation No (0 pts) Intoxicated or Sedated No (0 pts) Impaired Gait Yes (1 pt) Mobility Assist Device Used Yes (1 pt) Altered Elimination No (0 pt). Abuse screen: Denies threats or abuse. Nutritional screening: No deficits noted. Tuberculosis screening: No symptoms or risk factors identified. Assessment: 11:24 General: Appears in no apparent distress. Behavior is calm, cooperative, appropriate ap3 for age. Pain: Denies pain. Neuro: Level of Consciousness is awake, alert, obeys commands, Oriented to person, place, time, situation, Appropriate for age Reports dizziness, weakness. Cardiovascular: Patient's skin is warm and dry. Respiratory: Reports shortness of breath Airway is patent Respiratory effort is even, unlabored, Respiratory pattern is regular, symmetrical. 13:45 General: first unit of blood started . as6 Vital Signs: 11:11 BP 125 / 58; Pulse 76; Resp 18; Temp 97.8; Pulse Ox 98% ; Weight 85.28 kg; Height 5 ft. ph 11 in. ; Pain 0/10; 12:18 BP 121 / 53; Pulse 65; Pulse Ox 94% on R/A; ap3 13:05 BP 123 / 49; Pulse 69; Pulse Ox 96% on R/A; ap3 13:47 BP 119 / 51; Pulse 72; Resp 24 S; Temp 98.1(TE); Pulse Ox 100% on R/A; as6 11:11 Body Mass Index 26.22 (85.28 kg, 180.34 cm) ph 11:11 Pain Scale: Adult ED Course: 10:59 Patient arrived in ED. mr 10:59 Shon Marcial DO is Private Physician. mr 11:00 Adonis Stanley MD is Attending Physician. rt 11:14 Triage completed. ph 11:15 Arm band placed on Patient placed in an exam room, on a stretcher. ph 11:24 Amrita Moreira, RN is Primary Nurse. ap3 11:25 Patient has correct armband on for positive identification. Bed in low position. Call ap3 light in reach. Side rails up X2. Adult w/ patient. laboratory monitor on. Pulse ox on. NIBP on. 11:47 Initial lab(s) drawn, by me, sent to lab. Inserted saline lock: 20 gauge in left aa5 antecubital area, using aseptic technique. Blood collected. 11:47 T\T\S collected, blood band applied to patient. aa5 11:49 EKG done, by ED staff, reviewed by Adonis Stanley MD. ap3 12:47 XRAY Chest (1 view) In Process Unspecified. EDMS 13:45 Jose Bland MD is Hospitalizing Provider. rt 13:53 Provided Education on: need for admit. as6 13:53 No provider procedures requiring assistance completed. Patient admitted, IV remains in as6 place. Administered Medications: No medications were administered Medication: 11:26 VIS not applicable for this client. ap3 Outcome: 13:46 Decision to Hospitalize by Provider. rt 13:53 Admitted to Med/surg accompanied by nurse, family with patient, via stretcher, room as6 215, with chart, 13:53 Condition: stable 13:53 Instructed on the need for admit, 14:07 Patient left the ED. ap3 Signatures: Dispatcher [employer] EDMI Blanca Anderson, Reg Reg ConnerKizzy beckman, RN RN aa5 Lian West RN RN ph Amrita Moreira RN RN ap3 Marc Hills RN RN as6 Adonis Stanley MD MD rt Corrections: (The following items were deleted from the chart) 11:38 11:14 Allergies: No Known Allergies; ph ap3 11:38 11:35 Allergies: Omeprazole; ap3 ap3
--- NOTE | 2023-10-24 13:46 | EDPHYS ---
Physician Documentation [facility] Name: Zen Patterson Age: 78 yrs Sex: Male : 1945 Arrival Date: 10/24/2023 Time: 10:57 Bed 8 Private MD: Aniket [facility] ED Physician Adonis Stanley HPI: 10/24 15:11 This 78 yrs old Male presents to ER via Wheelchair with complaints of Anemia. rt 11:55 Patient had a recent admission for congestive heart failure and anemia for which she rt received iron infusions, did not receive a blood transfusion. Reports that he has had black stools for many months but has not yet had a GI workup. He states that he was feeling well up until last Thursday, when he had progressively worsening shortness of breath, lightheadedness, fatigue. He states that it is difficult for him to stand up or even walk due to these symptoms have been progressively worsening. Denies chest pain. Does report swelling to the hands, abdomen. Denies other acute complaints, symptoms are moderate severity, no other aggravating relieving factors.. Historical: - Allergies: 11:35 No Known Allergies; ap3 - Home Meds: 11:25 nifedipine 90 mg Oral tablet, extended release 1 tab 2 times per day [Active]; ph amiodarone 200 mg Oral tablet 1 tab daily [Active]; furosemide 40 mg Oral tablet 1 tab 2 times per day [Active]; Xarelto 20 mg oral tablet 1 tab daily [Active]; omeprazole 40 mg Oral capsule,delayed release (e.c.) 1 cap 2 times per day [Active]; clopidogrel 75 mg oral tablet 1 tab daily [Active]; famotidine 40 mg Oral tablet 1 tab daily [Active]; atorvastatin 40 mg oral tablet [Active]; 11:35 tamsulosin 0.4 mg oral capsule [Active]; allopurinol 100 mg Oral tablet [Active]; ap3 levothyroxine 100 mcg tablet [Active]; formoterol fumarate 20 mcg/2 mL inhalation Solution for Nebulization [Active]; budesonide inhalation [Active]; - PMHx: 11:14 Atrial fibrillation; CHF; CVA; Hyperlipidemia; Hypertension; ICD/Pacemaker; ph - PSHx: 11:14 Coronary artery bypass graft; Stented artery; ph - Immunization history:: Adult Immunizations up to date, Client reports receiving the 2nd dose of the Covid vaccine, Pneumococcal vaccine is up to date, Flu vaccine is up to date. - Social history:: Smoking status: Patient denies any tobacco usage or history of. - Family history:: not pertinent. ROS: 11:55 Cardiovascular: Negative for chest pain, palpitations, and edema, Abdomen/GI: Negative rt for abdominal pain, nausea, vomiting, diarrhea, and constipation, MS/Extremity: Negative for injury and deformity, Skin: Negative for injury, rash, and discoloration, Psych: Negative for depression, anxiety, suicide ideation, homicidal ideation, and hallucinations, 11:55 Constitutional: Positive for fatigue, Negative for fever, 11:55 Respiratory: Positive for dyspnea on exertion, shortness of breath, 11:55 Neuro: Positive for near syncope, Negative for loss of consciousness, Exam: 11:55 Head/Face: Normocephalic, atraumatic. Chest/axilla: Normal chest wall appearance and rt motion. Nontender with no deformity. No lesions are appreciated. Cardiovascular: Regular rate and rhythm with a normal S1 and S2. No gallops, murmurs, or rubs. Normal PMI, no JVD. No pulse deficits. Respiratory: Lungs have equal breath sounds bilaterally, clear to auscultation and percussion. No rales, rhonchi or wheezes noted. No increased work of breathing, no retractions or nasal flaring. Abdomen/GI: Soft, non-tender, with normal bowel sounds. No distension or tympany. No guarding or rebound. No evidence of tenderness throughout. Skin: Warm, dry with normal turgor. Normal color with no rashes, no lesions, and no evidence of cellulitis. MS/ Extremity: Pulses equal, no cyanosis. Neurovascular intact. Full, normal range of motion. Neuro: Awake and alert, GCS 15, oriented to person, place, time, and situation. Cranial nerves II-XII grossly intact. Motor strength 5/5 in all extremities. Sensory grossly intact. Cerebellar exam normal. Normal gait. Psych: Awake, alert, with orientation to person, place and time. Behavior, mood, and affect are within normal limits. 11:55 Constitutional: The patient appears Pale, no acute distress 11:55 Eyes: Pale conjunctiva. 11:55 ECG was reviewed by the Attending Physician. Vital Signs: 11:11 BP 125 / 58; Pulse 76; Resp 18; Temp 97.8; Pulse Ox 98% ; Weight 85.28 kg; Height 5 ft. ph 11 in. ; Pain 0/10; 12:18 BP 121 / 53; Pulse 65; Pulse Ox 94% on R/A; ap3 13:05 BP 123 / 49; Pulse 69; Pulse Ox 96% on R/A; ap3 13:47 BP 119 / 51; Pulse 72; Resp 24 S; Temp 98.1(TE); Pulse Ox 100% on R/A; as6 11:11 Body Mass Index 26.22 (85.28 kg, 180.34 cm) ph 11:11 Pain Scale: Adult ph MDM: 11:20 Patient medically screened. rt 15:10 Differential Diagnosis Anemia, dysrhythmia, electrolyte disturbance, intravascular rt volume depletion. Data reviewed: vital signs, nurses notes, lab test result(s), EKG, radiologic studies. Consideration of Admission/Observation Patient was admitted/placed on observation. Management of patient was discussed with the following: Hospitalist: Agrees to admit. I considered the following discharge prescriptions or medication management in the emergency department Medications were administered in the Emergency Department. See MAR. Independent interpretation of the following test(s) in the Emergency Department X-Ray: My interpretation is No consolidation seen on interpretation of x-ray images. Test considered but Not performed: CT: Low suspicion for PE, CT angiogram not indicated. Counseling: I had a detailed discussion with the patient and/or guardian regarding the historical points, exam findings, and any diagnostic results supporting the discharge/admit diagnosis, lab results, radiology results, the need for further work-up and treatment in the hospital. Response to treatment: There is no appreciated change of the patient's symptoms at this time. 10/24 11:30 Order name: Basic Metabolic Panel; Complete Time: 13: rt 10/24 11:30 Order name: CBC with Diff; Complete Time: 13: rt 10/24 11:30 Order name: LFT's; Complete Time: 13: rt 10/24 11:30 Order name: Magnesium; Complete Time: 13: rt 10/24 11:30 Order name: NT PRO-BNP; Complete Time: 13: rt 10/24 11:30 Order name: PT-INR; Complete Time: 12:10 rt 10/24 11:30 Order name: Troponin HS; Complete Time: 13:03 rt 10/24 11:30 Order name: TSH; Complete Time: 13:03 rt 10/24 11:30 Order name: Type And Screen rt 10/24 12:38 Order name: CBC Smear Scan EDAK 10/24 12:43 Order name: Bb Add On eb 10/24 12:51 Order name: Packed RBC Leukored EDAK 10/24 12:56 Order name: ABO/RH no charge; Complete Time: 13:03 EDAK 10/24 11:30 Order name: XRAY Chest (1 view); Complete Time: 13:06 rt 10/24 11:30 Order name: EKG; Complete Time: 11:31 rt 10/24 13:39 Order name: CONS Physician Consult EDAK 10/24 11:30 Order name: Cardiac monitoring; Complete Time: 11:32 rt 10/24 11:30 Order name: EKG - Nurse/Tech; Complete Time: 11:49 rt 10/24 11:30 Order name: IV Saline Lock; Complete Time: 11:50 rt 10/24 11:30 Order name: Labs collected and sent; Complete Time: 11:50 rt 10/24 11:30 Order name: O2 Per Protocol; Complete Time: 11:32 rt 10/24 11:30 Order name: O2 Sat Monitoring; Complete Time: 11:32 rt EC:55 Rate is 67 beats/min. Rhythm is regular, Sinus Rhythm with Occasional PVCs, Nonspecific rt intraventricular block. MA interval is prolonged at 212 msec. QT interval is prolonged at 528 msec. No Q waves. Administered Medications: No medications were administered Disposition Summary: 10/24/23 13:46 Hospitalization Ordered Notes: Hospitalization Status: Inpatient Admission rt Provider: Jose Bland rt Location: Telemetry/MedSurg (Inpatient) rt Condition: Fair rt Problem: new rt Symptoms: have improved rt Bed/Room Type: Standard rt Room Assignment: 215(10/24/23 13:46) eb Diagnosis - Symptomatic anemia rt - NSTEMI rt Forms: - Medication Reconciliation Form rt - SBAR form rt - Leadership Thank You Letter rt Critical care time excluding procedures: 15:10 Critical care time: Bedside Care: 30 minutes, Consultation: 5 minutes. Total time: 35 rt minutes Signatures: Dispatcher [employer] Lian Paula RN RN ph Amrita Moreira RN RN ap3 Zainab Barnhart Ryan, MD MD rt Rocio Novak, WAFER CLEANER WAFER CLEANER cm12 Corrections: (The following items were deleted from the chart) 11:38 11:14 Allergies: No Known Allergies; ph ap3 11:38 11:35 Allergies: Omeprazole; ap3 ap3 13:46 13:46 rt eb
[2023-10-24] MEDS ORDERED: ACETAMINOPHEN 500 MG TAB PO PRN (13:47)
--- NOTE | 2023-10-24 13:49 | P.HP ---
Certification for Inpatient Patient admitted to: Inpatient Practitioner: I am a practitioner with admitting privileges, knowledge of patient current condition, hospital course, and medical plan of care. Services: Services provided to patient in accordance with Admission requirements found in Title 42 Section 412.3 of the Code of Federal Regulations Patient History Date of Service: 10/24/23 Reason for admission: GI bleed History of Present Illness: 78 yo patient with a past medical history of HTN, HLD, CHF, and CVA x2. He had a pacemaker placed in 2017 presents to the emergency room with dark tarry stools. He reported 7 stools yesterday, 2 today. He denies no fever, nausea, no vomiting, abdominal pain. Here reports shortness of breath worse with exertion. reports dark tarry stools, he reports symptoms started over the last couple months is progressively getting worse. He reports being on Xarelto and Plavix seen Dr. Yi for cardiology. He reports associated shortness of breath that is worse with exertion, fatigue, increasing weakness, fatigue. he reports lightheadedness that is worse with exertion. No reported falls. is at bedside,. Plan to admit for symptomatic anemia, GI bleed, chronic anticoagulation, NSTEMI, laboratory evaluation hemoglobin 5.4, hematocrit 15.9 no leukocytosis, early left shift 84.1 acute kidney injury, BUN 65 creatinine 1.65 troponin 306.2 TSH normal at 2.790, EKG Rate is 67 beats/min. Rhythm is regular, Sinus Rhythm with Occasional PVCs, Nonspecific rt intraventricular block. DC interval is prolonged at 212 msec. QT interval is prolonged at 528 msec. No Q waves. Allergies No Known Allergies Allergy (Verified 06/30/23 09:42) Home Medications: Potassium Chloride [Klor-Con] 20 meq PO BID 07/27/13 Furosemide [Lasix*] 40 mg PO BIDWM 06/09/16 Nifedipine Xl [Procardia XL*] 90 mg PO BIDWM 06/09/16 Budesonide [Pulmicort*] 1 puff NEB BID 08/26/19 Rivaroxaban [Xarelto] 1 tab PO 1700 08/26/19 Atorvastatin Calcium [Lipitor*] 40 mg PO SEECOM 10/12/19 Omeprazole 20 mg PO BID 10/12/19 Amiodarone HCl [Cordarone*] 1 tab PO DAILY 09/27/23 Atorvastatin Calcium 1 tab PO DAILY 09/27/23 Clopidogrel Bisulfate [Plavix*] 1 tab PO DAILY 09/27/23 Famotidine [Pepcid] 1 tab PO DAILY 09/27/23 Formoterol Fumarate 2 vial NEB BID 09/27/23 Levothyroxine [Synthroid*] 1 tab PO DAILY 09/27/23 Tamsulosin HCl [Flomax] 1 tab PO DAILY 09/27/23 dexAMETHasone [Decadron] 2 mg PO BID 14 Days #14 tab 10/04/23 - Past Medical/Surgical History Diabetic: No -: Hypertension -: Hyperlipidemia -: Coronary artery disease -: Obstructive sleep apnea -: 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 - Family History Mother -: Heart disease Father -: Heart disease, Cancer, Other (see notes) Notes: prostate ca. mi. heart valve infection. at 93 Brother -: Heart disease - Social History Alcohol use: Yes CD- Drugs: No Caffeine use: Yes Review of Systems per HPI Physical Examination - Physical Exam General: Alert, In no apparent distress, Oriented x3 HEENT: Atraumatic, Normocephalic Neck: Supple, 2+ carotid pulse no bruit Respiratory: Clear to auscultation bilaterally, Normal air movement Cardiovascular: No edema, Normal pulses Capillary refill: <2 Seconds Gastrointestinal: Normal bowel sounds, Soft and benign Neurological: Normal speech, Normal strength at 5/5 x4 extr - Studies Laboratory Data (last 24 hrs) 10/24/23 10/24/23 10/24/23 11:47 11:47 11:47 WBC 10.90 Hgb 5.4 L* Hct 15.9 L Plt Count 158 PT 19.3 H INR 1.78 Sodium 136 Potassium 4.1 BUN 65 H Creatinine 1.65 H Glucose 136 H Magnesium 2.7 H Total Bilirubin 0.2 AST 8 L ALT 20 Alkaline Phosphatase 49 Assessment and Plan - Plan Assessment plan NSTEMI Permanent pacemaker 2017 Cardiology consult, troponin, trend troponin troponin 306.2 TSH normal at 2.790, EKG Rate is 67 beats/min. Rhythm is regular, Sinus Rhythm with Occasional PVCs, Nonspecific rt intraventricular block. DC interval is prolonged at 212 msec. QT interval is prolonged at 528 msec. No Q waves GI bleeding Symptomatic anemia Chronic anticoagulation GI consult, type and cross transfuse 2 units Trend H&H, Mr. Patterson report being on Xarelto and Plavix seen Dr. Yi for cardiology. hemoglobin 5.4, hematocrit 15.9 no leukocytosis, early left shift 84.1-Zosyn, PPI twice daily IV Acute on chronic kidney injury unknown baseline acute kidney injury, BUN 65 creatinine 1.65 Trend kidney function History of A-fib Hypertension HLD CHF CVA x2 Fall precaution Diet n.p.o. Full code DVT SCD Discharge Plan: Home - Advance Directives Does patient have a Living Will: No Does patient have a Durable POA for Healthcare: No - Code Status/Comfort Care Code Status: Full Code Critical Care: No Time Spent Managing Pts Care (In Minutes): 55
[2023-10-24] MEDS ORDERED: ACETAMINOPHEN 500 MG TAB PO ONE (13:52)
[2023-10-24] MEDS ORDERED: DIPHENHYDRAMINE 50 MG/ML VIAL IV ONE (13:52)
[2023-10-24] MEDS ORDERED: FUROSEMIDE 20 MG/ 2ML VIAL IV ONE (14:00)
[2023-10-24] MEDS ORDERED: NA CHLORIDE 0.9% 250 ML IV SCH (14:00)
[2023-10-24] MEDS ORDERED: NA CHLORIDE 0.9% 1,000 ML IV SCH (14:00)
[2023-10-24] MEDS ORDERED: SODIUM CHLORIDE 0.9% 10ML INJ IV PRN (14:20)
[2023-10-24 15:40] LABS: Specific Gravity 1.013 (1.005-1.030); Urine Bilirubin NEGATIVE (Negative); Urine Blood Negative (Negative); Urine Clarity Clear (Clear); Urine Color Light-Yellow (Yellow); Urine Glucose NEGATIVE (Negative); Urine Protein NEGATIVE (Negative); Urine Urobilinogen Normal (Normal)
[2023-10-24] MEDS ORDERED: PROTHROMBIN COMPLEX CONCENTRATE (HUMAN) 500 UNIT VIAL IV ONE (16:00)
[2023-10-24] MEDS: PIPER TAZO 3.375 GM in NA CHLORIDE 0.9% 100 ML IV SCH ×3 (17:00→21:43)
[2023-10-24 17:13] VITALS: BMI 26.2
[2023-10-24] MEDS: PANTOPRAZOLE 40 MG INJ IVP SCH (20:20)
--- NOTE | 2023-10-24 21:44 | CON ---
Date of Consultation: 10/24/2023 Reason For Consultation: GI bleed with melena over the past 3 months and acute elevation in troponin I is suggestive of possible myocardial infarction. History Of Present Illness: Patient is a 78-year-old white male with history of hypertension, hyperl ipidemia, coronary artery disease, status post [place], strokes x2, 1 vessel CABG in 2020 and cardiac sten t in June of 2023 for congestive heart failure, and AICD placement. Patient presented to the hosp ital with weakness, lightheadedness, presyncope. said he been pale over the past 2 days prior t o admission. Patient reports having melena over the past 3 months. Hemoglobin in the emergency room was low at 5.4. Patient is admitted to the hospital for further evaluation and care. Patient has a lso been considered for Watchman procedure for his atrial fibrillation per Cardiology. Past Medical History: Significant for hypertension; hyperlipidemia; coronary artery disease, status post IN; 1 vessel CABG in 2020; cardiac stent in June 2023; congestive heart failure, AICD placeme nt, pacemaker defibrillator; history of atrial fibrillation; strokes/CVAs x2; hypothyroidism; gout; m acular degeneration; Zenker diverticulum x2; bilateral knee replacements; obstructive sleep apnea; ca rpal tunnel surgery; appendectomy; tonsillectomy; transurethral retrograde prostatectomy. Medications At Home: Include potassium, Lasix, nifedipine, Pulmicort, Xarelto, Plavix, Lipitor, omep razole 20 mg p.o. b.i.d., amiodarone, Lipitor, Pepcid, formoterol fumarate, Synthroid, Flomax, and De cadron. Allergies: NKDA. Social History: , 2 sons. Quit tobacco in 1981. Positive for alcohol. Occasional red wine. Family History: Father of myocardial infarction at the age of 93. Also, had prostate cancer an d heart valve infection. Mother of congestive heart failure with myocardial infarction. Brothe r has heart disease as well. Review of Systems: Patient has melena, lightheadedness, presyncope, paleness prior to admission. Denies any hematochezi a, coffee-grounds emesis, hematochezia, epistaxis, hematuria, dysuria, polydipsia, hemoptysis. No mu scle aches, joint aches, backaches. No chest pain, shortness of breath, seizure, syncope, depression , or anxiety. Physical Examination: Vital Signs: Patient is 5 feet 11 inches, 26.2 kg/sq m, 180 pounds. Temperature 97.3, pulse 76, res pirations 16, blood pressure 145/57, O2 sat 95%. General: Well-nourished, well-developed male, lying in bed, in no acute distress. HEENT: Normocephalic, atraumatic. Pupils equal, round, and reactive to light. Anicteric. Orophary nx clear. Neck: Supple. No masses. Respirations: Clear to auscultation bilaterally. Cardiac: Regular rate and rhythm. No rubs, no gallops. Abdomen: Positive bowel sounds. Soft, nontender. No hepatosplenomegaly. No peritoneal or Baeza s ign. Abdomen is obese. Extremities: No clubbing, cyanosis, or edema. Trace lower extremity edema. Neuro: Alert and oriented x3. Grossly nonfocal. 5/5 motor strength. Sensation is intact to light touch. Laboratory Data: Patient has a white count of 10.9, hemoglobin of 5.4, hematocrit of 15.9, MCV of 83 , platelet count of 158. Polys of 84%, lymphocytes 6%, monocytes 9%, eosinophils 1%. PT of 19.3, IN R of 1.8. Sodium 136, potassium 4.1, chloride 103, bicarb 23, BUN of 65, creatinine of 1.7, glucose 136, calcium 8.1. Magnesium 2.7. Total bilirubin 0.2, direct bilirubin less than 0.1. AST of 8, AL T of 20, alk phos 49. Troponin is elevated 306.2 and then repeat elevated at 250.2 both today at katherine roximately 11:50 and then at 4 o'clock in the afternoon. B-type natriuretic peptide elevated of 855. Total protein 5.5, albumin 2.6. TSH is 2.79. UA was negative. Imaging: Chest x-ray shows bilateral pulmonary opacities, that have mostly resolved. Heart is moder ately enlarged. Pacemaker leads in place. Otherwise, negative. Impression: 1.Melena, gastrointestinal bleed over the past 3 months, anemia, hemoglobin down to 5.4, lightheaded , presyncope. says he has been pale for the past 2 days prior to admission. He also was noted to have congestive heart failure admission over the past several days here at [facility] from September 25 to October 04. The patient is on Plavix and Xarelto for his coronary artery d isease and recent stent placement in June 2023, approximately 3 months ago. 2.Elevated troponin I. Cardiology has been consulted. He has a history of coronary artery disease, strokes, cardiac stent in June 2003, CABG with 1 vessel to LAD replaced in 2020, conge stive heart failure, automatic implantable cardioverter defibrillator, atrial fibrillation. Therefor e, we will hold Plavix and Xarelto and transfuse platelets, but we will hold on any type of Kcentra t herapy at this time with stent within less than 6 months of the stent placement. 3.History of hypertension, hyperlipidemia, coronary artery disease, status post myocardial infarctio n, 1 vessel coronary artery bypass graft in 2020, cardiac stent in June 2003, congestive heart jovani lure, automatic implantable cardioverter defibrillator with pacemaker defibrillator, atrial fibrillat ion, strokes x2, bilateral knee surgeries, transurethral resection of the prostate, repai r, carpal tunnel surgery, appendectomy, tonsillectomy, macular degeneration, gout, hypothyroidism, ob structive sleep apnea. Recommendations: 1.Hold Plavix and Xarelto. 2.Aggressive transfusion of packed RBCs, platelets. We will not give Kcentra at this time due to ne w cardiac stent in June 2023. 3.Serial H and H, and transfuse p.r.n. 4.Continue PPI therapy. 5.Cardiology evaluation. 6.EGD after cardiology evaluation and clearance. This patient has elevated troponin and may have a myocardial infarction at this time. WS/MODL Voice ID: [id number] Report ID: [id number]
[2023-10-24 23:42] LABS: MCV 83.3 fL (80-100); MPV 7.7 fL (7.6-11.3); Platelets 126 thou/uL (152-406); RBC Red Blood Cell Count 2.04 M/uL (4.33-5.43)
[2023-10-25] MEDS: PIPER TAZO 3.375 GM in NA CHLORIDE 0.9% 100 ML IV SCH ×3 (05:34→22:33)
[2023-10-25 06:55] LABS: Absolute Lymphocytes (CBC) 0.8 K/uL (0.7-4.9); Hematocrit 19.2 % (39.6-49.0); Lymphocytes % 9.4 % (15.3-44.8); MCV 84.6 fL (80-100); MPV 7.4 fL (7.6-11.3); Platelets 139 thou/uL (152-406); RBC Red Blood Cell Count 2.27 M/uL (4.33-5.43)
[2023-10-25 07:16] LABS: Magnesium 2.6 mg/dL (1.6-2.4); Potassium 3.6 mEq/L (3.5-5.1)
[2023-10-25] MEDS: PANTOPRAZOLE 40 MG INJ IVP SCH ×2 (08:45→20:52)
--- NOTE | 2023-10-25 09:01 | P.PN ---
Subjective Date of Service: 10/25/23 Chief Complaint: GI bleed 2 units of packed red blood cells infused overnight, used home CPAP overnight, no reported chest pain or shortness of breath - Physical Exam General: Alert, In no apparent distress, Oriented x3 HEENT: Atraumatic, Normocephalic Neck: Supple, 2+ carotid pulse no bruit Respiratory: Clear to auscultation bilaterally, Normal air movement Cardiovascular: No edema, Normal pulses Capillary refill: <2 Seconds Gastrointestinal: Normal bowel sounds, Soft and benign Neurological: Normal speech, Normal strength at 5/5 x4 extr Review of Systems per HPI Physical Examination - Vital Signs Temperature: 98.1 F Blood Pressure: 140/58 Pulse: 60 Respirations: 16 Pulse Ox (%): 96 - Studies Laboratory Data (last 24 hrs) 10/24/23 10/24/23 10/24/23 11:47 11:47 11:47 WBC 10.90 Hgb 5.4 L* Hct 15.9 L Plt Count 158 PT 19.3 H INR 1.78 Sodium 136 Potassium 4.1 BUN 65 H Creatinine 1.65 H Glucose 136 H Magnesium 2.7 H Total Bilirubin 0.2 AST 8 L ALT 20 Alkaline Phosphatase 49 Assessment And Plan - Plan Assessment plan NSTEMI Permanent pacemaker 2017 Cardiology consult, troponin, trend troponin troponin 306.2 -192-trend anticoagulant held due to GI bleeding TSH normal at 2.790, EKG Rate is 67 beats/min. Rhythm is regular, Sinus Rhythm with Occasional PVCs, Nonspecific rt intraventricular block. [place] interval is prolonged at 212 msec. QT interval is prolonged at 528 msec. No Q waves BNP [address] Benoit cleared Mr. Patterson for EGD today, pt, family, Dr Mccormack notifed by FLOOR WORKER. GI bleeding Symptomatic anemia Chronic anticoagulation GI consult -Kcentra not given due to NSTEMI per Dr Mccormack type and cross transfuse 2 units, hemoglobin 6.3 10/25 will transfuse another 2 unit today Lasix 20, Tylenol, Benadryl 12.5 given prior to each unit Trend H&H, Mr. Patterson report being on Xarelto and Plavix seen Dr. Yi for cardiology. hemoglobin 5.4, hematocrit 15.9 no leukocytosis, early left shift 84.1-Zosyn, PPI twice daily IV Acute on chronic kidney injury unknown baseline acute kidney injury, BUN 65 creatinine 1.65 Trend kidney function History of A-fib Hypertension HLD CHF CVA x2 Fall precaution Diet n.p.o. Full code DVT SCD Discharge Plan: Home - Code Status/Comfort Care Code Status: Full Code Critical Care: No Time Spent Managing PTS Care (In Minutes): 35
[2023-10-25] MEDS ORDERED: FUROSEMIDE 20 MG/ 2ML VIAL IV ONE (10:00)
[2023-10-25] MEDS ORDERED: ACETAMINOPHEN 500 MG TAB PO ONE (10:00)
[2023-10-25] MEDS ORDERED: DIPHENHYDRAMINE 50 MG/ML VIAL IV ONE (10:00)
[2023-10-25] MEDS ORDERED: NA CHLORIDE 0.9% 250 ML IV SCH (10:00)
[2023-10-25] MEDS ORDERED: EPINEPHRINE 1 MG/ML VIAL ONE (12:46)
[2023-10-25] MEDS ORDERED: propofoL 200 MG/20 ML VIAL IV ONE (13:29)
[2023-10-25 15:55] LABS: Hematocrit 25.8 % (39.6-49.0)
[2023-10-25 20:25] LABS: Hematocrit 23.6 % (39.6-49.0)
[2023-10-26] MEDS: PIPER TAZO 3.375 GM in NA CHLORIDE 0.9% 100 ML IV SCH ×3 (05:25→21:51)
[2023-10-26 05:50] LABS: Absolute Lymphocytes (CBC) 0.7 K/uL (0.7-4.9); Hematocrit 22.6 % (39.6-49.0); Lymphocytes % 11.1 % (15.3-44.8); MCV 85.4 fL (80-100); MPV 7.7 fL (7.6-11.3); Platelets 135 thou/uL (152-406); RBC Red Blood Cell Count 2.65 M/uL (4.33-5.43)
[2023-10-26 06:18] LABS: Magnesium 2.3 mg/dL (1.6-2.4); Potassium 3.5 mEq/L (3.5-5.1)
[2023-10-26] MEDS: PANTOPRAZOLE 40 MG INJ IVP SCH ×2 (07:52→21:01)
[2023-10-26 08:06] LABS: Phosphorus 2.7 mg/dL (2.5-4.9)
[2023-10-26] MEDS ORDERED: POTASSIUM CL SA 10 MEQ TAB PO ONE (09:00)
--- NOTE | 2023-10-26 13:26 | P.PN ---
Date of Service: 10/25/23 Spoke with Gastroenterology status post EGD. The patient had 2 areas of possible Dieulafoy's lesion. these were cauterized and clipped. No active bleeding noted. Continue with PPI. Monitor H&H
--- NOTE | 2023-10-26 14:45 | P.PN ---
Subjective Date of Service: 10/26/23 Chief Complaint: GI bleed Pt is resting comfortably in bed. He denies any GI bleed or melena. S/p EGD. Hgb is 7.4. Will monitor H/H. No other issues overnight. Review of Systems Unremarkable General: Unremarkable Eyes: Unremarkable ENT: Unremarkable Respiratory: Unremarkable Cardiovascular: Unremarkable Gastrointestinal: Unremarkable Genitourinary: Unremarkable Musculoskeletal: Unremarkable Integumentary: Unremarkable Neurological: Unremarkable Lymphatics: Unremarkable Physical Examination - Vital Signs Temperature: 97.7 F Blood Pressure: 155/67 Pulse: 59 Respirations: 17 Pulse Ox (%): 97 - Physical Exam General: Alert, In no apparent distress, Oriented x3 HEENT: Atraumatic, Normocephalic, PERRLA Neck: Supple, 2+ carotid pulse no bruit Respiratory: Clear to auscultation bilaterally, Normal air movement Cardiovascular: Normal pulses, Regular rate/rhythm, Normal S1 S2 Capillary refill: <2 Seconds Gastrointestinal: Normal bowel sounds, Soft and benign, Non-distended Musculoskeletal: No clubbing, No swelling Integumentary: No rashes, No breakdown Neurological: Normal gait, Normal speech, Normal strength at 5/5 x4 extr Lymphatics: No axilla or inguinal lymphadenopathy Assessment And Plan - Plan NSTEMI: Troponin is 198 <- 250 <- 306.2. Hold AC due to GI bleed. Cardiology cleared pt for EGD. EKG showed EKG Rate is 67 beats/min. Rhythm is regular, Sinus Rhythm with Occasional PVCs, Nonspecific rt intraventricular block. [place] interval is prolonged at 212 msec. QT interval is prolonged at 528 msec. No Q waves Pt has hx of Permanent pacemaker placement in 2017 GI bleeding: GI did EGD which showed 2 areas of possible Dieulafoy's lesion. They were cauterized and clipped. No active bleeding noted. Continue with PPI. Monitor H&H Symptomatic anemia: Hgb is 7.4 s/p 2 units of blood. Will monitor H/H. Chronic anticoagulation: Pt was taking xarelto at home. She did not received Kcentra due to NSTEMI. Acute on chronic kidney injury: Unknown baseline. Acute kidney injury, BUN 65 creatinine 1.15 <- 1.65. Will avoid nephrotoxins and monitor renal function. Will continue home med for other chronic medical problems likely History of A- fib, Hypertension, HLD, CVA and CHF. Continue Fall precaution Code: Full code DVT ppx: SCD
[2023-10-26] MEDS: HYDRALAZINE HCL 20 MG/ML VIAL IV PRN (17:04)
[2023-10-26 17:58] LABS: Hematocrit 24.7 % (39.6-49.0)
[2023-10-27 00:01] LABS: Hematocrit 22.9 % (39.6-49.0)
[2023-10-27] MEDS: PIPER TAZO 3.375 GM in NA CHLORIDE 0.9% 100 ML IV SCH (05:27)
[2023-10-27 06:36] LABS: Absolute Lymphocytes (CBC) 0.5 K/uL (0.7-4.9); Lymphocytes % 10.3 % (15.3-44.8); MPV 7.7 fL (7.6-11.3); Platelets 140 thou/uL (152-406); RBC Red Blood Cell Count 2.59 M/uL (4.33-5.43)
[2023-10-27 06:44] LABS: Protime INR 1.22
[2023-10-27 07:18] LABS: Magnesium 2.3 mg/dL (1.6-2.4); Potassium 3.7 mEq/L (3.5-5.1)
[2023-10-27] MEDS: PANTOPRAZOLE 40 MG INJ IVP SCH ×2 (08:31→20:24)
[2023-10-27] MEDS: LEVOTHYROXINE SOD 0.1 MG TAB PO SCH (09:29)
[2023-10-27] MEDS: TAMSULOSIN 0.4 MG SR CAP PO SCH ×2 (09:29→20:24)
[2023-10-27] MEDS: AMIODARONE HCL 200 MG TAB PO SCH (09:29)
[2023-10-27] MEDS ORDERED: NA CHLORIDE 0.9% 250 ML ONE (10:22)
[2023-10-27] MEDS: METOCLOPRAMIDE 10 MG/2mL INJ IV SCH ×3 (12:00→18:08)
--- NOTE | 2023-10-27 12:19 | P.PN ---
Subjective Date of Service: 10/27/23 Chief Complaint: GI bleed Pt is resting comfortably in bed. He denies any GI bleed or melena. S/p EGD. Hgb is 7.2. Will monitor H/H. No other issues overnight. Review of Systems Unremarkable General: Unremarkable Eyes: Unremarkable ENT: Unremarkable Respiratory: Unremarkable Cardiovascular: Unremarkable Gastrointestinal: Unremarkable Genitourinary: Unremarkable Musculoskeletal: Unremarkable Integumentary: Unremarkable Neurological: Unremarkable Lymphatics: Unremarkable Physical Examination - Vital Signs Temperature: 98.1 F Blood Pressure: 167/72 Pulse: 60 Respirations: 16 Pulse Ox (%): 97 - Physical Exam General: Alert, In no apparent distress, Oriented x3 HEENT: Atraumatic, Normocephalic, PERRLA Neck: Supple, 2+ carotid pulse no bruit Respiratory: Clear to auscultation bilaterally, Normal air movement Cardiovascular: No edema, Normal pulses, Regular rate/rhythm, Normal S1 S2 Capillary refill: <2 Seconds Gastrointestinal: Normal bowel sounds, Soft and benign, Non-distended Musculoskeletal: No clubbing, No swelling Integumentary: No rashes, No breakdown Neurological: Normal gait, Normal speech, Normal strength at 5/5 x4 extr, Normal tone, Sensation intact, Cranial nerves 3-12 intact Lymphatics: No axilla or inguinal lymphadenopathy Assessment And Plan - Plan NSTEMI: Troponin is 198 <- 250 <- 306.2. Hold AC due to GI bleed. Cardiology cleared pt for EGD. EKG showed EKG Rate is 67 beats/min. Rhythm is regular, Sinus Rhythm with Occasional PVCs, Nonspecific rt intraventricular block. [place] interval is prolonged at 212 msec. QT interval is prolonged at 528 msec. No Q waves Pt has hx of Permanent pacemaker placement in 2017 GI bleeding: GI did EGD which showed 2 areas of possible Dieulafoy's lesion. They were cauterized and clipped. No active bleeding noted. Continue with PPI. Monitor H&H. Will do small bowel series today Symptomatic anemia: Hgb is 7.2 s/p 2 units of blood. Will monitor H/H. Chronic anticoagulation: Pt was taking xarelto at home. She did not received Kcentra due to NSTEMI. Acute on chronic kidney injury: Unknown baseline. Acute kidney injury, BUN 65 creatinine 1.08 <- 1.15 <- 1.65. Will avoid nephrotoxins and monitor renal function. Will continue home med for other chronic medical problems likely History of A- fib, Hypertension, HLD, CVA and CHF. Continue Fall precaution Code: Full code DVT ppx: SCD
[2023-10-27] MEDS ORDERED: MAGNESIUM CITRATE 300 ML BOT PO SCH (13:00)
[2023-10-27] MEDS ORDERED: GOLYTELY 4000 ML PO SCH (14:00)
[2023-10-27 17:29] LABS: Hematocrit 27.8 % (39.6-49.0)
[2023-10-27] MEDS: NIFEDIPINE XL 90 MG TABLET PO SCH (18:07)
[2023-10-27] MEDS: ATORVASTATIN 40 MG TAB PO SCH (20:24)
[2023-10-27] MEDS: HYDRALAZINE HCL 20 MG/ML VIAL IV PRN (21:34)
[2023-10-28] MEDS: LEVOTHYROXINE SOD 0.1 MG TAB PO SCH (05:23)
[2023-10-28 06:58] LABS: Absolute Lymphocytes (CBC) 0.4 K/uL (0.7-4.9); Hematocrit 24.3 % (39.6-49.0); Lymphocytes % 8.4 % (15.3-44.8); MCV 85.5 fL (80-100); MPV 7.7 fL (7.6-11.3); Platelets 135 thou/uL (152-406); RBC Red Blood Cell Count 2.85 M/uL (4.33-5.43)
[2023-10-28 07:24] LABS: Magnesium 2.4 mg/dL (1.6-2.4); Potassium 3.2 mEq/L (3.5-5.1)
[2023-10-28] MEDS: PANTOPRAZOLE 40 MG INJ IVP SCH ×2 (08:46→21:12)
[2023-10-28] MEDS: TAMSULOSIN 0.4 MG SR CAP PO SCH ×2 (08:47→21:12)
[2023-10-28] MEDS: AMIODARONE HCL 200 MG TAB PO SCH (08:47)
[2023-10-28] MEDS: NIFEDIPINE XL 90 MG TABLET PO SCH ×2 (08:47→16:26)
[2023-10-28] MEDS ORDERED: Ringers Lactate 1,000 ML IV ONE (10:18)
--- NOTE | 2023-10-28 10:27 | P.PN ---
Subjective Date of Service: 10/28/23 Chief Complaint: GI bleed Pt is resting comfortably in bed. He denies any GI bleed or melena. S/p EGD. Hgb is 7.9<- 7.2. GI will do colonoscopy today before doing small bowel series. Will monitor H/H. No other issues overnight. Physical Examination - Vital Signs Temperature: 98.8 F Blood Pressure: 127/61 Pulse: 70 Respirations: 18 Pulse Ox (%): 90 - Physical Exam General: Alert, In no apparent distress, Oriented x3 HEENT: Atraumatic, Normocephalic, PERRLA Neck: Supple, 2+ carotid pulse no bruit Respiratory: Clear to auscultation bilaterally, Normal air movement Cardiovascular: No edema, Normal pulses, Regular rate/rhythm, Normal S1 S2 Capillary refill: <2 Seconds Gastrointestinal: Normal bowel sounds, Soft and benign, Non-distended Musculoskeletal: No clubbing, No swelling Integumentary: No rashes, No breakdown Neurological: Normal speech, Normal strength at 5/5 x4 extr, Normal tone Lymphatics: No axilla or inguinal lymphadenopathy Assessment And Plan - Plan NSTEMI: Troponin is 198 <- 250 <- 306.2. Hold AC due to GI bleed. Cardiology cleared pt for EGD. EKG showed EKG Rate is 67 beats/min. Rhythm is regular, Sinus Rhythm with Occasional PVCs, Nonspecific rt intraventricular block. NV interval is prolonged at 212 msec. QT interval is prolonged at 528 msec. No Q waves Pt has hx of Permanent pacemaker placement in 2017 GI bleeding: GI did EGD which showed 2 areas of possible Dieulafoy's lesion. They were cauterized and clipped. No active bleeding noted. Continue with PPI. Monitor H&H. GI will do colonoscopy before small bowel series today Symptomatic anemia: Hgb is 7.9 <- 7.2 s/p 2 units of blood. Will monitor H/H. Chronic anticoagulation: Pt was taking xarelto at home. She did not received Kcentra due to NSTEMI. Acute on chronic kidney injury: Unknown baseline. Acute kidney injury, BUN 65 creatinine 1.1<- 1.08 <- 1.15 <- 1.65. Will avoid nephrotoxins and monitor renal function. Will continue home med for other chronic medical problems likely History of A- fib, Hypertension, HLD, CVA and CHF. Continue Fall precaution Code: Full code DVT ppx: SCD
[2023-10-28] MEDS ORDERED: propofoL 200 MG/20 ML VIAL IV ONE (10:57)
[2023-10-28] MEDS ORDERED: EPHEDRINE SULF 50 MG/ML VIAL ONE (11:44)
[2023-10-28] MEDS: POTASSIUM CL SA 10 MEQ TAB PO SCH ×2 (15:00→16:26)
[2023-10-28] MEDS ORDERED: POTASSIUM CL SA 10 MEQ TAB PO SCH (18:30)
[2023-10-28] MEDS ORDERED: GOLYTELY 4000 ML PO SCH (19:00)
[2023-10-28] MEDS ORDERED: MAGNESIUM CITRATE 300 ML BOT PO SCH (19:00)
[2023-10-28] MEDS: ATORVASTATIN 40 MG TAB PO SCH (21:12)
[2023-10-29 01:03] LABS: Hematocrit 23.1 % (39.6-49.0)
[2023-10-29] MEDS: LEVOTHYROXINE SOD 0.1 MG TAB PO SCH (06:04)
[2023-10-29 07:32] LABS: Absolute Lymphocytes (CBC) 0.5 K/uL (0.7-4.9); Hematocrit 24.9 % (39.6-49.0); Lymphocytes % 7.2 % (15.3-44.8); MCV 83.7 fL (80-100); Platelets 124 thou/uL (152-406); RBC Red Blood Cell Count 2.98 M/uL (4.33-5.43)
[2023-10-29 07:33] LABS: Potassium 3.9 mEq/L (3.5-5.1)
--- NOTE | 2023-10-29 07:39 | RAD REPORT ---
EXAM DESCRIPTION: US - UPPER EXTREMITY VENOUS UNILATE - 10/29/2023 12:46 am CLINICAL HISTORY: left arm swollen check for DVT COMPARISON: None. TECHNIQUE: Real-time sonographic evaluation of the left upper venous system was performed. FINDINGS: Normal compressibility, flow augmentation, phasic flow and spontaneous flow is identified in the left upper extremity venous system. No intraluminal filling defects seen. IMPRESSION: No venous thrombosis in the left upper extremity.
--- NOTE | 2023-10-29 07:45 | RAD REPORT ---
EXAM DESCRIPTION: RAD - Colon Barium Enema - 10/28/2023 2:52 pm CLINICAL HISTORY: COLONOSCOPY POOR PREP COMPARISON: Renal Ultrasound-Complete dated 09/29/2023; Esophagram Only dated 07/19/2021; Colon Barium Enema dated 01/13/2023 FINDINGS: Contrast opacified the rectum, sigmoid colon, descending colon, splenic flexure, transvers e colon, hepatic flexure, and portions of the ascending colon. The cecum and ileocecal valve were not well evaluated as we were unable to maintain positioning of the ballon within the rectum to add stewart tional contrast. Mucosal outline is normal. Mild diverticulosis is noted. No evidence of a stricture or fistula. No ma ss or large follow-up identified. The colon was extremely redundant. Total fluoro time: 1.4 minutes Number of images acquired: 14 IMPRESSION: Limited barium enema. The cecum was suboptimally evaluated. Unable to adequately opacify as the balloon would not remain in the rectum and the patient had involuntary evacuation of the cont rast. Excluding the cecum, the no stricture or mass identified. The colon was redundant.
[2023-10-29] MEDS: NIFEDIPINE XL 90 MG TABLET PO SCH ×2 (08:00→17:37)
[2023-10-29] MEDS: TAMSULOSIN 0.4 MG SR CAP PO SCH ×2 (09:00→20:09)
[2023-10-29] MEDS: PANTOPRAZOLE 40 MG INJ IVP SCH ×2 (09:00→20:09)
[2023-10-29] MEDS: AMIODARONE HCL 200 MG TAB PO SCH (09:00)
--- NOTE | 2023-10-29 11:04 | P.PN ---
Subjective Date of Service: 10/29/23 Chief Complaint: GI bleed Subjective: No new changes, Tolerating diet, Improving, New changes, Doing well Patient is alert and oriented x 3 Resting in the bed, on home CPAP NAD Denies any pain or shortness of breath With left upper arm edema 3+, ultrasound negative DVT Vital stable <Rancho Wood - Last Filed: 10/29/23 10:59> Date of Service: 10/30/23 <Nancy Darby Ashlee - Last Filed: 10/30/23 18:03> Review of Systems 10-point ROS is otherwise unremarkable <Rancho Wood - Last Filed: 10/29/23 10:59> Physical Examination - Vital Signs Temperature: 98.5 F Blood Pressure: 123/59 Pulse: 68 Respirations: 16 Pulse Ox (%): 94 - Physical Exam General: Alert, In no apparent distress HEENT: Atraumatic, Normocephalic Neck: Supple, 2+ carotid pulse no bruit Respiratory: Clear to auscultation bilaterally, Normal air movement Cardiovascular: No edema, Normal pulses, Regular rate/rhythm, Normal S1 S2 Capillary refill: <2 Seconds Gastrointestinal: Normal bowel sounds, Soft and benign Musculoskeletal: No clubbing, No swelling, No contractures Integumentary: No rashes, No breakdown Neurological: Normal speech, Normal tone, Normal affect <Rancho Wood - Last Filed: 10/29/23 10:59> Assessment And Plan - Plan NSTEMI: Troponin is 198 <- 250 <- 306.2. Hold AC due to GI bleed. Cardiology cleared pt for EGD. EKG showed EKG Rate is 67 beats/min. Rhythm is regular, Sinus Rhythm with Occasional PVCs, Nonspecific rt intraventricular block. [place] interval is prolonged at 212 msec. QT interval is prolonged at 528 msec. No Q waves Pt has hx of Permanent pacemaker placement in 2017 GI bleeding: Patient is for colonoscopy today GI did EGD which showed 2 areas of possible Dieulafoy's lesion. They were cauterized and clipped. No active bleeding noted. Continue with PPI. Monitor H&H. GI will do colonoscopy before small bowel series today Symptomatic anemia: Hgb is 8.2<-7.9 <- 7.2 s/p 2 units of blood. Will monitor H/H. Chronic anticoagulation: Pt was taking xarelto at home. She did not received Kcentra due to NSTEMI. Acute on chronic kidney injury: Unknown baseline. Acute kidney injury, BUN 65 creatinine 1.1<- 1.08 <- 1.15 <- 1.65. Will avoid nephrotoxins and monitor renal function. Will continue home med for other chronic medical problems likely History of A- fib, Hypertension, HLD, CVA and CHF. Continue Fall precaution Code: Full code DVT ppx: SCD Discharge Plan: Home Plan to discharge in: 24 Hours - Code Status/Comfort Care Code Status Assessed: Yes Code Status: Full Code Physician Review: Patient Assessed, Agree with Above Assessment and Plan Critical Care: No Time Spent Managing PTS Care (In Minutes): 35 (minutes) <Rancho Wood - Last Filed: 10/29/23 10:59> - Plan Pt seen and examined. I agree with the note by the WEB MANAGER. GI reports poor colon prep. Will prep him overnight for another colonoscopy. <Nancy Darby - Last Filed: 10/30/23 18:03>
[2023-10-29] MEDS ORDERED: Ringers Lactate 1,000 ML IV ONE (12:32)
[2023-10-29] MEDS ORDERED: propofoL 200 MG/20 ML VIAL IV ONE (13:07)
[2023-10-29] MEDS ORDERED: LIDOCAINE 1% MPF 5 ML VIAL ONE (13:07)
[2023-10-29] MEDS ORDERED: METOCLOPRAMIDE 10 MG/2mL INJ IV SCH (13:43)
[2023-10-29] MEDS ORDERED: MAGNESIUM CITRATE 300 ML BOT PO SCH (13:43)
--- NOTE | 2023-10-29 13:47 | EKG ---
Test Date: 2023-10-24 Test Time: 11:43:17 Foot Roentgenologist: ALP MEASUREMENT RESULTS: Intervals: Rate: 67 TX: 212 QRSD: 138 QT: 500 QTc: 528 [place]: P: 99 TX: 212 QRS: 28 T: 89 INTERPRETIVE STATEMENTS: Sinus rhythm with marked sinus arrhythmia with 1st degree AV block with occasional atrial-paced complexes and with occasional p Nonspecific intraventricular block Abnormal ECG Compared to ECG 10/24/2023 11:42:40 Atrial premature complex(es) no longer present Ventricular-paced complex(es) or rhythm no longer present T-wave abnormality no longer present Electronically Signed On 10-29-23 13:28:17 STEEL ANALYST by Cali Yi
--- NOTE | 2023-10-29 13:47 | EKG ---
Test Date: 2023-10-24 Test Time: 11:42:40 Pigs Feet Cleaner: ALP MEASUREMENT RESULTS: Intervals: Rate: 67 LA: 216 QRSD: 140 QT: 494 QTc: 521 Jber: P: 69 LA: 216 QRS: 23 T: 105 INTERPRETIVE STATEMENTS: Sinus rhythm with 1st degree AV block with occasional ventricular-paced complexes and premature atrial complexes Nonspecific intraventricular block Abnormal QRS-T angle, consider primary T wave abnormality Abnormal ECG Compared to ECG 09/25/2023 20:12:41 T-wave abnormality now present Fusion complex(es) no longer present Aberrant conduction of supraventricular beat(s) no longer present Electronically Signed On 10-29-23 13:28:20 RN OFFICE by Cali Yi
[2023-10-29] MEDS ORDERED: GOLYTELY 4000 ML PO SCH (14:00)
[2023-10-29] MEDS: METOCLOPRAMIDE 10 MG/2mL INJ IV SCH ×4 (14:45→23:51)
[2023-10-29] MEDS ORDERED: GOLYTELY 4000 ML PO ONE (15:15)
[2023-10-29] MEDS ORDERED: MAGNESIUM CITRATE 300 ML BOT PO ONE (15:15)
--- NOTE | 2023-10-29 19:50 | RAD REPORT ---
EXAM DESCRIPTION: RAD - Abdomen Single View - 10/29/2023 2:49 pm CLINICAL HISTORY: Anemia COMPARISON: Colon Barium Enema dated 10/28/2023 TECHNIQUE: Single AP view of the abdomen. FINDINGS: Significant residual contrast throughout the large bowel. Small specks of contrast in the small bowel as well. Nonobstructive bowel gas pattern. No air-fluid levels, free air, or pneumatosis. No suspicious calcif ications. No significant bony abnormality. IMPRESSION: Significant residual contrast throughout the large colon, would probably degraded qualit y of a small-bowel series.
[2023-10-29] MEDS: ATORVASTATIN 40 MG TAB PO SCH (20:09)
[2023-10-30] MEDS: LEVOTHYROXINE SOD 0.1 MG TAB PO SCH (06:04)
[2023-10-30 06:31] LABS: Potassium 3.7 mEq/L (3.5-5.1)
[2023-10-30] MEDS ORDERED: POTASSIUM 25 MEQ EFFERV TAB PO ONE (09:00)
[2023-10-30] MEDS: AMIODARONE HCL 200 MG TAB PO SCH (09:15)
[2023-10-30] MEDS: PANTOPRAZOLE 40 MG INJ IVP SCH (09:15)
[2023-10-30] MEDS: NIFEDIPINE XL 90 MG TABLET PO SCH (09:15)
[2023-10-30] MEDS: TAMSULOSIN 0.4 MG SR CAP PO SCH (09:15)
[2023-10-30] MEDS ORDERED: FAMOTIDINE 20 MG TAB PO SCH (11:00)
[2023-10-30] MEDS ORDERED: POTASSIUM CL SA 10 MEQ TAB PO SCH (11:00)
[2023-10-30] MEDS ORDERED: BUDESONIDE 0.25 MG/2 ML NEB NEB SCH (11:00)
[2023-10-30 12:01] LABS: Absolute Lymphocytes (CBC) 0.4 K/uL (0.7-4.9); Hematocrit 27.7 % (39.6-49.0); Lymphocytes % 6.2 % (15.3-44.8); MCV 84.9 fL (80-100); MPV 7.8 fL (7.6-11.3); Platelets 162 thou/uL (152-406); RBC Red Blood Cell Count 3.26 M/uL (4.33-5.43)
[2023-10-30 12:03] VITALS: BP 119/55; TEMP 97.8; O2SAT 99
--- NOTE | 2023-10-30 14:33 | P.DS ---
Admission Date: 10/24/23 Discharge Date: 10/30/23 Reason for Admission: GI bleed - Problems (1) GI bleeding Status: Acute (2) Afib Status: Chronic (3) HLD (hyperlipidemia) Status: Chronic Brief History of Present Illness: History of Present Illness: 78 yo patient with a past medical history of HTN, HLD, CHF, and CVA x2. He had a pacemaker placed in 2017 presents to the emergency room with dark tarry stools. He reported 7 stools yesterday, 2 today. He denies no fever, nausea, no vomiting, abdominal pain. Here reports shortness of breath worse with exertion. reports dark tarry stools, he reports symptoms started over the last couple months is progressively getting worse. He reports being on Xarelto and Plavix seen Dr. Yi for cardiology. He reports associated shortness of breath that is worse with exertion, fatigue, increasing weakness, fatigue. he reports lightheadedness that is worse with exertion. No reported falls. is at bedside,. Plan to admit for symptomatic anemia, GI bleed, chronic anticoagulation, NSTEMI, laboratory evaluation hemoglobin 5.4, hematocrit 15.9 no leukocytosis, early left shift 84.1 acute kidney injury, BUN 65 creatinine 1.65 troponin 306.2 TSH normal at 2.790, EKG Rate is 67 beats/min. Rhythm is regular, Sinus Rhythm with Occasional PVCs, Nonspecific rt intraventricular block. [place] interval is prolonged at 212 msec. QT interval is prolonged at 528 msec. No Q waves. Hospital Course: Patient was admitted as the hemoglobin was 5.4 over hematocrit 15.9, patient was given blood transfusions total of 5 units. Started on PPI and Zosyn. Referred to the distance learning coordinator. endoscopy and colonoscopy performed by Dr. Mccormack on10/29/23 bur result was not optimal astrid to poor colon preparation. Patient was scheduled for endoscopy and colonoscopy on 10/30/2023. But patient refused to have a procedure done as he wanted to get discharge sooner and do the procedures as outpatient status. Referred to the reversing mill roller's his troponin was elevated. On 10/30/2023, patient was seen on morning rounds and deemed medically stable for discharge. Patient was discharged with instructions to schedule follow-up appointments with PCP in 1 week. The patient and family members were given the opportunity to ask questions and reported no further questions. Furthermore, all questions were answered to the best of my ability. <Rancho Wood - Last Filed: 10/30/23 14:29> Admission Date: 10/24/23 Discharge Date: 10/30/23 Hospital Course: Pt seen and examined. i agree with the note by the STEAM BOX OPERATOR. Pt refused small bowel series. He wants to follow up with GI in clinic. <Nancy Darby Ashlee - Last Filed: 10/30/23 17:50> Disposition: ROUTINE DISCHARGE Discharge Condition: GOOD Vital Signs/Physical Exam: Temp Pulse Resp BP Pulse Ox 97.8 F 75 16 119/55 L 99 10/30/23 11:58 10/30/23 11:58 10/30/23 11:58 10/30/23 11:58 10/30/23 11:58 General: Alert, Oriented x3 HEENT: Atraumatic, Normocephalic Neck: Supple, 2+ carotid pulse no bruit Respiratory: Clear to auscultation bilaterally, Normal air movement Cardiovascular: No edema, Normal pulses Capillary refill: <2 Seconds Gastrointestinal: Normal bowel sounds, Soft and benign Musculoskeletal: Swelling (1+ LLE) Neurological: Normal speech, Normal tone, Normal affect Laboratory Data at Discharge: WBC 6.60 thou/uL (4.3-10.9) 10/30/23 11:50 Hgb 8.9 g/dL (13.6-17.9) L 10/30/23 11:50 Hct 27.7 % (39.6-49.0) L 10/30/23 11:50 Plt Count 162 thou/uL (152-406) 10/30/23 11:50 PT 13.3 SECONDS (9.5-12.5) H 10/27/23 05:07 INR 1.22 10/27/23 05:07 APTT 28.9 SECONDS (24.3-36.9) 10/27/23 05:07 Sodium 139 mEq/L (136-145) 10/30/23 06:05 Potassium 3.7 mEq/L (3.5-5.1) 10/30/23 06:05 BUN 10 mg/dL (7-18) 10/30/23 06:05 Creatinine 1.19 mg/dL (0.70-1.30) 10/30/23 06:05 Glucose 116 mg/dL (74-106) H 10/30/23 06:05 Phosphorus 2.7 mg/dL (2.5-4.9) 10/26/23 05:05 Magnesium 2.1 mg/dL (1.6-2.4) 10/28/23 17:00 Total Bilirubin 0.2 mg/dL (0.2-1.0) 10/24/23 11:47 AST 8 U/L (15-37) L 10/24/23 11:47 ALT 20 U/L (16-61) 10/24/23 11:47 Alkaline Phosphatase 49 U/L (45-117) 10/24/23 11:47 <Rancho Wood - Last Filed: 10/30/23 14:29> Vital Signs/Physical Exam: Temp Pulse Resp BP Pulse Ox 97.8 F 75 16 119/55 L 99 10/30/23 11:58 10/30/23 11:58 10/30/23 11:58 10/30/23 11:58 10/30/23 11:58 Laboratory Data at Discharge: WBC 6.60 thou/uL (4.3-10.9) 10/30/23 11:50 Hgb 8.9 g/dL (13.6-17.9) L 10/30/23 11:50 Hct 27.7 % (39.6-49.0) L 10/30/23 11:50 Plt Count 162 thou/uL (152-406) 10/30/23 11:50 PT 13.3 SECONDS (9.5-12.5) H 10/27/23 05:07 INR 1.22 10/27/23 05:07 APTT 28.9 SECONDS (24.3-36.9) 10/27/23 05:07 Sodium 139 mEq/L (136-145) 10/30/23 06:05 Potassium 3.7 mEq/L (3.5-5.1) 10/30/23 06:05 BUN 10 mg/dL (7-18) 10/30/23 06:05 Creatinine 1.19 mg/dL (0.70-1.30) 10/30/23 06:05 Glucose 116 mg/dL (74-106) H 10/30/23 06:05 Phosphorus 2.7 mg/dL (2.5-4.9) 10/26/23 05:05 Magnesium 2.1 mg/dL (1.6-2.4) 10/28/23 17:00 Total Bilirubin 0.2 mg/dL (0.2-1.0) 10/24/23 11:47 AST 8 U/L (15-37) L 10/24/23 11:47 ALT 20 U/L (16-61) 10/24/23 11:47 Alkaline Phosphatase 49 U/L (45-117) 10/24/23 11:47 <Nancy Darby - Last Filed: 10/30/23 17:50> Diet: Low sodium Activity: Ad nic Time spent managing pt's care (in minutes): 55 (Minutes) <Rancho Wood - Last Filed: 10/30/23 14:29> <Nancy Darby - Last Filed: 10/30/23 17:50> Home Medications: Potassium Chloride [Klor-Con] 20 meq PO BID 07/27/13 Furosemide [Lasix*] 40 mg PO BIDWM 06/09/16 Nifedipine Xl [Procardia XL*] 90 mg PO BIDWM 06/09/16 Budesonide [Pulmicort*] 1 puff NEB BID 08/26/19 Rivaroxaban [Xarelto] 1 tab PO 1700 08/26/19 Atorvastatin Calcium [Lipitor*] 40 mg PO Q48H 10/12/19 Omeprazole 20 mg PO BID 10/12/19 Amiodarone HCl [Cordarone*] 1 tab PO DAILY 09/27/23 Clopidogrel Bisulfate [Plavix*] 1 tab PO DAILY 09/27/23 Formoterol Fumarate 20 mcg NEB BID 09/27/23 Levothyroxine [Synthroid*] 1 tab PO DAILY 09/27/23 Tamsulosin HCl [Flomax] 1 tab PO BID 09/27/23 Famotidine [Pepcid*] 20 mg PO DAILY tab 10/30/23 Physician Discharge Instructions: Mr. Patterson is a pleasant 78-year-old male patient is a pleasant with a past medical history significant for hypertension, hyperlipidemia, CHF and CVA x 2 who was admitted to the [facility] on 10/24/2023 with complaints of diabetes stools, shortness of breath with exertion, fatigue, increasing weakness. Patient was admitted as the hemoglobin was 5.4 over hematocrit 15.9, patient was given blood transfusions total of 5 units. Started on PPI and Zosyn. Referred to the distance learning coordinator. endoscopy and colonoscopy performed by Dr. Mccormack on10/29/23 bur result was not optimal astrid to poor colon preparation. Patient was scheduled for endoscopy and colonoscopy on 10/30/2023. But patient refused to have a procedure done as he wanted to get discharge sooner and do the procedures as outpatient status. Referred to the reversing mill roller's his troponin was elevated. On 10/30/2023, patient was seen on morning rounds and deemed medically stable for discharge. Patient was discharged with instructions to schedule follow-up appointments with PCP in 1 week. The patient and family members were given the opportunity to ask questions and reported no further questions. Furthermore, all questions were answered to the best of my ability. 1. Please call and schedule a follow-up appointment with your PCP in 3-5 days 2. Please call and schedule a follow-up appointment with distance learning coordinator in 1 week. - Please follow-up with your PCP for medication refills/adjustments -Please call if any questions regarding hospital stay -Please call nursing station at [phone] if any nursing or medication questions -Return to the emergency room if symptoms worsen. Followup: Shon Marcial DO [Primary Care Provider] - (F/U in 3-5 days) Devonte Giraldo MD [ASSOCIATE-ACTIVE - CAN ADMIT] - 1 Week
[2023-10-30] MEDS ORDERED: PANTOPRAZOLE 40MG TABLET PO SCH (16:30)
[2023-10-30] MEDS ORDERED: FUROSEMIDE 40 MG TABLET PO SCH (17:00)
[2023-10-30] MEDS ORDERED: ARFORMOTEROL TARTRATE 15 MCG/2 ML VIAL.NEB IH SCH (19:00)
[2023-10-30] MEDS ORDERED: HOME MED 1 EA UNK (Omeprazole [Omeprazole] 20 MG Tablet.Dr) PO SCH (21:00)
[2023-10-30] MEDS ORDERED: ENSURE CLEAR 200 ML CAN PO SCH (21:00)
[2023-10-30] MEDS ORDERED: FORMOTEROL FUMARATE 20 MCG/2 ML NEB SCH (21:00)
[2023-10-30] MEDS ORDERED: HOME MED 1 EA UNK (Potassium Chloride [Klor-Con] 20 MEQ Packet) PO SCH (21:00)
[2023-10-31] MEDS ORDERED: CLOPIDOGREL 75 MG TABLET PO SCH (09:00)
[2023-10-31] MEDS ORDERED: HOME MED 1 EA UNK (Famotidine [Pepcid] 40 MG Tablet) PO SCH (09:00)
[2023-10-31] MEDS ORDERED: ATORVASTATIN 40 MG TAB PO SCH (21:00)
--- NOTE | 2023-11-02 15:15 | EKG ---
Test Date: 2023-10-28 Test Time: 18:09:53 Paper Wrapping Machine Operator: JYOTI MEASUREMENT RESULTS: Intervals: Rate: 77 NV: QRSD: 144 QT: 500 QTc: 565 [place]: P: NV: QRS: 13 T: 100 INTERPRETIVE STATEMENTS: Atrial fibrillation with premature ventricular or aberrantly conducted complexes Left bundle branch block Abnormal ECG Electronically Signed On 11-02-23 15:03:52 PALLETISER OPERATOR by Cali Yi
== END 2023-10-30 15:27 | disposition home or self-care (01) | DRG 377 ==
LOC: ER 10:57 → ERHOLD 13:31 → 2ND 13:53
PROVIDERS: ADMIT Hospitalist; ATTEND Hospitalist
PROC: 30233N1 Transfusion of Nonautologous Red Blood Cells into Peripheral Vein, Percutaneous Approach (ICD-10-PCS; 2023-10-24)
PROC: 0W3P8ZZ Control Bleeding in Gastrointestinal Tract, Via Natural or Artificial Opening Endoscopic (ICD-10-PCS; principal; 2023-10-25 13:15)
PROC: 0DJ08ZZ Inspection of Upper Intestinal Tract, Via Natural or Artificial Opening Endoscopic (ICD-10-PCS; 2023-10-28)
PROC: 0DJD8ZZ Inspection of Lower Intestinal Tract, Via Natural or Artificial Opening Endoscopic (ICD-10-PCS; 2023-10-28)
DX: K31.82 Dieulafoy lesion (hemorrhagic) of stomach and duodenum (principal); I21.4 Non-ST elevation (NSTEMI) myocardial infarction; D62 Acute posthemorrhagic anemia; N17.9 Acute kidney failure, unspecified; K64.8 Other hemorrhoids; E78.5 Hyperlipidemia, unspecified; I11.0 Hypertensive heart disease with heart failure; I50.9 Heart failure, unspecified; I49.3 Ventricular premature depolarization; K29.00 Acute gastritis without bleeding; I48.91 Unspecified atrial fibrillation; K64.4 Residual hemorrhoidal skin tags; Z95.5 Presence of coronary angioplasty implant and graft; Z90.49 Acquired absence of other specified parts of digestive tract; Z79.01 Long term (current) use of anticoagulants; Z86.73 Personal history of transient ischemic attack (TIA), and cerebral infarction without residual deficits; Z79.02 Long term (current) use of antithrombotics/antiplatelets; Z79.899 Other long term (current) drug therapy; Z79.890 Hormone replacement therapy; Z87.891 Personal history of nicotine dependence; Z96.653 Presence of artificial knee joint, bilateral; Z95.810 Presence of automatic (implantable) cardiac defibrillator
CPT/HCPCS: 36415; 36430; 71045; 74018; 74270; 80048; 80076; 81003; 82607; 83540; 83735; 83880; 84100; 84443; 84484; 85014; 85018; 85025; 85027; 85610; 85730; 86850; 86900; 86901; 86920; 93005; 93971; 94760; C9113; J0171; J0360; J1200; J1940; J2001; J2405; J2543; J2704; J2765; J7050; J7120; J7168; P9016

== ENCOUNTER 2023-11-22 20:29 | Observation (INO) | payer OTHER ==
--- NOTE | 2023-11-22 21:06 | RAD REPORT ---
EXAM DESCRIPTION: CT - Head Brain Wo Cont - 11/22/2023 8:56 pm CLINICAL HISTORY: Left-sided weakness COMPARISON: 2018 TECHNIQUE: Computed axial tomography of the head was obtained. IV contrast was not requested. All CT scans are performed using dose optimization technique as appropriate and may include automated exposure control or mA/KV adjustment according to patient size. FINDINGS: An intracranial bleed is not seen The ventricles are normal in caliber No extra-axial fluid collection is noted. Mild to moderate low-density areas within periventricular, deep and subcortical white matter likely r epresent ischemic changes secondary to small vessel disease. Fluid within the sinuses/ mastoids is not seen. IMPRESSION: No acute intracranial abnormality is seen If patient's symptoms persist MRI of the brain would be recommended
[2023-11-22 21:14] LABS: Absolute Lymphocytes (CBC) 1.2 K/uL (0.7-4.9); Hematocrit 28.1 % (39.6-49.0); Lymphocytes % 12.2 % (15.3-44.8); MPV 7.8 fL (7.6-11.3); Platelets 281 thou/uL (152-406); RBC Red Blood Cell Count 3.56 M/uL (4.33-5.43)
[2023-11-22 21:30] LABS: Protime INR 1.18
[2023-11-22 21:34] LABS: Troponin High Sensitivity 446.8 pg/mL (<58.9)
--- NOTE | 2023-11-22 22:08 | RAD REPORT ---
EXAM DESCRIPTION: [place] Single View11/22/2023 9:49 pm CLINICAL HISTORY: Chest pain COMPARISON: November 19, 2023 FINDINGS: The lungs appear clear of acute infiltrate. The heart is mildly enlarged. Pacemaker leads in place
--- NOTE | 2023-11-22 22:19 | RAD REPORT ---
EXAM DESCRIPTION: CTHead angio11/22/2023 9:51 pm CLINICAL HISTORY: Left-sided numbness COMPARISON: none TECHNIQUE: 100 cc Isovue [address] angiogram of the head was obtained. 3D MIPS reconstruction performed. All CT scans are performed using dose optimization technique as appropriate and may include automated exposure control or mA/KV adjustment according to patient size. FINDINGS: The basilar, anterior cerebral, middle cerebral and posterior cerebral arteries do not dem onstrate a significant stenosis Mild calcified plaque distal internal carotid arteries An aneurysm is not seen No large vessel occlusion IMPRESSION: No significant abnormality is displayed
--- NOTE | 2023-11-22 22:19 | RAD REPORT ---
EXAM DESCRIPTION: Peter Angio11/22/2023 9:53 pm CLINICAL HISTORY: Left-sided numbness COMPARISON: None TECHNIQUE: 100 cc Isovue [address] angiogram of the neck was obtained. 3D MIPS reconstruction performed. All CT scans are performed using dose optimization technique as appropriate and may include automated exposure control or mA/KV adjustment according to patient size. FINDINGS: Mild plaque is present within common carotid, internal carotid and external carotid arteri es bilaterally Left vertebral artery is hypoplastic. Mild to moderate calcified plaque distal right vertebral artery. No dissection is seen. No high-grade stenosis IMPRESSION: No significant abnormality displayed Nascet crieria Mild stenosis 0 to 49 % Moderate stenosis 50-69% Severe stenosis 70-99%
--- NOTE | 2023-11-22 22:28 | EDPHYS ---
Physician Documentation [facility] Name: Zen Patterson Age: 78 yrs Sex: Male : 1945 Arrival Date: 11/22/2023 Time: 20:29 Bed 17 Private MD: ED Physician Reuben Anderson HPI: 11/22 20:52 This 78 yrs old Male presents to ER via Unassigned with complaints of L sided ec2 numbness. 20:52 Patient arrives today for evaluation of left-sided numbness. Patient reports left-sided ec2 numbness intermittently ongoing for the past hour. Patient reports history of stroke. Patient reports he is currently on Plavix. Patient also reports history of recent massive GI bleed requiring transfusions. Recent hospitalization as recently as 1 month ago. Patient reports symptoms are intermittent. Denies any falls or injuries or trauma, denies any nausea or vomiting.. Historical: - Allergies: 23:03 No Known Allergies; tl4 - Home Meds: 23:03 allopurinol 100 mg Oral tablet 1 tabs daily [Active]; amiodarone 200 mg Oral tablet 1 tl4 tab daily [Active]; atorvastatin 40 mg Oral tablet 1 tab 4 times/week [Active]; budesonide 0.25 mg/2 mL inhalation Suspension for Nebulization 4 mL 2 times per day [Active]; clopidogrel 75 mg Oral tablet 1 tab every other day [Active]; famotidine 40 mg Oral tablet 1 tab daily [Active]; formoterol fumarate 20 mcg/2 mL inhalation Solution for Nebulization 4 mL 2 times per day [Active]; furosemide 40 mg Oral tablet 1 tab 2 times per day [Active]; levothyroxine 100 mcg tablet 1 tab daily [Active]; nifedipine 90 mg Oral tablet 1 tab as needed [Active]; omeprazole 40 mg Oral capsule 1 cap daily [Active]; tamsulosin 0.4 mg Oral capsule 1 cap daily [Active]; aspirin 81 mg oral tablet,chewable 1 tab every other day taken with clopidogrel [Active]; losartan potassium (bulk) 12.5mg 12.5 mg daily [Active]; potassium chloride 20 mEq Oral tablet, extended release 1 tab daily [Active]; - PMHx: 21:05 Atrial fibrillation; CHF; CVA; Hyperlipidemia; Hypertension; ICD/Pacemaker; vc1 - PSHx: 21:05 Stented artery; Coronary artery bypass graft; watchman (Coronary artery bypass graft); vc1 - Immunization history:: Client reports receiving the 2nd dose of the Covid vaccine, Pneumococcal vaccine is up to date, Flu vaccine is up to date. - Social history:: Smoking status: Patient/guardian denies using tobacco, but has a distant history of tobacco abuse. ROS: 20:52 Constitutional: as per hpi ec2 Exam: 20:52 Constitutional: GEN: NAD Head: atraumatic Eyes: EOMI Ears: External ears are ec2 normal. CV: regular rate LUNGS: no respiratory distress ABD: non-distended SKIN: no evidence of rashes MSK: no evidence of trauma NEURO: moves all extremities equally, cranial nerves II through XII intact, strength intact in all 4 extremities, sensation intact throughout all 4 extremities. Vital Signs: 20:33 BP 112 / 69; Pulse 69; Resp 15; Temp 97.5; Pulse Ox 96% ; Weight 83.01 kg; Height 5 ft. vc1 11 in. ; Pain 0/10; 21:30 BP 114 / 71; Pulse 66; Resp 21; Pulse Ox 97% on R/A; tl4 21:50 BP 115 / 57; Pulse 65; Resp 23; Pulse Ox 97% on R/A; tl4 22:05 BP 129 / 53; Pulse 74; Resp 24; Pulse Ox 97% on R/A; tl4 22:27 BP 119 / 56; Pulse 69; Resp 20; Pulse Ox 98% on R/A; Pain 0/10; tm6 23:04 BP 109 / 67; Pulse 68; Resp 20; Pulse Ox 97% on R/A; Pain 0/10; tl4 23:30 BP 110 / 53; Pulse 68; Resp 17; Pulse Ox 97% on R/A; Pain 0/10; tl4 11/23 00:30 BP 106 / 54; Pulse 63; Resp 20; Pulse Ox 100% ; vc1 11/22 20:33 Body Mass Index 25.52 (83.01 kg, 180.34 cm) vc1 11/22 20:33 Pain Scale: Adult vc1 22:27 Pain Scale: Adult tm6 23:04 Pain Scale: Adult tl4 23:30 Pain Scale: Adult tl4 NIH Stroke Scale Scores: 11/22 21:20 NIHSS Score: 1 tl4 Yesica Coma Score: 21:30 Eye Response: spontaneous(4). Motor Response: obeys commands(6). Verbal Response: tl4 oriented(5). Total: 15. MDM: 20:38 Patient medically screened. ec2 20:52 Data reviewed: vital signs. ED course: Patient arrives today for evaluation of ec2 left-sided numbness. Examination remarkable for neuro intact individual is otherwise in no acute distress with a reassuring examination. Ultimately patient with 2 contraindications for TNK and is not an appropriate candidate given the recent massive GI bleed as well as Plavix use. Will obtain a stroke workup and ultimately admit the patient.. 22:15 ED course: Metabolic profile shows renal dysfunction with a creatinine of 1.52 and GFR ec2 46. CBC is reassuring, slight anemia noted. Troponin elevated at 447. CT scan of the head shows no acute intracranial process. Chest x-ray with no acute intrathoracic process noted. . 22:24 ED course: CT angio head and neck showed no acute intracranial or neck pathology. ec2 Ultimately will admit the patient for elevated troponin and left-sided numbness for further neuroevaluation. I discussed case with hospitalist, pending admission orders.. 22:26 ED course: Of note when compared to external records, patient with markedly elevated ec2 troponins in the past as well. Given the patient's history of internal bleeding, will defer anticoagulation at this time as he is already on Plavix.. 23:42 ED course: CT scan of the head shows no acute intracranial abnormality.. ec2 11/22 20:52 Order name: Basic Metabolic Panel; Complete Time: 22:14 ec2 11/22 20:52 Order name: CBC with Diff; Complete Time: 22:14 ec2 11/22 20:52 Order name: High Sensitivity Troponin; Complete Time: 22:14 ec2 11/22 20:52 Order name: Protime (+inr); Complete Time: 22:14 ec2 11/22 20:52 Order name: Ptt, Activated; Complete Time: 22:14 ec2 11/22 21:58 Order name: Glucose, Ancillary Testing; Complete Time: 22:14 EDMS 11/22 23:44 Order name: CBC with Automated Diff EDMS 11/22 23:44 Order name: CBC with Automated Diff EDMS 11/22 23:44 Order name: Comprehensive Metabolic Panel EDMS 11/22 23:44 Order name: Comprehensive Metabolic Panel [facility] 11/22 23:44 Order name: Troponin High Sensitivity [facility] 11/22 23:44 Order name: Troponin High Sensitivity [facility] 11/22 23:44 Order name: Troponin High Sensitivity [facility] 11/22 23:44 Order name: Troponin High Sensitivity [facility] 11/23 09:22 Order name: Glucose, Ancillary Testing [facility] 11/22 20:41 Order name: CT Head Brain wo Cont; Complete Time: 22:14 ec2 11/22 20:52 Order name: CT Head Angio; Complete Time: 22:24 ec2 11/22 20:52 Order name: CT Neck Angio; Complete Time: 22:24 ec2 11/22 20:52 Order name: Stroke CXR 1 View; Complete Time: 22:14 ec2 11/22 20:52 Order name: EKG; Complete Time: 20:53 ec2 11/22 20:52 Order name: Accucheck; Complete Time: 21:48 ec2 11/22 20:52 Order name: Cardiac monitoring; Complete Time: 21:04 ec2 11/22 20:52 Order name: EKG - Nurse/Tech; Complete Time: 21:04 ec2 11/22 20:52 Order name: IV Saline Lock; Complete Time: 21:04 ec2 11/22 20:52 Order name: Labs collected and sent; Complete Time: 21:04 ec2 11/22 20:52 Order name: NPO; Complete Time: 22:00 ec2 11/22 20:52 Order name: O2 Per Protocol; Complete Time: 22:00 ec2 11/22 20:52 Order name: O2 Sat Monitoring; Complete Time: 22:00 ec2 11/22 20:52 Order name: Stroke Swallow Screen; Complete Time: 01:32 ec2 Administered Medications: No medications were administered Point of Care Testing: Blood Glucose: 21:49 Blood Glucose: 212 mg/dL; tl4 Ranges: Critical Glucose Levels:Adult <50 mg/dl or >400 mg/dl <40 mg/dl or >180 mg/dl Disposition Summary: 11/22/23 22:27 Hospitalization Ordered Notes: Hospitalization Status: Inpatient Admission ec2 Condition: Stable ec2 Problem: new ec2 Symptoms: have improved ec2 Bed/Room Type: Standard ec2 Provider: Yung Epps(11/22/23 23:23) ec2 Location: Telemetry/MedSurg (Inpatient)(11/23/23 07:20) bd Room Assignment: 221(11/23/23 07:20) bd Diagnosis - Left Sided Numbness ec2 - Stroke Like Symptoms ec2 Forms: - Medication Reconciliation Form ec2 - SBAR form ec2 - Leadership Thank You Letter ec2 NIH Stroke Scale - NIH Stroke Score Date: 11/22/2023 Time: 21:20 Total Score = 1 10. Dysarthria (speech clarity - read or repeat words) - 0(Normal) 11. Extinction and Inattention (visual/tactile/auditory/spatial/personal) - 0(No abnormality) 1a. Level of Consciousness (LOC) - 0(Alert) 1b. Level of Consciousness (LOC) (Month \T\ Age) - 0(Both) 1c. LOC Commands (Open \T\ Closes Eyes/[employer] Worker) - 0(Both) 2. Best Gaze (Lateral Gaze Paresis) - 0(Normal) 3. Visual Field Loss - 0(No visual loss) 4. Facial Palsy - 0(Normal) 5a. Left Arm: Motor (10-second hold) - 0(No drift) 5b. Right Arm: Motor (10-second hold) - 0(No drift) 6a. Left Leg: Motor (5-second hold - always test supine) - 0(No drift) 6b. Right Leg: Motor (5-second hold - always test supine) - 0(No drift) 7. Limb Ataxia (finger/nose \T\ heel/duke - test with eyes open) - 0(Absent) 8. Sensory Loss (pinprick arms/legs/face) - 1(Mild to moderate loss) 9. Best Language: Aphasia (description/naming/reading) - 0(No aphasia) Initials: tl4 Signatures: Dispatcher [employer] EDMS Steph Jackson Cindy, RN RN cg Nayeli Coffey RN RN vc1 Reuben Anderson MD MD ec2 Johann Cardona RN RN tl4 Corrections: (The following items were deleted from the chart) 23:22 22:27 Telemetry/MedSurg (Inpatient) ec2 cg 23:22 22:27 ec2 23:23 22:27 [place], [place] ec2 ec2 11/23 23:22 [facility] ER [facility] cg bd 11/23 23: [facility] bd
--- NOTE | 2023-11-22 22:28 | ER ---
Nurse's Notes [facility] Name: Zen Patterson Age: 78 yrs Sex: Male : 1945 Arrival Date: 11/22/2023 Time: 20:29 Bed 17 Private MD: Diagnosis: Left Sided Numbness;Stroke Like Symptoms Presentation: 11/22 20:33 Chief complaint: Patient states: "I started having some left sided numbness about 30-45 vc1 minutes ago, I have extreme pressure in my head.". 20:33 Method Of Arrival: Ambulatory vc1 20:33 Coronavirus screen: Vaccine status: Patient reports receiving the 2nd dose of the covid vc1 vaccine. Client denies travel out of the [place] in the last 14 days. At this time, the client does not indicate any symptoms associated with coronavirus-19. Ebola Screen: Patient negative for fever greater than or equal to 101.5 degrees Fahrenheit, and additional compatible Ebola Virus Disease symptoms Patient denies exposure to infectious person. Patient denies travel to an Ebola-affected area in the 21 days before illness onset. No symptoms or risks identified at this time. Initial Sepsis Screen: Does the patient meet any 2 criteria? No. Patient's initial sepsis screen is negative. Does the patient have a suspected source of infection? No. Patient's initial sepsis screen is negative. Risk Assessment: Do you want to hurt yourself or someone else? Patient reports no desire to harm self or others. Note stopped taking xarelto at the end of September, had massive GI bleed this month requiring 5 units of blood and takes plavix every other day. Onset of symptoms was November 22, 2023 at 19:45. Care prior to arrival: None. Activity prior to arrival: None. Mechanism of Injury: No Mechanism of Injury. Transition of care: patient was not received from another setting of care. 20:33 Acuity: YASSINE 2 vc1 21:30 No acute neurological deficit is noted. Pre-hospital glucose is not applicable to this tl4 patient. Triage Assessment: 20:33 General: Appears in no apparent distress. uncomfortable, slender, Behavior is calm, vc1 cooperative, appropriate for age, Denies fever, chills. Pain: Denies pain. EENT: No deficits noted. No signs and/or symptoms were reported regarding the EENT system. Neuro: Level of Consciousness is awake, alert, obeys commands, Oriented to person, place, time, situation, Appropriate for age Curriculum And Instruction Director are equal bilaterally Moves all extremities. Gait is steady, placed more weight on right leg than left leg when transferring from wheelchair to stretcher. Reports extreme pressure in head that has resolved, now numbness to left side of head.. 20:33 Neuro: Montes Agitation-Sedation Scale (RASS): 0 - Alert and Calm Denies blurred vc1 vision dizziness. Cardiovascular: No deficits noted. Respiratory: Airway is patent Respiratory effort is even, unlabored, Respiratory pattern is regular, symmetrical. GI: No deficits noted. No signs and/or symptoms were reported involving the gastrointestinal system. : No deficits noted. No signs and/or symptoms were reported regarding the genitourinary system. Derm: No deficits noted. No signs and/or symptoms reported regarding the dermatologic system. Musculoskeletal: No deficits noted. No signs and/or symptoms reported regarding the musculoskeletal system. 23:24 The onset of the patients symptoms was November 22, 2023 at 19:45. tl4 Stroke Activation: Symptom onset < 3 hours Physician: Stroke Attending; Name: ; Notified At: ; Arrived At: Physician: Chief Stroke Resident; Name: ; Notified At: ; Arrived At: Physician: Stroke Resident; Name: ; Notified At: ; Arrived At: Physician: ED Attending; Name: ; Notified At: ; Arrived At: Physician: ED Resident; Name: ; Notified At: ; Arrived At: Historical: - Allergies: 23:03 No Known Allergies; tl4 - Home Meds: 23:03 allopurinol 100 mg Oral tablet 1 tabs daily [Active]; amiodarone 200 mg Oral tablet 1 tl4 tab daily [Active]; atorvastatin 40 mg Oral tablet 1 tab 4 times/week [Active]; budesonide 0.25 mg/2 mL inhalation Suspension for Nebulization 4 mL 2 times per day [Active]; clopidogrel 75 mg Oral tablet 1 tab every other day [Active]; famotidine 40 mg Oral tablet 1 tab daily [Active]; formoterol fumarate 20 mcg/2 mL inhalation Solution for Nebulization 4 mL 2 times per day [Active]; furosemide 40 mg Oral tablet 1 tab 2 times per day [Active]; levothyroxine 100 mcg tablet 1 tab daily [Active]; nifedipine 90 mg Oral tablet 1 tab as needed [Active]; omeprazole 40 mg Oral capsule 1 cap daily [Active]; tamsulosin 0.4 mg Oral capsule 1 cap daily [Active]; aspirin 81 mg oral tablet,chewable 1 tab every other day taken with clopidogrel [Active]; losartan potassium (bulk) 12.5mg 12.5 mg daily [Active]; potassium chloride 20 mEq Oral tablet, extended release 1 tab daily [Active]; - PMHx: 21:05 Atrial fibrillation; CHF; CVA; Hyperlipidemia; Hypertension; ICD/Pacemaker; vc1 - PSHx: 21:05 Stented artery; Coronary artery bypass graft; watchman (Coronary artery bypass graft); vc1 - Immunization history:: Client reports receiving the 2nd dose of the Covid vaccine, Pneumococcal vaccine is up to date, Flu vaccine is up to date. - Social history:: Smoking status: Patient/guardian denies using tobacco, but has a distant history of tobacco abuse. Screenin:33 VAN Screening: Arm Drift: Patient shows no arm weakness. Patient is VAN negative. vc1 22:00 [place] Swallow Protocol Exclusion Criteria: Unable to remain alert for testing: No NPO tm6 for medical/surgical reason by provider order No Head-of-bed restricted <30 degrees Tracheostomy tube present No No thin liquids due to preexisting dysphagia/baseline modified diet thickened liquids No Exclusion Criteria Result: Proceed Brief Cognitive Screen What is your name? Normal, Where are you right now? Normal, What year is it? Normal. Oral Mechanism Examination Facial Symmetry: Normal, Motion: Normal, Lip Closure: Normal, Oral Mechanism Result: Normal. 3 oz Water Swallow Challenge: Pt able to drink all water without stopping, coughing, choking or throat clearing: Yes Result: PASS. 22:55 [facility] ED Fall Risk Assessment (Adult) History of falling in the last 3 months, tl4 including since admission No falls in past 3 months (0 pts) Confusion or Disorientation No (0 pts) Intoxicated or Sedated No (0 pts) Impaired Gait No (0 pts) Mobility Assist Device Used No (0 pt) Altered Elimination No (0 pt) Score/Fall Risk Level 0 - 2 = Low Risk Oriented to surroundings, Maintained a safe environment, Educated pt \\T\\ family on fall prevention, incl call for assistance when getting out of bed, Assessed \\T\\ reinforced patient's understanding of fall precautions, Provided non-skid footwear, Hourly rounding (assess needs \\T\\ fall precautionary measures) done, Used ambulatory aids as needed (educated on \\T\\ assisted with), Used gait belt as appropriate. Abuse screen: Denies threats or abuse. Denies injuries from another. Nutritional screening: No deficits noted. Tuberculosis screening: No symptoms or risk factors identified. Assessment: 21:22 VAN Scoring: Arm Drift: Patients demonstrates NO arm weakness. Patient is VAN Negative. tl4 Visual Disturbance: No visual disturbance noted. Aphasia: No aphasia noted. Neglect: No neglect noted. 21:22 TNKase (Tenecteplase) Screening: Contraindications: Is the patient on Aspirin, Heparin, tl4 or Warfarin: Yes. Gastrointestinal or urinary tract hemorrhage within the previous 21 days: Yes. 21:30 General: Appears in no apparent distress. Behavior is calm, cooperative. Pain: Denies tl4 pain. Neuro: Reports numbness intermittently in back of leg, underarm and hand. Cardiovascular: No deficits noted. Denies chest pain, diaphoresis, fatigue, lightheadedness, nausea, palpitations, syncope. Respiratory: No deficits noted. Denies cough, shortness of breath. GI: No deficits noted. No signs and/or symptoms were reported involving the gastrointestinal system. : No deficits noted. No signs and/or symptoms were reported regarding the genitourinary system. EENT: No deficits noted. No signs and/or symptoms were reported regarding the EENT system. Derm: No deficits noted. No signs and/or symptoms reported regarding the dermatologic system. Musculoskeletal: No deficits noted. No signs and/or symptoms reported regarding the musculoskeletal system. 22:00 Reassessment: No changes from previously documented assessment. Patient and/or family tl4 updated on plan of care and expected duration. Pain level reassessed. Patient is alert, oriented x 3, equal unlabored respirations, skin warm/dry/pink. Patient states symptoms have improved. 22:30 Reassessment: No changes from previously documented assessment. Patient and/or family tl4 updated on plan of care and expected duration. Pain level reassessed. Patient is alert, oriented x 3, equal unlabored respirations, skin warm/dry/pink. Patient denies pain at this time. 23:00 Reassessment: No changes from previously documented assessment. Patient and/or family tl4 updated on plan of care and expected duration. Pain level reassessed. Patient is alert, oriented x 3, equal unlabored respirations, skin warm/dry/pink. Patient denies pain at this time. 11/23 00:00 Reassessment: Patient appears in no apparent distress at this time. Patient and/or vc1 family updated on plan of care and expected duration. Pain level reassessed. Patient is alert, oriented x 3, equal unlabored respirations, skin warm/dry/pink. Patient states feeling better. Patient states symptoms have improved. Vital Signs: 11/22 20:33 BP 112 / 69; Pulse 69; Resp 15; Temp 97.5; Pulse Ox 96% ; Weight 83.01 kg; Height 5 ft. vc1 11 in. ; Pain 0/10; 21:30 BP 114 / 71; Pulse 66; Resp 21; Pulse Ox 97% on R/A; tl4 21:50 BP 115 / 57; Pulse 65; Resp 23; Pulse Ox 97% on R/A; tl4 22:05 BP 129 / 53; Pulse 74; Resp 24; Pulse Ox 97% on R/A; tl4 22:27 BP 119 / 56; Pulse 69; Resp 20; Pulse Ox 98% on R/A; Pain 0/10; tm6 23:04 BP 109 / 67; Pulse 68; Resp 20; Pulse Ox 97% on R/A; Pain 0/10; tl4 23:30 BP 110 / 53; Pulse 68; Resp 17; Pulse Ox 97% on R/A; Pain 0/10; tl4 11/23 00:30 BP 106 / 54; Pulse 63; Resp 20; Pulse Ox 100% ; vc1 11/22 20:33 Body Mass Index 25.52 (83.01 kg, 180.34 cm) vc1 11/22 20:33 Pain Scale: Adult vc1 22:27 Pain Scale: Adult tm6 23:04 Pain Scale: Adult tl4 23:30 Pain Scale: Adult tl4 Vitals: 11/22 21:30 Cardiac Rhythm Assessment Irregular Atrial fibrillation W/PVC's Other intermittent tl4 atrial pacing. Yesica Coma Score: 21:30 Eye Response: spontaneous(4). Motor Response: obeys commands(6). Verbal Response: tl4 oriented(5). Total: 15. NIH Stroke Scale Scores: 21:20 NIHSS Score: 1 tl4 ED Course: 20:33 Arm band placed on left wrist. vc1 20:38 Patient arrived in ED. rv1 20:38 Reuben Anderson MD is Attending Physician. ec2 20:45 Missed attempt(s): 20 gauge in right forearm. Bleeding controlled, band aid applied, nj1 catheter tip intact. 20:50 Inserted saline lock: 22 gauge in right forearm, using aseptic technique. Blood nj1 collected. 20:58 CT Head Brain wo Cont In Process Unspecified. EDMS 21:05 Triage completed. vc1 21:39 Johann Cardona RN is Primary Nurse. tl4 21:51 Stroke CXR 1 View In Process Unspecified. EDMS 21:53 CT Head Angio In Process Unspecified. EDMS 21:55 CT Neck Angio In Process Unspecified. EDMS 22:27 Elly Meraz MD is Hospitalizing Provider. ec2 22:57 No provider procedures requiring assistance completed. tl4 22:57 Patient has correct armband on for positive identification. Placed in gown. Bed in low tl4 position. Call light in reach. Side rails up X2. Adult w/ patient. Provided Education on: ed process. Client placed on continuous cardiac and pulse oximetry monitoring. NIBP monitoring applied. ekg monitor tech on. Door closed. Noise minimized. Lights dimmed. Moved to private room. Warm blanket given. Pillow given. PO fluids given. 23:23 Yung Epps MD is Hospitalizing Provider. ec2 23:26 Patient admitted, IV remains in place. tl4 11/23 00:00 Report received from PERFECTO Wills. vc1 00:45 Report given to PERFECTO Monge. vc1 06:12 Reuben Anderson MD is Attending Physician. ec2 Administered Medications: No medications were administered Medication: 11/22 23:20 VIS not applicable for this client. tl4 Point of Care Testing: Blood Glucose: 21:49 Blood Glucose: 212 mg/dL; tl4 Ranges: Outcome: 22:27 Decision to Hospitalize by Provider. ec2 11/23 00:30 Admitted to ER Hold. Please see [facility] for further documentation. vc1 Condition: good 00:30 Instructed on the need for admit, vc1 09:49 Patient left the ED. ko1 NIH Stroke Scale - NIH Stroke Score Date: 11/22/2023 Time: 21:20 Total Score = 1 10. Dysarthria (speech clarity - read or repeat words) - 0(Normal) 11. Extinction and Inattention (visual/tactile/auditory/spatial/personal) - 0(No abnormality) 1a. Level of Consciousness (LOC) - 0(Alert) 1b. Level of Consciousness (LOC) (Month \\T\\ Age) - 0(Both) 1c. LOC Commands (Open \\T\\ Closes Eyes/Information Broker) - 0(Both) 2. Best Gaze (Lateral Gaze Paresis) - 0(Normal) 3. Visual Field Loss - 0(No visual loss) 4. Facial Palsy - 0(Normal) 5a. Left Arm: Motor (10-second hold) - 0(No drift) 5b. Right Arm: Motor (10-second hold) - 0(No drift) 6a. Left Leg: Motor (5-second hold - always test supine) - 0(No drift) 6b. Right Leg: Motor (5-second hold - always test supine) - 0(No drift) 7. Limb Ataxia (finger/nose \\T\\ heel/duke - test with eyes open) - 0(Absent) 8. Sensory Loss (pinprick arms/legs/face) - 1(Mild to moderate loss) 9. Best Language: Aphasia (description/naming/reading) - 0(No aphasia) Initials: tl4 Signatures: Dispatcher [employer] EDMS Nayeli Coffey RN RN vc1 Whitney Marquez RN RN [id number] Mary Riggs rv1 Ai Mac RN RN nj1 Reuben Anderson MD MD ec2 Zelalem Kramer RN RN tm6 Johann Cardona RN RN tl4
[2023-11-22] MEDS ORDERED: ONDANSETRON 4 MG/2 ML VIAL IV PRN (23:39)
[2023-11-22] MEDS ORDERED: ACETAMINOPHEN 500 MG TAB PO PRN (23:39)
--- NOTE | 2023-11-22 23:39 | P.HP ---
Certification for Inpatient Patient admitted to: Observation With expected LOS: <2 Midnights Practitioner: I am a practitioner with admitting privileges, knowledge of patient current condition, hospital course, and medical plan of care. 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 Patient has no duties left-sided numbness intermittently going on for the last 1 day. Denies any focal weakness. Has a history of stroke in the past. Denies any headache. No fever or chills. No nausea vomiting or diarrhea. Denies any chest pain or shortness of breath. Denies any palpitations. Patient was assessed in the ER and code stroke was called and the patient underwent CT, CTA which were negative. Patient is being admitted for TIA to rule out CVA/MRI and for closer neurological monitoring . Allergies No Known Allergies Allergy (Verified 06/30/23 09:42) Home medications list reviewed: Yes Home Medications: Potassium Chloride [Klor-Con] 20 meq PO BID 07/27/13 Furosemide [Lasix*] 40 mg PO BIDWM 06/09/16 Nifedipine Xl [Procardia XL*] 90 mg PO BIDWM 06/09/16 Budesonide [Pulmicort*] 1 puff NEB BID 08/26/19 Rivaroxaban [Xarelto] 1 tab PO 1700 08/26/19 Atorvastatin Calcium [Lipitor*] 40 mg PO Q48H 10/12/19 Omeprazole 20 mg PO BID 10/12/19 Amiodarone HCl [Cordarone*] 1 tab PO DAILY 09/27/23 Clopidogrel Bisulfate [Plavix*] 1 tab PO DAILY 09/27/23 Formoterol Fumarate 20 mcg NEB BID 09/27/23 Levothyroxine [Synthroid*] 1 tab PO DAILY 09/27/23 Tamsulosin HCl [Flomax] 1 tab PO BID 09/27/23 Famotidine [Pepcid*] 20 mg PO DAILY tab 10/30/23 - Past Medical/Surgical History Diabetic: No Past Medical History: Reviewed- Non-Contributory -: Hypertension -: Hyperlipidemia -: Coronary artery disease -: Obstructive sleep apnea -: 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 - Family History Family History: Reviewed- Non-Contributory - Family History Mother -: Heart disease Father -: Heart disease, Cancer, Other (see notes) Notes: prostate ca. mi. heart valve infection. at 93 Brother -: Heart disease - Social History Smoking Status: Former smoker Alcohol use: Yes CD- Drugs: No Caffeine use: No Review of Systems 10-point ROS is otherwise unremarkable Neurological: Numbness Physical Examination - Vital Signs Temperature: 98.4 F Blood Pressure: 136/78 Pulse: 72 Respirations: 18 Pulse Ox (%): 98 - Physical Exam General: Alert, In no apparent distress, Oriented x3 HEENT: Atraumatic, Normocephalic Neck: Supple Respiratory: Clear to auscultation bilaterally, Normal air movement Cardiovascular: Regular rate/rhythm, Normal S1 S2, No rubs Capillary refill: <2 Seconds Gastrointestinal: Soft and benign, W/out hepatosplenomegaly, No tenderness, No masses Musculoskeletal: No clubbing, No swelling Integumentary: No rashes Neurological: Normal speech, Normal strength at 5/5 x4 extr, Normal tone, Cranial nerves 3-12 intact, Normal reflexes 2+, Normal affect Lymphatics: No axilla or inguinal lymphadenopathy - Studies Laboratory Data (last 24 hrs) 11/22/23 11/22/23 11/22/23 20:50 20:50 20:50 WBC 10.20 Hgb 9.3 L Hct 28.1 L Plt Count 281 PT 12.9 H INR 1.18 APTT 31.7 Sodium 138 Potassium 4.0 BUN 29 H Creatinine 1.52 H Glucose 165 H Assessment and Plan - Problems (Diagnosis) (1) CVA (cerebral vascular accident) Current Visit: No Status: Acute Qualifiers: CVA mechanism: other (2) NSTEMI (non-ST elevated myocardial infarction) Current Visit: No Status: Acute (3) Paresthesias Onset Date: 06/10/16 Current Visit: No Status: Acute (4) Hyperlipidemia Onset Date: 06/10/16 Current Visit: No Status: Chronic Qualifiers: (5) Afib Current Visit: No Status: Chronic (6) HLD (hyperlipidemia) Current Visit: No Status: Chronic (7) Hypertension Onset Date: 06/10/16 Current Visit: No Status: Chronic Plan: CVA/TIA No focal weakness Numbness of left-sided body Started on aspirin and statin Continue Plavix CT CTA findings noted MRI brain ordered Monitor neuro vital signs Monitor under telemetry NSTEMI possibly type II due to hypertensive urgency Will trend cardiac enzymes Will monitor telemetry Started on aspirin and statin EKG did not show any acute changes sinus ST-T suggestive of ischemia Patient denies any chest pain Will get an echocardiogram Cardiology consult Hypertension Antihypertensives titrated Continue home medications and titrate as needed Hyperlipidemia Continue statin CKD stage II Monitor renal parameters Electrolytes monitor and replace accordingly Anemia of chronic disease Monitor H&H closely No overt bleeding at this time Patient had GI bleeding in the past requiring transfusions GI/DVT prophylaxis Advanced directive full code Qualifiers: Hypertension type: essential hypertension Discharge Plan: Home Plan to discharge in: 24 Hours - Advance Directives Does patient have a Living Will: No Does patient have a Durable POA for Healthcare: Yes - Code Status/Comfort Care Code Status: Full Code Time Spent Managing Pts Care (In Minutes): 54
[2023-11-23] MEDS: ATORVASTATIN 20 MG TAB PO SCH (00:55)
[2023-11-23 01:07] VITALS: BMI 25.5
[2023-11-23] MEDS ORDERED: ATORVASTATIN 40 MG TAB ONE (01:59)
[2023-11-23 03:25] LABS: Hematocrit 25.6 % (39.6-49.0); MCV 78.8 fL (80-100); MPV 7.9 fL (7.6-11.3); Platelets 247 thou/uL (152-406); RBC Red Blood Cell Count 3.25 M/uL (4.33-5.43)
[2023-11-23 03:48] LABS: Bilirubin Total 0.2 mg/dL (0.2-1.0); Potassium 3.7 mEq/L (3.5-5.1); Protein, Total 6.1 g/dL (6.4-8.2)
[2023-11-23] MEDS: PANTOPRAZOLE 40MG TABLET PO SCH (06:30)
[2023-11-23] MEDS: ARFORMOTEROL TARTRATE 15 MCG/2 ML VIAL.NEB IH SCH (07:00)
[2023-11-23] MEDS: BUDESONIDE 0.25 MG/2 ML NEB NEB SCH (07:30)
[2023-11-23] MEDS: LEVOTHYROXINE SOD 0.1 MG TAB PO SCH (07:30)
[2023-11-23] MEDS: INSULIN REGULAR (HUMAN) 100 UNIT/ML SQ SCH (07:30)
[2023-11-23] MEDS ORDERED: NIFEDIPINE XL 60 MG TABLET PO SCH (08:00)
[2023-11-23] MEDS: FUROSEMIDE 40 MG TABLET PO SCH (08:00)
[2023-11-23] MEDS: NIFEDIPINE XL 90 MG TABLET PO SCH (08:00)
[2023-11-23] MEDS ORDERED: ARFORMOTEROL TARTRATE 15 MCG/2 ML VIAL.NEB ONE (08:10)
[2023-11-23] MEDS ORDERED: BUDESONIDE 0.25 MG/2 ML NEB NEB SCH (09:00)
[2023-11-23] MEDS: AMIODARONE HCL 200 MG TAB PO SCH (09:00)
[2023-11-23] MEDS: CLOPIDOGREL 75 MG TABLET PO SCH (09:00)
[2023-11-23] MEDS: FAMOTIDINE 20 MG TAB PO SCH (09:00)
[2023-11-23] MEDS: TAMSULOSIN 0.4 MG SR CAP PO SCH (09:00)
[2023-11-23] MEDS ORDERED: TAMSULOSIN 0.4 MG SR CAP ONE (09:14)
[2023-11-23] MEDS ORDERED: PANTOPRAZOLE 40MG TABLET PO ONE (09:14)
[2023-11-23] MEDS ORDERED: AMIODARONE HCL 200 MG TAB ONE (09:15)
[2023-11-23] MEDS ORDERED: CLOPIDOGREL 75 MG TABLET ONE (09:15)
[2023-11-23] MEDS ORDERED: FAMOTIDINE 20 MG TAB ONE (09:15)
[2023-11-23] MEDS ORDERED: FUROSEMIDE 40 MG TABLET ONE (09:15)
[2023-11-23 10:24] VITALS: O2SAT 100
--- NOTE | 2023-11-23 12:00 | ECHO ---
HEIGHT: 5 ft 11 in WEIGHT: 183 lb 0 oz DATE OF STUDY: 11/23/[address]: Reynaldo Epps DO 2-DIMENSIONAL: YES M.MODE: YES DOPPLER: YES COLOR FLOW: YES TDS: PORTABLE: YES DEFINITY: BUBBLE STUDY: DIAGNOSIS: CEREBRAL VASCULAR ACCIDENT CARDIAC HISTORY: CATHERIZATION: SURGERY: PROSTHETIC VALVE: PACEMAKER: MEASUREMENTS (cm) DIASTOLIC (NORMALS) SYSTOLIC (NORMALS) IVSd 1.1 (0.6-1.2) LA Diam 4.2 (1.9-4.0) LVEF 50% LVIDd 5.5 (3.5-5.7) LVIDs 4.1 (2.0-3.5) %FS 25% LVPWd 1.1 (0.6-1.2) Ao Diam 2.7 (2.0-3.7) 2 DIMENSIONAL ASSESSMENT: RIGHT ATRIUM: NORMAL LEFT ATRIUM: NORMAL RIGHT VENTRICLE: NORMAL LEFT VENTRICLE: NORMAL TRICUSPID VALVE: TRACE TRICUSPID REGURGITATION MITRAL VALVE: MILD MITRAL STENOSIS, SEVERE MITRAL ANNULAR CALCIFICATION PULMONIC VALVE: NORMAL AORTIC VALVE: MILD AORTIC STENSOSIS PERICARDIAL EFFUSION: NONE AORTIC ROOT: NORMAL LEFT VENTRICULAR WALL MOTION: NORMAL DOPPLER/COLOR FLOW: GRADE I DIASTOLIC DYSFUNCTION COMMENTS: 1. NORMAL LEFT VENTRICULAR SYSTOLIC FUNCTION, EJECTION FRACTION 50-55%, NORMAL WALL MOTION 2. GRADE I DIASTOLIC DYSFUNCTION 3. SEVERE MITRAL ANNULAR CALCIFICATION WITH MITRAL STENOSIS 4. MILD AORTIC STENOSIS 5. RIGHT VENTRICULAR SYSTOLIC PRESSURE 30-35 mmHg TECHNOLOGIST: ALOK SMITH
[2023-11-23 13:32] VITALS: BP 146/76; TEMP 98
--- NOTE | 2023-11-23 14:29 | EKG ---
Test Date: 2023-11-22 Test Time: 21:01:37 Fire Alarm Operator: ROWDY MEASUREMENT RESULTS: Intervals: Rate: 69 [place]: 162 QRSD: 130 QT: 480 QTc: 514 [place]: P: [place]: 162 QRS: -43 T: 87 INTERPRETIVE STATEMENTS: Sinus rhythm with marked sinus arrhythmia with frequent premature ventricular complexes Left axis deviation Nonspecific intraventricular block Abnormal ECG Compared to ECG 10/28/2023 18:09:53 Left-axis deviation now present Atrial fibrillation no longer present Left bundle-branch block no longer present Electronically Signed On 11-23-23 14:26:14 MUSIC HISTORIAN by Cali Yi
[2023-11-23] MEDS: ENOXAPARIN 40 MG/0.4 ML SQ SCH (15:00)
== END 2023-11-23 16:45 | disposition home or self-care (01) ==
LOC: ER 20:29 → ERHOLD 23:39 → 2ND 11-23 07:25
PROVIDERS: ADMIT Family Medicine; ATTEND Hospitalist
DX: I63.9 Cerebral infarction, unspecified (principal); I21.4 Non-ST elevation (NSTEMI) myocardial infarction; G81.94 Hemiplegia, unspecified affecting left nondominant side; R29.701 NIHSS score 1; I16.0 Hypertensive urgency; I48.11 Longstanding persistent atrial fibrillation; I10 Essential (primary) hypertension; E78.5 Hyperlipidemia, unspecified; I25.10 Atherosclerotic heart disease of native coronary artery without angina pectoris; I50.9 Heart failure, unspecified; G47.33 Obstructive sleep apnea (adult) (pediatric); B15.9 Hepatitis A without hepatic coma; G56.00 Carpal tunnel syndrome, unspecified upper limb; N18.2 Chronic kidney disease, stage 2 (mild); D63.8 Anemia in other chronic diseases classified elsewhere; Z86.73 Personal history of transient ischemic attack (TIA), and cerebral infarction without residual deficits; Z87.891 Personal history of nicotine dependence; Z79.01 Long term (current) use of anticoagulants; Z95.0 Presence of cardiac pacemaker
CPT/HCPCS: 93005; 93306; 85025 ×2; 80048; 36415; 83721; 85610; 82947 ×3; 85730; 84484 ×3; 80053; 70450; 70496; 70498; 71045; 94640; Q9967; J7605; G0378 ×3; 99285; J1650; J7634

== ENCOUNTER 2024-10-29 18:10 | Emergency (ER) | payer OTHER ==
[2024-10-29] MEDS ORDERED: PHENYLEPHRINE 0.5% NOSE 15ML NAS ONE (18:38)
[2024-10-29 19:01] LABS: Absolute Basophils 0.1 K/uL (0-0.5); Absolute Eosinophils 0.3 K/uL (0-0.5); Absolute Monocytes 0.6 K/uL (0.1-1.3); Absolute Neutrophil 5.6 K/uL (1.8-8.0); Basophils % 1.2 % (0-1.3); Eosinophils % 3.8 % (0-4.4); Hematocrit 43.1 % (39.6-49.0); Hemoglobin 14.8 g/dL (13.6-17.9); MCH 32.6 pg (27.0-35.0); MCHC 34.4 g/dL (32.0-36.0); MCV 94.9 fL (80-100); MPV 8.4 fL (7.6-11.3); Monocytes % 7.9 % (3.3-12.3); Neutrophils % 74.1 % (41.7-73.7); Platelets 197 thou/uL (152-406); RBC Red Blood Cell Count 4.54 M/uL (4.33-5.43); Red Cell Distribution Width 14.3 % (12.1-15.2)
[2024-10-29 19:14] LABS: Anion Gap 10.9 mEq/L (5.0-15.0); Potassium 3.9 mEq/L (3.5-5.1)
[2024-10-29] MEDS ORDERED: MORPHINE 4 MG/ML SYR ONE (19:50)
[2024-10-29] MEDS ORDERED: ONDANSETRON 4 MG/2 ML VIAL ONE (19:50)
--- NOTE | 2024-10-29 19:52 | RAD REPORT ---
EXAM: XR Wrist Left 3 View HISTORY: [facility] MAIN Trauma / Fall Bed Name: 8 COMPARISON: None TECHNIQUE: 3 views of the left wrist. FINDINGS: No evidence of acute fracture or dislocation. Joint alignment is maintained although with s cattered mild to moderate degenerative changes most pronounced at the third metacarpophalangeal articulation with joint space loss. Soft tissue swelling about the wrist.. Pronounced degenerative ch anges at the ulnar lunate articulation with subchondral cystic changes. Positive ulnar variance. IMPRESSION: No acute process. Pronounced degenerative changes of the ulnar lunate articulation with positive ulna r variance.
--- NOTE | 2024-10-29 19:52 | RAD REPORT ---
EXAM: XR Hand Left 3 View HISTORY: [facility] MAIN Trauma / Fall Bed Name: 8 COMPARISON: None TECHNIQUE: 3 radiographic views of the LEFT hand submitted. FINDINGS: No evidence of acute fracture or dislocation. Joint alignment is maintained although with scattered mild to moderate degenerative changes most pronounced at the third metacarpophalangeal articulation with joint space loss. Soft tissue swelling about the wrist.. Pronounced degenerative ch anges at the ulnar lunate articulation with subchondral cystic changes. Positive ulnar variance. IMPRESSION: No acute process. Pronounced degenerative changes of the ulnar lunate articulation with positive ulna r variance.
--- NOTE | 2024-10-29 19:53 | RAD REPORT ---
EXAMINATION: Hip Left 2 View CLINICAL INDICATION: Male, 79 years old. [facility] MAIN Trauma / Fall Bed Name: 8 TECHNIQUE: 2 view radiograph of the left hip were obtained. COMPARISON: No prior exam. FINDINGS: No evidence of fracture or dislocation although superimposed bowel content limits evaluatio n of the left pubis and superior pubic ramus. Normal alignment. Mild to moderate left hip degenerative changes. No other focal bone lesion. Soft tissues are unremarkable. IMPRESSION: No acute osseous abnormalities. Left hip degenerative changes as above.
--- NOTE | 2024-10-29 19:56 | RAD REPORT ---
EXAMINATION: ONE VIEW CHEST XR CLINICAL INDICATION: Male, 79 years old.,CHEST PAIN TECHNIQUE: Frontal chest projection is submitted. Examination is limited by patient positioning and t echnique. COMPARISON: 11/22/2023 FINDINGS: The lungs are grossly clear although suboptimal inspiratory effort somewhat limits evaluation. Elevat ion of the right hemidiaphragm again seen. Stable mild central interstitial prominence, which may reflect mild central congestion. No pneumothorax or sizable effusion. Stable mild cardiomegaly, seque lae of median sternotomy, and left chest wall pacer positioning. IMPRESSION: Stable findings as above
--- NOTE | 2024-10-29 20:57 | RAD REPORT ---
EXAM: CT brain without contrast HISTORY: TRAUMA COMPARISON: 11/22/2023 TECHNIQUE: Multiple contiguous axial images were obtained and a CT of the brain without contrast. Sag ittal and coronal reformats were performed. FINDINGS: No evidence of hydrocephalus, intracranial hemorrhage, or extra-axial fluid collection. The brain is normal in morphology. The calvarium is intact. Left frontal scalp hematoma. Irregularity along the left nasal bone suggesti ng mildly displaced fracture The visualized paranasal sinuses and mastoid air cells are essentially clear. IMPRESSION: No evidence of acute intracranial abnormality. EXAM: CT of the cervical spine without contrast HISTORY: TRAUMA COMPARISON: None TECHNIQUE: Multiple contiguous axial images were obtained in a CT of the cervical spine without contr ast. Sagittal and coronal reformats were performed. FINDINGS: The vertebral bodies demonstrate normal height and alignment. No evidence of acute fracture or subluxation.. Stable multilevel degenerative changes, with minimal degrees of spondylolisthesis, facet and uncovertebral joint hypertrophy, contributing to bilateral severe neural foraminal narrowing at C3-4 and C4-5. No prevertebral soft tissue swelling is seen. The posterior facets are well aligned. Normal alignment of the skull base with the cervical spine is seen. The lung apices are unremarkable. IMPRESSION: No evidence of acute osseous abnormality of the cervical spine. Stable multilevel degenerative change s as above.
--- NOTE | 2024-10-29 21:41 | EDPHYS ---
Physician Documentation [facility] Name: Zen Patterson Age: 79 yrs Sex: Male : 1945 Arrival Date: 10/29/2024 Time: 18:10 Bed 8 Private MD: ED Physician Erick Borrero HPI: 10/29 18:33 This 79 yrs old Male presents to ER via EMS with complaints of Fall Injury, dr5 Laceration To Forehead, Laceration To Nose. 18:33 Details of fall: The patient fell from an upright position, while walking, and struck a dr5 concrete surface. Onset: The symptoms/episode began/occurred acutely. Patient is an 79-year-old male with history of A-fib, CHF, CVA, hyperlipidemia, hypertension, and pacemaker that came in with swelling and pain to forehead, nose after tripping over a curb and falling on left hand and face. Patient takes aspirin every other day and Plavix on the days he is not taking aspirin. Patient denies loss of consciousness. Patient came in with c-collar in place. Patient denies chest pain, shortness of breath, nausea, vomiting, diarrhea. Historical: - Allergies: 18:16 No Known Allergies; ld1 - Home Meds: 18:16 clopidogrel 75 mg Oral tablet 1 tab Every other day [Active]; allopurinol 100 mg Oral ld1 tablet 1 tabs daily [Active]; amiodarone 200 mg Oral tablet 1 tab daily [Active]; aspirin 81 mg Oral tablet 1 tab every other day taken with clopidogrel [Active]; atorvastatin 40 mg Oral tablet 1 tab 4 times/week [Active]; famotidine 40 mg Oral tablet 1 tab daily [Active]; tamsulosin 0.4 mg Oral capsule 1 cap daily [Active]; omeprazole 40 mg Oral capsule 1 cap daily [Active]; levothyroxine 100 mcg tablet 1 tab daily [Active]; - PMHx: 18:16 Atrial fibrillation; CHF; CVA; Hyperlipidemia; Hypertension; ICD/Pacemaker; ld1 - Immunization history:: Adult Immunizations up to date. - Infectious Disease History:: Denies. - Social history:: Smoking status: Patient denies any tobacco usage or history of. ROS: 18:33 Constitutional: as per hpi dr5 Exam: 18:33 Constitutional: This is a well developed, well nourished patient who is awake, alert, dr5 and in no acute distress. Neck: Trachea midline, no thyromegaly or masses palpated, and no cervical lymphadenopathy. Supple, full range of motion without nuchal rigidity, or vertebral point tenderness. No Meningismus. Chest/axilla: Normal chest wall appearance and motion. Nontender with no deformity. No lesions are appreciated. Cardiovascular: Regular rate and rhythm with a normal S1 and S2. Normal PMI, no JVD. No pulse deficits. Respiratory: Lungs have equal breath sounds bilaterally, clear to auscultation. No rales, rhonchi or wheezes noted. No increased work of breathing, no retractions or nasal flaring. Back: No spinal tenderness. No costovertebral tenderness. Full range of motion. 22:23 Neuro: Awake and alert, GCS 15, oriented to person, place, time, and situation. dr5 Cranial nerves II-XII grossly intact. Motor strength 5/5 in all extremities. Sensory grossly intact. Cerebellar exam normal. Normal gait. 22:23 Skin: Appearance: normal except for affected area, Color: Temperature: injury, abrasion(s), small abrasion noted, of the forehead, contusion(s), that are superficial, of the left samaritan, road rash, that is moderate, of the forehead, 22:23 Neuro: Orientation: is normal, appropriate for stated age, to person, place, time \T\ situation. Mentation: is normal, Cranial nerves: no acute changes, CN II- XII are normal as tested, 22:29 ENT: Nose: External nose: contusion is noted, deformity is noted, Nasal septum: dr5 Vital Signs: 18:15 BP 149 / 87; Pulse 73; Resp 18; Pulse Ox 98% on R/A; Weight 84.82 kg; Height 5 ft. 11 ld1 in. ; Pain 5/10; 19:43 BP 137 / 61; Pulse 70; Resp 18; Temp 98.1; Pulse Ox 98% ; Pain 5/10; bm8 21:01 BP 137 / 77; Pulse 65; Resp 15; Temp 98.1; Pulse Ox 93% ; Pain 2/10; bm8 22:07 BP 137 / 65; Pulse 68; Resp 17; Temp 98.1; Pulse Ox 94% ; Pain 0/10; bm8 18:15 Body Mass Index 26.08 (84.82 kg, 180.34 cm) ld1 18:15 Pain Scale: Adult ld1 19:43 Pain Scale: Adult bm8 21:01 Pain Scale: Adult bm8 22:07 Pain Scale: Adult bm8 Yesica Coma Score: 19:43 Eye Response: spontaneous(4). Motor Response: obeys commands(6). Verbal Response: bm8 oriented(5). Total: 15. 21:01 Eye Response: spontaneous(4). Motor Response: obeys commands(6). Verbal Response: bm8 oriented(5). Total: 15. 22:07 Eye Response: spontaneous(4). Motor Response: obeys commands(6). Verbal Response: bm8 oriented(5). Total: 15. MDM: 18:29 Medical Screening Exam initiated dr5 22:23 Differential diagnosis: abrasion, closed head injury, contusion, fracture, laceration. dr5 22:23 Data reviewed: vital signs, nurses notes. I considered the following discharge dr5 prescriptions or medication management in the emergency department Medications were administered in the Emergency Department. See MAR. Historians other than the Patient: Spouse/Significant Other: . Care significantly affected by the following chronic conditions: A-fib, CHF, CVA, Hyperlipidemia, HTN, Pacemaker. Care significantly affected by the following Social Determinants of Health: Poor access to healthcare and/or lack of insurance, Poor access to transportation, Problems related to employment. Counseling: I had a detailed discussion with the patient and/or guardian regarding the historical points, exam findings, and any diagnostic results supporting the discharge/admit diagnosis, the presence of at least one elevated blood pressure reading (>120/80) during this emergency department visit, lab results, the need for outpatient follow up, for definitive care, a family practitioner, to return to the emergency department if symptoms worsen or persist or if there are any questions or concerns that arise at home. ED course: Multiple abrasions, road rash noted to face. hematoma noted to left side of of head. No ICH noted on CT scan. Patient's wounds were dressed. Will give Keflex to prevent infection. Tramadol take as needed for pain and only when Tylenol is not helping pain. Patient is feeling much better. Will have patient follow-up with primary care doctor as needed.. 10/29 18:32 Order name: Basic Metabolic Panel; Complete Time: 19:14 dr5 10/29 18:32 Order name: CBC with Diff; Complete Time: 19:04 dr5 10/29 18:32 Order name: Type And Screen; Complete Time: 19:43 dr5 10/29 18:28 Order name: CT Head C Spine; Complete Time: 21:19 dr5 10/29 18:32 Order name: Wrist Left (3 View) XRAY; Complete Time: 19:53 dr5 10/29 18:32 Order name: Hand Left 3 View XRAY; Complete Time: 19:53 dr5 10/29 18:43 Order name: Hip Left 2 View XRAY; Complete Time: 19:53 dr5 10/29 19:13 Order name: Chest Single View XRAY; Complete Time: 19:57 dr5 10/29 18:32 Order name: Labs collected and sent; Complete Time: 18:48 dr5 Administered Medications: 19:58 Drug: morphine IVP or IV 4 mg IVP once over 4 mins Route: IVP; Infused Over: 4 mins; bm8 Site: right forearm; 20:59 Follow up: Response: No adverse reaction bm8 19:58 Drug: Ondansetron IVP 4 mg IVP once; over 2 minutes Route: IVP; Site: right forearm; bm8 20:59 Follow up: Response: No adverse reaction bm8 21:55 Drug: HYDROcodone-acetaminophen PO 5 mg-325 mg 1 tabs PO once Route: PO; bm8 22:09 Follow up: Response: No adverse reaction bm8 Disposition: 10/30 07:49 Co-signature as Attending Physician, Erick Borrero MD I reviewed the patient's care rn provided by the Advanced Practice Provider and agree with the diagnosis and treatment plan. Disposition Summary: 10/29/24 21:40 Discharge Ordered Notes: Location: Home dr5 Condition: Stable dr5 Diagnosis - Fall on same level, unspecified dr5 - Contusion of other part of head dr5 Followup: dr5 - With: Emergency Department - When: As needed - Reason: Worsening of condition Followup: dr5 - With: Private Physician - When: 1 - 2 days - Reason: Recheck today's complaints, Continuance of care, Re-evaluation by your physician Discharge Instructions: - Discharge Summary Sheet dr5 - Head Injury, Adult dr5 - Fall Prevention in the Home, Adult dr5 - Nasal Fracture dr5 Forms: - Medication Reconciliation Form dr5 - Antibiotic Education dr5 - Patient Portal Instructions dr5 - Leadership Thank You Letter dr5 Prescriptions: - Cephalexin 500 mg Oral capsule - take 1 capsule ORAL route every 12 hours for 7 days; 14 capsule; Refills: 0, dr5 Product Selection Permitted - Tramadol 50 mg Oral Tablet - take 1 tablet ORAL route every 8 hours as needed; 12 tablet; Refills: 0, dr5 Product Selection Permitted Signatures: Dispatcher [employer] EDMS Erick Borrero MD MD rn Sims, Lauren RN RN ld1 Fei Callahan RN RN bm8 Roberto Chandra, TELEMETRY RN-C TELEMETRY RN-Cdr5 Corrections: (The following items were deleted from the chart) 10/29 18:18 18:16 PSHx: Coronary artery bypass graft; ld1 ld1 18:18 18:16 PSHx: Stented artery; ld1 ld1 18:18 18:16 PSHx: watchman; ld1 ld1 18:28 18:28 Head C Spine MPR Wo Con+CT.RAD.BRZ ordered. EDMS EDMS 18:32 18:32 Hand Left 3 View+RAD.RAD.BRZ ordered. EDMS EDMS 18:32 18:32 BASIC METABOLIC PANEL+C.LAB.BRZ ordered. EDMS EDMS 18:32 18:32 CBC+H.LAB.BRZ ordered. EDMS EDMS 18:32 18:32 TYPE AND SCREEN+BB.LAB.BRZ ordered. EDMS EDMS 22:24 18:33 Constitutional: This is a well developed, well nourished patient who is awake, dr5 alert, and in no acute distress. Neck: Trachea midline, no thyromegaly or masses palpated, and no cervical lymphadenopathy. Supple, full range of motion without nuchal rigidity, or vertebral point tenderness. No Meningismus. Chest/axilla: Normal chest wall appearance and motion. Nontender with no deformity. No lesions are appreciated. dr5
--- NOTE | 2024-10-29 21:41 | ER ---
Nurse's Notes [facility] Name: Zen Patterson Age: 79 yrs Sex: Male : 1945 Arrival Date: 10/29/2024 Time: 18:10 Bed 8 Private MD: Diagnosis: Fall on same level, unspecified;Contusion of other part of head Presentation: 10/29 18:15 Chief complaint: EMS states: toned out to [employer] parking lot for fall. Pt is on ld1 Plavix, denies LOC. Tripped on curb. Laceration to forehead and nose. Coronavirus screen: At this time, the client does not indicate any symptoms associated with coronavirus-19. Ebola Screen: No symptoms or risks identified at this time. Initial Sepsis Screen: Does the patient meet any 2 criteria? No. Patient's initial sepsis screen is negative. Does the patient have a suspected source of infection? No. Patient's initial sepsis screen is negative. Risk Assessment: Do you want to hurt yourself or someone else? Patient reports no desire to harm self or others. Onset of symptoms was October 29, 2024. 18:15 Method Of Arrival: EMS: [facility] ld1 18:15 Acuity: YASSINE 2 ld1 Triage Assessment: 18:16 General: Appears in no apparent distress. comfortable, Behavior is calm, cooperative, ld1 appropriate for age. Pain: Denies pain. EENT: No signs and/or symptoms were reported regarding the EENT system. Neuro: Level of Consciousness is awake, alert, obeys commands, Oriented to person, place, time, situation, Appropriate for age. Neuro:. Cardiovascular: Capillary refill < 3 seconds Patient's skin is warm and dry. Respiratory: Airway is patent Respiratory effort is even, unlabored. GI: Abdomen is flat, non-distended. : No signs and/or symptoms were reported regarding the genitourinary system. Derm: No signs and/or symptoms reported regarding the dermatologic system. Musculoskeletal: No signs and/or symptoms reported regarding the musculoskeletal system. Historical: - Allergies: 18:16 No Known Allergies; ld1 - Home Meds: 18:16 clopidogrel 75 mg Oral tablet 1 tab Every other day [Active]; allopurinol 100 mg Oral ld1 tablet 1 tabs daily [Active]; amiodarone 200 mg Oral tablet 1 tab daily [Active]; aspirin 81 mg Oral tablet 1 tab every other day taken with clopidogrel [Active]; atorvastatin 40 mg Oral tablet 1 tab 4 times/week [Active]; famotidine 40 mg Oral tablet 1 tab daily [Active]; tamsulosin 0.4 mg Oral capsule 1 cap daily [Active]; omeprazole 40 mg Oral capsule 1 cap daily [Active]; levothyroxine 100 mcg tablet 1 tab daily [Active]; - PMHx: 18:16 Atrial fibrillation; CHF; CVA; Hyperlipidemia; Hypertension; ICD/Pacemaker; ld1 - Immunization history:: Adult Immunizations up to date. - Infectious Disease History:: Denies. - Social history:: Smoking status: Patient denies any tobacco usage or history of. Screenin:20 [facility] ED Fall Risk Assessment (Adult) History of falling in the last 3 months, ld1 including since admission Yes- single mechanical fall (1 pt) Confusion or Disorientation No (0 pts) Intoxicated or Sedated No (0 pts) Impaired Gait No (0 pts) Mobility Assist Device Used No (0 pt) Altered Elimination No (0 pt) Score/Fall Risk Level 0 - 2 = Low Risk Oriented to surroundings, Hourly rounding (assess needs \T\ fall precautionary measures) done. Abuse screen: Denies threats or abuse. Denies injuries from another. Nutritional screening: No deficits noted. Tuberculosis screening: No symptoms or risk factors identified. Assessment: 18:20 Reassessment: See triage assessment. ld1 19:43 Reassessment: Patient appears in no apparent distress at this time. Patient and/or bm8 family updated on plan of care and expected duration. Pain level reassessed. Patient is alert, oriented x 3, equal unlabored respirations, skin warm/dry/pink. Pain: Complains of pain in head and face Pain currently is 5 out of 10 on a pain scale. Quality of pain is described as aching, throbbing. Neuro: No deficits noted. Level of Consciousness is awake, alert, obeys commands, Oriented to person, place, time, situation, Appropriate for age. Derm: Wound noted forehead and nose Wound is lac across forehead left side and lac across bridge of nose. Musculoskeletal: Circulation, motion, and sensation intact. Capillary refill < 3 seconds, in bilateral fingers. Reports pain in diaphragm Pain is 5 out of 10 on a pain scale. 21:01 Reassessment: Patient appears in no apparent distress at this time. Patient and/or bm8 family updated on plan of care and expected duration. Pain level reassessed. Patient is alert, oriented x 3, equal unlabored respirations, skin warm/dry/pink. c collar removed Patient states feeling better. Patient states symptoms have improved. 22:07 Reassessment: Patient appears in no apparent distress at this time. Patient and/or bm8 family updated on plan of care and expected duration. Pain level reassessed. Patient is alert, oriented x 3, equal unlabored respirations, skin warm/dry/pink. wound care provided and covered with nonadherent bandage. Patient denies pain at this time. Patient states feeling better. Patient states symptoms have improved. Vital Signs: 18:15 BP 149 / 87; Pulse 73; Resp 18; Pulse Ox 98% on R/A; Weight 84.82 kg; Height 5 ft. 11 ld1 in. ; Pain 5/10; 19:43 BP 137 / 61; Pulse 70; Resp 18; Temp 98.1; Pulse Ox 98% ; Pain 5/10; bm8 21:01 BP 137 / 77; Pulse 65; Resp 15; Temp 98.1; Pulse Ox 93% ; Pain 2/10; bm8 22:07 BP 137 / 65; Pulse 68; Resp 17; Temp 98.1; Pulse Ox 94% ; Pain 0/10; bm8 18:15 Body Mass Index 26.08 (84.82 kg, 180.34 cm) ld1 18:15 Pain Scale: Adult ld1 19:43 Pain Scale: Adult bm8 21:01 Pain Scale: Adult bm8 22:07 Pain Scale: Adult bm8 Weston Coma Score: 19:43 Eye Response: spontaneous(4). Motor Response: obeys commands(6). Verbal Response: bm8 oriented(5). Total: 15. 21:01 Eye Response: spontaneous(4). Motor Response: obeys commands(6). Verbal Response: bm8 oriented(5). Total: 15. 22:07 Eye Response: spontaneous(4). Motor Response: obeys commands(6). Verbal Response: bm8 oriented(5). Total: 15. ED Course: 18:14 Patient arrived in ED. ld1 18:16 Triage completed. ld1 18:16 Arm band placed on right wrist. ld1 18:19 Jay Bliss, RN is Primary Nurse. bp 18:20 Patient has correct armband on for positive identification. Placed in gown. Bed in low ld1 position. Call light in reach. Side rails up X2. monitor and storage bin tender on. Pulse ox on. NIBP on. Door closed. Noise minimized. Warm blanket given. 18:20 No provider procedures requiring assistance completed. ld1 18:23 Roberto Chandra FNP-C is PHCP. dr5 18:23 Erick Borrero MD is Attending Physician. dr5 18:48 Initial lab(s) drawn, by me, sent to lab. T\T\S collected, blood band applied to patient. bp Inserted saline lock: 22 gauge in right forearm, using aseptic technique. Blood collected. Flushed with 10 mL NS. 19:28 Wrist Left (3 View) XRAY In Process Unspecified. EDMS 19:28 Hand Left 3 View XRAY In Process Unspecified. EDMS 19:28 Hip Left 2 View XRAY In Process Unspecified. EDMS 19:28 Chest Single View XRAY In Process Unspecified. EDMS 19:30 CT Head C Spine In Process Unspecified. EDMS 21:01 Provided Education on: post er care and wound care. bm8 22:07 IV discontinued, intact, bleeding controlled, No redness/swelling at site. Pressure bm8 dressing applied. 22:07 Wound care: to abrasion, located on face was cleaned with soap and water, irrigated bm8 with normal saline, dressed with Neosporin, 4X4s, Patient tolerated well. Administered Medications: 19:58 Drug: morphine IVP or IV 4 mg IVP once over 4 mins Route: IVP; Infused Over: 4 mins; bm8 Site: right forearm; 20:59 Follow up: Response: No adverse reaction bm8 19:58 Drug: Ondansetron IVP 4 mg IVP once; over 2 minutes Route: IVP; Site: right forearm; bm8 20:59 Follow up: Response: No adverse reaction bm8 21:55 Drug: HYDROcodone-acetaminophen PO 5 mg-325 mg 1 tabs PO once Route: PO; bm8 22:09 Follow up: Response: No adverse reaction bm8 Medication: 22:07 VIS not applicable for this client. bm8 Outcome: 21:40 Discharge ordered by . dr5 22:07 Discharged to home via wheelchair, with family, bm8 22:07 Condition: stable 22:07 Discharge instructions given to patient, family, Instructed on discharge instructions, follow up and referral plans. no drinking with medication, no driving heavy equipment, medication usage, safety practices, Demonstrated understanding of instructions, follow-up care, medications, wound care, Prescriptions given X 2, 22:09 Patient left the ED. bm8 Signatures: Dispatcher [employer] EDMS Jay Bliss, RN RN bp Tawanna Castaneda RN RN ld1 Fei Callahan RN RN bm8 oRberto Chandra, PERL SOFTWARE ENGINEER-C PERL SOFTWARE ENGINEER-[id number] Corrections: (The following items were deleted from the chart) 18:18 18:16 PSHx: Coronary artery bypass graft; ld1 ld1 18:18 18:16 PSHx: Stented artery; ld1 ld1 18:18 18:16 PSHx: watchman; ld1 ld1
[2024-10-29] MEDS ORDERED: HYDROCODONE/APAP 5/325 MG TAB ONE (21:48)
[2024-10-29 22:32] VITALS: TEMP 98.1
[2024-10-29 22:44] VITALS: BP 137/65; O2SAT 94
== END 2024-10-29 22:09 | disposition home or self-care (01) ==
LOC: ER 18:10
DX: S00.83XA Contusion of other part of head, initial encounter (principal); W01.198A Fall on same level from slipping, tripping and stumbling with subsequent striking against other object, initial encounter; Z95.810 Presence of automatic (implantable) cardiac defibrillator; I10 Essential (primary) hypertension; I48.91 Unspecified atrial fibrillation
CPT/HCPCS: 85025; 80048; 36415; 86900; 86850; 86901; 70450; 72125; 71045; 73130; 73502; 73110; 96375; 96374; 99285; J2405

== ENCOUNTER 2024-12-05 07:40 | Inpatient (IN) | payer OTHER ==
[2024-12-05] MEDS ORDERED: ONDANSETRON 4 MG/2 ML VIAL ONE (08:00)
[2024-12-05] MEDS ORDERED: MECLIZINE HCL 12.5 MG TAB ONE (08:01)
[2024-12-05] MEDS ORDERED: NA CHLORIDE 0.9% 500 ML ONE (08:01)
--- NOTE | 2024-12-05 08:43 | RAD REPORT ---
EXAMINATION: CTA HEAD CLINICAL INDICATION: Male, 79 years old. DIZZINESS TECHNIQUE: Axial CT images were obtained through the head after intravenous contrast utilizing angiog raphic protocol with 3D post-processing (maximum intensity projection images, volume rendered images and/or shaded surface rendered images). One or more of the following dose reduction technique s were used: Automated exposure control, adjustment of the mA and/or kV according to patient size, and/or iterative reconstruction. Unless otherwise specified, incidental findings do not require dedic ated imaging follow-up. COMPARISON: Noncontrast head CT of the same day. FINDINGS: ICA: The petrous, cavernous, and supraclinoid segments of the bilateral internal carotid arteries are normal. SYED: Anterior cerebral arteries are normal bilaterally. The anterior communicating artery is patent. MCA: Middle cerebral arteries are normal bilaterally. TRAFFIC AGENT: Posterior cerebral arteries are normal bilaterally. Vertebrobasilar: The vertebral arteries are patent. The basilar artery is normal in appearance. 3D images confirm these findings. IMPRESSION: No large vessel occlusion or critical stenosis.
[2024-12-05 08:46] LABS: Absolute Basophils 0.1 K/uL (0-0.5); Absolute Eosinophils 0.2 K/uL (0-0.5); Absolute Monocytes 0.6 K/uL (0.1-1.3); Absolute Neutrophil 4.6 K/uL (1.8-8.0); Eosinophils % 3.7 % (0-4.4); Hematocrit 44.2 % (39.6-49.0); Hemoglobin 14.7 g/dL (13.6-17.9); Lymphocytes % 15.3 % (15.3-44.8); MCH 32.2 pg (27.0-35.0); MCHC 33.3 g/dL (32.0-36.0); MCV 96.5 fL (80-100); MPV 8.3 fL (7.6-11.3); Monocytes % 9.1 % (3.3-12.3); Neutrophils % 70.9 % (41.7-73.7); Nucleated Red Blood Cells % 0.3 % (0-0); Platelets 205 thou/uL (152-406); RBC Red Blood Cell Count 4.58 M/uL (4.33-5.43); Red Cell Distribution Width 14.5 % (12.1-15.2)
[2024-12-05 08:48] LABS: Anion Gap 4.7 mEq/L (5.0-15.0); Potassium 3.7 mEq/L (3.5-5.1)
[2024-12-05 08:51] LABS: Troponin High Sensitivity 671.6 pg/mL (<58.9)
--- NOTE | 2024-12-05 08:58 | RAD REPORT ---
EXAMINATION: CT Neck Angio CLINICAL INDICATION: Male, 79 years old. dizziness TECHNIQUE: Axial CT images were obtained from the aortic arch to the skull base after intravenous con trast utilizing angiographic protocol. Multiplanar reformats, as well as 3D post-processing (maximum intensity projection images, volume rendered images and/or shaded surface rendered images) w ere generated and reviewed. One or more of the following dose reduction techniques were used: Automated exposure control, adjustment of the mA and/or kV according to patient size, and/or iterativ e reconstruction. Unless otherwise specified, incidental findings do not require dedicated imaging follow-up. COMPARISON: 11/22/2023. FINDINGS: AORTA: The imaged aortic arch is normal. Variant anatomy of the arch with left vertebral artery arisi ng directly from the arch. CCA: No artifact The common carotid arteries are patent and normal in caliber. ICA/ECA: Smooth narrowing of the right ICA origin, due to predominantly noncalcified plaque with dayton rowest luminal diameter 2.8 cm compared to 6.2 cm more distally, amounting to 54% stenosis. Bilateral internal and external carotid arteries are otherwise patent. There is no significant left i nternal carotid artery stenosis. VERTEBRAL: The cervical vertebral arteries are patent to the skull base. Right vertebral artery is do minant. SOFT TISSUE: No significant neck soft tissue abnormalities. The visualized lung apices are clear. Multilevel degenerative changes with up to severe neural foraminal narrowing bilaterally at the C2-C5 segments. 3D images confirm these findings. IMPRESSION: Atherosclerotic narrowing of the right ICA origin amounting to 54% stenosis by NASA criteria, stable. No other significant stenosis of the major cervical arterial structures. NASCET criteria used to quantify ICA stenosis, with the following grading scheme: Mild 0-49% stenosis Moderate 50-69% stenosis Severe 70-99% stenosis Reference: [place] Symptomatic Carotid Endarterectomy Trial Collaborators; Wong RAMÍREZM, Liz DW, Rhea RB, et al. Beneficial effect of carotid endarterectomy in symptomatic patients with high-grade carotid stenosis. N Engl J Med. 1990 15;325(7):445-53.
--- NOTE | 2024-12-05 09:00 | RAD REPORT ---
EXAM: CT Head Brain Wo Cont HISTORY: DIZZINESS COMPARISON: 11/22/2023 TECHNIQUE: Multiple contiguous axial images were obtained for a CT of the brain without contrast. Sag ittal and coronal reformats were performed. One or more of the following dose reduction techniques were used: Automated exposure control, adjus tment of the mA and kV according to patient size, and iterative reconstruction. Unless otherwise specified, incidental findings do not require dedicated imaging follow-up. FINDINGS: No evidence of hydrocephalus, intracranial hemorrhage, or extra-axial fluid collection. Moderate brain atrophy with moderate periventricular and deep white matter chronic microvascular isc hemic changes present. The calvarium is intact. The visualized paranasal sinuses and mastoid air cells are essentially clear . IMPRESSION: No evidence of acute intracranial abnormality.
[2024-12-05 09:08] LABS: PT Prothrombin Time 11.9 SECONDS (10-13.0); Protime INR 1.05
--- NOTE | 2024-12-05 09:30 | ER ---
Nurse's Notes [facility] Name: Zen Patterson Age: 79 yrs Sex: Male : 1945 Arrival Date: 12/05/2024 Time: 07:40 Bed 14 Private MD: Diagnosis: Dizziness and giddiness;Vertigo, unspecified Presentation: 12/05 07:54 Chief complaint: Patient states: dizziness that started yesterday morning, improved kc6 through the day but then got worse again. denies any other symptoms at this time. Coronavirus screen: At this time, the client does not indicate any symptoms associated with coronavirus-19. Ebola Screen: No symptoms or risks identified at this time. Initial Sepsis Screen: Does the patient meet any 2 criteria? No. Patient's initial sepsis screen is negative. Does the patient have a suspected source of infection? No. Patient's initial sepsis screen is negative. Risk Assessment: Do you want to hurt yourself or someone else? Patient reports no desire to harm self or others. Onset of symptoms was December 04, 2024. 07:54 Method Of Arrival: Wheelchair [facility] 07:54 Acuity: YASSINE 3 kc6 Historical: - Allergies: 07:55 No Known Allergies; kc6 - PMHx: 07:55 Atrial fibrillation; CHF; CVA; Hyperlipidemia; Hypertension; ICD/Pacemaker; Myocardial kc6 infarction; Hypercholesterolemia; Hypothyroidism; Gastroesophageal reflux disease; - PSHx: 07:55 Appendectomy; Coronary artery bypass graft; Tonsillectomy; Stented artery; watchman; kc6 - Immunization history:: Adult Immunizations up to date. - Infectious Disease History:: Denies. - Social history:: Smoking status: Patient/guardian denies using tobacco, but has a distant history of tobacco abuse. - Family history:: not pertinent. - Hospitalizations: : No recent hospitalization is reported. Screenin:57 [facility] ED Fall Risk Assessment (Adult) History of falling in the last 3 months, kc6 including since admission Yes- single mechanical fall (1 pt) Confusion or Disorientation No (0 pts) Intoxicated or Sedated No (0 pts) Impaired Gait No (0 pts) Mobility Assist Device Used No (0 pt) Altered Elimination No (0 pt) Score/Fall Risk Level 0 - 2 = Low Risk Oriented to surroundings, Maintained a safe environment, Educated pt \T\ family on fall prevention, incl call for assistance when getting out of bed. Abuse screen: Denies threats or abuse. Denies injuries from another. Nutritional screening: No deficits noted. Tuberculosis screening: No symptoms or risk factors identified. 07:57 VAN Screening: Arm Drift: Patient shows no arm weakness. Patient is VAN negative. kc6 Visual Disturbance: No visual disturbance noted. Aphasia: No aphasia noted. Neglect: No neglect noted. [place] Swallow Protocol Brief Cognitive Screen What is your name? Normal, Where are you right now? Normal, What year is it? Normal. Oral Mechanism Examination Facial Symmetry: Normal, Motion: Normal, Lip Closure: Normal, Oral Mechanism Result: Normal. 3 oz Water Swallow Challenge: Pt able to drink all water without stopping, coughing, choking or throat clearing: Yes Result: JAYCE BRUSH Notified: Erick Borrero MD. Assessment: 07:54 General: Appears in no apparent distress. comfortable, well groomed, well developed, kc6 Behavior is calm, cooperative, appropriate for age. Pain: Denies pain. Neuro: Level of Consciousness is awake, alert, obeys commands, Oriented to person, place, time, situation, Appropriate for age Animal Sticker are equal bilaterally Moves all extremities. Full function Gait is steady, Speech is normal, Facial symmetry appears normal, Facial symmetry: tongue is midline, Pupils are PERRLA, Intact Reports dizziness. Cardiovascular: Denies chest pain, Capillary refill < 3 seconds Rhythm is regular. Respiratory: Airway is patent Trachea midline Respiratory effort is even, unlabored, Respiratory pattern is regular, symmetrical. GI: No signs and/or symptoms were reported involving the gastrointestinal system. : No signs and/or symptoms were reported regarding the genitourinary system. EENT: No signs and/or symptoms were reported regarding the EENT system. Derm: No signs and/or symptoms reported regarding the dermatologic system. Skin is intact, is healthy with good turgor, Skin is pink, warm \T\ dry. Musculoskeletal: No signs and/or symptoms reported regarding the musculoskeletal system. Circulation, motion, and sensation intact. Range of motion: intact in all extremities. 08:51 Reassessment: Dr. Borrero notified of critical lab value. Troponin 671.6. ss 08:54 Reassessment: Patient appears in no apparent distress at this time. No changes from kc6 previously documented assessment. Patient and/or family updated on plan of care and expected duration. Pain level reassessed. Patient is alert, oriented x 3, equal unlabored respirations, skin warm/dry/pink. 09:41 Reassessment: Patient appears in no apparent distress at this time. No changes from kc6 previously documented assessment. Patient and/or family updated on plan of care and expected duration. Pain level reassessed. Patient is alert, oriented x 3, equal unlabored respirations, skin warm/dry/pink. Vital Signs: 07:54 BP 147 / 68; Pulse 63; Resp 16 S; Temp 97.7(O); Pulse Ox 99% on R/A; Weight 86.18 kg kc6 (R); Height 5 ft. 9 in. (R); Pain 0/10; 08:39 BP 153 / 72; Pulse 63; Resp 16 S; Pulse Ox 99% on R/A; kc6 09:41 BP 158 / 70; Pulse 60; Resp 17 S; Pulse Ox 96% on R/A; kc6 07:54 Body Mass Index 28.06 (86.18 kg, 175.26 cm) kc6 07:54 Pain Scale: Adult kc6 NIH Stroke Scale Scores: 07:57 NIHSS Score: 0 kc6 ED Course: 07:43 Patient arrived in ED. mr 07:43 Erick Borrero MD is Attending Physician. rn 07:46 Mariely Pillai, PERFECTO is Primary Nurse. kc6 07:55 Triage completed. kc6 07:55 Arm band placed on. kc6 07:56 Patient has correct armband on for positive identification. Placed in gown. Bed in low kc6 position. Call light in reach. Side rails up X 1. Adult w/ patient. threat monitoring analyst on. Pulse ox on. NIBP on. Door closed. Noise minimized. Lights dimmed. Warm blanket given. Pillow given. Verbal reassurance given. 07:57 Patient maintains SpO2 saturation greater than 95% on room air. kc6 07:[address] via stretcher. kc6 08:11 CT Head Angio In Process Unspecified. EDMS 08:11 CT Neck Angio In Process Unspecified. EDMS 08:11 CT Head Brain wo Cont In Process Unspecified. EDMS 08:38 Inserted saline lock: 22 gauge in right antecubital area, using aseptic technique. kc6 Blood collected. Flushed with 10 mL NS. 09:28 Repositioned patient. Cleaned of incontinence. Linen changed. kc6 09:29 Jose Bland MD is Hospitalizing Provider. rn 10:55 No provider procedures requiring assistance completed. Patient admitted, IV remains in kc6 place. Administered Medications: 08:38 Drug: NS 0.9% IV 500 ml 500 ml IV at 1 bolus once; to be given as a bolus over 30 kc6 minutes Volume: 500 ml; Route: IV; Rate: 1 bolus; Site: right antecubital; 09:39 Follow up: Response: No adverse reaction; IV Status: Completed infusion; IV Intake: kc6 500ml 08:38 Drug: Meclizine PO 50 mg PO once Route: PO; kc6 09:39 Follow up: Response: No adverse reaction kc6 08:38 Drug: Ondansetron IVP 4 mg IVP once; over 2 minutes Route: IVP; Site: right antecubital;kc6 09:39 Follow up: Response: No adverse reaction kc Medication: 10:56 VIS not applicable for this client. kc6 Intake: 09:39 IV: 500ml; Total: 500ml. kc6 Outcome: 09:29 Decision to Hospitalize by Provider. rn 10:55 Admitted to ER Hold. Please see [facility] for further documentation. [facility] 10:55 Condition: good 10:55 Instructed on the need for admit, 16:26 Patient left the ED. NIH Stroke Scale - NIH Stroke Score Date: 12/05/2024 Time: 07:57 Total Score = 0 10. Dysarthria (speech clarity - read or repeat words) - 0(Normal) 11. Extinction and Inattention (visual/tactile/auditory/spatial/personal) - 0(No abnormality) 1a. Level of Consciousness (LOC) - 0(Alert) 1b. Level of Consciousness (LOC) (Month \T\ Age) - 0(Both) 1c. LOC Commands (Open \T\ Closes Eyes/Hand Counter) - 0(Both) 2. Best Gaze (Lateral Gaze Paresis) - 0(Normal) 3. Visual Field Loss - 0(No visual loss) 4. Facial Palsy - 0(Normal) 5a. Left Arm: Motor (10-second hold) - 0(No drift) 5b. Right Arm: Motor (10-second hold) - 0(No drift) 6a. Left Leg: Motor (5-second hold - always test supine) - 0(No drift) 6b. Right Leg: Motor (5-second hold - always test supine) - 0(No drift) 7. Limb Ataxia (finger/nose \T\ heel/duke - test with eyes open) - 0(Absent) 8. Sensory Loss (pinprick arms/legs/face) - 0(Normal) 9. Best Language: Aphasia (description/naming/reading) - 0(No aphasia) Initials: kc6 Signatures: Dispatcher [employer] EDCO Blanca Anderson, Reg Reg mr Erick Borrero MD MD rn Blanchard, Shelby, RN RN ss Campbell, Kaitlyn, RN RN kc6
--- NOTE | 2024-12-05 09:30 | EDPHYS ---
Physician Documentation [facility] Name: Zen Patterson Age: 79 yrs Sex: Male : 1945 Arrival Date: 12/05/2024 Time: 07:40 Bed 14 Private MD: ED Physician Erick Borrero HPI: 12/05 09:18 This 79 yrs old Male presents to ER via Wheelchair with complaints of Dizziness. rn 09:18 The patient presents with dizziness, feeling off balance. Onset: The symptoms/episode rn began/occurred yesterday. Modifying factors: The symptoms are alleviated by nothing, the symptoms are aggravated by movement of head, changing position. Associated signs and symptoms: Pertinent positives: nausea, Pertinent negatives: chest pain, seizure, shortness of breath, syncope. Severity of symptoms: At their worst the symptoms were moderate in the emergency department the symptoms are unchanged. The patient has not experienced similar symptoms in the past. Patient reports onset yesterday with dizziness and difficulty walking, worse with change in position and head movement. No trauma or head injury. No medication changes. No focal weakness or numbness. 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 - Infectious Disease History:: Denies. - Social history:: Smoking status: Patient/guardian denies using tobacco, but has a distant history of tobacco abuse. - Family history:: not pertinent. - Hospitalizations: : No recent hospitalization is reported. ROS: 09:18 Constitutional: Negative for fever, chills, and weight loss, Cardiovascular: Negative rn for palpitations, and edema Respiratory: Negative for shortness of breath, cough, wheezing, and pleuritic chest pain, Abdomen/GI: Negative for abdominal pain, nausea, vomiting, diarrhea, and constipation, MS/Extremity: Negative for injury and deformity, Skin: Negative for injury, rash, and discoloration, Neuro: Negative for headache, weakness, numbness, tingling, and seizure, Exam: 09:18 Constitutional: This is a well developed, well nourished patient who is awake, alert, rn and in no acute distress. Wheeled to room in wheelchair, requires assistance to get into bed ENT: Dry mucous membranes Cardiovascular: Regular rate and rhythm. No pulse deficits. Respiratory: No increased work of breathing, no retractions or nasal flaring. Abdomen/GI: Soft, non-tender MS/ Extremity: Pulses equal, no cyanosis. Neurovascular intact. Full, normal range of motion. Equal circumference. Neuro: Awake and alert, GCS 15, oriented to person, place, time, and situation. Cranial nerves II-XII grossly intact. Motor strength 5/5 in all extremities. Sensory grossly intact. 09:22 ECG was reviewed by the Attending Physician. rn Vital Signs: 07:54 BP 147 / 68; Pulse 63; Resp 16 S; Temp 97.7(O); Pulse Ox 99% on R/A; Weight 86.18 kg kc6 (R); Height 5 ft. 9 in. (R); Pain 0/10; 08:39 BP 153 / 72; Pulse 63; Resp 16 S; Pulse Ox 99% on R/A; kc6 09:41 BP 158 / 70; Pulse 60; Resp 17 S; Pulse Ox 96% on R/A; kc6 07:54 Body Mass Index 28.06 (86.18 kg, 175.26 cm) [facility] 07:54 Pain Scale: Adult [facility] NIH Stroke Scale Scores: 07:57 NIHSS Score: 0 [facility] MDM: 07:43 Medical Screening Exam initiated rn 09:22 Differential diagnosis: cardiac arrhythmia, CVA, generalized weakness, hypovolemia, rn idiopathic dizziness, TIA, vertigo. Data reviewed: vital signs, nurses notes, lab test result(s), EKG, radiologic studies, CT scan. 09:28 Consideration of Admission/Observation Patient was admitted/placed on observation. rn Escalation of care including admission/observation considered. Counseling: I had a detailed discussion with the patient and/or guardian regarding the historical points, exam findings, and any diagnostic results supporting the discharge/admit diagnosis, lab results, radiology results, the need for further work-up and treatment in the hospital. Response to treatment: the patient's symptoms have mildly improved after treatment, and as a result, I will admit patient. ED course: Patient improved after fluids and meclizine. Elevated troponin. Patient denies chest pain at this time. Patient reports has been having some indigestion lately. Will admit to hospitalist service for further workup.. 12/05 07:50 Order name: Basic Metabolic Panel; Complete Time: 09:06 rn 12/05 07:50 Order name: CBC with Diff; Complete Time: 09:06 rn 12/05 07:50 Order name: High Sensitivity Troponin; Complete Time: 09:06 rn 12/05 07:50 Order name: Protime (+inr); Complete Time: 09:11 rn 12/05 07:50 Order name: Ptt, Activated; Complete Time: 09:11 rn 12/05 08:30 Order name: CREATININE WHOLE BLOOD; Complete Time: 08:45 EDMS 12/05 15:18 Order name: Troponin High Sensitivity EDMS 12/05 07:50 Order name: CT Head Angio; Complete Time: 08:45 rn 12/05 07:50 Order name: CT Neck Angio; Complete Time: 09:06 rn 12/05 07:50 Order name: CT Head Brain wo Cont; Complete Time: 09:06 rn 12/05 07:50 Order name: Accucheck; Complete Time: 08:38 rn 12/05 07:50 Order name: Cardiac monitoring; Complete Time: 08:38 rn 12/05 07:50 Order name: EKG - Nurse/Tech; Complete Time: 08:38 rn 12/05 07:50 Order name: IV Saline Lock; Complete Time: 08:38 rn 12/05 07:50 Order name: Labs collected and sent; Complete Time: 08:38 rn 12/05 07:50 Order name: NPO; Complete Time: 07:57 rn 12/05 07:50 Order name: O2 Per Protocol; Complete Time: 07:57 rn 12/05 07:50 Order name: O2 Sat Monitoring; Complete Time: 07:57 rn 12/05 07:50 Order name: Stroke Swallow Screen; Complete Time: 07:57 rn EC:22 Rate is 63 beats/min. Extreme Right axis deviation noted. QRS is negative in leads I, rn aVF. RI interval is prolonged. QRS interval is prolonged at 148 msec. T waves are Normal. No ST changes noted. Clinical impression: Paced rhythm. Interpreted by me. Reviewed by me. Administered Medications: 08:38 Drug: NS 0.9% IV 500 ml 500 ml IV at 1 bolus once; to be given as a bolus over 30 kc6 minutes Volume: 500 ml; Route: IV; Rate: 1 bolus; Site: right antecubital; 09:39 Follow up: Response: No adverse reaction; IV Status: Completed infusion; IV Intake: kc6 500ml 08:38 Drug: Meclizine PO 50 mg PO once Route: PO; kc6 09:39 Follow up: Response: No adverse reaction kc6 08:38 Drug: Ondansetron IVP 4 mg IVP once; over 2 minutes Route: IVP; Site: right antecubital;kc6 09:39 Follow up: Response: No adverse reaction kc6 Disposition Summary: 12/05/24 09:29 Hospitalization Ordered Notes: Hospitalization Status: Inpatient Admission rn Provider: Jose Bland rn Condition: Stable rn Problem: new rn Symptoms: have improved rn Bed/Room Type: Standard rn Location: Telemetry/MedSurg (Inpatient)(12/05/24 15:17) bd Room Assignment: [facility](12/05/24 15:17) Diagnosis - Dizziness and giddiness rn - Vertigo, unspecified rn Forms: - Medication Reconciliation Form rn - SBAR form rn - Leadership Thank You Letter rn NIH Stroke Scale - NIH Stroke Score Date: 12/05/2024 Time: 07:57 Total Score = 0 10. Dysarthria (speech clarity - read or repeat words) - 0(Normal) 11. Extinction and Inattention (visual/tactile/auditory/spatial/personal) - 0(No abnormality) 1a. Level of Consciousness (LOC) - 0(Alert) 1b. Level of Consciousness (LOC) (Month \T\ Age) - 0(Both) 1c. LOC Commands (Open \T\ Closes Eyes/Pastry Decorator) - 0(Both) 2. Best Gaze (Lateral Gaze Paresis) - 0(Normal) 3. Visual Field Loss - 0(No visual loss) 4. Facial Palsy - 0(Normal) 5a. Left Arm: Motor (10-second hold) - 0(No drift) 5b. Right Arm: Motor (10-second hold) - 0(No drift) 6a. Left Leg: Motor (5-second hold - always test supine) - 0(No drift) 6b. Right Leg: Motor (5-second hold - always test supine) - 0(No drift) 7. Limb Ataxia (finger/nose \T\ heel/duke - test with eyes open) - 0(Absent) 8. Sensory Loss (pinprick arms/legs/face) - 0(Normal) 9. Best Language: Aphasia (description/naming/reading) - 0(No aphasia) Initials: kc6 Signatures: Dispatcher [employer] EDMS Steph Jackson bd Erick Borrero MD MD rn Campbell, PERFECTO Schuster RN kc6 Jennifer Andrew RN RN kb3 Corrections: (The following items were deleted from the chart) 07:51 07:51 BASIC METABOLIC PANEL+C.LAB.BRZ ordered. EDMS EDMS 07:51 07:51 CBC+H.LAB.BRZ ordered. EDMS EDMS 07:51 07:51 Troponin High Sensitivity+C.LAB.BRZ ordered. EDMS EDMS 07:51 07:51 PROTIME (+INR)+COAG.LAB.BRZ ordered. EDMS EDMS 07:51 07:51 PTT, ACTIVATED+COAG.LAB.BRZ ordered. EDMS EDMS 07:51 07:51 Head Angio+CT.RAD.BRZ ordered. EDMS EDMS 07:51 07:51 Neck Angio+CT.RAD.BRZ ordered. EDMS EDMS 07:51 07:51 Head Brain Wo Cont+CT.RAD.BRZ ordered. EDMS EDMS 10:51 09:29 Telemetry/MedSurg (Inpatient) rn kb3 10:51 09:29 rn kb3 15:17 10:51 BR ER HOLD kb3 bd 15:17 10:51 ERHOLD- kb3 bd
--- NOTE | 2024-12-05 10:52 | P.HP ---
Certification for Inpatient Patient admitted to: Observation With expected LOS: <2 Midnights Patient will require the following post-hospital care: None Practitioner: I am a practitioner with admitting privileges, knowledge of patient current condition, hospital course, and medical plan of care. Services: Services provided to patient in accordance with Admission requirements found in Title 42 Section 412.3 of the Code of Federal Regulations Patient History Date of Service: 12/05/24 Primary Care Provider: Kd Reason for admission: Dizziness, Elevated Troponin History of Present Illness: This is a 79-year-old male patient with a history of cardiac bypass surgery, cardiac stent secondary to coronary artery disease along with atrial fibrillation, GERD, gout, hypothyroidism, high blood pressure that presented to the emergency room with dizziness that began 2 days ago but started to have gait instability this morning. Was brought to the emergency room at that time for evaluation. ER physician worked patient up and showed to have stable chemistries with a sodium of 139, potassium 3.7, chloride of 108, bicarb 30, BUN 32, creatinine of 1.46, glucose of 111. Stable CBC with a white cell count of 6.5, hemoglobin of 14.7, hematocrit of 44.2, platelet of 205. The patient was found to have an elevated troponin of 671.6 without chest pain but stated that he has recently been seen by his tire builder operator this past month for excessive fatigue with exertion. Plans to have a stress test completed but has not had that done so far. Family stated that he had a carotid Doppler with stable plaque formation and stenosis but no acute findings. CT of the head without contrast unremarkable and CT angio without acute finding today. Patient was given meclizine with improvement, denies any recent viral infections or inner ear dysfunction. Hospitalist team was contacted to admit patient for the elevated troponin and dizziness. Allergies No Known Allergies Allergy (Verified 06/30/23 09:42) Home medications list reviewed: Yes Home Medications: Furosemide [Lasix*] 40 mg PO BID 06/09/16 Nifedipine Xl [Procardia XL*] 90 mg PO PRN PRN 06/09/16 Budesonide [Pulmicort*] 1 puff NEB BID 08/26/19 Atorvastatin Calcium [Lipitor*] 40 mg PO Q48H 10/12/19 Omeprazole 20 mg PO DAILY 10/12/19 Amiodarone HCl [Cordarone*] 1 tab PO DAILY 09/27/23 Clopidogrel Bisulfate [Plavix*] 1 tab PO DAILY 09/27/23 Formoterol Fumarate 20 mcg NEB BID 09/27/23 Levothyroxine [Synthroid*] 1 tab PO DAILY 09/27/23 Tamsulosin HCl [Flomax] 1 tab PO DAILY 09/27/23 Famotidine [Pepcid*] 20 mg PO DAILY tab 10/30/23 Allopurinol 100 mg PO DAILY 11/23/23 Losartan Potassium [Cozaar] 12.5 mg PO DAILY 11/23/23 Potassium Chloride 20 meq PO DAILY 11/23/23 - Past Medical/Surgical History Diabetic: No -: Hypertension -: Hyperlipidemia -: Coronary artery disease -: Obstructive sleep apnea -: 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 - Family History Mother -: Heart disease Father -: Heart disease, Cancer, Other (see notes) Notes: prostate ca. mi. heart valve infection. at 93 Brother -: Heart disease - Social History Smoking Status: Never smoker Smoking therapy provided: No Alcohol use: Yes CD- Drugs: No Caffeine use: No Place of Residence: Home Review of Systems General: Unremarkable Eyes: Unremarkable ENT: Unremarkable Respiratory: Unremarkable Cardiovascular: Unremarkable Gastrointestinal: Unremarkable Genitourinary: Unremarkable Musculoskeletal: Unremarkable Integumentary: Unremarkable Neurological: As per HPI Lymphatics: Unremarkable Physical Examination - Vital Signs Temperature: 97.7 F Blood Pressure: 158/70 Pulse: 60 Respirations: 16 Pulse Ox (%): 96 (RA) - Physical Exam General: Alert, In no apparent distress, Oriented x3, Cooperative HEENT: Atraumatic, Normocephalic, PERRLA, EOMI Neck: Supple, JVD not distended, No Thyromegaly Respiratory: Clear to auscultation bilaterally Cardiovascular: No edema, Normal pulses, Regular rate/rhythm, Systolic murmur Capillary refill: <2 Seconds Gastrointestinal: Normal bowel sounds, Non-distended, No ascites, No tenderness Musculoskeletal: No clubbing, No swelling, No contractures, No erythema, No tenderness, No warmth Integumentary: No rashes, No breakdown, No significant lesion, No tenderness/swelling, No erythema, No warmth, No cyanosis Neurological: Normal speech, Normal strength at 5/5 x4 extr, Normal tone, Sensation intact, Cranial nerves 3-12 intact, Normal reflexes 2+, Normal affect, Other (NIH-0) - Studies Laboratory Data (last 24 hrs) 12/05/24 12/05/24 12/05/24 08:11 08:11 08:11 WBC 6.50 Hgb 14.7 Hct 44.2 Plt Count 205 PT 11.9 INR 1.05 APTT 33.0 Sodium 139 Potassium 3.7 BUN 32 H Creatinine 1.46 H Glucose 111 H Assessment and Plan - Problems (Diagnosis) (1) Dizziness Current Visit: Yes Status: Acute (2) Elevated troponin Current Visit: Yes Status: Acute (3) Afib Current Visit: Yes Status: Chronic Qualifiers: Atrial fibrillation type: longstanding persistent Qualified Code(s): I48.11 - Longstanding persistent atrial fibrillation (4) Hypertension Onset Date: 06/10/16 Current Visit: Yes Status: Chronic Qualifiers: Hypertension type: primary hypertension Qualified Code(s): I10 - Essential (primary) hypertension (5) Hyperlipidemia Onset Date: 06/10/16 Current Visit: Yes Status: Chronic Qualifiers: Hyperlipidemia type: unspecified Qualified Code(s): E78.5 - Hyperlipidemia, unspecified - Plan 1. Serial troponins, start patient on lovenox q12hr 2. Cardiology consultation for elevated troponin 3. Neurology consultation for dizziness. Patient has Dual pacemaker. Not candidate for MRI. CTA unremarkable. 4. Q6 hour neurologic assessment. Continue meclizine 5. Continue Aspirin, and amioderone 6. Monitor V/S and treat HTN as needed 7. Daily labs to assess stability of chemistries and CBC Discharge Plan: Home Plan to discharge in: 24 Hours - Advance Directives Does patient have a Living Will: Yes Does patient have a Durable POA for Healthcare: Yes - Code Status/Comfort Care Code Status Assessed: Yes Code Status: Full Code Critical Care: No Time Spent Managing Pts Care (In Minutes): 45
[2024-12-05] MEDS ORDERED: HYDRALAZINE HCL 20 MG/ML VIAL IV PRN (11:02)
[2024-12-05] MEDS ORDERED: MECLIZINE HCL 12.5 MG TAB PO PRN (12:23)
[2024-12-05] MEDS ORDERED: ACETAMINOPHEN 500 MG TAB PO PRN (12:23)
[2024-12-05] MEDS ORDERED: ONDANSETRON 4 MG/2 ML VIAL IV PRN (12:23)
[2024-12-05] MEDS: ENOXAPARIN 100 MG/ML SYR SQ SCH (12:45)
[2024-12-05] MEDS ORDERED: ENOXAPARIN 100 MG/ML SYR SQ ONE (13:53)
[2024-12-05] MEDS: FUROSEMIDE 40 MG TABLET PO SCH (17:00)
[2024-12-05 18:33] VITALS: BMI 28.0
[2024-12-06 05:31] LABS: Absolute Basophils 0.1 K/uL (0-0.5); Absolute Eosinophils 0.3 K/uL (0-0.5); Absolute Lymphocytes (CBC) 1.2 K/uL (0.7-4.9); Absolute Monocytes 0.6 K/uL (0.1-1.3); Absolute Neutrophil 3.8 K/uL (1.8-8.0); Basophils % 1.1 % (0-1.3); Eosinophils % 5.3 % (0-4.4); Hematocrit 40.7 % (39.6-49.0); Hemoglobin 13.8 g/dL (13.6-17.9); Lymphocytes % 19.7 % (15.3-44.8); MCH 32.9 pg (27.0-35.0); MCHC 33.9 g/dL (32.0-36.0); MCV 97.1 fL (80-100); MPV 7.6 fL (7.6-11.3); Monocytes % 9.8 % (3.3-12.3); Neutrophils % 64.1 % (41.7-73.7); Nucleated Red Blood Cells % 0.1 % (0-0); Platelets 188 thou/uL (152-406); RBC Red Blood Cell Count 4.19 M/uL (4.33-5.43); Red Cell Distribution Width 14.8 % (12.1-15.2)
[2024-12-06 05:42] LABS: PT Prothrombin Time 13.1 SECONDS (10-13.0); PTT, Activated Partial Thromb 52.9 SECONDS (27.2-37.4); Protime INR 1.16
[2024-12-06 05:59] LABS: Thyroid Stimulating Hormone 1.18 uIU/mL (0.358-3.740)
[2024-12-06] MEDS: POLYETHYL GLY 3350 17 GM/DOSE PO SCH (08:53)
[2024-12-06] MEDS: FAMOTIDINE 20 MG TAB PO SCH (08:53)
[2024-12-06] MEDS: NIFEDIPINE XL 90 MG TABLET PO SCH (08:54)
[2024-12-06] MEDS: allopurinoL 100 MG TAB PO SCH (08:54)
[2024-12-06] MEDS: AMIODARONE HCL 200 MG TAB PO SCH (08:54)
[2024-12-06] MEDS: TAMSULOSIN 0.4 MG SR CAP PO SCH (08:54)
[2024-12-06] MEDS: ASPIRIN EC 81 MG TAB PO SCH (08:54)
[2024-12-06] MEDS ORDERED: FINASTERIDE 5 MG TAB PO SCH (09:00)
--- NOTE | 2024-12-06 10:46 | P.CNS ---
Date of Consult: 12/06/24 Primary Care Provider: Kd Chief Complaint: Dizziness, Elevated Troponin History of Present Illness: Patient with PMH of CAD s/p CABG, stent, AF, PM, presented with balance problems, that has been getting worse recently, this time mention that he felt flushed all over body and was about to pass out, denies chest pain, no SOB, no JEFFERS, no syncope. Allergies No Known Allergies Allergy (Verified 06/30/23 09:42) Home medications list reviewed: Yes Home Medications: Furosemide [Lasix*] 40 mg PO BID 06/09/16 Nifedipine Xl [Procardia XL*] 90 mg PO BID 06/09/16 Atorvastatin Calcium [Lipitor*] 40 mg PO DAILY 10/12/19 Omeprazole 40 mg PO DAILY 10/12/19 Amiodarone HCl [Cordarone*] 1 tab PO DAILY 09/27/23 Clopidogrel Bisulfate [Plavix*] 1 tab PO Q48H 09/27/23 Formoterol Fumarate 20 mcg NEB BID 09/27/23 Levothyroxine [Synthroid*] 1 tab PO DAILY 09/27/23 Tamsulosin HCl [Flomax] 1 tab PO DAILY 09/27/23 Allopurinol 100 mg PO DAILY 11/23/23 Losartan Potassium [Cozaar] 25 mg PO DAILY 11/23/23 Potassium Chloride 20 meq PO DAILY 11/23/23 Finasteride 5 mg PO DAILY 12/06/24 - Past Medical/Surgical History Diabetic: No -: Hypertension -: Hyperlipidemia -: Coronary artery disease -: Obstructive sleep apnea -: 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 - Family History Mother Medical History: Heart disease Father Medical History: Heart disease, Cancer, Other (see notes) Notes: prostate ca. mi. heart valve infection. at 93 Brother Medical History: Heart disease - Social History Smoking Status: Former smoker Alcohol use: Yes CD- Drugs: No Caffeine use: No Place of Residence: Home Review of Systems 10-point ROS is otherwise unremarkable Physical Examination Temp Pulse Resp BP Pulse Ox 97.5 F 65 16 168/95 H 92 12/06/24 08:00 12/06/24 08:54 12/06/24 08:00 12/06/24 08:54 12/06/24 08:00 General: Alert, In no apparent distress HEENT: Atraumatic, PERRLA, Mucous membr. moist/pink, EOMI, Sclerae nonicteric Neck: Supple, 2+ carotid pulse no bruit, No LAD, Without JVD or thyroid abnormality Respiratory: Clear to auscultation bilaterally, Normal air movement Cardiovascular: Regular rate/rhythm, Normal S1 S2 Gastrointestinal: Normal bowel sounds, No tenderness Musculoskeletal: No tenderness Integumentary: No rashes Neurological: Normal gait, Normal speech, Normal tone, Normal affect Lymphatics: No axilla or inguinal lymphadenopathy - Problems (1) Afib Current Visit: Yes Status: Chronic Plan: Patient is currently paced, continue Nifedpine Qualifiers: Atrial fibrillation type: longstanding persistent Qualified Code(s): I48.11 - Longstanding persistent atrial fibrillation (2) NSTEMI (non-ST elevated myocardial infarction) Current Visit: No Status: Acute Plan: although patient denies having chest pain this admission but he report signs of unstable angina and his troponin is elevated, no significant delta will do coronary angiogram to check on bypass and stent. continue ASA 81 mg daily continue statin
--- NOTE | 2024-12-06 11:01 | EKG ---
Test Date: 2024-12-05 Test Time: 08:23:18 Still Pump Operator: MICHEL MEASUREMENT RESULTS: Intervals: Rate: 63 SC: 370 QRSD: 148 QT: 512 QTc: 523 Strunk: P: -81 SC: 370 QRS: 233 T: 69 INTERPRETIVE STATEMENTS: Atrial-paced rhythm with prolonged AV conduction Right superior axis deviation Nonspecific intraventricular block Abnormal ECG Compared to ECG 11/22/2023 21:01:37 Right superior axis now present Sinus rhythm no longer present Sinus arrhythmia no longer present Ventricular premature complex(es) no longer present Left-axis deviation no longer present Electronically Signed On 12-06-24 10:57:45 CDT by Markus Christy
[2024-12-06] MEDS ORDERED: NA CHLORIDE 0.9% 500 ML ONE (11:25)
[2024-12-06] MEDS ORDERED: HEPARIN 10,000 UNIT/10 ML VIAL IV ONE (11:41)
[2024-12-06] MEDS ORDERED: HEPARIN 5000 UNIT/ML 1 ML VIAL ONE (11:41)
[2024-12-06] MEDS ORDERED: LIDOCAINE 1% 20 ML MDV ONE (11:41)
[2024-12-06] MEDS ORDERED: FENTANYL CITR 100 MCG/2 ML ONE (11:47)
[2024-12-06] MEDS ORDERED: TICAGRELOR 90 MG TABLET PO ONE (12:18)
--- NOTE | 2024-12-06 13:06 | P.PN ---
Date of Service: 12/06/24 Subjective: Doing well overnight Denies any chest pain or other complaints Was having some dizziness but this is resolved ROS: 10 point ROS as noted above, otherwise negative Physical exam GEN: Alert, oriented, NAD HEENT: Normal conjunctiva, sclera anicteric CV: Regular rate and rhythm, no edema Pulm: Nonlabored respirations on room air ABD: Soft, nontender, nondistended MSK: No joint tenderness Integumentary: No rashes Neuro: Normal speech, normal affect Vitals reviewed Assessment: NSTEMI History of CAD with previous bypass/stents Atrial fibrillation with Watchman procedure in place Hypertension Hypothyroidism GERD Gout Hyperlipidemia Plan: NSTEMI History of CAD with previous bypass/stents Seen by cardiology who will perform coronary angiogram today Atrial fibrillation with Watchman procedure in place Continue nifedipine, aspirin and monitor on telemetry Hypertension Hypothyroidism GERD Gout Hyperlipidemia Home medications continued DVT PPX: Therapeutic Lovenox Code status: Full code Time Spent Managing Pts Care (In Minutes): 35
[2024-12-06] MEDS: LOSARTAN POTASSIUM 50 MG TABLET PO SCH (16:25)
--- NOTE | 2024-12-06 16:29 | OP ---
Date of Procedure: 12/06/2024 Surgeon: Markus Christy Procedures Performed: 1. Selective coronary angiogram of bypass graft. 2. PCI of the LAD with Synergy 3.0 x 32 mm drug-eluting stent. Indication For Procedure: [id number] WI. Complications: None. Estimated Blood Loss: Less than 50 cc. Access: Right common femoral artery, closed by Mynx. Sedation Time: 30 minutes with 25 of fentanyl. Description Of Procedure: After risks, and benefits, and alternatives were explained to patient, pat ient agreed to proceed with procedure and signed informed consent. The patient was brought back to [facility] slab stripper, prepped and draped in sterile fashion. Time-out was performed. Sedation was administer ed. Next, right common femoral artery access obtained using micropuncture technique. JL4 catheter w as advanced for selective angiogram of the left system that was later exchanged with a JR4 catheter f or the selective angiogram of the right coronary system. That was later exchanged for an CAMILLE cathete r for the POP shot. Then POP catheter was exchanged for an EBU 3.5 mm guide. Heparin was administ ered. ACT was therapeutic. Runthrough wire was passed across the lesion. We pre-dilated the lesion with NC 3.0 mm balloon. After that, we placed a Synergy 3.0 x 32 mm drug-eluting stent across the p roximal to mid LAD that was postdilated with an NC 3.5 mm balloon. Final angiogram shows BRITTON-3 flow . Wires were removed. Catheter was removed. Sheath was removed and TR band was applied. Hemostasi s was achieved. The patient was moved back to Recovery in stable condition. Findings: 1. Left main normal. 2. LAD; proximal to mid 90% to 70% disease and then distal mild luminal irregularities. PCI done wit h Synergy 3.0 x 32 mm drug-eluting stent. 3. Left circ; mild luminal irregularities. 4. RCA; there is a stent in the ostial to proximal RCA, it got 20% to 30% ISR in the proximal portion , and then mid to distal mild luminal irregularities. Graft: POP to LAD is atretic. Assessment And Plan: 1. Significant proximal to mid LAD disease with atretic POP, status post PCI of the proximal to mid LAD with Synergy 3.0 x 32 mm drug-eluting stent. 2. Mild ostial RCA stent ISR. Plan: 1. Aspirin 81 mg daily for life. 2. Brilinta 180 x1 was given in the slab stripper, continue Brilinta 90 mg p.o. b.i.d. for 12 months. 3. Continue aggressive medical treatment for CAD. YOLIS Voice ID: [id number] Report ID: [id number]
--- NOTE | 2024-12-06 20:17 | RAD REPORT ---
EXAMINATION: ONE VIEW CHEST XR CLINICAL INDICATION: dyspnea TECHNIQUE: Frontal chest projection is submitted. Examination is limited by patient positioning and t echnique. COMPARISON: 10/29/2024 FINDINGS: Mild interstitial lung opacities, greater on the right, could indicate interstitial pulmonary edema. The heart is upper limit normal in size with multilead pacer/defibrillator device. No displaced fractures identified. Sternotomy wires. IMPRESSION: Mild CHF is suggested, asymmetric to the right.
[2024-12-06] MEDS: TICAGRELOR 90 MG TABLET PO SCH (21:23)
[2024-12-06] MEDS: ATORVASTATIN 40 MG TAB PO SCH (21:23)
[2024-12-07 04:58] LABS: Absolute Eosinophils 0.2 K/uL (0-0.5); Absolute Lymphocytes (CBC) 0.8 K/uL (0.7-4.9); Absolute Monocytes 0.7 K/uL (0.1-1.3); Absolute Neutrophil 5.9 K/uL (1.8-8.0); Basophils % 0.5 % (0-1.3); Eosinophils % 2.9 % (0-4.4); Hematocrit 41.4 % (39.6-49.0); Hemoglobin 14.3 g/dL (13.6-17.9); Lymphocytes % 10.4 % (15.3-44.8); MCH 32.8 pg (27.0-35.0); MCHC 34.6 g/dL (32.0-36.0); MPV 7.6 fL (7.6-11.3); Neutrophils % 77.2 % (41.7-73.7); Nucleated Red Blood Cells % 0.1 % (0-0); Platelets 195 thou/uL (152-406); RBC Red Blood Cell Count 4.36 M/uL (4.33-5.43); Red Cell Distribution Width 14.5 % (12.1-15.2)
[2024-12-07 05:21] LABS: Anion Gap 8.2 mEq/L (5.0-15.0); Potassium 3.2 mEq/L (3.5-5.1)
[2024-12-07] MEDS: PANTOPRAZOLE 40MG TABLET PO SCH (05:54)
[2024-12-07 08:51] VITALS: BP 150/70; TEMP 97.8
[2024-12-07 08:56] VITALS: O2SAT 96
--- NOTE | 2024-12-07 10:24 | P.DS ---
Admission Date: 12/06/24 Discharge Date: 12/07/24 Primary Care Provider: Kd Disposition: ROUTINE DISCHARGE Discharge Condition: GOOD Reason for Admission: Dizziness, Elevated Troponin Brief History of Present Illness: This is a 79-year-old male patient with a history of cardiac bypass surgery, cardiac stent secondary to coronary artery disease along with atrial fibrillation, GERD, gout, hypothyroidism, high blood pressure that presented to the emergency room with dizziness that began 2 days ago but started to have gait instability this morning. Was brought to the emergency room at that time for ev aluation. ER physician worked patient up and showed to have stable chemistries with a sodium of 139, potassium 3.7, chloride of 108, bicarb 30, BUN 32, creatinine of 1.46, glucose of 111. Stable CBC with a white cell count of 6.5, hemoglobin of 14.7, hematocrit of 44.2, platelet of 205. 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 Plans to have a stress test completed but has not had that done so far. Family stated that he had a carotid Doppler with stable plaque formation and stenosis but no acute findings. CT of the head without contrast unremarkable and CT angio without acute finding today. Patient was given meclizine with improvement, denies any recent viral infections or inner ear dysfunction. Hospitalist team was contacted to admit patient for the elevated troponin and dizziness. Hospital Course: Assessment: NSTEMI History of CAD with previous bypass/stents Atrial fibrillation with Watchman procedure in place Hypertension Hypothyroidism GERD Gout Hyperlipidemia Patient was admitted to the hospital for NSTEMI, he underwent coronary angiogram and ultimately had a stent placed to his LAD. He has done well postoperatively and is stable for discharge. Patient will be switched from clopidogrel to Brilinta 90 mg twice daily, prescription sent to his pharmacy Other home medications should be continued as previously prescribed Please work on updating her home medication list Follow-up with your primary care doctor in the cardiologyDr. Jaelyn in 1 to 2 weeks Vital Signs/Physical Exam: Temp Pulse Resp BP Pulse Ox 97.8 F 63 16 150/70 H 96 12/07/24 08:00 12/07/24 08:52 12/07/24 08:00 12/07/24 08:52 12/07/24 08:00 General: Alert, In no apparent distress, Oriented x3 HEENT: Atraumatic, PERRLA Neck: Supple, JVD not distended Respiratory: Clear to auscultation bilaterally, Normal air movement Cardiovascular: Regular rate/rhythm, Normal S1 S2 Gastrointestinal: Normal bowel sounds, No tenderness Musculoskeletal: No tenderness Integumentary: No rashes Neurological: Normal speech, Normal tone, Normal affect Lymphatics: No axilla or inguinal lymphadenopathy Laboratory Data at Discharge: WBC 7.60 thou/uL (4.3-10.9) 12/07/24 04:44 Hgb 14.3 g/dL (13.6-17.9) 12/07/24 04:44 Hct 41.4 % (39.6-49.0) 12/07/24 04:44 Plt Count 195 thou/uL (152-406) 12/07/24 04:44 PT 13.1 SECONDS (10-13.0) H 12/06/24 05:05 INR 1.16 12/06/24 05:05 APTT 52.9 SECONDS (27.2-37.4) H 12/06/24 05:05 Sodium 140 mEq/L (136-145) 12/07/24 04:44 Potassium 3.2 mEq/L (3.5-5.1) L D 12/07/24 04:44 BUN 31 mg/dL (7-18) H 12/07/24 04:44 Creatinine 1.55 mg/dL (0.70-1.30) H 12/07/24 04:44 Glucose 117 mg/dL (74-106) H 12/07/24 04:44 Triglycerides 108 mg/dL (<150) 12/06/24 05:23 Cholesterol 152 mg/dL (<200) 12/06/24 05:23 HDL Cholesterol 35 mg/dL (40-60) L 12/06/24 05:23 Cholesterol/HDL Ratio 4.34 12/06/24 05:23 Home Medications: Furosemide [Lasix*] 40 mg PO BID 06/09/16 Atorvastatin Calcium [Lipitor*] 40 mg PO DAILY 10/12/19 Omeprazole 40 mg PO DAILY 10/12/19 Amiodarone HCl [Cordarone*] 1 tab PO DAILY 09/27/23 Formoterol Fumarate 20 mcg NEB BID 09/27/23 Levothyroxine [Synthroid*] 1 tab PO DAILY 09/27/23 Tamsulosin HCl [Flomax] 1 tab PO DAILY 09/27/23 Allopurinol 100 mg PO DAILY 11/23/23 Potassium Chloride 20 meq PO DAILY 11/23/23 Losartan Potassium [Cozaar*] 50 mg PO DAILY@1700 12/07/24 Ticagrelor [Brilinta*] 90 mg PO BID #120 tab 12/07/24 New Medications: Ticagrelor [Brilinta*] 90 mg PO BID #120 tab Physician Discharge Instructions: Patient was admitted to the hospital for NSTEMI, he underwent coronary angiogram and ultimately had a stent placed to his LAD. He has done well postoperatively and is stable for discharge. Patient will be switched from clopidogrel to Brilinta 90 mg twice daily, prescription sent to his pharmacy Other home medications should be continued as previously prescribed Please work on updating her home medication list Follow-up with your primary care doctor in the cardiologyDr. Jaelyn in 1 to 2 weeks Diet: AHA Activity: Fall precautions Followup: Markus Christy MD [ACTIVE - CAN ADMIT] - 1-2 Weeks Shon Marcial DO [Primary Care Provider] - 1-2 Weeks Time spent managing pt's care (in minutes): 45
--- NOTE | 2024-12-07 11:15 | P.PN ---
Subjective Date of Service: 12/07/24 Primary Care Provider: Kd Chief Complaint: Dizziness, Elevated Troponin Subjective: No new changes, No C/O voiced, Tolerating diet, Ambulating, Improving Review of Systems 10-point ROS is otherwise unremarkable Physical Examination - Vital Signs Temperature: 97.8 F Blood Pressure: 150/70 Pulse: 63 Respirations: 16 Pulse Ox (%): 96 - Physical Exam General: Alert, In no apparent distress HEENT: Atraumatic, PERRLA, EOMI Neck: Supple, JVD not distended Respiratory: Clear to auscultation bilaterally, Normal air movement Cardiovascular: Regular rate/rhythm, Normal S1 S2 Gastrointestinal: Normal bowel sounds, No tenderness Musculoskeletal: No tenderness Integumentary: No rashes Neurological: Normal speech, Normal tone, Normal affect Lymphatics: No axilla or inguinal lymphadenopathy - Studies Medications List Reviewed: Yes Assessment And Plan - Current Problems (Diagnosis) (1) Afib Status: Chronic Plan: Patient is currently paced, continue Nifedpine continue ASA 81 mg daily, patient got watchman. Qualifiers: Atrial fibrillation type: longstanding persistent Qualified Code(s): I48.11 - Longstanding persistent atrial fibrillation (2) NSTEMI (non-ST elevated myocardial infarction) Status: Acute Plan: although patient denies having chest pain this admission but he report signs of unstable angina and his troponin is elevated, no significant delta Coronary angiogram and shows significant p-mLAD disease with atretic POP s/p PCI, mild ISR of RCA stent continue ASA 81 mg daily Brilinta 90 mg po BID continue statin
== END 2024-12-07 10:46 | disposition home or self-care (01) | DRG 321 ==
LOC: ER 07:40 → ERHOLD 10:28 → 2ND 16:28 → OBSVTOIN 12-06 14:27
PROVIDERS: ADMIT Internal Medicine; ATTEND Hospitalist
PROC: 027034Z Dilation of Coronary Artery, One Artery with Drug-eluting Intraluminal Device, Percutaneous Approach (ICD-10-PCS; principal; 2024-12-06)
PROC: 4A023N7 Measurement of Cardiac Sampling and Pressure, Left Heart, Percutaneous Approach (ICD-10-PCS; 2024-12-06)
PROC: B2111ZZ Fluoroscopy of Multiple Coronary Arteries using Low Osmolar Contrast (ICD-10-PCS; 2024-12-06)
DX: I48.11 Longstanding persistent atrial fibrillation (principal); I21.4 Non-ST elevation (NSTEMI) myocardial infarction; T82.855A Stenosis of coronary artery stent, initial encounter; I10 Essential (primary) hypertension; E78.00 Pure hypercholesterolemia, unspecified; E03.9 Hypothyroidism, unspecified; M10.9 Gout, unspecified; K21.9 Gastro-esophageal reflux disease without esophagitis; I25.2 Old myocardial infarction; Z95.1 Presence of aortocoronary bypass graft; Z95.5 Presence of coronary angioplasty implant and graft; Z79.02 Long term (current) use of antithrombotics/antiplatelets; Z86.73 Personal history of transient ischemic attack (TIA), and cerebral infarction without residual deficits; Z95.810 Presence of automatic (implantable) cardiac defibrillator; Z90.49 Acquired absence of other specified parts of digestive tract; Z79.890 Hormone replacement therapy; Z79.899 Other long term (current) drug therapy; Z87.891 Personal history of nicotine dependence; Z96.653 Presence of artificial knee joint, bilateral
CPT/HCPCS: 36415; 70450; 70496; 70498; 71045; 76937; 80048; 80061; 82565; 84439; 84443; 84484; 85025; 85347; 85610; 85730; 93005; 93454; 94760; 96361; 96374; 99152; 99153; 99285; C1725; C1760; C1887; C1893; C9600; G0378; J1644; J1650; J2003; J2405; J3010; J7040; J8597; Q9967